=== PATIENT | male | born 1990 | race Caucasian/White ===

== ENCOUNTER 2017-05-26 17:37 | Inpatient (IN) | payer BC ==
[2017-05-26] VITALS: BP 122/76
[~2017-05-26] VITALS: Ht 185.4 cm; Wt 122.1 kg
[2017-05-26] MEDS ORDERED: Sodium Chloride 500ML 500 ML IV ONE (17:57)
[2017-05-26] MEDS ORDERED: Solu-MEDROL 125mg Inj IVP ONE (18:00)
[2017-05-26] MEDS: Albuterol ud Inhalation HHN SCH ×6 (18:40→22:06)
[2017-05-26] MEDS: Ipratropium 0.02% Inh Soln 2.5ml UD HHN SCH ×6 (18:44→22:06)
[2017-05-26 19:23] VITALS: BP 96/66
[2017-05-26 20:02] LABS: HEMATOCRIT 46.2 % (42.0-52.0); HEMOGLOBIN 15.3 G/DL (14.2-18.0); MEAN CORPUSCULAR VOLUME 89 FL (80-99); PLATELET COUNT 320 K/UL (150-450); RED BLOOD COUNT 5.17 M/UL (4.70-6.10); WHITE BLOOD COUNT 12.1 K/UL (4.8-10.8)
[2017-05-26 20:03] LABS: APPEARANCE,URINE CLEAR; BILIRUBIN, URINE NEGATIVE (NEGATIVE); GLUCOSE, URINE (UA) 3+ (NEGATIVE); KETONES,URINE NEGATIVE (NEGATIVE); LEUKOCYTE ESTERASE ,URINE NEGATIVE (NEGATIVE); NITRITE,URINE NEGATIVE (NEGATIVE); PH,URINE 5 (4.5-8.0); PROTEIN,URINE 3+ (NEGATIVE); UROBILINOGEN,URINE NORMAL MG/DL (0.0-1.0)
[2017-05-26 20:05] LABS: COLOR,URINE YELLOW
[2017-05-26 20:09] LABS: ANION GAP 15 mmol/L (5-15); BLOOD UREA NITROGEN 31 mg/dL (7-18); CALCIUM 7.6 MG/DL (8.5-10.1); CARBON DIOXIDE 25 MMOL/L (21-32); CHLORIDE 96 MMOL/L (98-107); CREATININE 2.7 MG/DL (0.55-1.30); POTASSIUM 3.7 MMOL/L (3.5-5.1); SODIUM 135 MMOL/L (136-145)
[2017-05-26] MEDS ORDERED: TOPAMAX25 MG ORAL (20:21)
[2017-05-26] MEDS ORDERED: BUTALBITAL-ACE1 EACH PO (20:21)
[2017-05-26] MEDS ORDERED: DICYCLOMINE HCL20 M1 PO (20:21)
[2017-05-26] MEDS ORDERED: KLONOPIN1 MG ORAL (20:21)
[2017-05-26] MEDS ORDERED: TEMAZEPAM30 MG ORAL (20:21)
[2017-05-26 20:22] LABS: ALANINE AMINOTRANSFERASE 319 U/L (12-78); ALBUMIN 3.7 G/DL (3.4-5.0); ALKALINE PHOSPHATASE 63 U/L (46-116); ASPARTATE AMINO TRANSFERASE 436 U/L (15-37); BILIRUBIN,TOTAL 0.5 MG/DL (0.2-1.0); CKMB 103.6 NG/ML (0.0-3.6); CREATINE KINASE 12066 U/L (26-308)
[2017-05-26] MEDS ORDERED: Piperacillin/Tazobactam 3.375 GM in NS 110 ML IVPB ONE (20:30)
[2017-05-26] MEDS ORDERED: Morphine Sulfate 4mg/ml Inj IVP ONE ×2 (20:30→22:45)
[2017-05-26] MEDS ORDERED: Azithromycin 500 MG in NS 275 ML IV ONE (20:30)
[2017-05-26] MEDS ORDERED: Azithromycin 500mg Inj IV ONE (21:32)
--- NOTE | 2017-05-26 22:42 | Emergency Room Report ---
History of Present Illness General Chief Complaint: Dyspnea/Respdistress Source: Patient Present Illness HPI 27-year-old male presents to ED for evaluation of shortness of breath. Per EMS patient had low O2 sat with wheezing and was started on breathing treatments. Patient states that he had recently been admitted to a hospital in [place] for pneumonia and was recently discharge. States he is here traveling. Denies chest pain. Denies fevers or chills. No other aggravating or relieving factors. Denies any other associated symptom Allergies: Coded Allergies: No Known Allergies (Unverified , 05/26/17) Patient History Past Medical History: HTN Past Surgical History: none Pertinent Family History: none Social History: Denies: smoking, alcohol use, drug use Immunizations: UTD Reviewed Nursing Documentation: PMH: Agreed, PSxH: Agreed Nursing Documentation-PMH Hx Hypertension: Yes Review of Systems All Other Systems: negative except mentioned in HPI Physical Exam Vital Signs Date Time Temp Pulse Resp B/P (MAP) Pulse Ox O2 Delivery O2 Flow Rate FiO2 05/26/17 17:33 98.1 90 22 126/67 97 Room Air 05/26/17 18:35 21 Sp02 EP Interpretation: reviewed, normal General Appearance: alert, GCS 15, non-toxic, mild distress, obese Head: normocephalic Eyes: bilateral eye normal inspection, bilateral eye PERRL ENT: normal ENT inspection Neck: normal inspection Respiratory: accessory muscle use, crackles, wheezing Cardiovascular #1: regular rate, rhythm, no edema Gastrointestinal: normal inspection Rectal: deferred Genitourinary: no CVA tenderness Musculoskeletal: normal inspection Neurologic: alert, oriented x3, responsive, motor strength/tone normal, sensory intact, speech normal Psychiatric: normal inspection Skin: normal inspection Lymphatic: normal inspection Medical Decision Making Diagnostic Impression: Primary Impression: Pneumonia Qualified Codes: J18.1 - Lobar pneumonia, unspecified organism Additional Impressions: Rhabdomyolysis Qualified Codes: M62.82 - Rhabdomyolysis Renal insufficiency Elevated troponin Respiratory distress Sepsis Qualified Codes: A41.9 - Sepsis, unspecified organism ER Course Hospital Course 27-year-old M presenting to ED with respiratory distress, cough and crackles Differential diagnoses include: Pneumonia, CHF exacerbation, pneumothorax, fluid overload Clinical course Patient placed on stretcher. On hospital monitor with hypoxia on room air and tachycardia. After initial history and physical, I ordered nebulizer treatments. I ordered labs, IV fluids, EKG, chest x-ray, blood cultures, UA. Patient placed on nasal cannula with O2 saturation improving Labs -leukocytosis noted, hemoglobin/hematocrit stable, BUN/Cr elevated, CK > 12 ,000, trop elevated, lactate > 6 EKG - sinus tachycardia no acute ischemic changes interpreted by me CXR - L upper lobe infiltrate Patient given 30 mL per KG fluid bolus. Given antibiotics. Case discussed with Dr. Tang and he agreed to the patient to his service for further care and support I feel this is a highly complex case requiring extensive working including EKG/ Rhythm strip, Xray/CT/US, Blood/urine lab work, repeat exams while in ED, and administration of strong opiates/narcotics for pain control, admission to hospital or close patient follow up. Diagnosis - pneumonia, rhabdomyolysis, renal insufficiency, elevated troponin, respiratory distress, sepsis Patient admitted to telemetry in serious condition Labs Test 05/26/17 18:50 05/26/17 19:22 Urine Color Yellow Urine Appearance Clear Urine pH 5 (4.5-8.0) Urine Specific [place] 1.025 (1.005-1.035) Urine Protein 3+ (NEGATIVE) Urine Glucose (UA) 3+ (NEGATIVE) Urine Ketones Negative (NEGATIVE) Urine Occult Blood 5+ (NEGATIVE) Urine Nitrite Negative (NEGATIVE) Urine Bilirubin Negative (NEGATIVE) Urine Urobilinogen Normal MG/DL (0.0-1.0) Urine Leukocyte Esterase Negative (NEGATIVE) Urine RBC 2-4 /HPF (0 - 0) Urine WBC 0-2 /HPF (0 - 0) Urine Squamous Epithelial Cells Occasional /LPF Urine Bacteria Few /HPF (NONE) White Blood Count 12.1 K/UL (4.8-10.8) Red Blood Count 5.17 M/UL (4.70-6.10) Hemoglobin 15.3 G/DL (14.2-18.0) Hematocrit 46.2 % (42.0-52.0) Mean Corpuscular Volume 89 FL (80-99) Mean Corpuscular Hemoglobin 29.6 PG (27.0-31.0) Mean Corpuscular Hemoglobin Concent 33.2 G/DL (32.0-36.0) Red Cell Distribution Width 12.0 % (11.6-14.8) Platelet Count 320 K/UL (150-450) Mean Platelet Volume 7.7 FL (6.5-10.1) Neutrophils (%) (Auto) % (45.0-75.0) Lymphocytes (%) (Auto) % (20.0-45.0) Monocytes (%) (Auto) % (1.0-10.0) Eosinophils (%) (Auto) % (0.0-3.0) Basophils (%) (Auto) % (0.0-2.0) Differential Total Cells Counted 100 Neutrophils % (Manual) 76 % (45-75) Lymphocytes % (Manual) 10 % (20-45) Monocytes % (Manual) 4 % (1-10) Eosinophils % (Manual) 0 % (0-3) Basophils % (Manual) 0 % (0-2) Band Neutrophils 10 % (0-8) Platelet Estimate Adequate Platelet Morphology Normal Red Blood Cell Morphology Normal Sodium Level 135 MMOL/L (136-145) Potassium Level 3.7 MMOL/L (3.5-5.1) Chloride Level 96 MMOL/L (98-107) Carbon Dioxide Level 25 MMOL/L (21-32) Anion Gap 15 mmol/L (5-15) Blood Urea Nitrogen 31 mg/dL (7-18) Creatinine 2.7 MG/DL (0.55-1.30) Estimat Glomerular Filtration Rate 28.1 mL/min (>60) Glucose Level 183 MG/DL (74-106) Lactic Acid Level 6.80 mmol/L (0.66-2.22) Calcium Level 7.6 MG/DL (8.5-10.1) Total Bilirubin 0.5 MG/DL (0.2-1.0) Aspartate Amino Transf (AST/SGOT) 436 U/L (15-37) Alanine Aminotransferase (ALT/SGPT) 319 U/L (12-78) Alkaline Phosphatase 63 U/L (46-116) Total Creatine Kinase 62302 U/L (26-308) Creatine Kinase MB 103.6 NG/ML (0.0-3.6) Creatine Kinase MB Relative Index 0.8 Troponin I 0.326 ng/mL (0.000-0.056) Pro-B-Type Natriuretic Peptide 1980 pg/mL (0-125) Total Protein 7.3 G/DL (6.4-8.2) Albumin 3.7 G/DL (3.4-5.0) Globulin 3.6 g/dL Albumin/Globulin Ratio 1.0 (1.0-2.7) EKG Diagnostic Results Rate: tachycardiac Rhythm: NSR ST Segments: no acute changes ASA given to the pt in ED: Yes Rhythm Strip Diag. Results EP Interpretation: yes Rhythm: NSR, no PVC's, no ectopy Chest X-Ray Diagnostic Results Chest X-Ray Diagnostic Results : Chest X-Ray Ordered: Yes # of Views/Limited/Complete: 1 View Indication: Shortness of Breath EP Interpretation: Yes Interpretation: no pneumothorax, no acute cardiopulmonary disease, other - BRITTA infiltrate Impression: Other - pneumonia Electronically Signed by: Electronically signed by Salvatore Valentine MD Last Vital Signs Date Time Temp Pulse Resp B/P (MAP) Pulse Ox O2 Delivery O2 Flow Rate FiO2 05/26/17 22:26 108 17 95 Room Air 21 05/26/17 21:01 98.0 05/26/17 19:23 96/66 Status: improved Disposition: ADMITTED INPATIENT Condition: Serious Referrals: NOT CHOSEN CLAY/,REFERRING (PCP) SALVATORE VALENTINE M.D. May 26, 2017 22:42
[2017-05-26] MEDS ORDERED: NS 1000ml 3,500 ML IVLG ONE (22:45)
[2017-05-26] MEDS ORDERED: Ketorolac 30mg Inj ONE (22:45)
[2017-05-26] MEDS ORDERED: Ketorolac 30mg Inj IV ONE (22:45)
[2017-05-26 22:53] VITALS: BP 114/61
[2017-05-27 04:44] VITALS: BP 115/65
[2017-05-27 08:00] VITALS: BP 122/68
[2017-05-27] MEDS ORDERED: Zolpidem 5mg tab ORAL PRN (08:15)
--- NOTE | 2017-05-27 08:49 | History & Physical ---
History and Physical History & Physicial 27-year-old male presents with shortness of breath.Patient noted to have a low O2 sat with wheezing and was started on breathing treatments on arrival. Patient with recent admission to a hospital in [place] for pneumonia and was recently discharged. States is traveling and presented to the ER. Denies chest pain. Denies fevers or chills. No other aggravating or relieving factors. Denies any other associated symptom. Patient noted to have acute renal failure and rhabdo. Allergies: No Known Allergies (Unverified , 05/26/17) Past Medical History: HTN, pneumonia Past Surgical History: none Pertinent Family History: none Social History: Denies: smoking, alcohol use, drug use Reviewed of systems: as above Physical exam WDWN NAD coarse breath sounds [id number] without MRG NABS nontender no HSM no CCE nonfocal Labs Test 05/26/17 18:50 05/26/17 19:22 05/26/17 22:42 Urine Color Yellow Urine Appearance Clear Urine pH 5 (4.5-8.0) Urine Specific [place] 1.025 (1.005-1.035) Urine Protein 3+ (NEGATIVE) Urine Glucose (UA) 3+ (NEGATIVE) Urine Ketones Negative (NEGATIVE) Urine Occult Blood 5+ (NEGATIVE) Urine Nitrite Negative (NEGATIVE) Urine Bilirubin Negative (NEGATIVE) Urine Urobilinogen Normal MG/DL (0.0-1.0) Urine Leukocyte Esterase Negative (NEGATIVE) Urine RBC 2-4 /HPF (0 - 0) Urine WBC 0-2 /HPF (0 - 0) Urine Squamous Epithelial Cells Occasional /LPF Urine Bacteria Few /HPF (NONE) White Blood Count 12.1 K/UL (4.8-10.8) Red Blood Count 5.17 M/UL (4.70-6.10) Hemoglobin 15.3 G/DL (14.2-18.0) Hematocrit 46.2 % (42.0-52.0) Mean Corpuscular Volume 89 FL (80-99) Mean Corpuscular Hemoglobin 29.6 PG (27.0-31.0) Mean Corpuscular Hemoglobin Concent 33.2 G/DL (32.0-36.0) Red Cell Distribution Width 12.0 % (11.6-14.8) Platelet Count 320 K/UL (150-450) Mean Platelet Volume 7.7 FL (6.5-10.1) Neutrophils (%) (Auto) % (45.0-75.0) Lymphocytes (%) (Auto) % (20.0-45.0) Monocytes (%) (Auto) % (1.0-10.0) Eosinophils (%) (Auto) % (0.0-3.0) Basophils (%) (Auto) % (0.0-2.0) Differential Total Cells Counted 100 Neutrophils % (Manual) 76 % (45-75) Lymphocytes % (Manual) 10 % (20-45) Monocytes % (Manual) 4 % (1-10) Eosinophils % (Manual) 0 % (0-3) Basophils % (Manual) 0 % (0-2) Band Neutrophils 10 % (0-8) Platelet Estimate Adequate Platelet Morphology Normal Red Blood Cell Morphology Normal Sodium Level 135 MMOL/L (136-145) Potassium Level 3.7 MMOL/L (3.5-5.1) Chloride Level 96 MMOL/L (98-107) Carbon Dioxide Level 25 MMOL/L (21-32) Anion Gap 15 mmol/L (5-15) Blood Urea Nitrogen 31 mg/dL (7-18) Creatinine 2.7 MG/DL (0.55-1.30) Estimat Glomerular Filtration Rate 28.1 mL/min (>60) Glucose Level 183 MG/DL (74-106) Lactic Acid Level 6.80 mmol/L (0.66-2.22) 13.00 mmol/L (0.66-2.22) Calcium Level 7.6 MG/DL (8.5-10.1) Total Bilirubin 0.5 MG/DL (0.2-1.0) Aspartate Amino Transf (AST/SGOT) 436 U/L (15-37) Alanine Aminotransferase (ALT/SGPT) 319 U/L (12-78) Alkaline Phosphatase 63 U/L (46-116) Total Creatine Kinase 16564 U/L (26-308) Creatine Kinase MB 103.6 NG/ML (0.0-3.6) Creatine Kinase MB Relative Index 0.8 Troponin I 0.326 ng/mL (0.000-0.056) Pro-B-Type Natriuretic Peptide 1980 pg/mL (0-125) Total Protein 7.3 G/DL (6.4-8.2) Albumin 3.7 G/DL (3.4-5.0) Globulin 3.6 g/dL Albumin/Globulin Ratio 1.0 (1.0-2.7) IMPRESSION ARF rhabdo elevated Liver enzyme elevated troponin Pneumonia dyspnea elevated CK PLAN Iv hydration follow up labs and liver enzymes renal US GI and renal evaluation IV antibiotics ID evaluation pain management close followup all noted and appreciated MEGAN العلي May 27, 2017 08:49
[2017-05-27] MEDS ORDERED: Aspirin Baby 81mg ORAL SCH (09:00)
--- NOTE | 2017-05-27 09:24 | General Progress Note ---
Assessment/Plan Assessment/Plan Assessment - Rhabdo - Elevated transaminases, likely due to above - Lactic acidosis - Epigastric pain , ? etiology - Reactive airways - recent PNA - hemoptysis Recommendations - IVF - Follow LFT - CT Abd/Plevis with po contrast only - follow lactate and Cr - check hepatitis serologies - clear liquids for now - PPI - Hold ASA, Tylenol, Topamax Thank you Sukumar Mcmillan MD Subjective Allergies: Coded Allergies: No Known Allergies (Unverified , 05/26/17) Objective Last 24 Hour Vital Signs Date Time Temp Pulse Resp B/P (MAP) Pulse Ox O2 Delivery O2 Flow Rate FiO2 05/27/17 04:44 98.4 105 20 115/65 92 05/27/17 04:00 105 05/27/17 00:00 102 05/26/17 23:30 98.0 85 20 114/61 100 Nasal Cannula 3.0 21 05/26/17 23:20 98.0 05/26/17 23:20 98.0 05/26/17 22:53 85 20 114/61 100 Nasal Cannula 3.0 05/26/17 22:26 108 17 95 Room Air 21 05/26/17 22:04 21 05/26/17 22:04 105 24 94 Room Air 21 05/26/17 22:04 105 24 94 Room Air 21 05/26/17 21:38 21 05/26/17 21:38 105 24 94 Room Air 21 05/26/17 21:38 105 24 94 Room Air 21 05/26/17 21:17 21 05/26/17 21:17 105 24 94 Room Air 21 05/26/17 21:15 105 24 Room Air 21 05/26/17 21:01 98.0 05/26/17 20:14 105 24 94 Room Air 21 05/26/17 19:39 21 05/26/17 19:38 105 24 94 Room Air 21 05/26/17 19:37 105 24 96 Simple Mask 05/26/17 19:23 105 24 96/66 96 Simple Mask 05/26/17 19:21 100 22 93 Room Air 21 05/26/17 19:21 21 05/26/17 19:18 100 22 93 Room Air 21 05/26/17 19:00 100 22 Room Air 21 05/26/17 18:47 21 05/26/17 18:39 100 22 93 Room Air 21 05/26/17 18:35 100 22 Room Air 21 05/26/17 17:33 98.1 90 22 126/67 97 Room Air Intake and Output 05/26/17 05/27/17 19:00 07:00 Intake Total 500 ml 1690 ml Output Total 1000 ml Balance 500 ml 690 ml Intake Oral 480 ml IV Total 500 ml 1210 ml Output Urine Total 1000 ml # Voids 1 1 Laboratory Tests 05/26/17 18:50: Urine Color Yellow, Urine Appearance Clear, Urine pH 5, Urine Specific [place] 1.025, Urine Protein 3+H, Urine Glucose (UA) 3+H, Urine Ketones Negative, Urine Occult Blood 5+H, Urine Nitrite Negative, Urine Bilirubin Negative, Urine Urobilinogen Normal, Urine Leukocyte Esterase Negative, Urine RBC 2-4H, Urine WBC 0-2, Urine Squamous Epithelial Cells Occasional, Urine Bacteria Few 05/26/17 19:22: White Blood Count 12.1H, Red Blood Count 5.17, Hemoglobin 15.3, Hematocrit 46.2 , Mean Corpuscular Volume 89, Mean Corpuscular Hemoglobin 29.6, Mean Corpuscular Hemoglobin Concent 33.2, Red Cell Distribution Width 12.0, Platelet Count 320, Mean Platelet Volume 7.7, Neutrophils (%) (Auto) , Lymphocytes (%) ( Auto) , Monocytes (%) (Auto) , Eosinophils (%) (Auto) , Basophils (%) (Auto) , Differential Total Cells Counted 100, Neutrophils % (Manual) 76H, Lymphocytes % (Manual) 10L, Monocytes % (Manual) 4, Eosinophils % (Manual) 0, Basophils % ( Manual) 0, Band Neutrophils 10H, Platelet Estimate Adequate, Platelet Morphology Normal, Red Blood Cell Morphology Normal, Sodium Level 135L, Potassium Level 3.7, Chloride Level 96L, Carbon Dioxide Level 25, Anion Gap 15, Blood Urea Nitrogen 31H, Creatinine 2.7H, Estimat Glomerular Filtration Rate 28.1, Glucose Level 183H, Lactic Acid Level 6.80H, Calcium Level 7.6L, Total Bilirubin 0.5, Aspartate Amino Transf (AST/SGOT) 436H, Alanine Aminotransferase (ALT/SGPT) 319H, Alkaline Phosphatase 63, Total Creatine Kinase 18299X, Creatine Kinase MB 103.6H, Creatine Kinase MB Relative Index 0.8, Troponin I 0.326H, Pro-B-Type Natriuretic Peptide 1980H, Total Protein 7.3, Albumin 3.7, Globulin 3.6, Albumin/Globulin Ratio 1.0 05/26/17 22:42: Lactic Acid Level 13.00H Height (Feet): 6 Height (Inches): 1.00 Weight (Pounds): 260 SUKUMAR MCMILLAN May 27, 2017 09:24
[2017-05-27] MEDS: Albuterol/Ipratropium 3ml neb HHN PRN (09:25)
[2017-05-27] MEDS: Sodium Chloride 500ML 550 ML IV SCH ×5 (09:29→22:55)
[2017-05-27] MEDS: Heparin 5000 units/ml inj SUBQ SCH ×2 (09:37→20:55)
[2017-05-27] MEDS ORDERED: Topiramate 25mg tab ORAL SCH (10:00)
[2017-05-27] MEDS: Norco 5mg/325mg tab ORAL PRN ×2 (10:45→17:05)
[2017-05-27 10:48] LABS: HEMATOCRIT 39.2 % (42.0-52.0); HEMOGLOBIN 13.5 G/DL (14.2-18.0); MEAN CORPUSCULAR VOLUME 86 FL (80-99); PLATELET COUNT 229 K/UL (150-450); RED BLOOD COUNT 4.53 M/UL (4.70-6.10); RED CELL DISTRIBUTION WIDTH 11.5 % (11.6-14.8); WHITE BLOOD COUNT 19.2 K/UL (4.8-10.8)
[2017-05-27] MEDS ORDERED: cefTRIAXone 1 GM in D5W 55 ML IVPB SCH (11:00)
[2017-05-27 11:27] LABS: ANION GAP 11 mmol/L (5-15); BLOOD UREA NITROGEN 31 mg/dL (7-18); CALCIUM 7.5 MG/DL (8.5-10.1); CARBON DIOXIDE 25 MMOL/L (21-32); CHLORIDE 103 MMOL/L (98-107); CHOLESTEROL 117 MG/DL (< 200); CREATINE KINASE 8174 U/L (26-308); CREATININE 2.4 MG/DL (0.55-1.30); HDL CHOLESTEROL 28 MG/DL (40-60); POTASSIUM 3.2 MMOL/L (3.5-5.1); SODIUM 139 MMOL/L (136-145); TRIGLYCERIDES 226 MG/DL (30-150)
[2017-05-27 12:00] VITALS: BP 111/57
--- NOTE | 2017-05-27 12:42 | Diagnostic Imaging Report ---
Indication: Dyspnea Technique: XRAY Chest 1v Comparison: None Findings: Patient is rotated to the right. Heart is enlarged. Mediastinal contours are sharp. There is mild central pulmonary vascular congestion. There is hazy consolidation in the left upper lobe. No pleural effusion. No pneumothorax. No acute osseous abnormality seen. Impression: Hazy left upper lobe opacity most concerning for pneumonia. This corresponds with the pulmonary interpretation of the treating ER physician. Mild cardiomegaly.
[2017-05-27] MEDS ORDERED: Dicyclomine HCl 10mg/5ml oral soln ORAL PRN (13:00)
[2017-05-27] MEDS: Solu-MEDROL 40mg Inj IVP SCH ×2 (14:41→22:27)
[2017-05-27 16:00] VITALS: BP 116/70
--- NOTE | 2017-05-27 18:03 | Cardiology Progress Note ---
Assessment/Plan Assessment/Plan The patient is seen and examined, full consult note is dictated. Objective Last 24 Hour Vital Signs Date Time Temp Pulse Resp B/P (MAP) Pulse Ox O2 Delivery O2 Flow Rate FiO2 05/27/17 09:40 28 05/27/17 09:40 99 22 94 Nasal Cannula 2.0 28 05/27/17 09:30 98 22 90 Nasal Cannula 2.0 28 05/27/17 08:00 98.2 107 18 122/68 94 05/27/17 04:44 98.4 105 20 115/65 92 05/27/17 04:00 105 05/27/17 00:00 102 05/26/17 23:30 98.0 85 20 114/61 100 Nasal Cannula 3.0 21 05/26/17 23:20 98.0 05/26/17 23:20 98.0 05/26/17 22:53 85 20 114/61 100 Nasal Cannula 3.0 05/26/17 22:26 108 17 95 Room Air 21 05/26/17 22:04 21 05/26/17 22:04 105 24 94 Room Air 21 05/26/17 22:04 105 24 94 Room Air 21 05/26/17 21:38 21 05/26/17 21:38 105 24 94 Room Air 21 05/26/17 21:38 105 24 94 Room Air 21 05/26/17 21:17 21 05/26/17 21:17 105 24 94 Room Air 21 05/26/17 21:15 105 24 Room Air 21 05/26/17 21:01 98.0 05/26/17 20:14 105 24 94 Room Air 21 05/26/17 19:39 21 05/26/17 19:38 105 24 94 Room Air 21 05/26/17 19:37 105 24 96 Simple Mask 21 05/26/17 19:23 105 24 96/66 96 Simple Mask 05/26/17 19:21 100 22 93 Room Air 21 05/26/17 19:21 21 05/26/17 19:18 100 22 93 Room Air 21 05/26/17 19:00 100 22 Room Air 21 05/26/17 18:47 21 05/26/17 18:39 100 22 93 Room Air 21 05/26/17 18:35 100 22 Room Air 21 Intake and Output 05/26/17 05/27/17 19:00 07:00 Intake Total 500 ml 1690 ml Output Total 1000 ml Balance 500 ml 690 ml Intake Oral 480 ml IV Total 500 ml 1210 ml Output Urine Total 1000 ml # Voids 1 1 Laboratory Tests Test 05/26/17 18:50 05/26/17 19:22 05/26/17 22:42 05/27/17 10:15 Urine Color Yellow Urine Appearance Clear Urine pH 5 (4.5-8.0) Urine Specific [place] 1.025 (1.005-1.035) Urine Protein 3+ (NEGATIVE) H Urine Glucose (UA) 3+ (NEGATIVE) H Urine Ketones Negative (NEGATIVE) Urine Occult Blood 5+ (NEGATIVE) H Urine Nitrite Negative (NEGATIVE) Urine Bilirubin Negative (NEGATIVE) Urine Urobilinogen Normal MG/DL (0.0-1.0) Urine Leukocyte Esterase Negative (NEGATIVE) Urine RBC 2-4 /HPF (0 - 0) H Urine WBC 0-2 /HPF (0 - 0) Urine Squamous Epithelial Cells Occasional /LPF Urine Bacteria Few /HPF (NONE) White Blood Count 12.1 K/UL (4.8-10.8) H 19.2 K/UL (4.8-10.8) #H Red Blood Count 5.17 M/UL (4.70-6.10) 4.53 M/UL (4.70-6.10) L Hemoglobin 15.3 G/DL (14.2-18.0) 13.5 G/DL (14.2-18.0) L Hematocrit 46.2 % (42.0-52.0) 39.2 % (42.0-52.0) L Mean Corpuscular Volume 89 FL (80-99) 86 FL (80-99) Mean Corpuscular Hemoglobin 29.6 PG (27.0-31.0) 29.9 PG (27.0-31.0) Mean Corpuscular Hemoglobin Concent 33.2 G/DL (32.0-36.0) 34.6 G/DL (32.0-36.0) Red Cell Distribution Width 12.0 % (11.6-14.8) 11.5 % (11.6-14.8) L Platelet Count 320 K/UL (150-450) 229 K/UL (150-450) Mean Platelet Volume 7.7 FL (6.5-10.1) 7.8 FL (6.5-10.1) Neutrophils (%) (Auto) % (45.0-75.0) % (45.0-75.0) Lymphocytes (%) (Auto) % (20.0-45.0) % (20.0-45.0) Monocytes (%) (Auto) % (1.0-10.0) % (1.0-10.0) Eosinophils (%) (Auto) % (0.0-3.0) % (0.0-3.0) Basophils (%) (Auto) % (0.0-2.0) % (0.0-2.0) Differential Total Cells Counted 100 100 Neutrophils % (Manual) 76 % (45-75) H 66 % (45-75) Lymphocytes % (Manual) 10 % (20-45) L 11 % (20-45) L Monocytes % (Manual) 4 % (1-10) 7 % (1-10) Eosinophils % (Manual) 0 % (0-3) 0 % (0-3) Basophils % (Manual) 0 % (0-2) 0 % (0-2) Band Neutrophils 10 % (0-8) H 16 % (0-8) H Platelet Estimate Adequate Adequate Platelet Morphology Normal Normal Red Blood Cell Morphology Normal Normal Sodium Level 135 MMOL/L (136-145) L 139 MMOL/L (136-145) Potassium Level 3.7 MMOL/L (3.5-5.1) 3.2 MMOL/L (3.5-5.1) L Chloride Level 96 MMOL/L (98-107) L 103 MMOL/L (98-107) Carbon Dioxide Level 25 MMOL/L (21-32) 25 MMOL/L (21-32) Anion Gap 15 mmol/L (5-15) 11 mmol/L (5-15) Blood Urea Nitrogen 31 mg/dL (7-18) H 31 mg/dL (7-18) H Creatinine 2.7 MG/DL (0.55-1.30) H 2.4 MG/DL (0.55-1.30) H Estimat Glomerular Filtration Rate 28.1 mL/min (>60) 32.2 mL/min (>60) Glucose Level 183 MG/DL (74-106) H 167 MG/DL (74-106) H Lactic Acid Level 6.80 mmol/L (0.66-2.22) H 13.00 mmol/L (0.66-2.22) H Calcium Level 7.6 MG/DL (8.5-10.1) L 7.5 MG/DL (8.5-10.1) L Total Bilirubin 0.5 MG/DL (0.2-1.0) Aspartate Amino Transf (AST/SGOT) 436 U/L (15-37) H Alanine Aminotransferase (ALT/SGPT) 319 U/L (12-78) H Alkaline Phosphatase 63 U/L (46-116) Total Creatine Kinase 68489 U/L (26-308) H 8174 U/L (26-308) H Creatine Kinase MB 103.6 NG/ML (0.0-3.6) H Creatine Kinase MB Relative Index 0.8 Troponin I 0.326 ng/mL (0.000-0.056) 0.972 ng/mL (0.000-0.056) Pro-B-Type Natriuretic Peptide 1980 pg/mL (0-125) H Total Protein 7.3 G/DL (6.4-8.2) Albumin 3.7 G/DL (3.4-5.0) Globulin 3.6 g/dL Albumin/Globulin Ratio 1.0 (1.0-2.7) Triglycerides Level 226 MG/DL (30-150) H Cholesterol Level 117 MG/DL (< 200) LDL Cholesterol 56 mg/dL (<100) HDL Cholesterol 28 MG/DL (40-60) L Cholesterol/HDL Ratio 4.2 (3.3-4.4) Test 05/27/17 11:20 Urine Eosinophils None seen Urine Random Sodium 15 MEQ/L (20-110) L Urine Creatinine 69.1 MG/DL (30.0-125.0) Microbiology Date/Time Source Procedure Growth Status 05/26/17 19:22 Nasal Nares Influenza Types A,B Antigen (DEANA) - Final Complete CRISTA MURPHY May 27, 2017 18:03
[2017-05-27] MEDS: Morphine Sulfate 4mg/ml Inj IVP PRN ×2 (18:49→22:29)
[2017-05-27] MEDS ORDERED: Morphine Sulfate 2mg/ml Inj IVP PRN (19:00)
[2017-05-27 20:00] VITALS: BP 132/90
[2017-05-28] VITALS: BP 124/80
[2017-05-28] MEDS: Albuterol/Ipratropium 3ml neb HHN PRN ×2 (00:20→21:14)
[2017-05-28] MEDS: Sodium Chloride 500ML 550 ML IV SCH ×6 (01:16→21:41)
[2017-05-28] MEDS: Morphine Sulfate 4mg/ml Inj IVP PRN ×6 (02:53→21:41)
--- NOTE | 2017-05-28 04:15 | Consultation ---
DATE OF CONSULTATION: 05/27/2017 CARDIOLOGY CONSULTATION CONSULTING PHYSICIAN: Miguel Leiva M.D. ATTENDING/REFERRING PHYSICIAN: Stu Tang M.D. REASON FOR CONSULTATION: Management of shortness of breath and elevated troponin level. HISTORY OF PRESENT ILLNESS: The patient is a very unfortunate 27-year-old gentleman, who presents to the emergency department for evaluation of shortness of breath. According to EMS, the patient had low O2 saturation with wheezing and was started on breathing treatment. He was recently admitted to hospital in [place] for pneumonia and was recently discharged. He states that he is visiting [place] on vacation. He denies any chest pain at the time of arrival to the hospital, but had some fever and chills prior to this admission while he was admitted for pneumonia in [place]. He denies any prior history of coronary artery disease or congestive heart failure. He states that he did not have any shortness of breath with his usual activities of daily living. He is seen in cardiology consultation as the troponin I level was elevated. A 12-lead electrocardiogram was assessed and showed no evidence of ST and T-wave abnormalities. This patient is seen in cardiology consultation at the request of Dr. Tang. PAST MEDICAL HISTORY: 1. Hypertension. 2. Obesity. 3. History of recent pneumonia admitted to a hospital in [place]. PAST SURGICAL HISTORY: None. MEDICATIONS: List of medication as an outpatient, he is on butalbital/acetaminophen 50/300 mg one tablet every six hours, Klonopin 1 mg three times a day p.r.n. anxiety, dicyclomine hydrochloride 20 mg p.o. two times a day, temazepam 30 mg p.o. nightly p.r.n. insomnia, and Topamax 25 mg q.12 h. SOCIAL HISTORY: Denies any tobacco, alcohol, or illicit drug use. FAMILY HISTORY: No premature coronary artery disease or arrhythmogenic in first-degree relatives. REVIEW OF SYSTEMS: HEENT: He is complaining of headaches, but no dizziness or blurred vision. CONSTITUTIONAL: He complains of generalized body pain and weakness. He had fever and chills in the recent past, but currently denying it. CARDIOVASCULAR: He had some chest pain and shortness of breath, but no PND, orthopnea, or leg swelling. Denies any syncope. PULMONARY: Denies any cough, although he has wheezing, shortness of breath, and low O2 saturation. GASTROINTESTINAL: Denies any nausea, vomiting, diarrhea, constipation, abdominal pain, or GI bleed. GENITOURINARY: Denies any hematuria, dysuria, or incontinence. NEUROLOGICAL: Denies any motor dysfunction, sensory deficit, or altered speech. PHYSICAL EXAMINATION: VITAL SIGNS: At the time of arrival to the emergency department, blood pressure was 126/67, pulse of 90, respirations 22, temperature 98.1 degrees Fahrenheit, and O2 saturation 97% on room air. GENERAL: The patient is a pleasant 27-year-old gentleman, morbidly obese, in no apparent respiratory distress, complaining of generalized body pain. HEENT: Atraumatic, normocephalic. Anicteric. Pupils are equal, round, and reactive to light and accommodation. Extraocular muscles intact. NECK: JVP less than 5 cmH2O. No carotid bruit. Carotid upstrokes 2+ bilaterally. CARDIOVASCULAR SYSTEM: Normal S1, S2. Regular rate and rhythm. No murmurs, gallops, or rubs. PMI is at fourth intercostal space in the midclavicular line. LUNGS: Clear to auscultation bilaterally. ABDOMEN: Soft, nontender, nondistended. No hepatosplenomegaly. Positive bowel sounds. EXTREMITIES: No evidence of edema, clubbing, or cyanosis. LABORATORY FINDINGS: WBC of 12.1, hemoglobin of 15.3, hematocrit of 46.2, and platelet count 320,000. There was between 10% to 16% bandemia. Chemistry showed sodium 135, potassium 3.7, chloride 96, bicarbonate 25, BUN of 31, creatinine 2.7, glucose is 183, and calcium is 7.3. CK-MB was 103.6. Total CK was 12,066. ProBNP was 1980. Troponin I first was 0.326 and second was 0.972. A 12-lead electrocardiogram showed sinus tachycardia with no ST and T-wave abnormalities. A chest x-ray showed left upper lobe infiltration consistent with pneumonia. ASSESSMENT AND PLAN: The patient is a very unfortunate 27-year-old gentleman seen in cardiology consultation at the request of Dr. Tang. 1. Dyspnea, most likely due to pneumonia as there is presence of leukocytosis and bandemia. I would like to, however, perform 2D echocardiography to assess left ventricular systolic and diastolic function. I will also like to give one empiric dose of Lasix 20 mg IV push x1 dose as the chest x-ray shows some signs of underlying interstitial edema. Beta-natriuretic peptide is also slightly elevated. We will continue with measuring beta-natriuretic peptide in the morning. Further therapeutic and diagnostic decision will be based on the results of echocardiography. 2. History of hypertension, currently blood pressure is well controlled. 3. Sinus tachycardia due to infection/pneumonia. 4. Possible rhabdomyolysis. I will like to obtain urine toxicology screen in this patient. I will like to thank, Dr. Tang, for involving me in the care of this most pleasant patient. Miguel Leiva M.D. DR: Clementina JOB#: [id number] CC:
[2017-05-28 04:58] VITALS: BP 116/65
--- NOTE | 2017-05-28 05:00 | Consultation ---
DATE OF CONSULTATION: 05/27/2017 GASTROENTEROLOGY CONSULTATION REPORT CHIEF COMPLAINT: I was asked to see this patient for evaluation of abnormal liver tests. HISTORY OF PRESENT ILLNESS: The patient is a 27-year-old white man who is admitted with cough, hemoptysis, shortness of breath, and abdominal pain. This patient was apparently admitted to a [facility] about two weeks ago for pneumonia and was treated and discharged. He is now in [place] for business, but has recurrence of his symptoms. He is complaining of one week of some cough with hemoptysis, pain with breathing and with coughing. He also has significant epigastric abdominal pain. He has no spontaneous vomiting, but he was nauseous and he tried to induce emesis with his own finger. He had panendoscopy and colonoscopy few months earlier this year, but for a different type of pain, which was in the left upper quadrant and the results were unrevealing. He has not had any diarrhea, hematochezia, or melena. His emergency room evaluation has shown likely rhabdomyolysis with extremely high CPK levels and with it, his transaminases are high. He has lactic acidosis and mild elevation of CPK-MB. PAST MEDICAL HISTORY: Status post appendectomy, status post cholecystectomy, history of anal fissure surgery x2, and history of migraines. OUTPATIENT MEDICATIONS: Include Klonopin, temazepam, and Topamax. SOCIAL HISTORY: The patient does not smoke at this time, although previously smoked. He does not drink alcohol. He is involved in [employer]. FAMILY HISTORY: Noncontributory. REVIEW OF SYSTEMS: Otherwise negative. PHYSICAL EXAMINATION: GENERAL: Moderately obese white man, seen in his room. HEENT: Normocephalic and atraumatic. Sclerae anicteric. Oropharynx is clear. NECK: Supple. CHEST: Revealed bilateral wheezes and rhonchi. CARDIOVASCULAR: Revealed a regular rhythm. ABDOMEN: Soft and obese, but there was epigastric ventral abdominal tenderness to palpation with mild voluntary guarding, but no masses were appreciated. EXTREMITIES: Revealed no edema. LABORATORY AND DIAGNOSTIC DATA: Chest x-ray was noted. ASSESSMENT: This patient presents with marked elevation in his CPK in a pattern which is consistent with rhabdomyolysis. His transaminase elevation may be due to the same process due to a false positive elevation from cross-reactivity. However, his hepatitis serologies will be checked. In addition, given his significant epigastric abdominal pain, CT scan of the abdomen and pelvis should be done to rule out any other pathology especially in lieu of his lactic acidosis. I will hold few of his medications including aspirin, Tylenol, and tobramycin. Continue his Prilosec. His diet should be downgraded to clear liquids until etiology of his nausea and epigastric abdominal discomfort are identified. IV fluids should be given aggressively and his labs should be followed closely. RECOMMENDATIONS: Per above discussion and per orders written in the chart. Thank you for asking me to participate in the care of this patient. Sukumar Mcmillan M.D. DR: Michael JOB#: [id number] CC:
--- NOTE | 2017-05-28 05:15 | Consultation ---
DATE OF CONSULTATION: RENAL CONSULTATION CONSULTING PHYSICIAN: Dania Troncoso M.D. REFERRING PHYSICIAN: Stu Tang M.D. REASON FOR CONSULTATION: Elevated creatinine. HISTORY OF PRESENT ILLNESS: This is a 27-year-old gentleman with history of hypertension. The patient presented to the ER for shortness of breath with cough with blood for 3 days and renal was consulted for the elevated CPK, rhabdomyolysis, and also elevated creatinine. According to the patient, he was fine few days before and then he has been coughing up with blood for 3 days and was also shortness of breath and he presented to the ER. The patient was found to have elevated CPK and also with elevated creatinine of 2.7. The patient never been told that he has kidney problem. However, the patient confronted he used Motrin on and off for couple of months and then he did not remember when was his last use, and the patient denies any chest pain, nausea, vomiting, abdominal pain, or diarrhea. PAST MEDICAL HISTORY: Hypertension. PAST SURGICAL HISTORY: None. ALLERGIES: No known drug allergies. MEDICATION: Reviewed. SOCIAL HISTORY: Denies smoking, alcohol, and drug use. REVIEW OF SYSTEMS: A 14-point was negative as except in the history of present illness. PHYSICAL EXAMINATION: VITAL SIGNS: Blood pressure 111/57, heart rate 105, respiratory rate 18, temperature is 98.1, and oxygen saturation 95% on room air. The patient's urine output is 1650. GENERAL: On examination, the patient is in no acute distress. Coughing with blood in front of me. Alert, awake and oriented x3. HEENT: Atraumatic and normocephalic. NECK: Supple. Trachea is in the midline. LUNGS: Bilateral crackles present. No rales, no rhonchi. HEART: S1 and S2. Regular rate and rhythm. No murmur. ABDOMEN: Soft and nontender. Bowel sounds present. EXTREMITIES: No edema. LABORATORY DATA: White count 19.2, hemoglobin 13.5, hematocrit 39.2, and platelet count is 229,000. Chemistry - sodium 139, potassium 3.2, chloride 103, bicarbonate 25, BUN 31, creatinine 2.4, and glucose 157. Lactic acid 13. Calcium 7.5. CPK trended down from 12,000 to 8174, and troponin is elevated from 0.226 to 0.972, and triglyceride level is 227, and HDL 28 and LDL is 56. UA shows a specific gravity of 1.025, 3+ protein, 2+ glucose and 5+ occult blood, negative nitrite, negative leukocyte esterase, 2 to 4 RBCs, and 0 to 2 WBCs. Urine protein is negative. The chest x-ray showed that his left upper lobe opacity is most concerning for the pneumonia. ASSESSMENT: 1. Acute kidney injury. We do not have any previous laboratories to compare. According to the patient, he never been told that he has kidney disease. 2. Rhabdomyolysis. 3. Left upper lobe pneumonia. 4. Hypertension. 5. Elevated troponin. PLAN: 1. Continue IV fluids. 2. Replace potassium for hypokalemia. 3. Renal ultrasound. 4. Urine electrolyte. 5. Urine eosinophils. 6. Monitor INR and electrolytes. 7. Avoid nephrotoxic agent. 8. Medication should be in the renal dosage. Thank you for the consultation and we will follow up. Dania Troncoso M.D. DR: YAZ JOB#: [id number] CC: SARAH
[2017-05-28] MEDS: Solu-MEDROL 40mg Inj IVP SCH (06:19)
[2017-05-28 08:00] VITALS: BP 125/90
[2017-05-28 08:22] LABS: BASOPHILS % (AUTO) 0.4 % (0.0-2.0); HEMATOCRIT 39.4 % (42.0-52.0); HEMOGLOBIN 13.4 G/DL (14.2-18.0); LYMPHOCYTES % (AUTO) 8.6 % (20.0-45.0); MEAN CORPUSCULAR VOLUME 88 FL (80-99); MONOCYTES % (AUTO) 6.1 % (1.0-10.0); NEUTROPHILS % (AUTO) 84.8 % (45.0-75.0); PLATELET COUNT 223 K/UL (150-450); RED CELL DISTRIBUTION WIDTH 11.9 % (11.6-14.8); WHITE BLOOD COUNT 15.3 K/UL (4.8-10.8)
[2017-05-28 08:41] LABS: AMMONIA 41 umol/L (11-32)
[2017-05-28 08:42] LABS: INR 1.1 (0.9-1.1)
--- NOTE | 2017-05-28 08:42 | General Progress Note ---
Assessment/Plan Assessment/Plan IMPRESSION ARF rhabdo elevated Liver enzyme elevated troponin Pneumonia dyspnea elevated CK PLAN Iv hydration follow up labs and liver enzymes renal US GI and renal evaluation IV antibiotics ID evaluation hydration as able pain management close followup and monitor of labs follow up troponins- likely due to ARF and demand ischemia all noted and appreciated Subjective Allergies: Coded Allergies: No Known Allergies (Unverified , 05/26/17) Objective Last 24 Hour Vital Signs Date Time Temp Pulse Resp B/P (MAP) Pulse Ox O2 Delivery O2 Flow Rate FiO2 05/28/17 08:25 Nasal Cannula 3.0 32 05/28/17 08:25 96 Nasal Cannula 3.0 32 05/28/17 04:58 97.4 85 18 116/65 96 Room Air 05/28/17 04:00 88 05/28/17 00:27 95 19 96 Nasal Cannula 2.0 28 05/28/17 00:19 28 05/28/17 00:19 95 19 94 Nasal Cannula 2.0 28 05/28/17 00:00 95 05/28/17 00:00 98.4 98 20 124/80 Room Air 05/27/17 20:00 98.1 96 19 132/90 94 Room Air 05/27/17 20:00 98 05/27/17 16:00 98.2 94 20 116/70 95 05/27/17 16:00 99 05/27/17 12:00 98.1 105 18 111/57 95 05/27/17 12:00 101 05/27/17 09:40 28 05/27/17 09:40 99 22 94 Nasal Cannula 2.0 28 05/27/17 09:30 98 22 90 Nasal Cannula 2.0 28 Intake and Output 05/27/17 05/28/17 19:00 07:00 Intake Total 1290 ml 2070 ml Output Total 1650 ml 3020 ml Balance -360 ml -950 ml Intake Oral 240 ml 720 ml IV Total 1050 ml 1350 ml Output Urine Total 1650 ml 3020 ml # Voids 4 Laboratory Tests 05/27/17 10:15: White Blood Count 19.2#H, Red Blood Count 4.53L, Hemoglobin 13.5L, Hematocrit 39.2L, Mean Corpuscular Volume 86, Mean Corpuscular Hemoglobin 29.9, Mean Corpuscular Hemoglobin Concent 34.6, Red Cell Distribution Width 11.5L, Platelet Count 229, Mean Platelet Volume 7.8, Neutrophils (%) (Auto) , Lymphocytes (%) (Auto) , Monocytes (%) (Auto) , Eosinophils (%) (Auto) , Basophils (%) (Auto) , Differential Total Cells Counted 100, Neutrophils % ( Manual) 66, Lymphocytes % (Manual) 11L, Monocytes % (Manual) 7, Eosinophils % ( Manual) 0, Basophils % (Manual) 0, Band Neutrophils 16H, Platelet Estimate Adequate, Platelet Morphology Normal, Red Blood Cell Morphology Normal, Sodium Level 139, Potassium Level 3.2L, Chloride Level 103, Carbon Dioxide Level 25, Anion Gap 11, Blood Urea Nitrogen 31H, Creatinine 2.4H, Estimat Glomerular Filtration Rate 32.2, Glucose Level 167H, Calcium Level 7.5L, Total Creatine Kinase 8174H, Troponin I 0.972H, Triglycerides Level 226H, Cholesterol Level 117 , LDL Cholesterol 56, HDL Cholesterol 28L, Cholesterol/HDL Ratio 4.2 05/27/17 11:20: Urine Eosinophils None seen, Urine Random Sodium 15L, Urine Creatinine 69.1 05/28/17 00:25: Troponin I 0.591H 05/28/17 07:45: White Blood Count 15.3H, Red Blood Count 4.50L, Hemoglobin 13.4L, Hematocrit 39.4L, Mean Corpuscular Volume 88, Mean Corpuscular Hemoglobin 29.9, Mean Corpuscular Hemoglobin Concent 34.1, Red Cell Distribution Width 11.9, Platelet Count 223, Mean Platelet Volume 8.0, Neutrophils (%) (Auto) 84.8H, Lymphocytes ( %) (Auto) 8.6L, Monocytes (%) (Auto) 6.1, Eosinophils (%) (Auto) 0.0, Basophils (%) (Auto) 0.4, Sodium Level [Pending], Potassium Level [Pending], Chloride Level [Pending], Carbon Dioxide Level [Pending], Blood Urea Nitrogen [Pending], Creatinine [Pending], Estimat Glomerular Filtration Rate [Pending], Glucose Level [Pending], Calcium Level [Pending], Total Creatine Kinase [Pending], Troponin I [Pending], Prothrombin Time [Pending], Prothromb Time International Ratio [Pending], Lactic Acid Level [Pending], Total Bilirubin [Pending], Aspartate Amino Transf (AST/SGOT) [Pending], Alanine Aminotransferase (ALT/SGPT ) [Pending], Alkaline Phosphatase [Pending], Ammonia [Pending], Pro-B-Type Natriuretic Peptide [Pending], Total Protein [Pending], Albumin [Pending], Globulin [Pending], Hepatitis A IgM Antibody [Pending], Hepatitis B Surface Antigen [Pending], Hepatitis B Core IgM Antibody [Pending], Hepatitis C Antibody [Pending] Height (Feet): 6 Height (Inches): 1.00 Weight (Pounds): 260 Objective WDWN has pain but less toxic clear breath sounds bilaterally overall with occasional rhonchi [id number] without MRG NABS nontender no HSM no CCE nonfocal MEGAN العلي May 28, 2017 08:42
[2017-05-28 08:53] LABS: ALANINE AMINOTRANSFERASE 219 U/L (12-78); ALBUMIN/GLOBULIN RATIO 0.8 (1.0-2.7); ALKALINE PHOSPHATASE 58 U/L (46-116); ANION GAP 9 mmol/L (5-15); ASPARTATE AMINO TRANSFERASE 165 U/L (15-37); BILIRUBIN,TOTAL 0.5 MG/DL (0.2-1.0); BLOOD UREA NITROGEN 29 mg/dL (7-18); CALCIUM 7.9 MG/DL (8.5-10.1); CARBON DIOXIDE 25 MMOL/L (21-32); CHLORIDE 106 MMOL/L (98-107); CREATININE 1.6 MG/DL (0.55-1.30); POTASSIUM 4.2 MMOL/L (3.5-5.1); SODIUM 140 MMOL/L (136-145)
--- NOTE | 2017-05-28 09:01 | Diagnostic Imaging Report ---
Indication: Abdominal pain, epigastric pain Technique: Spiral acquisitions obtained through the abdomen and pelvis. No oral contrast, per patient request No IV contrast utilized, due to renal insufficiency.. Multiplanar reconstructions were generated. Total dose length product 1097.57 mGycm. CTDIvol(s) 19.75 mGy. Dose reduction achieved using automated exposure control Comparison: None Findings: There are a few colonic diverticula. No evidence of diverticulitis. The appendix is not visualized, but there are no findings to suggest acute appendicitis. No small bowel distention. No free or loculated intraperitoneal air or fluid is evident. The distal esophagus, stomach, duodenum are unremarkable. Lack of IV contrast limits assessment of solid organs. The liver is diffusely hypoattenuating, consistent with fatty change. No focal hepatic abnormality. The gallbladder is surgically absent. There is equivocal trace stranding of the peripancreatic fat. The pancreas is unremarkable. However, there are prominent peripancreatic lymph nodes. These measure up to 3 cm long axis dimension. The adrenals are unremarkable. 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 An accessory lower pole right renal artery actually comes off the proximal left common iliac artery. No renal or ureteral calculi, hydronephrosis, or hydroureter. No retroperitoneal or mesenteric mass there is a small fat-containing right inguinal hernia. The spleen is mildly enlarged, measuring 14.5 cm on axis dimension The lung bases demonstrate nodular and groundglass infiltrates in the lower lobes bilaterally, slightly greater on the right than on the left. There is a small right pleural effusion. The heart is mildly enlarged. The bones are unremarkable Impression: Bilateral pulmonary parenchymal nodular and groundglass infiltrates, may reflect pneumonia or congestive heart failure, among other possibilities Small right pleural effusion Equivocal slight stranding of the peripancreatic fat, if real could indicate early pancreatitis. Correlate with pancreatic enzymes No acute abdominal or pelvic abnormality otherwise Borderline cardiomegaly Fatty liver Mild splenomegaly Borderline peripancreatic lymphadenopathy, significance uncertain Diverticulosis. 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 The CT scanner at [facility] is accredited by the [employer] [place] and the scans are performed using protocols designed to limit radiation exposure to as low as reasonably achievable to attain images of sufficient resolution adequate for diagnostic evaluation.
[2017-05-28 09:14] LABS: CREATINE KINASE 4730 U/L (26-140)
[2017-05-28] MEDS ORDERED: Azithromycin 250mg tab ORAL ONE (10:30)
[2017-05-28] MEDS: cefTRIAXone 1 GM in D5W 55 ML IVPB SCH (11:03)
[2017-05-28] MEDS: Heparin 5000 units/ml inj SUBQ SCH ×2 (11:19→20:46)
[2017-05-28] MEDS: Oseltamivir 75mg cap ORAL SCH (11:20)
[2017-05-28 12:00] VITALS: BP 129/88
[2017-05-28] MEDS ORDERED: NS 500ML ONE (14:48)
--- NOTE | 2017-05-28 15:30 | Consultation ---
DATE OF CONSULTATION: 05/28/2017 INFECTIOUS DISEASES CONSULTATION CONSULTING PHYSICIAN: Ab Young M.D. This consult is for coverage of Dr. Rubi. PRIMARY ATTENDING PHYSICIAN: Stu Tang M.D. REASON FOR CONSULTATION: Pneumonia. HISTORY OF PRESENT ILLNESS: This is a 27-year-old white male admitted on 05/26/2017 because of shortness of breath, decrease in O2 saturation, and wheezing. The patient is originally from [place], had a recent admission in [place] with pneumonia, was recently discharged. He said that he was at better condition, then got suddenly sick in the day before admission. He said that he had some ear ache and pain, has significant muscle pain, renal failure, and rhabdomyolysis. PAST MEDICAL HISTORY: Significant for hypertension, recent pneumonia, history of cholecystectomy, afebrile in the hospital. ALLERGIES: No known drug allergies. MEDICATIONS: Getting methylprednisone, ceftriaxone, morphine, dicyclomine, clonazepam, temazepam, [place], heparin, Protonix, sodium chloride, and Ambien. SOCIAL HISTORY: Lives in [place]. single, smoker 1/4 of a pack of cigarettes and smokes marijuana. REVIEW OF SYSTEMS: He states he has some pain and bleeding from left ear. He has muscle pain, productive cough. No nausea. No vomiting. No dysuria. FAMILY HISTORY: Father of heart attack. Mother has renal cancer. PHYSICAL EXAMINATION: VITAL SIGNS: Temperature 97.4, pulse 85, blood pressure 116/65. GENERAL APPEARANCE: No acute distress, seems overweight, obese. HEAD AND NECK: There is no bleeding from ears and bilateral tympanic membranes are intact. HEART: Regular. LUNGS: Clear. ABDOMEN: Soft. EXTREMITIES: No edema. LABORATORY DATA: Sodium 140, potassium 4.2, chloride 106, bicarb 25, BUN 29, creatinine 1.6, glucose 175. CK level is 4730. AST 165 and ALT 219. Rapid influenza test were negative. Blood culture x2 are negative. The patient had a CT scan of the abdomen and pelvis, bilateral pulmonary parenchymal disease and ground glass infiltrate, may reflect pneumonia or CHF, fatty liver, diverticulosis without diverticulitis, status post cholecystectomy. IMPRESSION: 1. Pneumonia, the patient has rhabdomyolysis. 2. Acute renal failure and may have influenza as well. 3. Lactic acidosis. 4. Fatty liver. RECOMMENDATION: We will continue with ceftriaxone, may benefit from Tamiflu. We will follow up the cultures. At the end of my exam, I thank Dr. Tang, for involving me in the care of this patient. Ab Young M.D. DR: RONALD JOB#: [id number] CC: SARAH
[2017-05-28 16:00] VITALS: BP 129/77
--- NOTE | 2017-05-28 17:22 | General Progress Note ---
Assessment/Plan Assessment/Plan Assessment - Rhabdo - Elevated transaminases, likely due to above - pulmonary infiltrates - s/p yoly - diverticulosis - peripancreatic stranding - Lactic acidosis - resolved - Epigastric/ RUQ pain , ? etiology - Reactive airways - recent PNA - hemoptysis Recommendations - IVF - Follow LFT - check lipase - follow lactate and Cr - check hepatitis serologies - Clear liquid diet for now - PPI - Hold ASA, Tylenol, Topamax Thank you Sukumar Mcmillan MD Subjective Allergies: Coded Allergies: No Known Allergies (Unverified , 05/26/17) Subjective Still coughing still with RUQ pain LFT and CK better Objective Last 24 Hour Vital Signs Date Time Temp Pulse Resp B/P (MAP) Pulse Ox O2 Delivery O2 Flow Rate FiO2 05/28/17 08:25 Nasal Cannula 3.0 32 05/28/17 08:25 96 Nasal Cannula 3.0 32 05/28/17 08:00 97.4 89 20 125/90 92 Room Air 05/28/17 04:58 97.4 85 18 116/65 96 Room Air 05/28/17 04:00 88 05/28/17 00:27 95 19 96 Nasal Cannula 2.0 28 05/28/17 00:19 28 05/28/17 00:19 95 19 94 Nasal Cannula 2.0 28 05/28/17 00:00 95 05/28/17 00:00 98.4 98 20 124/80 Room Air 05/27/17 20:00 98.1 96 19 132/90 94 Room Air 05/27/17 20:00 98 Intake and Output 05/27/17 05/28/17 19:00 07:00 Intake Total 1290 ml 2070 ml Output Total 1650 ml 3020 ml Balance -360 ml -950 ml Intake Oral 240 ml 720 ml IV Total 1050 ml 1350 ml Output Urine Total 1650 ml 3020 ml # Voids 4 Laboratory Tests 05/28/17 00:25: Troponin I 0.591H 05/28/17 07:45: Troponin I 0.424H, White Blood Count 15.3H, Red Blood Count 4.50L, Hemoglobin 13.4L, Hematocrit 39.4L, Mean Corpuscular Volume 88, Mean Corpuscular Hemoglobin 29.9, Mean Corpuscular Hemoglobin Concent 34.1, Red Cell Distribution Width 11.9, Platelet Count 223, Mean Platelet Volume 8.0, Neutrophils (%) (Auto) 84.8H, Lymphocytes (%) (Auto) 8.6L, Monocytes (%) (Auto) 6.1, Eosinophils (%) (Auto) 0.0, Basophils (%) (Auto) 0.4, Prothrombin Time 11.3 , Prothromb Time International Ratio 1.1, Sodium Level 140, Potassium Level 4.2 , Chloride Level 106, Carbon Dioxide Level 25, Anion Gap 9, Blood Urea Nitrogen 29H, Creatinine 1.6H, Estimat Glomerular Filtration Rate 51.4, Glucose Level 175H, Lactic Acid Level 1.10, Calcium Level 7.9L, Total Bilirubin 0.5, Aspartate Amino Transf (AST/SGOT) 165H, Alanine Aminotransferase (ALT/SGPT) 219H , Alkaline Phosphatase 58, Ammonia 41H, Total Creatine Kinase 4730H, Pro-B-Type Natriuretic Peptide 3643H, Total Protein 6.7, Albumin 3.0L, Globulin 3.7, Albumin/Globulin Ratio 0.8L, Hepatitis A IgM Antibody [Pending], Hepatitis B Surface Antigen [Pending], Hepatitis B Core IgM Antibody [Pending], Hepatitis C Antibody [Pending] Height (Feet): 6 Height (Inches): 1.00 Weight (Pounds): 260 Objective Obese WM NCAT supple CTA RRR soft ND mild RUQ TTP no edema SUKUMAR MCMILLAN May 28, 2017 17:22
[2017-05-28 20:00] VITALS: BP 146/104
--- NOTE | 2017-05-28 22:48 | Cardiology Progress Note ---
Assessment/Plan Assessment/Plan 1. Dyspnea, most likely due to pneumonia as there is presence of leukocytosis and bandemia, although there is e/o cardiomyopathy, i.e. anteroseptal wall akinesia and reduced LV systolic function (LVEF ~40%). Continue the current management, there is clinical improvement as well as improvement in the renal function. 2. History of hypertension. Start metoprolol. 3. Sinus tachycardia due to infection/pneumonia on B-blockers. 4. Elevated troponin I level could be due to rhabdomyolysis vs Trop I leak due to HENRY vs demand-ischemia. Subjective Subjective Sinus rhythm at 96. Objective Last 24 Hour Vital Signs Date Time Temp Pulse Resp B/P (MAP) Pulse Ox O2 Delivery O2 Flow Rate FiO2 05/28/17 21:25 28 05/28/17 21:25 96 16 93 Nasal Cannula 3.0 32 05/28/17 21:15 Nasal Cannula 3.0 32 05/28/17 21:15 96 Nasal Cannula 3.0 32 05/28/17 21:15 87 22 96 Nasal Cannula 3.0 32 05/28/17 20:00 97.5 81 20 146/104 98 Nasal Cannula 05/28/17 16:00 97.7 80 18 129/77 95 Room Air 05/28/17 16:00 87 05/28/17 12:00 97.6 92 20 129/88 94 Room Air 05/28/17 12:00 83 05/28/17 08:25 Nasal Cannula 3.0 32 05/28/17 08:25 96 Nasal Cannula 3.0 32 05/28/17 08:00 97.4 89 20 125/90 92 Room Air 05/28/17 08:00 87 05/28/17 04:58 97.4 85 18 116/65 96 Room Air 05/28/17 04:00 88 05/28/17 00:27 95 19 96 Nasal Cannula 2.0 28 05/28/17 00:19 28 05/28/17 00:19 95 19 94 Nasal Cannula 2.0 28 05/28/17 00:00 95 05/28/17 00:00 98.4 98 20 124/80 Room Air Intake and Output 05/27/17 05/28/17 19:00 07:00 Intake Total 1290 ml 2070 ml Output Total 1650 ml 3020 ml Balance -360 ml -950 ml Intake Oral 240 ml 720 ml IV Total 1050 ml 1350 ml Output Urine Total 1650 ml 3020 ml # Voids 4 Laboratory Tests Test 05/28/17 00:25 05/28/17 07:45 05/28/17 16:45 Troponin I 0.591 ng/mL (0.000-0.056) 0.424 ng/mL (0.000-0.056) 0.341 ng/mL (0.000-0.056) White Blood Count 15.3 K/UL (4.8-10.8) H Red Blood Count 4.50 M/UL (4.70-6.10) L Hemoglobin 13.4 G/DL (14.2-18.0) L Hematocrit 39.4 % (42.0-52.0) L Mean Corpuscular Volume 88 FL (80-99) Mean Corpuscular Hemoglobin 29.9 PG (27.0-31.0) Mean Corpuscular Hemoglobin Concent 34.1 G/DL (32.0-36.0) Red Cell Distribution Width 11.9 % (11.6-14.8) Platelet Count 223 K/UL (150-450) Mean Platelet Volume 8.0 FL (6.5-10.1) Neutrophils (%) (Auto) 84.8 % (45.0-75.0) H Lymphocytes (%) (Auto) 8.6 % (20.0-45.0) L Monocytes (%) (Auto) 6.1 % (1.0-10.0) Eosinophils (%) (Auto) 0.0 % (0.0-3.0) Basophils (%) (Auto) 0.4 % (0.0-2.0) Prothrombin Time 11.3 SEC (9.30-11.50) Prothromb Time International Ratio 1.1 (0.9-1.1) Sodium Level 140 MMOL/L (136-145) Potassium Level 4.2 MMOL/L (3.5-5.1) Chloride Level 106 MMOL/L (98-107) Carbon Dioxide Level 25 MMOL/L (21-32) Anion Gap 9 mmol/L (5-15) Blood Urea Nitrogen 29 mg/dL (7-18) H Creatinine 1.6 MG/DL (0.55-1.30) H Estimat Glomerular Filtration Rate 51.4 mL/min (>60) Glucose Level 175 MG/DL (74-106) H Lactic Acid Level 1.10 mmol/L (0.66-2.22) Calcium Level 7.9 MG/DL (8.5-10.1) L Total Bilirubin 0.5 MG/DL (0.2-1.0) Aspartate Amino Transf (AST/SGOT) 165 U/L (15-37) H Alanine Aminotransferase (ALT/SGPT) 219 U/L (12-78) H Alkaline Phosphatase 58 U/L (46-116) Ammonia 41 umol/L (11-32) H Total Creatine Kinase 4730 U/L (26-140) H Pro-B-Type Natriuretic Peptide 3643 pg/mL (0-125) H Total Protein 6.7 G/DL (6.4-8.2) Albumin 3.0 G/DL (3.4-5.0) L Globulin 3.7 g/dL Albumin/Globulin Ratio 0.8 (1.0-2.7) L Hepatitis A IgM Antibody Pending Hepatitis B Surface Antigen Pending Hepatitis B Core IgM Antibody Pending Hepatitis C Antibody Pending Microbiology Date/Time Source Procedure Growth Status 05/26/17 19:22 Blood Blood Culture - Preliminary NO GROWTH AFTER 24 HOURS Resulted 05/26/17 19:12 Blood Blood Culture - Preliminary NO GROWTH AFTER 24 HOURS Resulted 05/26/17 19:22 Nasal Nares Influenza Types A,B Antigen (DEANA) - Final Complete Objective HEENT: Atraumatic, normocephalic. Anicteric. Pupils are equal, round, and reactive to light and accommodation. Extraocular muscles intact. NECK: JVP less than 5 cmH2O. No carotid bruit. Carotid upstrokes 2+ bilaterally. CARDIOVASCULAR SYSTEM: Normal S1, S2. Regular rate and rhythm. No murmurs, gallops, or rubs. PMI is at fourth intercostal space in the midclavicular line. LUNGS: Clear to auscultation bilaterally. ABDOMEN: Soft, nontender, nondistended. No hepatosplenomegaly. Positive bowel sounds. EXTREMITIES: No evidence of edema, clubbing, or cyanosis. CRISTA MURPHY May 28, 2017 22:48
[2017-05-28] MEDS: Metoprolol 25mg tab ORAL SCH (23:20)
[2017-05-29] VITALS: BP 112/68
[2017-05-29] MEDS: Morphine Sulfate 4mg/ml Inj IVP PRN ×7 (01:45→21:48)
[2017-05-29] MEDS: Sodium Chloride 500ML 550 ML IV SCH ×6 (03:45→21:48)
[2017-05-29 04:00] VITALS: BP 115/69
[2017-05-29] MEDS ORDERED: Solu-MEDROL 40mg Inj IVP SCH (06:00)
[2017-05-29 08:00] VITALS: BP 132/78
[2017-05-29] MEDS: Azithromycin 250mg tab ORAL SCH (08:18)
[2017-05-29] MEDS: cefTRIAXone 1 GM in D5W 55 ML IVPB SCH (08:18)
[2017-05-29] MEDS: Oseltamivir 75mg cap ORAL SCH (08:20)
[2017-05-29] MEDS: Metoprolol 25mg tab ORAL SCH ×2 (08:35→21:25)
--- NOTE | 2017-05-29 08:55 | General Progress Note ---
Assessment/Plan Assessment/Plan IMPRESSION ARF- better rhabdo elevated Liver enzyme elevated troponin Pneumonia with abnormal CT dyspnea elevated CK reduced EF PLAN Iv hydration follow up labs and liver enzymes renal US GI and renal evaluation noted IV antibiotics pending cultures ID evaluation noted hydration as able pain management close followup and monitor of labs follow up troponins- likely due to ARF and demand ischemia all noted and appreciated PT evaluation obtain records Subjective Allergies: Coded Allergies: No Known Allergies (Unverified , 05/26/17) Subjective improved need records from outside hospital was told she might need bronchoscopy Objective Last 24 Hour Vital Signs Date Time Temp Pulse Resp B/P (MAP) Pulse Ox O2 Delivery O2 Flow Rate FiO2 05/29/17 08:35 70 132/78 05/29/17 08:00 97.0 70 21 132/78 95 Nasal Cannula 05/29/17 04:00 81 05/29/17 04:00 97.4 75 20 115/69 92 Nasal Cannula 05/29/17 00:00 89 05/29/17 00:00 97.9 75 20 112/68 96 Nasal Cannula 05/28/17 23:20 96 146/104 05/28/17 21:25 28 05/28/17 21:25 96 16 93 Nasal Cannula 3.0 32 05/28/17 21:15 Nasal Cannula 3.0 32 05/28/17 21:15 96 Nasal Cannula 3.0 32 05/28/17 21:15 87 22 96 Nasal Cannula 3.0 32 05/28/17 20:00 92 05/28/17 20:00 97.5 81 20 146/104 98 Nasal Cannula 05/28/17 16:00 97.7 80 18 129/77 95 Room Air 05/28/17 16:00 87 05/28/17 12:00 97.6 92 20 129/88 94 Room Air 05/28/17 12:00 83 Intake and Output 05/28/17 05/29/17 19:00 07:00 Intake Total 1000 ml 990 ml Balance 1000 ml 990 ml Intake Oral 90 ml IV Total 1000 ml 900 ml # Voids 8 Laboratory Tests 05/28/17 16:45: Troponin I 0.341H 05/28/17 23:50: Troponin I 0.366H 05/29/17 07:10: Lipase 186 Height (Feet): 6 Height (Inches): 1.00 Weight (Pounds): 260 Objective WDWN has less pain clear breath sounds bilaterally overall with occasional rhonchi [id number] without MRG NABS nontender no HSM no CCE nonfocal MEGAN العلي May 29, 2017 08:55
[2017-05-29] MEDS: Albuterol/Ipratropium 3ml neb HHN PRN ×4 (09:05→23:03)
[2017-05-29] MEDS: Heparin 5000 units/ml inj SUBQ SCH ×2 (09:13→21:34)
[2017-05-29 09:20] LABS: ALANINE AMINOTRANSFERASE 184 U/L (12-78); ALBUMIN 2.8 G/DL (3.4-5.0); ALBUMIN/GLOBULIN RATIO 0.8 (1.0-2.7); ALKALINE PHOSPHATASE 59 U/L (46-116); ANION GAP 10 mmol/L (5-15); ASPARTATE AMINO TRANSFERASE 90 U/L (15-37); BILIRUBIN,TOTAL 0.4 MG/DL (0.2-1.0); BLOOD UREA NITROGEN 36 mg/dL (7-18); CALCIUM 7.7 MG/DL (8.5-10.1); CARBON DIOXIDE 24 MMOL/L (21-32); CHLORIDE 107 MMOL/L (98-107); CREATININE 1.5 MG/DL (0.55-1.30); SODIUM 141 MMOL/L (136-145)
--- NOTE | 2017-05-29 11:07 | Infectious Diseases Prog Note ---
Assessment/Plan Assessment/Plan antibiotics : ceftriaxone, azithromycin, tamiflu A 1. pneumonia 2. leucocytosis improving 3. renal failure improving 4. rhabdomyolysis P 1. continue ceftriaxone, azithromycin 2. d/c tamiflu 3. will follow up cultures Subjective ROS Limited/Unobtainable: Yes Allergies: Coded Allergies: No Known Allergies (Unverified , 05/26/17) Objective Vital Signs Last 24 Hour Vital Signs Date Time Temp Pulse Resp B/P (MAP) Pulse Ox O2 Delivery O2 Flow Rate FiO2 05/29/17 09:07 72 21 95 Room Air 21 05/29/17 09:04 21 05/29/17 09:03 72 21 95 Room Air 21 05/29/17 09:03 Room Air 21 05/29/17 09:01 95 Room Air 21 05/29/17 08:48 97.4 05/29/17 08:35 70 132/78 05/29/17 08:00 97.0 70 21 132/78 95 Nasal Cannula 05/29/17 04:00 81 05/29/17 04:00 97.4 75 20 115/69 92 Nasal Cannula 05/29/17 00:00 89 05/29/17 00:00 97.9 75 20 112/68 96 Nasal Cannula 05/28/17 23:20 96 146/104 05/28/17 21:25 28 05/28/17 21:25 96 16 93 Nasal Cannula 3.0 32 05/28/17 21:15 Nasal Cannula 3.0 32 05/28/17 21:15 96 Nasal Cannula 3.0 32 05/28/17 21:15 87 22 96 Nasal Cannula 3.0 32 05/28/17 20:00 92 05/28/17 20:00 97.5 81 20 146/104 98 Nasal Cannula 05/28/17 16:00 97.7 80 18 129/77 95 Room Air 05/28/17 16:00 87 05/28/17 12:00 97.6 92 20 129/88 94 Room Air 05/28/17 12:00 83 Height (Feet): 6 Height (Inches): 1.00 Weight (Pounds): 260 Respiratory/Chest: lungs clear Cardiovascular: normal rate, regular rhythm, no gallop/murmur Abdomen: soft, non tender Extremities: no edema Microbiology Date/Time Source Procedure Growth Status 05/26/17 19:22 Blood Blood Culture - Preliminary NO GROWTH AFTER 48 HOURS Resulted 05/26/17 19:12 Blood Blood Culture - Preliminary NO GROWTH AFTER 48 HOURS Resulted 05/26/17 20:18 Nasal Nares MRSA Culture - Final NO METHICILLIN RESISTANT STAPH AUREUS... Complete 05/26/17 19:22 Nasal Nares Influenza Types A,B Antigen (DEANA) - Final Complete 05/26/17 20:18 Rectum VRE Culture - Final NO VANCOMYCIN RESISTANT ENTEROCOCCUS ... Complete Laboratory Tests Test 05/28/17 16:45 05/28/17 23:50 05/29/17 07:10 Troponin I 0.341 ng/mL (0.000-0.056) 0.366 ng/mL (0.000-0.056) Sodium Level 141 MMOL/L (136-145) Potassium Level 4.0 MMOL/L (3.5-5.1) Chloride Level 107 MMOL/L (98-107) Carbon Dioxide Level 24 MMOL/L (21-32) Anion Gap 10 mmol/L (5-15) Blood Urea Nitrogen 36 mg/dL (7-18) H Creatinine 1.5 MG/DL (0.55-1.30) H Estimat Glomerular Filtration Rate 55.3 mL/min (>60) Glucose Level 157 MG/DL (74-106) H Calcium Level 7.7 MG/DL (8.5-10.1) L Total Bilirubin 0.4 MG/DL (0.2-1.0) Aspartate Amino Transf (AST/SGOT) 90 U/L (15-37) H Alanine Aminotransferase (ALT/SGPT) 184 U/L (12-78) H Alkaline Phosphatase 59 U/L (46-116) Total Protein 6.2 G/DL (6.4-8.2) L Albumin 2.8 G/DL (3.4-5.0) L Globulin 3.4 g/dL Albumin/Globulin Ratio 0.8 (1.0-2.7) L Lipase 186 U/L (73-393) CHTE DURAN May 29, 2017 11:07
[2017-05-29 16:00] VITALS: BP 119/73
[2017-05-29 20:00] VITALS: BP 145/94
--- NOTE | 2017-05-29 21:23 | Diagnostic Imaging Report ---
Indication: Dyspnea Technique: Noncontrast CT scan of the chest obtained utilizing automated exposure control. Axial, coronal and sagittal reformats. Comparison: No prior chest CT available for comparison. Correlation made to concurrent chest radiograph Findings: There are small bilateral layering pleural effusions, right greater than left. There is no pneumothorax. There are predominantly groundglass bilateral opacities, most pronounced in the left upper lobe and superior segment of the left lower lobe. Findings are also seen in the right upper lobe to a lesser extent. There may be some associated peribronchial thickening. There is suggestion of some tree-in-bud opacification in the left apex. There are more dense right perihilar and left lower lobe opacities with air bronchograms on the right. Heart size within normal limits. There is no pericardial effusion. Nonspecific prominent mediastinal lymph nodes are noted, possibly reactive in etiology. Imaged thyroid is grossly unremarkable. Thoracic aorta is normal in caliber. The pulmonary artery is normal in size. There is hepatic steatosis. Adrenal glands are unremarkable. No acute osseous abnormality seen. Impression: * Patchy bilateral groundglass opacity with more dense consolidation in the medial right lung and left lower lobe. Findings most likely represent multifocal pneumonia. Given groundglass with suggestion of tree-in-bud opacification and peribronchial thickening, atypical and fungal etiologies can be considered. * Small bilateral pleural effusions. * Abdomen mediastinal lymph nodes Balaji nonspecific and possibly reactive in etiology. * Hepatic steatosis.
--- NOTE | 2017-05-29 22:15 | General Progress Note ---
Assessment/Plan Assessment/Plan Assessment - Rhabdo - Elevated transaminases, likely due to above - pulmonary infiltrates - s/p yoly - diverticulosis - peripancreatic stranding - Lactic acidosis - resolved - Epigastric/ RUQ pain , ? etiology - Reactive airways - recent PNA - hemoptysis Recommendations - IVF - Follow LFT - follow lactate and Cr - check hepatitis serologies - will consider EGD - PPI - Hold ASA, Tylenol, Topamax Subjective Allergies: Coded Allergies: No Known Allergies (Unverified , 05/26/17) Subjective still with epigastric pain cough better Objective Last 24 Hour Vital Signs Date Time Temp Pulse Resp B/P (MAP) Pulse Ox O2 Delivery O2 Flow Rate FiO2 05/29/17 21:25 86 18 97 Nasal Cannula 2.0 28 05/29/17 21:25 85 145/94 05/29/17 21:20 80 20 96 Nasal Cannula 2.0 05/29/17 20:00 98.2 85 18 145/94 96 Room Air 05/29/17 19:06 97.5 05/29/17 19:00 Nasal Cannula 2.0 28 05/29/17 19:00 95 Nasal Cannula 2.0 28 05/29/17 16:00 97.5 87 21 119/73 96 Room Air 05/29/17 16:00 85 05/29/17 14:02 78 20 97 Nasal Cannula 2.0 05/29/17 13:55 75 24 95 Room Air 05/29/17 12:00 81 05/29/17 09:07 72 21 95 Room Air 05/29/17 09:04 05/29/17 09:03 72 21 95 Room Air 05/29/17 09:03 Room Air 05/29/17 09:01 95 Room Air 05/29/17 08:35 70 132/78 05/29/17 08:00 97.0 70 21 132/78 95 Nasal Cannula 05/29/17 04:00 81 05/29/17 04:00 97.4 75 20 115/69 92 Nasal Cannula 05/29/17 00:00 89 05/29/17 00:00 97.9 75 20 112/68 96 Nasal Cannula 05/28/17 23:20 96 146/104 Intake and Output 05/28/17 05/29/17 19:00 07:00 Intake Total 1000 ml 990 ml Balance 1000 ml 990 ml Intake Oral 90 ml IV Total 1000 ml 900 ml # Voids 8 Laboratory Tests 05/28/17 23:50: Troponin I 0.366H 05/29/17 07:10: Sodium Level 141, Potassium Level 4.0, Chloride Level 107, Carbon Dioxide Level 24, Anion Gap 10, Blood Urea Nitrogen 36H, Creatinine 1.5H, Estimat Glomerular Filtration Rate 55.3, Glucose Level 157H, Calcium Level 7.7L, Total Bilirubin 0.4, Aspartate Amino Transf (AST/SGOT) 90H, Alanine Aminotransferase (ALT/SGPT) 184H, Alkaline Phosphatase 59, Total Protein 6.2L, Albumin 2.8L, Globulin 3.4, Albumin/Globulin Ratio 0.8L, Lipase 186 Height (Feet): 6 Height (Inches): 1.00 Weight (Pounds): 260 Objective Obese WM NCAT supple CTA RRR soft ND mild epigastric TTP no edema JAMIN HEARD May 29, 2017 22:15
[2017-05-29] MEDS ORDERED: Tubing IV Secondary IV ONE (22:27)
[2017-05-29] MEDS ORDERED: NS 500ML ONE (22:27)
--- NOTE | 2017-05-29 23:40 | Cardiology Progress Note ---
Assessment/Plan Assessment/Plan 1. Dyspnea, most likely due to pneumonia as there is presence of leukocytosis and bandemia, although there is e/o cardiomyopathy, i.e. anteroseptal wall akinesia and reduced LV systolic function (LVEF ~40%). Continue the current management, there is clinical improvement as well as improvement in the renal function. 2. History of hypertension., continue metoprolol. 3. Sinus tachycardia due to infection/pneumonia, resolved, continue B-blockers. 4. Elevated troponin I level could be due to rhabdomyolysis vs Trop I leak due to HENRY vs demand-ischemia. Subjective Subjective Sinus rhythm at 60. Objective Last 24 Hour Vital Signs Date Time Temp Pulse Resp B/P (MAP) Pulse Ox O2 Delivery O2 Flow Rate FiO2 05/29/17 23:04 69 16 98 Nasal Cannula 2.0 05/29/17 22:58 60 18 95 Nasal Cannula 2.0 05/29/17 21:25 86 18 97 Nasal Cannula 2.0 05/29/17 21:25 85 145/94 05/29/17 21:20 80 20 96 Nasal Cannula 2.0 05/29/17 20:00 98.2 85 18 145/94 96 Room Air 05/29/17 19:06 97.5 05/29/17 19:00 Nasal Cannula 2.0 05/29/17 19:00 95 Nasal Cannula 2.0 05/29/17 16:00 97.5 87 21 119/73 96 Room Air 05/29/17 16:00 85 05/29/17 14:02 78 20 97 Nasal Cannula 2.0 05/29/17 13:55 75 24 95 Room Air 05/29/17 12:00 81 05/29/17 09:07 72 21 95 Room Air 05/29/17 09:04 21 05/29/17 09:03 72 21 95 Room Air 05/29/17 09:03 Room Air 05/29/17 09:01 95 Room Air 05/29/17 08:35 70 132/78 05/29/17 08:00 97.0 70 21 132/78 95 Nasal Cannula 05/29/17 04:00 81 05/29/17 04:00 97.4 75 20 115/69 92 Nasal Cannula 05/29/17 00:00 89 1/2/18 00:00 97.9 75 20 112/68 96 Nasal Cannula Intake and Output 05/28/17 05/29/17 19:00 07:00 Intake Total 1000 ml 990 ml Balance 1000 ml 990 ml Intake Oral 90 ml IV Total 1000 ml 900 ml # Voids 8 2D Echo: EF 45%, Anteroseptal HK, RVSP 33 mmHg Laboratory Tests Test 05/28/17 23:50 05/29/17 07:10 Troponin I 0.366 ng/mL (0.000-0.056) Sodium Level 141 MMOL/L (136-145) Potassium Level 4.0 MMOL/L (3.5-5.1) Chloride Level 107 MMOL/L (98-107) Carbon Dioxide Level 24 MMOL/L (21-32) Anion Gap 10 mmol/L (5-15) Blood Urea Nitrogen 36 mg/dL (7-18) H Creatinine 1.5 MG/DL (0.55-1.30) H Estimat Glomerular Filtration Rate 55.3 mL/min (>60) Glucose Level 157 MG/DL (74-106) H Calcium Level 7.7 MG/DL (8.5-10.1) L Total Bilirubin 0.4 MG/DL (0.2-1.0) Aspartate Amino Transf (AST/SGOT) 90 U/L (15-37) H Alanine Aminotransferase (ALT/SGPT) 184 U/L (12-78) H Alkaline Phosphatase 59 U/L (46-116) Total Protein 6.2 G/DL (6.4-8.2) L Albumin 2.8 G/DL (3.4-5.0) L Globulin 3.4 g/dL Albumin/Globulin Ratio 0.8 (1.0-2.7) L Lipase 186 U/L (73-393) Objective HEENT: Atraumatic, normocephalic. Anicteric. Pupils are equal, round, and reactive to light and accommodation. Extraocular muscles intact. NECK: JVP less than 5 cmH2O. No carotid bruit. Carotid upstrokes 2+ bilaterally. CARDIOVASCULAR SYSTEM: Normal S1, S2. Regular rate and rhythm. No murmurs, gallops, or rubs. PMI is at fourth intercostal space in the midclavicular line. LUNGS: Clear to auscultation bilaterally. ABDOMEN: Soft, nontender, nondistended. No hepatosplenomegaly. Positive bowel sounds. EXTREMITIES: No evidence of edema, clubbing, or cyanosis. CRISTA MURPHY May 29, 2017 23:40
[2017-05-30] VITALS: BP 131/77
[2017-05-30] MEDS: Sodium Chloride 500ML 550 ML IV SCH ×3 (01:29→06:12)
[2017-05-30] MEDS: Albuterol/Ipratropium 3ml neb HHN PRN ×2 (03:02→07:36)
[2017-05-30] MEDS: Morphine Sulfate 4mg/ml Inj IVP PRN ×6 (03:05→20:53)
[2017-05-30 06:34] LABS: ANION GAP 9 mmol/L (5-15); BLOOD UREA NITROGEN 34 mg/dL (7-18); CALCIUM 7.9 MG/DL (8.5-10.1); CARBON DIOXIDE 27 MMOL/L (21-32); CHLORIDE 106 MMOL/L (98-107); CHOLESTEROL 173 MG/DL (< 200); CREATINE KINASE 570 U/L (26-308); CREATININE 1.3 MG/DL (0.55-1.30); HDL CHOLESTEROL 24 MG/DL (40-60); POTASSIUM 3.6 MMOL/L (3.5-5.1); SODIUM 142 MMOL/L (136-145); TRIGLYCERIDES 356 MG/DL (30-150)
--- NOTE | 2017-05-30 07:28 | General Progress Note ---
Assessment/Plan Assessment/Plan IMPRESSION ARF- improved rhabdo- resolved CK elevated Liver enzyme elevated troponin Pneumonia with abnormal CT dyspnea elevated CK reduced EF PLAN Iv hydration follow up labs and liver enzymes for further improvement GI and renal evaluation noted IV antibiotics pending cultures ID evaluation noted hydration as able pain management close followup and monitor of labs follow up troponins and cards recommendations all noted and appreciated PT evaluation obtain records CT chest- discuss; if not improved, would pursue bronchoscopy Subjective Allergies: Coded Allergies: No Known Allergies (Unverified , 05/26/17) Subjective improved need records from outside hospital breathing easier tox screen discussed Objective Last 24 Hour Vital Signs Date Time Temp Pulse Resp B/P (MAP) Pulse Ox O2 Delivery O2 Flow Rate FiO2 05/30/17 04:00 72 05/30/17 03:03 61 18 98 Nasal Cannula 2.0 28 05/30/17 02:57 55 18 97 Nasal Cannula 2.0 28 05/30/17 00:00 Nasal Cannula 2.0 05/30/17 00:00 73 05/30/17 00:00 97.9 80 22 131/77 93 Nasal Cannula 05/29/17 23:04 69 16 98 Nasal Cannula 2.0 28 05/29/17 22:58 60 18 95 Nasal Cannula 2.0 28 05/29/17 21:25 86 18 97 Nasal Cannula 2.0 28 05/29/17 21:25 85 145/94 05/29/17 21:20 80 20 96 Nasal Cannula 2.0 28 05/29/17 20:00 98.2 85 18 145/94 96 Room Air 05/29/17 20:00 88 05/29/17 20:00 Room Air 05/29/17 19:06 97.5 05/29/17 19:00 Nasal Cannula 2.0 28 05/29/17 19:00 95 Nasal Cannula 2.0 28 05/29/17 16:00 97.5 87 21 119/73 96 Room Air 05/29/17 16:00 85 05/29/17 14:02 78 20 97 Nasal Cannula 2.0 28 05/29/17 13:55 75 24 95 Room Air 05/29/17 12:00 81 05/29/17 09:07 72 21 95 Room Air 05/29/17 09:04 21 05/29/17 09:03 72 21 95 Room Air 05/29/17 09:03 Room Air 21 05/29/17 09:01 95 Room Air 21 05/29/17 08:35 70 132/78 05/29/17 08:00 97.0 70 21 132/78 95 Nasal Cannula Intake and Output 05/29/17 05/30/17 19:00 07:00 Intake Total 900 ml 2108 ml Output Total 2500 ml 4180 ml Balance -1600 ml -2072 ml Intake Oral 750 ml 800 ml IV Total 150 ml 1308 ml Output Urine Total 2500 ml 4180 ml # Bowel Movements 1 Laboratory Tests 05/30/17 05:05: Sodium Level 142, Potassium Level 3.6, Chloride Level 106, Carbon Dioxide Level 27, Anion Gap 9, Blood Urea Nitrogen 34H, Creatinine 1.3, Estimat Glomerular Filtration Rate > 60, Glucose Level 123H, Calcium Level 7.9L, Total Creatine Kinase 570H, Creatine Kinase MB [Pending], Troponin I [Pending], Triglycerides Level 356H, Cholesterol Level 173, LDL Cholesterol 103H, HDL Cholesterol 24L, Cholesterol/HDL Ratio 7.2H 05/30/17 06:09: Urine Opiates Screen PositiveH, Urine Barbiturates Screen PositiveH, Phencyclidine (PCP) Screen Negative, Urine Amphetamines Screen Negative, Urine Benzodiazepines Screen Negative, Urine Cocaine Screen Negative, Urine Marijuana (THC) Screen PositiveH Height (Feet): 6 Height (Inches): 1.00 Weight (Pounds): 260 Objective WDWN has less pain clear breath sounds bilaterally overall with minimal rhonchi [id number] without MRG NABS nontender no HSM no CCE nonfocal MEGAN العلي May 30, 2017 07:28
[2017-05-30 08:00] VITALS: BP 154/84
[2017-05-30] MEDS: Azithromycin 250mg tab ORAL SCH (08:07)
[2017-05-30] MEDS: Aspirin EC 81mg tab ORAL SCH (08:07)
[2017-05-30] MEDS: Metoprolol 25mg tab ORAL SCH ×2 (08:07→20:51)
[2017-05-30] MEDS: cefTRIAXone 1 GM in D5W 55 ML IVPB SCH (08:08)
[2017-05-30] MEDS: Heparin 5000 units/ml inj SUBQ SCH ×2 (08:22→20:54)
--- NOTE | 2017-05-30 08:46 | Diagnostic Imaging Report ---
Indication: Acute renal failure Technique: Grayscale and duplex images of the kidneys, retroperitoneum, and bladder were obtained. 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 Left kidney measures 12.6 cm in length. Both kidneys demonstrate normal echogenicity. No hydronephrosis. Echogenic foci in the lower pole are probably artifactual, as no comparable finding is seen on the recent CT scan. Normal inferior vena cava. Bladder is normal. Impression: Nonvisualized right kidney, presumably due to ectopic location demonstrated on recent CT scan. Note that that study demonstrates the right kidney is not hydronephrotic. Negative for left hydronephrosis.
[2017-05-30] MEDS: Albuterol/Ipratropium 3ml neb HHN SCH ×4 (11:02→23:33)
--- NOTE | 2017-05-30 11:27 | Infectious Diseases Prog Note ---
Assessment/Plan Assessment/Plan antibiotics : ceftriaxone, azithromycin A 1. pneumonia 2. leucocytosis improving 3. renal failure improving 4. rhabdomyolysis 5. leucocytosis improving P 1. continue ceftriaxone, azithromycin 2. will follow up cultures Subjective Constitutional: Denies: fever, chills Respiratory: Reports: shortness of breath, productive cough Musculoskeletal: Reports: pain Allergies: Coded Allergies: No Known Allergies (Unverified , 05/26/17) Objective Vital Signs Last 24 Hour Vital Signs Date Time Temp Pulse Resp B/P (MAP) Pulse Ox O2 Delivery O2 Flow Rate FiO2 05/30/17 11:06 80 16 98 Nasal Cannula 2.0 28 05/30/17 11:02 80 20 96 Nasal Cannula 2.0 28 05/30/17 08:36 98.1 05/30/17 08:07 75 154/84 05/30/17 08:00 98.1 75 20 154/84 95 Room Air 05/30/17 08:00 62 05/30/17 07:44 82 18 98 Nasal Cannula 2.0 28 05/30/17 07:36 96 Nasal Cannula 2.0 28 05/30/17 07:36 Nasal Cannula 2.0 28 05/30/17 07:36 85 20 96 Nasal Cannula 2.0 28 05/30/17 04:00 72 05/30/17 03:03 61 18 98 Nasal Cannula 2.0 28 05/30/17 02:57 55 18 97 Nasal Cannula 2.0 28 05/30/17 00:00 Nasal Cannula 2.0 05/30/17 00:00 73 05/30/17 00:00 97.9 80 22 131/77 93 Nasal Cannula 05/29/17 23:04 69 16 98 Nasal Cannula 2.0 28 05/29/17 22:58 60 18 95 Nasal Cannula 2.0 28 05/29/17 21:25 86 18 97 Nasal Cannula 2.0 28 05/29/17 21:25 85 145/94 05/29/17 21:20 80 20 96 Nasal Cannula 2.0 28 05/29/17 20:00 98.2 85 18 145/94 96 Room Air 05/29/17 20:00 88 05/29/17 20:00 Room Air 05/29/17 19:00 Nasal Cannula 2.0 28 05/29/17 19:00 95 Nasal Cannula 2.0 28 05/29/17 16:00 97.5 87 21 119/73 96 Room Air 05/29/17 16:00 85 05/29/17 14:02 78 20 97 Nasal Cannula 2.0 28 05/29/17 13:55 75 24 95 Room Air 21 05/29/17 12:00 81 Height (Feet): 6 Height (Inches): 1.00 Weight (Pounds): 260 Respiratory/Chest: lungs clear Cardiovascular: normal rate, regular rhythm, no gallop/murmur Abdomen: soft, non tender Extremities: no edema Laboratory Tests Test 05/30/17 05:05 05/30/17 06:09 Sodium Level 142 MMOL/L (136-145) Potassium Level 3.6 MMOL/L (3.5-5.1) Chloride Level 106 MMOL/L (98-107) Carbon Dioxide Level 27 MMOL/L (21-32) Anion Gap 9 mmol/L (5-15) Blood Urea Nitrogen 34 mg/dL (7-18) H Creatinine 1.3 MG/DL (0.55-1.30) Estimat Glomerular Filtration Rate > 60 mL/min (>60) Glucose Level 123 MG/DL (74-106) H Calcium Level 7.9 MG/DL (8.5-10.1) L Total Creatine Kinase 570 U/L (26-308) H Creatine Kinase MB 1.0 NG/ML (0.0-3.6) Troponin I 0.238 ng/mL (0.000-0.056) Triglycerides Level 356 MG/DL (30-150) H Cholesterol Level 173 MG/DL (< 200) LDL Cholesterol 103 mg/dL (<100) H HDL Cholesterol 24 MG/DL (40-60) L Cholesterol/HDL Ratio 7.2 (3.3-4.4) H Urine Opiates Screen Positive (NEGATIVE) H Urine Barbiturates Screen Positive (NEGATIVE) H Phencyclidine (PCP) Screen Negative (NEGATIVE) Urine Amphetamines Screen Negative (NEGATIVE) Urine Benzodiazepines Screen Negative (NEGATIVE) Urine Cocaine Screen Negative (NEGATIVE) Urine Marijuana (THC) Screen Positive (NEGATIVE) H CHET DURAN May 30, 2017 11:27
[2017-05-30 12:00] VITALS: BP 132/89
[2017-05-30 16:00] VITALS: BP 139/87
--- NOTE | 2017-05-30 18:56 | Cardiology Report ---
APPROVED REPORT EXAM: Two-dimensional and M-mode echocardiogram with Doppler and color Doppler. INDICATION SOB M-Mode DIMENSIONS IVSd0.7 (0.7-1.1cm)Left Atrium (MM)3.7 (1.6-4.0cm) LVDd4.9 (3.5-5.6cm)Aortic Root3.0 (2.0-3.7cm) PWd1.0 (0.7-1.1cm)Aortic Cusp Exc.2.0 (1.5-2.0cm) LVDs3.9 (2.5-4.0cm) PWs1.0 cm Technically difficult study due to poor acoustical windows. Normal left ventricular chamber size. Global left ventricular hypokinesis. Mid anterior septal akinesis. Left ventricular ejection fraction estimated to be 40-45%. No evidence of left ventricular hypertrophy. No evidence of pericardial or pleural effusion. Right cardiac chamber sizes are within normal limits. Mild left atrial enlargement by 2D. Focal aortic valve sclerosis with adequate cusp excursion. Thickened mitral valve leaflets with normal excursion. Mild mitral annulus and aortic root calcification. Pulmonic valve not well visualized. Normal tricuspid valve structure. IVC is not obtainable. A color flow and spectral Doppler study was performed and revealed: No aortic regurgitation. Trace mitral regurgitation (2 jets). Normal mitral diastolic function. Mild tricuspid regurgitation (2 jets). Tricuspid systolic velocities suggests peak right ventricular systolic pressure of 33mmHg
--- NOTE | 2017-05-30 19:24 | Cardiology Report ---
APPROVED REPORT EKG Measurement Heart [id number] Poor data quality, interpretation may be adversely affected Normal sinus rhythm Normal ECG
--- NOTE | 2017-05-30 19:27 | Cardiology Report ---
APPROVED REPORT EKG Measurement Heart [id number] Sinus tachycardia Otherwise normal ECG
--- NOTE | 2017-05-30 19:36 | Cardiology Report ---
APPROVED REPORT EKG Measurement Heart [id number] [id number] Normal sinus rhythm Normal ECG
[2017-05-30 20:36] VITALS: BP 132/83
--- NOTE | 2017-05-30 22:34 | General Progress Note ---
Assessment/Plan Assessment/Plan Assessment - Rhabdo - Elevated transaminases, likely due to above - pulmonary infiltrates - s/p yoly - diverticulosis - peripancreatic stranding - Lactic acidosis - resolved - Epigastric/ RUQ pain , ? etiology - Reactive airways - recent PNA - hemoptysis Recommendations - IVF - Follow LFT - follow lactate and Cr - check hepatitis serologies - Outpatient EGD after cardiac clearance - PPI - Hold ASA, Tylenol, Topamax Subjective Allergies: Coded Allergies: No Known Allergies (Unverified , 05/26/17) Subjective still with epigastric pain cough better tolerating PO d/w cardiology - will hold off on EGD until cardiac w/u complete Objective Last 24 Hour Vital Signs Date Time Temp Pulse Resp B/P (MAP) Pulse Ox O2 Delivery O2 Flow Rate FiO2 05/30/17 20:51 76 132/83 05/30/17 20:36 98.0 76 20 132/83 94 05/30/17 20:00 84 05/30/17 19:19 98 18 97 Nasal Cannula 2.0 28 05/30/17 19:18 95 Nasal Cannula 2.0 28 05/30/17 19:18 Nasal Cannula 2.0 28 05/30/17 19:10 101 20 95 Nasal Cannula 2.0 28 05/30/17 18:19 97.9 05/30/17 16:00 70 05/30/17 16:00 98.0 85 20 139/87 96 Room Air 05/30/17 15:20 Nasal Cannula 05/30/17 15:20 Nasal Cannula 05/30/17 12:00 76 05/30/17 12:00 97.9 73 18 132/89 98 Room Air 05/30/17 11:06 80 16 98 Nasal Cannula 2.0 28 05/30/17 11:02 80 20 96 Nasal Cannula 2.0 28 05/30/17 08:07 75 154/84 05/30/17 08:00 98.1 75 20 154/84 95 Room Air 05/30/17 08:00 62 05/30/17 07:44 82 18 98 Nasal Cannula 2.0 28 05/30/17 07:36 96 Nasal Cannula 2.0 28 05/30/17 07:36 Nasal Cannula 2.0 28 05/30/17 07:36 85 20 96 Nasal Cannula 2.0 28 05/30/17 04:00 72 05/30/17 03:03 61 18 98 Nasal Cannula 2.0 28 05/30/17 02:57 55 18 97 Nasal Cannula 2.0 28 05/30/17 00:00 Nasal Cannula 2.0 05/30/17 00:00 73 05/30/17 00:00 97.9 80 22 131/77 93 Nasal Cannula 05/29/17 23:04 69 16 98 Nasal Cannula 2.0 28 05/29/17 22:58 60 18 95 Nasal Cannula 2.0 28 Intake and Output 05/29/17 05/30/17 19:00 07:00 Intake Total 955 ml 2228 ml Output Total 2500 ml 4180 ml Balance -1545 ml -1952 ml Intake Oral 750 ml 800 ml IV Total 205 ml 1428 ml Output Urine Total 2500 ml 4180 ml # Bowel Movements 1 Laboratory Tests 05/30/17 05:05: Sodium Level 142, Potassium Level 3.6, Chloride Level 106, Carbon Dioxide Level 27, Anion Gap 9, Blood Urea Nitrogen 34H, Creatinine 1.3, Estimat Glomerular Filtration Rate > 60, Glucose Level 123H, Calcium Level 7.9L, Total Creatine Kinase 570H, Creatine Kinase MB 1.0, Troponin I 0.238H, Triglycerides Level 356H , Cholesterol Level 173, LDL Cholesterol 103H, HDL Cholesterol 24L, Cholesterol/ HDL Ratio 7.2H 05/30/17 06:09: Urine Opiates Screen PositiveH, Urine Barbiturates Screen PositiveH, Phencyclidine (PCP) Screen Negative, Urine Amphetamines Screen Negative, Urine Benzodiazepines Screen Negative, Urine Cocaine Screen Negative, Urine Marijuana (THC) Screen PositiveH Height (Feet): 6 Height (Inches): 1.00 Weight (Pounds): 260 Objective Obese WM NCAT supple CTA RRR soft ND mild epigastric TTP no edema JAMIN HEARD May 30, 2017 22:34
[2017-05-31 00:15] VITALS: BP 132/68
[2017-05-31] MEDS: Morphine Sulfate 4mg/ml Inj IVP PRN ×7 (00:36→22:43)
[2017-05-31] MEDS: Albuterol/Ipratropium 3ml neb HHN SCH ×6 (03:00→23:39)
[2017-05-31 04:00] VITALS: BP 141/88
[2017-05-31 08:00] VITALS: BP 138/81
[2017-05-31] MEDS: Aspirin EC 81mg tab ORAL SCH (08:41)
[2017-05-31] MEDS: Metoprolol 25mg tab ORAL SCH ×2 (08:41→20:54)
[2017-05-31] MEDS: Azithromycin 250mg tab ORAL SCH (08:41)
[2017-05-31] MEDS: cefTRIAXone 1 GM in D5W 55 ML IVPB SCH (08:41)
[2017-05-31] MEDS: Heparin 5000 units/ml inj SUBQ SCH ×2 (08:42→20:56)
--- NOTE | 2017-05-31 10:48 | General Progress Note ---
Assessment/Plan Assessment/Plan IMPRESSION ARF- improved rhabdo- resolved CK elevated Liver enzyme elevated troponin Pneumonia with abnormal CT dyspnea elevated CK reduced EF migraines PLAN fiorecet and topamax added Iv hydration follow up labs and liver enzymes for further improvement GI and renal evaluation noted IV antibiotics pending cultures ID evaluation noted hydration as able pain management close followup and monitor of labs follow up troponins and cards recommendations all noted and appreciated PT evaluation obtain records and follow up labs CT chest- discuss; if not improved, would pursue bronchoscopy Subjective Allergies: Coded Allergies: No Known Allergies (Unverified , 05/26/17) Subjective slow improvement need records from outside hospital breathing easier and more controlled tox screen discussed Objective Last 24 Hour Vital Signs Date Time Temp Pulse Resp B/P (MAP) Pulse Ox O2 Delivery O2 Flow Rate FiO2 05/31/17 10:38 72 21 92 Nasal Cannula 2.0 28 05/31/17 08:41 94 138/81 05/31/17 08:00 97.7 94 18 138/81 94 05/31/17 07:03 72 18 94 Nasal Cannula 2.0 28 05/31/17 06:53 67 16 94 Nasal Cannula 2.0 28 05/31/17 06:50 Nasal Cannula 2.0 28 05/31/17 06:50 94 Nasal Cannula 2.0 28 05/31/17 04:00 68 05/31/17 04:00 97.9 66 20 141/88 98 05/31/17 03:27 Nasal Cannula 2.0 28 05/31/17 03:27 Nasal Cannula 2.0 28 05/31/17 00:15 97.3 65 20 132/68 94 05/31/17 00:00 65 05/30/17 23:27 94 18 94 Nasal Cannula 2.0 28 05/30/17 23:08 88 16 91 Nasal Cannula 2.0 28 05/30/17 20:51 76 132/83 05/30/17 20:36 98.0 76 20 132/83 94 05/30/17 20:00 84 05/30/17 19:19 98 18 97 Nasal Cannula 2.0 28 05/30/17 19:18 95 Nasal Cannula 2.0 28 05/30/17 19:18 Nasal Cannula 2.0 28 05/30/17 19:10 101 20 95 Nasal Cannula 2.0 28 05/30/17 18:19 97.9 05/30/17 16:00 70 05/30/17 16:00 98.0 85 20 139/87 96 Room Air 05/30/17 15:20 Nasal Cannula 05/30/17 15:20 Nasal Cannula 05/30/17 12:00 76 05/30/17 12:00 97.9 73 18 132/89 98 Room Air 05/30/17 11:06 80 16 98 Nasal Cannula 2.0 28 05/30/17 11:02 80 20 96 Nasal Cannula 2.0 28 Intake and Output 05/30/17 05/31/17 19:00 07:00 Intake Total 295 ml 1390 ml Output Total 1350 ml 1500 ml Balance -1055 ml -110 ml Intake Oral 240 ml 240 ml IV Total 55 ml 1150 ml Output Urine Total 1350 ml 1500 ml # Voids 4 Height (Feet): 6 Height (Inches): 1.00 Weight (Pounds): 260 Objective WDWN has less pain clear breath sounds bilaterally overall with minimal rhonchi [id number] without MRG NABS nontender no HSM no CCE nonfocal MEGAN العلي May 31, 2017 10:48
--- NOTE | 2017-05-31 11:23 | Infectious Diseases Prog Note ---
Assessment/Plan Assessment/Plan antibiotics : ceftriaxone, azithromycin A 1. pneumonia 2. leucocytosis improving 3. renal failure improving 4. rhabdomyolysis P 1. continue ceftriaxone, azithromycin 2. will follow up cultures Subjective Constitutional: Denies: fever, chills Respiratory: Reports: shortness of breath, productive cough - decreased Gastrointestinal/Abdominal: Denies: nausea, vomiting, diarrhea Musculoskeletal: Reports: pain Allergies: Coded Allergies: No Known Allergies (Unverified , 05/26/17) Objective Vital Signs Last 24 Hour Vital Signs Date Time Temp Pulse Resp B/P (MAP) Pulse Ox O2 Delivery O2 Flow Rate FiO2 05/31/17 10:48 82 22 95 Nasal Cannula 2.0 28 05/31/17 10:38 72 21 92 Nasal Cannula 2.0 28 05/31/17 08:41 94 138/81 05/31/17 08:00 97.7 94 18 138/81 94 05/31/17 07:03 72 18 94 Nasal Cannula 2.0 28 05/31/17 06:53 67 16 94 Nasal Cannula 2.0 28 05/31/17 06:50 Nasal Cannula 2.0 28 05/31/17 06:50 94 Nasal Cannula 2.0 28 05/31/17 04:00 68 05/31/17 04:00 97.9 66 20 141/88 98 05/31/17 03:27 Nasal Cannula 2.0 28 05/31/17 03:27 Nasal Cannula 2.0 28 05/31/17 00:15 97.3 65 20 132/68 94 05/31/17 00:00 65 05/30/17 23:27 94 18 94 Nasal Cannula 2.0 28 05/30/17 23:08 88 16 91 Nasal Cannula 2.0 28 05/30/17 20:51 76 132/83 05/30/17 20:36 98.0 76 20 132/83 94 05/30/17 20:00 84 05/30/17 19:19 98 18 97 Nasal Cannula 2.0 28 05/30/17 19:18 95 Nasal Cannula 2.0 28 05/30/17 19:18 Nasal Cannula 2.0 28 05/30/17 19:10 101 20 95 Nasal Cannula 2.0 28 05/30/17 18:19 97.9 05/30/17 16:00 70 05/30/17 16:00 98.0 85 20 139/87 96 Room Air 05/30/17 15:20 Nasal Cannula 05/30/17 15:20 Nasal Cannula 05/30/17 12:00 76 05/30/17 12:00 97.9 73 18 132/89 98 Room Air Height (Feet): 6 Height (Inches): 1.00 Weight (Pounds): 260 Respiratory/Chest: lungs clear Cardiovascular: normal rate, regular rhythm, no gallop/murmur Abdomen: soft, non tender Extremities: no edema CHET DURAN May 31, 2017 11:23
[2017-05-31 12:00] VITALS: BP 122/89
[2017-05-31 12:36] LABS: BASOPHILS % (AUTO) 0.5 % (0.0-2.0); EOSINOPHILS % (AUTO) 1.8 % (0.0-3.0); HEMATOCRIT 49.4 % (42.0-52.0); HEMOGLOBIN 16.9 G/DL (14.2-18.0); LYMPHOCYTES % (AUTO) 22.7 % (20.0-45.0); MEAN CORPUSCULAR VOLUME 87 FL (80-99); MONOCYTES % (AUTO) 5.5 % (1.0-10.0); NEUTROPHILS % (AUTO) 69.6 % (45.0-75.0); PLATELET COUNT 310 K/UL (150-450); RED BLOOD COUNT 5.68 M/UL (4.70-6.10); RED CELL DISTRIBUTION WIDTH 11.4 % (11.6-14.8); WHITE BLOOD COUNT 10.9 K/UL (4.8-10.8)
[2017-05-31 12:44] LABS: ANION GAP 12 mmol/L (5-15); BLOOD UREA NITROGEN 21 mg/dL (7-18); CALCIUM 8.3 MG/DL (8.5-10.1); CARBON DIOXIDE 28 MMOL/L (21-32); CHLORIDE 101 MMOL/L (98-107); CREATININE 1.3 MG/DL (0.55-1.30); POTASSIUM 3.3 MMOL/L (3.5-5.1); SODIUM 141 MMOL/L (136-145)
[2017-05-31 16:00] VITALS: BP 121/73
[2017-05-31 20:00] VITALS: BP 124/80
[2017-05-31] MEDS ORDERED: Topiramate 25mg tab ORAL SCH (21:00)
--- NOTE | 2017-05-31 23:25 | General Progress Note ---
Assessment/Plan Assessment/Plan Assessment - Rhabdo - Elevated transaminases, likely due to above - pulmonary infiltrates - s/p yoly - diverticulosis - peripancreatic stranding - Lactic acidosis - resolved - Epigastric/ RUQ pain , ? etiology - Reactive airways - recent PNA - hemoptysis Recommendations - IVF - Follow LFT - follow lactate and Cr - check hepatitis serologies - Outpatient EGD after cardiac clearance - PPI - Hold ASA, Tylenol, Topamax Subjective Allergies: Coded Allergies: No Known Allergies (Unverified , 05/26/17) Subjective still with epigastric pain, but better cough better tolerating PO Objective Last 24 Hour Vital Signs Date Time Temp Pulse Resp B/P (MAP) Pulse Ox O2 Delivery O2 Flow Rate FiO2 05/31/17 20:54 82 126/72 05/31/17 20:13 Nasal Cannula 2.0 28 05/31/17 20:12 92 Nasal Cannula 3.0 32 05/31/17 20:00 98.1 94 18 124/80 97 05/31/17 20:00 87 05/31/17 19:59 86 18 95 Nasal Cannula 3.0 32 05/31/17 19:50 84 20 92 Nasal Cannula 3.0 32 05/31/17 16:00 97.7 84 20 121/73 95 05/31/17 16:00 89 05/31/17 14:59 95 22 98 Nasal Cannula 2.0 28 05/31/17 14:49 93 21 97 Nasal Cannula 2.0 28 05/31/17 12:00 99 05/31/17 12:00 97.7 98 20 122/89 95 05/31/17 10:48 82 22 95 Nasal Cannula 2.0 28 05/31/17 10:38 72 21 92 Nasal Cannula 2.0 28 05/31/17 08:41 94 138/81 05/31/17 08:00 97.7 94 18 138/81 94 05/31/17 08:00 72 05/31/17 07:03 72 18 94 Nasal Cannula 2.0 28 05/31/17 06:53 67 16 94 Nasal Cannula 2.0 28 05/31/17 06:50 Nasal Cannula 2.0 28 05/31/17 06:50 94 Nasal Cannula 2.0 28 05/31/17 04:00 68 05/31/17 04:00 97.9 66 20 141/88 98 05/31/17 03:27 Nasal Cannula 2.0 28 05/31/17 03:27 Nasal Cannula 2.0 28 05/31/17 00:15 97.3 65 20 132/68 94 05/31/17 00:00 65 05/30/17 23:27 94 18 94 Nasal Cannula 2.0 28 Intake and Output 05/30/17 05/31/17 19:00 07:00 Intake Total 295 ml 1390 ml Output Total 1350 ml 1500 ml Balance -1055 ml -110 ml Intake Oral 240 ml 240 ml IV Total 55 ml 1150 ml Output Urine Total 1350 ml 1500 ml # Voids 4 Laboratory Tests 05/31/17 10:46: Sodium Level 141, Potassium Level 3.3L, Chloride Level 101, Carbon Dioxide Level 28, Anion Gap 12, Blood Urea Nitrogen 21H, Creatinine 1.3, Estimat Glomerular Filtration Rate > 60, Glucose Level 124H, Calcium Level 8.3L 05/31/17 12:25: White Blood Count 10.9H, Red Blood Count 5.68, Hemoglobin 16.9, Hematocrit 49.4 , Mean Corpuscular Volume 87, Mean Corpuscular Hemoglobin 29.7, Mean Corpuscular Hemoglobin Concent 34.1, Red Cell Distribution Width 11.4L, Platelet Count 310, Mean Platelet Volume 6.8, Neutrophils (%) (Auto) 69.6, Lymphocytes (%) (Auto) 22.7, Monocytes (%) (Auto) 5.5, Eosinophils (%) (Auto) 1.8, Basophils (%) (Auto) 0.5 Height (Feet): 6 Height (Inches): 1.00 Weight (Pounds): 260 Objective Obese WM NCAT supple CTA RRR soft ND mild epigastric TTP no edema JAMIN HEARD May 31, 2017 23:25
--- NOTE | 2017-05-31 23:36 | Cardiology Progress Note ---
Assessment/Plan Assessment/Plan 1. Dyspnea, most likely due to pneumonia as there is presence of leukocytosis and bandemia, 2. Chronic systoliv CHF, cardiomyopathy with anteroseptal wall akinesia, LVEF ~ 40%, continue the current management, there is clinical improvement as well as improvement in the renal function. 3. History of hypertension., continue metoprolol. 4. Sinus tachycardia due to infection/pneumonia, resolved, continue B-blockers. 5. Elevated troponin I level could be due to rhabdomyolysis vs Trop I leak due to HENRY vs demand-ischemia. 6. HENRY, resolved. Subjective Subjective Sinus rhythm at 82. Objective Last 24 Hour Vital Signs Date Time Temp Pulse Resp B/P (MAP) Pulse Ox O2 Delivery O2 Flow Rate FiO2 05/31/17 20:54 82 126/72 05/31/17 20:13 Nasal Cannula 2.0 28 05/31/17 20:12 92 Nasal Cannula 3.0 32 05/31/17 20:00 98.1 94 18 124/80 97 05/31/17 20:00 87 05/31/17 19:59 86 18 95 Nasal Cannula 3.0 32 05/31/17 19:50 84 20 92 Nasal Cannula 3.0 32 05/31/17 16:00 97.7 84 20 121/73 95 05/31/17 16:00 89 05/31/17 14:59 95 22 98 Nasal Cannula 2.0 28 05/31/17 14:49 93 21 97 Nasal Cannula 2.0 28 05/31/17 12:00 99 05/31/17 12:00 97.7 98 20 122/89 95 05/31/17 10:48 82 22 95 Nasal Cannula 2.0 28 05/31/17 10:38 72 21 92 Nasal Cannula 2.0 28 05/31/17 08:41 94 138/81 05/31/17 08:00 97.7 94 18 138/81 94 05/31/17 08:00 72 05/31/17 07:03 72 18 94 Nasal Cannula 2.0 28 05/31/17 06:53 67 16 94 Nasal Cannula 2.0 28 05/31/17 06:50 Nasal Cannula 2.0 28 05/31/17 06:50 94 Nasal Cannula 2.0 28 05/31/17 04:00 68 05/31/17 04:00 97.9 66 20 141/88 98 05/31/17 03:27 Nasal Cannula 2.0 28 05/31/17 03:27 Nasal Cannula 2.0 28 05/31/17 00:15 97.3 65 20 132/68 94 05/31/17 00:00 65 Intake and Output 05/30/17 05/31/17 19:00 07:00 Intake Total 295 ml 1390 ml Output Total 1350 ml 1500 ml Balance -1055 ml -110 ml Intake Oral 240 ml 240 ml IV Total 55 ml 1150 ml Output Urine Total 1350 ml 1500 ml # Voids 4 2D Echo: EF 45%, Anteroseptal HK, RVSP 33 mmHg Laboratory Tests Test 05/31/17 10:46 05/31/17 12:25 Sodium Level 141 MMOL/L (136-145) Potassium Level 3.3 MMOL/L (3.5-5.1) L Chloride Level 101 MMOL/L (98-107) Carbon Dioxide Level 28 MMOL/L (21-32) Anion Gap 12 mmol/L (5-15) Blood Urea Nitrogen 21 mg/dL (7-18) H Creatinine 1.3 MG/DL (0.55-1.30) Estimat Glomerular Filtration Rate > 60 mL/min (>60) Glucose Level 124 MG/DL (74-106) H Calcium Level 8.3 MG/DL (8.5-10.1) L White Blood Count 10.9 K/UL (4.8-10.8) H Red Blood Count 5.68 M/UL (4.70-6.10) Hemoglobin 16.9 G/DL (14.2-18.0) Hematocrit 49.4 % (42.0-52.0) Mean Corpuscular Volume 87 FL (80-99) Mean Corpuscular Hemoglobin 29.7 PG (27.0-31.0) Mean Corpuscular Hemoglobin Concent 34.1 G/DL (32.0-36.0) Red Cell Distribution Width 11.4 % (11.6-14.8) L Platelet Count 310 K/UL (150-450) Mean Platelet Volume 6.8 FL (6.5-10.1) Neutrophils (%) (Auto) 69.6 % (45.0-75.0) Lymphocytes (%) (Auto) 22.7 % (20.0-45.0) Monocytes (%) (Auto) 5.5 % (1.0-10.0) Eosinophils (%) (Auto) 1.8 % (0.0-3.0) Basophils (%) (Auto) 0.5 % (0.0-2.0) Objective HEENT: Atraumatic, normocephalic. Anicteric. Pupils are equal, round, and reactive to light and accommodation. Extraocular muscles intact. NECK: JVP less than 5 cmH2O. No carotid bruit. Carotid upstrokes 2+ bilaterally. CARDIOVASCULAR SYSTEM: Normal S1, S2. Regular rate and rhythm. No murmurs, gallops, or rubs. PMI is at fourth intercostal space in the midclavicular line. LUNGS: Clear to auscultation bilaterally. ABDOMEN: Soft, nontender, nondistended. No hepatosplenomegaly. Positive bowel sounds. EXTREMITIES: No evidence of edema, clubbing, or cyanosis. CRISTA MURPHY May 31, 2017 23:36
[2017-06-01] VITALS (21 sets, daily range): BP systolic 112–161; BP diastolic 62–102
[2017-06-01] MEDS: Morphine Sulfate 4mg/ml Inj IVP PRN ×2 (01:42→01:46)
[2017-06-01] MEDS: Albuterol/Ipratropium 3ml neb HHN SCH ×6 (03:00→23:26)
--- NOTE | 2017-06-01 04:56 | Emergency Room Report ---
History of Present Illness General Chief Complaint: Dyspnea/Respdistress Source: Patient Present Illness Allergies: Coded Allergies: No Known Allergies (Unverified , 05/26/17) Nursing Documentation-[facility] Past Medical History: No History, Except For Hx Cardiac Problems: Yes Hx Hypertension: Yes Hx Cancer: No Hx Gastrointestinal Problems: No Hx Neurological Problems: No Physical Exam Vital Signs Date Time Temp Pulse Resp B/P (MAP) Pulse Ox O2 Delivery O2 Flow Rate FiO2 05/26/17 00:00 98.0 101 19 122/76 93 Nasal Cannula 3.0 05/26/17 18:35 21 Procedures Central Line Central Line : Consent: Emergent Central Line Lumen: triple Maximal Sterile Barrier Tech: yes cap, yes mask, yes sterile gown, yes sterile gloves, yes large sterile sheet, yes hand hygiene, yes chlorhexidine prep No Max Barrier Tech Because: emergency insertion Central Line Postion: subclavian (R) Complications: none Central Line Post Position: sutured, good blood return, position confirmed w / CXR Attempts: One Patient Tolerated: Well Complications: None CPR/Code Blue CPR/Code Blue Narrative The patient was noted to have cardiac arrest. Patient was noted to have agonal breathing prior to my arrival. CPR was ongoing was noted to have oxygenation via [id number]. Patient given epi x2 . The patient was intubated. The patient return spontaneous circulation. The patient subsequently improvement in his blood pressure and color. Dr. Tang was notified of patients condition. Intubation Intubation : Consent: Emergent Time of Intubation: 04:20 Intubation Method: orotracheal Tube Size (cm): 7.5 Medications: Other - none Breath Sounds after Intubation: equal Post Intubation Xray: Yes Attempts: One Patient Tolerated: Well Complications: None Medical Decision Making Diagnostic Impression: Primary Impression: Pneumonia Qualified Codes: J18.1 - Lobar pneumonia, unspecified organism Additional Impressions: Respiratory distress Renal insufficiency Rhabdomyolysis Qualified Codes: M62.82 - Rhabdomyolysis Elevated troponin Sepsis Qualified Codes: A41.9 - Sepsis, unspecified organism Last Vital Signs Date Time Temp Pulse Resp B/P (MAP) Pulse Ox O2 Delivery O2 Flow Rate FiO2 06/01/17 04:31 107 24 100 06/01/17 03:50 Nasal Cannula 06/01/17 00:49 97.7 129/84 95 06/01/17 00:00 4.0 Disposition: ADMITTED INPATIENT Condition: Serious Referrals: NOT CHOSEN IPA/,REFERRING (PCP) Jose Burton Jun 01, 2017 04:56
[2017-06-01] MEDS ORDERED: Dicyclomine HCl 10mg/5ml oral soln ORAL PRN (04:59)
[2017-06-01] MEDS ORDERED: Morphine Sulfate 4mg/ml Inj IVP PRN (04:59)
[2017-06-01] MEDS ORDERED: Norco 5mg/325mg tab ORAL PRN (04:59)
[2017-06-01] MEDS ORDERED: Morphine Sulfate 2mg/ml Inj IVP PRN (04:59)
[2017-06-01] MEDS ORDERED: Sodium Bicarbonate 50ml Carp IV ONE (06:00)
[2017-06-01 06:29] LABS: HEMATOCRIT 49.5 % (42.0-52.0); HEMOGLOBIN 16.2 G/DL (14.2-18.0); MEAN CORPUSCULAR VOLUME 91 FL (80-99); PLATELET COUNT 409 K/UL (150-450); RED BLOOD COUNT 5.45 M/UL (4.70-6.10); RED CELL DISTRIBUTION WIDTH 12.4 % (11.6-14.8)
[2017-06-01 06:30] LABS: WHITE BLOOD COUNT 24.3 K/UL (4.8-10.8)
[2017-06-01 06:53] LABS: ALANINE AMINOTRANSFERASE 1163 U/L (12-78); ALBUMIN 3.2 G/DL (3.4-5.0); ALBUMIN/GLOBULIN RATIO 0.8 (1.0-2.7); ALKALINE PHOSPHATASE 104 U/L (46-116); ANION GAP 11 mmol/L (5-15); ASPARTATE AMINO TRANSFERASE 837 U/L (15-37); BILIRUBIN,TOTAL 0.3 MG/DL (0.2-1.0); BLOOD UREA NITROGEN 25 mg/dL (7-18); CALCIUM 7.6 MG/DL (8.5-10.1); CARBON DIOXIDE 28 MMOL/L (21-32); CHLORIDE 101 MMOL/L (98-107); CREATININE 2.1 MG/DL (0.55-1.30); POTASSIUM 5.1 MMOL/L (3.5-5.1); SODIUM 140 MMOL/L (136-145)
[2017-06-01] MEDS ORDERED: Zolpidem 5mg tab ORAL PRN (08:15)
[2017-06-01] MEDS: cefTRIAXone 1 GM in D5W 55 ML IVPB SCH (08:22)
[2017-06-01] MEDS: Aspirin EC 81mg tab ORAL SCH (08:23)
[2017-06-01] MEDS: Azithromycin 250mg tab ORAL SCH (08:23)
[2017-06-01] MEDS: Metoprolol 25mg tab ORAL SCH ×2 (08:24→21:02)
[2017-06-01] MEDS: Heparin 5000 units/ml inj SUBQ SCH ×2 (08:25→21:01)
--- NOTE | 2017-06-01 08:40 | General Progress Note ---
Assessment/Plan Assessment/Plan IMPRESSION ARF rhabdo- resolved CK elevated Liver enzyme elevated troponin Pneumonia with abnormal CT reduced EF migraines s/p CPA acute encephalopathy PLAN Iv hydration follow up labs and liver enzymes for further improvement GI and renal evaluation noted IV antibiotics pending cultures ID evaluation noted hydration as able head CT all noted and appreciated monitor LOC obtain records and follow up labs attempt to update mother- message left medications/laboratory data/nursing notes/ICU care reviewed in detail note reviewed and edited care discussed with RN and RT ICU time spent 38 minutes Subjective ROS Limited/Unobtainable: Yes Allergies: Coded Allergies: No Known Allergies (Unverified , 05/26/17) Subjective underwent code blue now on the ventilator Objective Last 24 Hour Vital Signs Date Time Temp Pulse Resp B/P (MAP) Pulse Ox O2 Delivery O2 Flow Rate FiO2 06/01/17 08:24 95 131/74 06/01/17 08:00 99.1 94 24 131/74 98 Mechanical Ventilator 50 06/01/17 08:00 50 06/01/17 07:19 95 24 99 Mechanical Ventilator 90 06/01/17 07:04 96 25 100 Mechanical Ventilator 90 06/01/17 07:00 95 24 112/68 100 Mechanical Ventilator 50 06/01/17 06:38 99 25 90 06/01/17 06:00 99.1 108 15 115/62 97 90 06/01/17 05:38 90 06/01/17 05:00 117 24 115/62 97 100 06/01/17 04:31 107 24 100 06/01/17 04:30 97.6 114 18 160/85 99 100 06/01/17 03:50 Nasal Cannula 06/01/17 03:50 Nasal Cannula 06/01/17 03:45 106 06/01/17 00:49 97.7 99 20 129/84 95 06/01/17 00:00 84 06/01/17 00:00 78 20 95 Nasal Cannula 4.0 36 05/31/17 23:41 78 20 94 Nasal Cannula 4.0 36 05/31/17 20:54 82 126/72 05/31/17 20:13 Nasal Cannula 2.0 28 05/31/17 20:12 92 Nasal Cannula 3.0 32 05/31/17 20:00 98.1 94 18 124/80 97 05/31/17 20:00 87 05/31/17 19:59 86 18 95 Nasal Cannula 3.0 32 05/31/17 19:50 84 20 92 Nasal Cannula 3.0 32 05/31/17 16:00 97.7 84 20 121/73 95 05/31/17 16:00 89 05/31/17 14:59 95 22 98 Nasal Cannula 2.0 28 05/31/17 14:49 93 21 97 Nasal Cannula 2.0 28 05/31/17 12:00 99 05/31/17 12:00 97.7 98 20 122/89 95 05/31/17 10:48 82 22 95 Nasal Cannula 2.0 28 05/31/17 10:38 72 21 92 Nasal Cannula 2.0 28 05/31/17 08:41 94 138/81 Intake and Output 05/31/17 06/01/17 19:00 07:00 Intake Total 995 ml 783 ml Output Total 1600 ml 2000 ml Balance -605 ml -1217 ml Intake Oral 240 ml IV Total 755 ml 783 ml Output Urine Total 1600 ml 2000 ml Laboratory Tests 05/31/17 10:46: Sodium Level 141, Potassium Level 3.3L, Chloride Level 101, Carbon Dioxide Level 28, Anion Gap 12, Blood Urea Nitrogen 21H, Creatinine 1.3, Estimat Glomerular Filtration Rate > 60, Glucose Level 124H, Calcium Level 8.3L 05/31/17 12:25: White Blood Count 10.9H, Red Blood Count 5.68, Hemoglobin 16.9, Hematocrit 49.4 , Mean Corpuscular Volume 87, Mean Corpuscular Hemoglobin 29.7, Mean Corpuscular Hemoglobin Concent 34.1, Red Cell Distribution Width 11.4L, Platelet Count 310, Mean Platelet Volume 6.8, Neutrophils (%) (Auto) 69.6, Lymphocytes (%) (Auto) 22.7, Monocytes (%) (Auto) 5.5, Eosinophils (%) (Auto) 1.8, Basophils (%) (Auto) 0.5 06/01/17 04:00: Sodium Level 140, Potassium Level 5.1#, Chloride Level 101, Carbon Dioxide Level 28, Anion Gap 11, Blood Urea Nitrogen 25H, Creatinine 2.1#H, Estimat Glomerular Filtration Rate 37.5, Glucose Level 267#H, Calcium Level 7.6L, White Blood Count 24.3#*H, Red Blood Count 5.45, Hemoglobin 16.2, Hematocrit 49.5, Mean Corpuscular Volume 91, Mean Corpuscular Hemoglobin 29.7, Mean Corpuscular Hemoglobin Concent 32.7, Red Cell Distribution Width 12.4, Platelet Count 409, Mean Platelet Volume 6.3L, Neutrophils (%) (Auto) , Lymphocytes (%) (Auto) , Monocytes (%) (Auto) , Eosinophils (%) (Auto) , Basophils (%) (Auto) , Neutrophils % (Manual) [Pending], Lymphocytes % (Manual) [Pending], Platelet Estimate [Pending], Platelet Morphology [Pending], Magnesium Level 2.3, Total Bilirubin 0.3, Aspartate Amino Transf (AST/SGOT) 837H, Alanine Aminotransferase (ALT/SGPT) 1163H, Alkaline Phosphatase 104, Pro-B-Type Natriuretic Peptide 1011H , Total Protein 7.2, Albumin 3.2L, Globulin 4.0, Albumin/Globulin Ratio 0.8L, Opiates Screen [Pending], Urine Opiates Screen PositiveH, Oxycodone Level [ Pending], Blood Methadone Screen [Pending], Blood Propoxyphene Screen [Pending] , Blood Barbiturates Screen [Pending], Urine Barbiturates Screen PositiveH, Phencyclidine (PCP) Screen Negative, Amphetamines Screen [Pending], Urine Amphetamines Screen Negative, Benzodiazepines Screen [Pending], Urine Benzodiazepines Screen Negative, Blood Cocaine/Metabolite Screen [Pending], Urine Cocaine Screen Negative, Marijuana (THC) Screen [Pending], Urine Marijuana (THC) Screen PositiveH, Blood Drug Screen Comment [Pending] 06/01/17 05:20: Arterial Blood pH 7.191*L, Arterial Blood Partial Pressure CO2 65.2*H, Arterial Blood Partial Pressure O2 111.1H, Arterial Blood HCO3 24.4, Arterial Blood Oxygen Saturation 96.9, Arterial Blood Base Excess -5.3, Ablaji Test Positive 06/01/17 06:48: Arterial Blood pH 7.408, Arterial Blood Partial Pressure CO2 45.4H, Arterial Blood Partial Pressure O2 139.7H, Arterial Blood HCO3 28.0H, Arterial Blood Oxygen Saturation 98.4H, Arterial Blood Base Excess -2.7, Balaji Test Positive Height (Feet): 6 Height (Inches): 1.00 Weight (Pounds): 260 Objective WDWN ETT in place clear breath sounds bilaterally overall with minimal rhonchi [id number] without MRG NABS nontender no HSM no CCE nonfoca poorly responsivel MEGAN العلي Jun 01, 2017 08:40
--- NOTE | 2017-06-01 10:50 | Diagnostic Imaging Report ---
Indication: Status post nasogastric tube placement Technique: Supine view of the abdomen Comparison: none Findings: There is a nasogastric tube in place, tip projected at the level of the gastric body. Bowel gas pattern is unremarkable. There are cholecystectomy clips. Impression: Satisfactory nasogastric intubation This agrees with the preliminary interpretation provided overnight by [facility].
--- NOTE | 2017-06-01 10:53 | Diagnostic Imaging Report ---
Indication: Reason For Exam: LINE Technique: One view of the chest Comparison: 05/26/2017 Findings: Interim endotracheal intubation, endotracheal tube tip projecting approximately 4 cm above the chase. Interim placement of a right subclavian central venous catheter, tip projecting at the level of the cavoatrial junction. No gross pneumothorax. Interim nasogastric intubation, tip projecting beyond the edge of the exam. There is suggestion of interim improvement of previously demonstrated left upper lobe infiltrate, although disease persists. Retrocardiac parenchymal disease persists. The heart remains enlarged Impression: Satisfactory endotracheal intubation and nasogastric intubation Dissected position of right subclavian central venous catheter. No radiographically evident complication Left upper lobe consolidation appears slightly improved over 5 days. Retrocardiac consolidation is stable This agrees with the preliminary interpretation provided overnight by [facility].
--- NOTE | 2017-06-01 13:26 | Infectious Diseases Prog Note ---
Assessment/Plan Assessment/Plan antibiotics : ceftriaxone, azithromycin A 1. pneumonia 2. leucocytosis improving 3. renal failure 4. rhabdomyolysis 5. respiratory failure P 1. continue ceftriaxone, azithromycin 2. will follow up cultures Subjective ROS Limited/Unobtainable: Yes Allergies: Coded Allergies: No Known Allergies (Unverified , 05/26/17) Objective Vital Signs Last 24 Hour Vital Signs Date Time Temp Pulse Resp B/P (MAP) Pulse Ox O2 Delivery O2 Flow Rate FiO2 06/01/17 12:48 88 24 80 06/01/17 12:00 99.2 89 24 148/80 97 Mechanical Ventilator 45 06/01/17 12:00 88 06/01/17 12:00 80 06/01/17 11:17 88 24 80 06/01/17 11:16 89 24 97 Mechanical Ventilator 60 06/01/17 11:00 91 24 118/68 96 Mechanical Ventilator 45 06/01/17 10:53 97 24 97 Mechanical Ventilator 45 06/01/17 10:00 91 24 132/77 97 Mechanical Ventilator 45 06/01/17 09:12 94 24 45 06/01/17 09:00 94 24 122/68 97 Mechanical Ventilator 45 06/01/17 08:24 95 131/74 06/01/17 08:00 99.1 94 24 131/74 98 Mechanical Ventilator 50 06/01/17 08:00 100 06/01/17 08:00 50 06/01/17 07:19 95 24 99 Mechanical Ventilator 90 06/01/17 07:04 96 25 100 Mechanical Ventilator 90 06/01/17 07:00 95 24 112/68 100 Mechanical Ventilator 50 06/01/17 06:38 99 25 90 06/01/17 06:00 99.1 108 15 115/62 97 90 06/01/17 05:38 90 06/01/17 05:00 117 24 115/62 97 100 06/01/17 04:31 107 24 100 06/01/17 04:30 97.6 114 18 160/85 99 100 06/01/17 03:50 Nasal Cannula 06/01/17 03:50 Nasal Cannula 06/01/17 03:45 106 06/01/17 00:49 97.7 99 20 129/84 95 06/01/17 00:00 84 06/01/17 00:00 78 20 95 Nasal Cannula 4.0 36 05/31/17 23:41 78 20 94 Nasal Cannula 4.0 36 05/31/17 20:54 82 126/72 05/31/17 20:13 Nasal Cannula 2.0 28 05/31/17 20:12 92 Nasal Cannula 3.0 32 05/31/17 20:00 98.1 94 18 124/80 97 05/31/17 20:00 87 05/31/17 19:59 86 18 95 Nasal Cannula 3.0 32 05/31/17 19:50 84 20 92 Nasal Cannula 3.0 32 05/31/17 16:00 97.7 84 20 121/73 95 05/31/17 16:00 89 05/31/17 14:59 95 22 98 Nasal Cannula 2.0 28 05/31/17 14:49 93 21 97 Nasal Cannula 2.0 28 Height (Feet): 6 Height (Inches): 1.00 Weight (Pounds): 260 HEENT: other - intubated Respiratory/Chest: lungs clear Cardiovascular: normal rate, regular rhythm, no gallop/murmur Abdomen: soft, non tender Extremities: no edema Laboratory Tests Test 06/01/17 04:00 06/01/17 05:20 06/01/17 06:48 White Blood Count 24.3 K/UL (4.8-10.8) #*H Red Blood Count 5.45 M/UL (4.70-6.10) Hemoglobin 16.2 G/DL (14.2-18.0) Hematocrit 49.5 % (42.0-52.0) Mean Corpuscular Volume 91 FL (80-99) Mean Corpuscular Hemoglobin 29.7 PG (27.0-31.0) Mean Corpuscular Hemoglobin Concent 32.7 G/DL (32.0-36.0) Red Cell Distribution Width 12.4 % (11.6-14.8) Platelet Count 409 K/UL (150-450) Mean Platelet Volume 6.3 FL (6.5-10.1) L Neutrophils (%) (Auto) % (45.0-75.0) Lymphocytes (%) (Auto) % (20.0-45.0) Monocytes (%) (Auto) % (1.0-10.0) Eosinophils (%) (Auto) % (0.0-3.0) Basophils (%) (Auto) % (0.0-2.0) Differential Total Cells Counted 100 Neutrophils % (Manual) 73 % (45-75) Lymphocytes % (Manual) 13 % (20-45) L Monocytes % (Manual) 7 % (1-10) Eosinophils % (Manual) 1 % (0-3) Basophils % (Manual) 0 % (0-2) Band Neutrophils 6 % (0-8) Platelet Estimate Adequate Platelet Morphology Normal Red Blood Cell Morphology Normal Sodium Level 140 MMOL/L (136-145) Potassium Level 5.1 MMOL/L (3.5-5.1) # Chloride Level 101 MMOL/L (98-107) Carbon Dioxide Level 28 MMOL/L (21-32) Anion Gap 11 mmol/L (5-15) Blood Urea Nitrogen 25 mg/dL (7-18) H Creatinine 2.1 MG/DL (0.55-1.30) #H Estimat Glomerular Filtration Rate 37.5 mL/min (>60) Glucose Level 267 MG/DL (74-106) #H Calcium Level 7.6 MG/DL (8.5-10.1) L Magnesium Level 2.3 MG/DL (1.8-2.4) Total Bilirubin 0.3 MG/DL (0.2-1.0) Aspartate Amino Transf (AST/SGOT) 837 U/L (15-37) H Alanine Aminotransferase (ALT/SGPT) 1163 U/L (12-78) H Alkaline Phosphatase 104 U/L (46-116) Pro-B-Type Natriuretic Peptide 1011 pg/mL (0-125) H Total Protein 7.2 G/DL (6.4-8.2) Albumin 3.2 G/DL (3.4-5.0) L Globulin 4.0 g/dL Albumin/Globulin Ratio 0.8 (1.0-2.7) L Opiates Screen Pending Urine Opiates Screen Positive (NEGATIVE) H Oxycodone Level Pending Blood Methadone Screen Pending Blood Propoxyphene Screen Pending Blood Barbiturates Screen Pending Urine Barbiturates Screen Positive (NEGATIVE) H Phencyclidine (PCP) Screen Negative (NEGATIVE) Amphetamines Screen Pending Urine Amphetamines Screen Negative (NEGATIVE) Benzodiazepines Screen Pending Urine Benzodiazepines Screen Negative (NEGATIVE) Blood Cocaine/Metabolite Screen Pending Urine Cocaine Screen Negative (NEGATIVE) Marijuana (THC) Screen Pending Urine Marijuana (THC) Screen Positive (NEGATIVE) H Blood Drug Screen Comment Pending Arterial Blood pH 7.191 (7.350-7.450) 7.408 (7.350-7.450) Arterial Blood Partial Pressure CO2 65.2 mmHg (35.0-45.0) *H 45.4 mmHg (35.0-45.0) H Arterial Blood Partial Pressure O2 111.1 mmHg (75.0-100.0) H 139.7 mmHg (75.0-100.0) H Arterial Blood HCO3 24.4 mmol/L (22.0-26.0) 28.0 mmol/L (22.0-26.0) H Arterial Blood Oxygen Saturation 96.9 % (92.0-98.0) 98.4 % (92.0-98.0) H Arterial Blood Base Excess -5.3 -2.7 Balaji Test Positive Positive CHTE DURAN Jun 01, 2017 13:26
--- NOTE | 2017-06-01 18:57 | Cardiology Progress Note ---
Assessment/Plan Assessment/Plan 1. Asystole cardiac arrest due to respiratory failure, regained pulse after 8 minutes. Repeat 2D echo. 2. Multifocal pneumonia on CT scan of chest. 3. Mild cardiomyopathy with LVEF at 45%, + anteroseptal wall hypokinesia. 4. Elevated troponin level likely due to sepsis/tachycardia/pneumonia, not a pattern for ACS, CP free 5. Shock liver following cardiac arrest 4. ATN following cardiac arrest. 5. Acute respiratory failure. 6. Substance abuse 7. Obesity Subjective Subjective He coded while in [facility], initially was noted to be unresponsive with O2 sat of 40% , then he went to asystole for 8 minutes. 2 Minutes after receiving Narcan he regained his pulse. 4 epi ampules were used. He got intubated and was transferred to ICU. Currently unresponsive. ST at 100. Objective Last 24 Hour Vital Signs Date Time Temp Pulse Resp B/P (MAP) Pulse Ox O2 Delivery O2 Flow Rate FiO2 06/01/17 18:00 102 24 155/93 99 Mechanical Ventilator 100 06/01/17 17:00 99 24 136/68 98 Mechanical Ventilator 100 06/01/17 16:54 109 24 100 06/01/17 16:00 100 06/01/17 16:00 95 06/01/17 16:00 99.7 84 24 136/68 96 06/01/17 16:00 99.7 107 24 146/80 97 Mechanical Ventilator 100 06/01/17 15:41 101 24 98 Mechanical Ventilator 70 06/01/17 15:41 99 24 70 06/01/17 15:30 99 24 98 Mechanical Ventilator 70 06/01/17 15:00 92 24 146/80 98 Mechanical Ventilator 80 06/01/17 14:00 90 24 143/84 97 Mechanical Ventilator 80 06/01/17 13:00 88 24 134/67 97 Mechanical Ventilator 80 06/01/17 12:48 88 24 75 06/01/17 12:00 99.2 89 24 148/80 97 Mechanical Ventilator 80 06/01/17 12:00 88 06/01/17 12:00 80 06/01/17 11:17 88 24 80 06/01/17 11:16 89 24 97 Mechanical Ventilator 60 06/01/17 11:00 91 24 118/68 96 Mechanical Ventilator 45 06/01/17 10:53 97 24 97 Mechanical Ventilator 45 06/01/17 10:00 91 24 132/77 97 Mechanical Ventilator 45 06/01/17 09:12 94 24 45 06/01/17 09:00 94 24 122/68 97 Mechanical Ventilator 45 06/01/17 08:24 95 131/74 06/01/17 08:00 99.1 94 24 131/74 98 Mechanical Ventilator 50 06/01/17 08:00 100 06/01/17 08:00 50 06/01/17 07:19 95 24 99 Mechanical Ventilator 90 06/01/17 07:04 96 25 100 Mechanical Ventilator 90 06/01/17 07:00 95 24 112/68 100 Mechanical Ventilator 50 06/01/17 06:38 99 25 90 06/01/17 06:00 99.1 108 15 115/62 97 90 06/01/17 05:38 90 06/01/17 05:00 117 24 115/62 97 100 06/01/17 04:31 107 24 100 06/01/17 04:30 97.6 114 18 160/85 99 100 06/01/17 03:50 Nasal Cannula 06/01/17 03:50 Nasal Cannula 06/01/17 03:45 106 06/01/17 00:49 97.7 99 20 129/84 95 06/01/17 00:00 84 06/01/17 00:00 78 20 95 Nasal Cannula 4.0 36 05/31/17 23:41 78 20 94 Nasal Cannula 4.0 36 05/31/17 20:54 82 126/72 05/31/17 20:13 Nasal Cannula 2.0 28 05/31/17 20:12 92 Nasal Cannula 3.0 32 05/31/17 20:00 98.1 94 18 124/80 97 05/31/17 20:00 87 05/31/17 19:59 86 18 95 Nasal Cannula 3.0 32 05/31/17 19:50 84 20 92 Nasal Cannula 3.0 32 Intake and Output 05/31/17 06/01/17 19:00 07:00 Intake Total 995 ml 823 ml Output Total 1600 ml 2150 ml Balance -605 ml -1327 ml Intake Oral 240 ml IV Total 755 ml 783 ml Other 40 ml Output Urine Total 1600 ml 2150 ml 2D Echo: EF 45%, Anteroseptal HK, RVSP 33 mmHg Laboratory Tests Test 06/01/17 04:00 06/01/17 05:20 06/01/17 06:48 White Blood Count 24.3 K/UL (4.8-10.8) #*H Red Blood Count 5.45 M/UL (4.70-6.10) Hemoglobin 16.2 G/DL (14.2-18.0) Hematocrit 49.5 % (42.0-52.0) Mean Corpuscular Volume 91 FL (80-99) Mean Corpuscular Hemoglobin 29.7 PG (27.0-31.0) Mean Corpuscular Hemoglobin Concent 32.7 G/DL (32.0-36.0) Red Cell Distribution Width 12.4 % (11.6-14.8) Platelet Count 409 K/UL (150-450) Mean Platelet Volume 6.3 FL (6.5-10.1) L Neutrophils (%) (Auto) % (45.0-75.0) Lymphocytes (%) (Auto) % (20.0-45.0) Monocytes (%) (Auto) % (1.0-10.0) Eosinophils (%) (Auto) % (0.0-3.0) Basophils (%) (Auto) % (0.0-2.0) Differential Total Cells Counted 100 Neutrophils % (Manual) 73 % (45-75) Lymphocytes % (Manual) 13 % (20-45) L Monocytes % (Manual) 7 % (1-10) Eosinophils % (Manual) 1 % (0-3) Basophils % (Manual) 0 % (0-2) Band Neutrophils 6 % (0-8) Platelet Estimate Adequate Platelet Morphology Normal Red Blood Cell Morphology Normal Sodium Level 140 MMOL/L (136-145) Potassium Level 5.1 MMOL/L (3.5-5.1) # Chloride Level 101 MMOL/L (98-107) Carbon Dioxide Level 28 MMOL/L (21-32) Anion Gap 11 mmol/L (5-15) Blood Urea Nitrogen 25 mg/dL (7-18) H Creatinine 2.1 MG/DL (0.55-1.30) #H Estimat Glomerular Filtration Rate 37.5 mL/min (>60) Glucose Level 267 MG/DL (74-106) #H Calcium Level 7.6 MG/DL (8.5-10.1) L Magnesium Level 2.3 MG/DL (1.8-2.4) Total Bilirubin 0.3 MG/DL (0.2-1.0) Aspartate Amino Transf (AST/SGOT) 837 U/L (15-37) H Alanine Aminotransferase (ALT/SGPT) 1163 U/L (12-78) H Alkaline Phosphatase 104 U/L (46-116) Pro-B-Type Natriuretic Peptide 1011 pg/mL (0-125) H Total Protein 7.2 G/DL (6.4-8.2) Albumin 3.2 G/DL (3.4-5.0) L Globulin 4.0 g/dL Albumin/Globulin Ratio 0.8 (1.0-2.7) L Opiates Screen Pending Urine Opiates Screen Positive (NEGATIVE) H Oxycodone Level Pending Blood Methadone Screen Pending Blood Propoxyphene Screen Pending Blood Barbiturates Screen Pending Urine Barbiturates Screen Positive (NEGATIVE) H Phencyclidine (PCP) Screen Negative (NEGATIVE) Amphetamines Screen Pending Urine Amphetamines Screen Negative (NEGATIVE) Benzodiazepines Screen Pending Urine Benzodiazepines Screen Negative (NEGATIVE) Blood Cocaine/Metabolite Screen Pending Urine Cocaine Screen Negative (NEGATIVE) Marijuana (THC) Screen Pending Urine Marijuana (THC) Screen Positive (NEGATIVE) H Blood Drug Screen Comment Pending Arterial Blood pH 7.191 (7.350-7.450) 7.408 (7.350-7.450) Arterial Blood Partial Pressure CO2 65.2 mmHg (35.0-45.0) *H 45.4 mmHg (35.0-45.0) H Arterial Blood Partial Pressure O2 111.1 mmHg (75.0-100.0) H 139.7 mmHg (75.0-100.0) H Arterial Blood HCO3 24.4 mmol/L (22.0-26.0) 28.0 mmol/L (22.0-26.0) H Arterial Blood Oxygen Saturation 96.9 % (92.0-98.0) 98.4 % (92.0-98.0) H Arterial Blood Base Excess -5.3 -2.7 Balaji Test Positive Positive Objective HEENT: Intubated, unresponsive NECK: JVP cannot be assessed, No carotid bruit. Carotid upstrokes 2+ bilaterally. CARDIOVASCULAR SYSTEM: Normal S1, S2. Regular rate and rhythm. Tachycardic, No murmurs, gallops, or rubs. PMI is at fourth intercostal space in the midclavicular line. LUNGS: Clear to auscultation bilaterally. ABDOMEN: Soft, nontender, nondistended. No hepatosplenomegaly. Positive bowel sounds. EXTREMITIES: No evidence of edema, clubbing, or cyanosis. CRISTA MURPHY Jun 01, 2017 18:57
[2017-06-01] MEDS: Topiramate 25mg tab ORAL SCH (21:02)
--- NOTE | 2017-06-01 22:19 | General Progress Note ---
Assessment/Plan Assessment/Plan Assessment - s/p arrest - Rhabdo - was resolving prior to arrest - Elevated transaminases - initially due to Rhabdo, now due to post arrest shock liver/injury - s/p yoly - diverticulosis - peripancreatic stranding - Epigastric/ RUQ pain , ? etiology - was improving - Reactive airways - recent PNA - hemoptysis Recommendations - supportive ICU care - Begin TF in am if stable - IVF - Follow LFT - follow lactate and Cr - PPI Subjective Allergies: Coded Allergies: No Known Allergies (Unverified , 05/26/17) Subjective above noted now in ICU s/p full arrest intubated, (+) OGT Objective Last 24 Hour Vital Signs Date Time Temp Pulse Resp B/P (MAP) Pulse Ox O2 Delivery O2 Flow Rate FiO2 06/01/17 21:02 101 157/95 06/01/17 21:00 105 24 149/85 96 Mechanical Ventilator 100 06/01/17 20:00 101 06/01/17 20:00 99.5 101 24 157/95 99 Mechanical Ventilator 100 06/01/17 20:00 100 06/01/17 19:29 105 27 99 Mechanical Ventilator 70 06/01/17 19:20 109 24 99 Mechanical Ventilator 100 06/01/17 19:00 99 24 154/92 98 Mechanical Ventilator 100 06/01/17 19:00 100 24 100 06/01/17 18:00 102 24 155/93 99 Mechanical Ventilator 100 06/01/17 17:00 99 24 136/68 98 Mechanical Ventilator 100 06/01/17 16:54 109 24 100 06/01/17 16:00 100 06/01/17 16:00 95 06/01/17 16:00 99.7 84 24 136/68 96 06/01/17 16:00 99.7 107 24 146/80 97 Mechanical Ventilator 100 06/01/17 15:41 101 24 98 Mechanical Ventilator 70 06/01/17 15:41 99 24 70 06/01/17 15:30 99 24 98 Mechanical Ventilator 70 06/01/17 15:00 92 24 146/80 98 Mechanical Ventilator 80 06/01/17 14:00 90 24 143/84 97 Mechanical Ventilator 80 06/01/17 13:00 88 24 134/67 97 Mechanical Ventilator 80 06/01/17 12:48 88 24 75 06/01/17 12:00 99.2 89 24 148/80 97 Mechanical Ventilator 80 06/01/17 12:00 88 06/01/17 12:00 80 06/01/17 11:17 88 24 80 06/01/17 11:16 89 24 97 Mechanical Ventilator 60 06/01/17 11:00 91 24 118/68 96 Mechanical Ventilator 45 06/01/17 10:53 97 24 97 Mechanical Ventilator 45 06/01/17 10:00 91 24 132/77 97 Mechanical Ventilator 45 06/01/17 09:12 94 24 45 06/01/17 09:00 94 24 122/68 97 Mechanical Ventilator 45 06/01/17 08:24 95 131/74 06/01/17 08:00 99.1 94 24 131/74 98 Mechanical Ventilator 50 06/01/17 08:00 100 06/01/17 08:00 50 06/01/17 07:19 95 24 99 Mechanical Ventilator 90 06/01/17 07:04 96 25 100 Mechanical Ventilator 90 06/01/17 07:00 95 24 112/68 100 Mechanical Ventilator 50 06/01/17 06:38 99 25 90 06/01/17 06:00 99.1 108 15 115/62 97 90 06/01/17 05:38 90 06/01/17 05:00 117 24 115/62 97 100 06/01/17 04:31 107 24 100 06/01/17 04:30 97.6 114 18 160/85 99 100 06/01/17 03:50 Nasal Cannula 06/01/17 03:50 Nasal Cannula 06/01/17 03:45 106 06/01/17 00:49 97.7 99 20 129/84 95 06/01/17 00:00 84 06/01/17 00:00 78 20 95 Nasal Cannula 4.0 36 05/31/17 23:41 78 20 94 Nasal Cannula 4.0 36 Intake and Output 05/31/17 06/01/17 19:00 07:00 Intake Total 995 ml 823 ml Output Total 1600 ml 2150 ml Balance -605 ml -1327 ml Intake Oral 240 ml IV Total 755 ml 783 ml Other 40 ml Output Urine Total 1600 ml 2150 ml Laboratory Tests 06/01/17 04:00: White Blood Count 24.3#*H, Red Blood Count 5.45, Hemoglobin 16.2, Hematocrit 49.5, Mean Corpuscular Volume 91, Mean Corpuscular Hemoglobin 29.7, Mean Corpuscular Hemoglobin Concent 32.7, Red Cell Distribution Width 12.4, Platelet Count 409, Mean Platelet Volume 6.3L, Neutrophils (%) (Auto) , Lymphocytes (%) ( Auto) , Monocytes (%) (Auto) , Eosinophils (%) (Auto) , Basophils (%) (Auto) , Differential Total Cells Counted 100, Neutrophils % (Manual) 73, Lymphocytes % ( Manual) 13L, Monocytes % (Manual) 7, Eosinophils % (Manual) 1, Basophils % ( Manual) 0, Band Neutrophils 6, Platelet Estimate Adequate, Platelet Morphology Normal, Red Blood Cell Morphology Normal, Sodium Level 140, Potassium Level 5.1# , Chloride Level 101, Carbon Dioxide Level 28, Anion Gap 11, Blood Urea Nitrogen 25H, Creatinine 2.1#H, Estimat Glomerular Filtration Rate 37.5, Glucose Level 267#H, Calcium Level 7.6L, Magnesium Level 2.3, Total Bilirubin 0.3, Aspartate Amino Transf (AST/SGOT) 837H, Alanine Aminotransferase (ALT/SGPT ) 1163H, Alkaline Phosphatase 104, Pro-B-Type Natriuretic Peptide 1011H, Total Protein 7.2, Albumin 3.2L, Globulin 4.0, Albumin/Globulin Ratio 0.8L, Opiates Screen [Pending], Urine Opiates Screen PositiveH, Oxycodone Level [Pending], Blood Methadone Screen [Pending], Blood Propoxyphene Screen [Pending], Blood Barbiturates Screen [Pending], Urine Barbiturates Screen PositiveH, Phencyclidine (PCP) Screen Negative, Amphetamines Screen [Pending], Urine Amphetamines Screen Negative, Benzodiazepines Screen [Pending], Urine Benzodiazepines Screen Negative, Blood Cocaine/Metabolite Screen [Pending], Urine Cocaine Screen Negative, Marijuana (THC) Screen [Pending], Urine Marijuana (THC) Screen PositiveH, Blood Drug Screen Comment [Pending] 06/01/17 05:20: Arterial Blood pH 7.191*L, Arterial Blood Partial Pressure CO2 65.2*H, Arterial Blood Partial Pressure O2 111.1H, Arterial Blood HCO3 24.4, Arterial Blood Oxygen Saturation 96.9, Arterial Blood Base Excess -5.3, Balaji Test Positive 06/01/17 06:48: Arterial Blood pH 7.408, Arterial Blood Partial Pressure CO2 45.4H, Arterial Blood Partial Pressure O2 139.7H, Arterial Blood HCO3 28.0H, Arterial Blood Oxygen Saturation 98.4H, Arterial Blood Base Excess -2.7, Balaji Test Positive Height (Feet): 6 Height (Inches): 1.00 Weight (Pounds): 258 Objective Obese WM Intubated supple Coarse BS RRR soft ND no edema non communicative JAMIN HEARD Jun 01, 2017 22:19
[2017-06-02] VITALS (24 sets, daily range): BP systolic 127–189; BP diastolic 61–118
[2017-06-02] MEDS: Albuterol/Ipratropium 3ml neb HHN SCH ×6 (03:00→22:52)
[2017-06-02 06:13] LABS: BASOPHILS % (AUTO) 0.5 % (0.0-2.0); EOSINOPHILS % (AUTO) 0.2 % (0.0-3.0); HEMATOCRIT 47.7 % (42.0-52.0); HEMOGLOBIN 15.7 G/DL (14.2-18.0); LYMPHOCYTES % (AUTO) 13.8 % (20.0-45.0); MEAN CORPUSCULAR VOLUME 89 FL (80-99); MONOCYTES % (AUTO) 8.7 % (1.0-10.0); NEUTROPHILS % (AUTO) 76.8 % (45.0-75.0); PLATELET COUNT 328 K/UL (150-450); RED BLOOD COUNT 5.39 M/UL (4.70-6.10); RED CELL DISTRIBUTION WIDTH 11.9 % (11.6-14.8); WHITE BLOOD COUNT 17.9 K/UL (4.8-10.8)
[2017-06-02 06:32] LABS: ANION GAP 8 mmol/L (5-15); BLOOD UREA NITROGEN 21 mg/dL (7-18); CALCIUM 8.4 MG/DL (8.5-10.1); CARBON DIOXIDE 27 MMOL/L (21-32); CHLORIDE 104 MMOL/L (98-107); CREATININE 1.4 MG/DL (0.55-1.30); POTASSIUM 4.3 MMOL/L (3.5-5.1); SODIUM 139 MMOL/L (136-145)
[2017-06-02] MEDS: cefTRIAXone 1 GM in D5W 55 ML IVPB SCH (08:00)
[2017-06-02] MEDS: LORazepam Inj 2mg/ml 1ml IV PRN ×3 (08:33→19:06)
[2017-06-02] MEDS: Aspirin EC 81mg tab ORAL SCH (08:58)
[2017-06-02] MEDS: Metoprolol 25mg tab ORAL SCH ×2 (08:59→21:27)
[2017-06-02] MEDS: Azithromycin 250mg tab ORAL SCH (08:59)
[2017-06-02] MEDS: Heparin 5000 units/ml inj SUBQ SCH ×2 (09:01→21:00)
--- NOTE | 2017-06-02 10:02 | General Progress Note ---
Assessment/Plan Assessment/Plan IMPRESSION ARF rhabdo- resolved CK elevated Liver enzyme elevated troponin Pneumonia with abnormal CT reduced EF migraines s/p CPA acute encephalopathy tachycardia leukocytosis abnormal urine tox screen PLAN Iv hydration follow up labs and liver enzymes for further improvement GI and renal evaluation noted IV antibiotics pending cultures ID evaluation noted hydration as able head CT pending all noted and appreciated monitor LOC ativan prn need to manage ventilator and sedate if needed repeat tox screen obtain records and follow up labs mother updated feeds per GI medications/laboratory data/nursing notes/ICU care reviewed in detail note reviewed and edited care discussed with RN and RT ICU time spent 38 minutes Subjective Allergies: Coded Allergies: No Known Allergies (Unverified , 05/26/17) Subjective underwent code blue on the ventilator agitated tachycardic Objective Last 24 Hour Vital Signs Date Time Temp Pulse Resp B/P (MAP) Pulse Ox O2 Delivery O2 Flow Rate FiO2 06/02/17 09:28 144 41 100 06/02/17 09:00 146 43 189/118 93 Mechanical Ventilator 100 06/02/17 08:59 143 189/116 06/02/17 08:00 143 06/02/17 08:00 99.1 143 42 189/116 91 Mechanical Ventilator 100 06/02/17 08:00 100 06/02/17 07:07 118 25 99 Mechanical Ventilator 100 06/02/17 07:00 120 24 151/94 98 Mechanical Ventilator 100 06/02/17 06:47 115 27 100 06/02/17 06:45 111 24 99 Mechanical Ventilator 100 06/02/17 06:00 111 28 158/94 99 Mechanical Ventilator 100 06/02/17 05:25 119 39 100 06/02/17 05:00 126 27 127/61 98 Mechanical Ventilator 100 06/02/17 04:00 122 06/02/17 04:00 99.1 122 38 160/89 98 Mechanical Ventilator 100 06/02/17 03:21 123 42 100 06/02/17 03:00 Mechanical Ventilator 100 06/02/17 03:00 Mechanical Ventilator 100 06/02/17 03:00 107 24 161/87 98 Mechanical Ventilator 100 06/02/17 02:00 100 24 162/87 98 Mechanical Ventilator 100 06/02/17 01:02 110 26 100 06/02/17 01:00 99 24 168/92 98 Mechanical Ventilator 100 06/02/17 00:00 98.9 102 24 167/105 98 Mechanical Ventilator 100 06/02/17 00:00 102 06/01/17 23:14 92 24 100 06/01/17 23:09 111 26 98 Mechanical Ventilator 70 06/01/17 23:01 110 24 98 Mechanical Ventilator 100 06/01/17 23:00 100 24 161/102 98 Mechanical Ventilator 100 06/01/17 22:00 102 24 159/96 97 Mechanical Ventilator 100 06/01/17 21:15 103 24 100 06/01/17 21:02 101 157/95 06/01/17 21:00 105 24 149/85 96 Mechanical Ventilator 100 06/01/17 20:00 101 06/01/17 20:00 99.5 101 24 157/95 99 Mechanical Ventilator 100 06/01/17 20:00 100 06/01/17 19:29 105 27 99 Mechanical Ventilator 70 06/01/17 19:20 109 24 99 Mechanical Ventilator 100 06/01/17 19:00 99 24 154/92 98 Mechanical Ventilator 100 06/01/17 19:00 100 24 100 06/01/17 18:00 102 24 155/93 99 Mechanical Ventilator 100 06/01/17 17:00 99 24 136/68 98 Mechanical Ventilator 100 06/01/17 16:54 109 24 100 06/01/17 16:00 100 06/01/17 16:00 95 06/01/17 16:00 99.7 84 24 136/68 96 06/01/17 16:00 99.7 107 24 146/80 97 Mechanical Ventilator 100 06/01/17 15:41 101 24 98 Mechanical Ventilator 70 06/01/17 15:41 99 24 70 06/01/17 15:30 99 24 98 Mechanical Ventilator 70 06/01/17 15:00 92 24 146/80 98 Mechanical Ventilator 80 06/01/17 14:00 90 24 143/84 97 Mechanical Ventilator 80 06/01/17 13:00 88 24 134/67 97 Mechanical Ventilator 80 06/01/17 12:48 88 24 75 06/01/17 12:00 99.2 89 24 148/80 97 Mechanical Ventilator 80 06/01/17 12:00 88 06/01/17 12:00 80 06/01/17 11:17 88 24 80 06/01/17 11:16 89 24 97 Mechanical Ventilator 60 06/01/17 11:00 91 24 118/68 96 Mechanical Ventilator 45 06/01/17 10:53 97 24 97 Mechanical Ventilator 45 Intake and Output 06/01/17 06/02/17 19:00 07:00 Intake Total 1315 ml 1150 ml Output Total 1550 ml 2020 ml Balance -235 ml -870 ml Free Water 50 ml IV Total 1255 ml 1100 ml Other 60 ml Output Urine Total 1450 ml 1390 ml Gastric Drainage Total 30 ml Other 100 ml 600 ml Laboratory Tests 06/02/17 04:00: White Blood Count 17.9H, Red Blood Count 5.39, Hemoglobin 15.7, Hematocrit 47.7 , Mean Corpuscular Volume 89, Mean Corpuscular Hemoglobin 29.1, Mean Corpuscular Hemoglobin Concent 32.8, Red Cell Distribution Width 11.9, Platelet Count 328, Mean Platelet Volume 6.4L, Neutrophils (%) (Auto) 76.8H, Lymphocytes (%) (Auto) 13.8L, Monocytes (%) (Auto) 8.7, Eosinophils (%) (Auto) 0.2, Basophils (%) (Auto) 0.5, Sodium Level 139, Potassium Level 4.3, Chloride Level 104, Carbon Dioxide Level 27, Anion Gap 8, Blood Urea Nitrogen 21H, Creatinine 1.4H, Estimat Glomerular Filtration Rate 59.9, Glucose Level 135#H, Calcium Level 8.4L 06/02/17 08:54: Arterial Blood pH 7.337L, Arterial Blood Partial Pressure CO2 46.0H, Arterial Blood Partial Pressure O2 63.3L, Arterial Blood HCO3 24.1, Arterial Blood Oxygen Saturation 90.5L, Arterial Blood Base Excess -2.1, Balaji Test Positive Height (Feet): 6 Height (Inches): 1.00 Weight (Pounds): 269 Objective WDWN ETT in place clear breath sounds bilaterally overall with minimal rhonchi [id number] tachy without MRG NABS nontender no HSM no CCE nonfocal but agitated reduced LOC MEGAN العلي Jun 02, 2017 10:02
--- NOTE | 2017-06-02 11:42 | General Progress Note ---
Assessment/Plan Assessment/Plan Assessment - s/p arrest - Rhabdo - was resolving prior to arrest - Elevated transaminases - initially due to Rhabdo, now due to post arrest shock liver/injury - s/p yoly - diverticulosis - peripancreatic stranding - Epigastric/ RUQ pain , ? etiology - was improving - Reactive airways - recent PNA - hemoptysis Recommendations - supportive ICU care - Begin TF - IVF - Follow LFT - follow lactate and Cr - PPI Subjective ROS Limited/Unobtainable: No Allergies: Coded Allergies: No Known Allergies (Unverified , 05/26/17) Objective Last 24 Hour Vital Signs Date Time Temp Pulse Resp B/P (MAP) Pulse Ox O2 Delivery O2 Flow Rate FiO2 06/02/17 11:34 Mechanical Ventilator 100 06/02/17 11:33 Mechanical Ventilator 100 06/02/17 11:00 112 28 156/95 96 Mechanical Ventilator 100 06/02/17 10:52 110 28 100 06/02/17 10:00 114 28 151/80 97 Mechanical Ventilator 100 06/02/17 09:28 144 41 100 06/02/17 09:00 146 43 189/118 93 Mechanical Ventilator 100 06/02/17 08:59 143 189/116 06/02/17 08:00 143 06/02/17 08:00 99.1 143 42 189/116 91 Mechanical Ventilator 100 06/02/17 08:00 100 06/02/17 07:07 118 25 99 Mechanical Ventilator 100 06/02/17 07:00 120 24 151/94 98 Mechanical Ventilator 100 06/02/17 06:47 115 27 100 06/02/17 06:45 111 24 99 Mechanical Ventilator 100 06/02/17 06:00 111 28 158/94 99 Mechanical Ventilator 100 06/02/17 05:25 119 39 100 06/02/17 05:00 126 27 127/61 98 Mechanical Ventilator 100 06/02/17 04:00 122 06/02/17 04:00 99.1 122 38 160/89 98 Mechanical Ventilator 100 06/02/17 03:21 123 42 100 06/02/17 03:00 Mechanical Ventilator 100 06/02/17 03:00 Mechanical Ventilator 100 06/02/17 03:00 107 24 161/87 98 Mechanical Ventilator 100 06/02/17 02:00 100 24 162/87 98 Mechanical Ventilator 100 06/02/17 01:02 110 26 100 06/02/17 01:00 99 24 168/92 98 Mechanical Ventilator 100 06/02/17 00:00 98.9 102 24 167/105 98 Mechanical Ventilator 100 06/02/17 00:00 102 06/01/17 23:14 92 24 100 06/01/17 23:09 111 26 98 Mechanical Ventilator 70 06/01/17 23:01 110 24 98 Mechanical Ventilator 100 06/01/17 23:00 100 24 161/102 98 Mechanical Ventilator 100 06/01/17 22:00 102 24 159/96 97 Mechanical Ventilator 100 06/01/17 21:15 103 24 100 06/01/17 21:02 101 157/95 06/01/17 21:00 105 24 149/85 96 Mechanical Ventilator 100 06/01/17 20:00 101 06/01/17 20:00 99.5 101 24 157/95 99 Mechanical Ventilator 100 06/01/17 20:00 100 06/01/17 19:29 105 27 99 Mechanical Ventilator 70 06/01/17 19:20 109 24 99 Mechanical Ventilator 100 06/01/17 19:00 99 24 154/92 98 Mechanical Ventilator 100 06/01/17 19:00 100 24 100 06/01/17 18:00 102 24 155/93 99 Mechanical Ventilator 100 06/01/17 17:00 99 24 136/68 98 Mechanical Ventilator 100 06/01/17 16:54 109 24 100 06/01/17 16:00 100 06/01/17 16:00 95 06/01/17 16:00 99.7 84 24 136/68 96 06/01/17 16:00 99.7 107 24 146/80 97 Mechanical Ventilator 100 06/01/17 15:41 101 24 98 Mechanical Ventilator 70 06/01/17 15:41 99 24 70 06/01/17 15:30 99 24 98 Mechanical Ventilator 70 06/01/17 15:00 92 24 146/80 98 Mechanical Ventilator 80 06/01/17 14:00 90 24 143/84 97 Mechanical Ventilator 80 06/01/17 13:00 88 24 134/67 97 Mechanical Ventilator 80 06/01/17 12:48 88 24 75 06/01/17 12:00 99.2 89 24 148/80 97 Mechanical Ventilator 80 06/01/17 12:00 88 06/01/17 12:00 80 Intake and Output 06/01/17 06/02/17 19:00 07:00 Intake Total 1315 ml 1150 ml Output Total 1550 ml 2020 ml Balance -235 ml -870 ml Free Water 50 ml IV Total 1255 ml 1100 ml Other 60 ml Output Urine Total 1450 ml 1390 ml Gastric Drainage Total 30 ml Other 100 ml 600 ml Laboratory Tests 06/02/17 04:00: White Blood Count 17.9H, Red Blood Count 5.39, Hemoglobin 15.7, Hematocrit 47.7 , Mean Corpuscular Volume 89, Mean Corpuscular Hemoglobin 29.1, Mean Corpuscular Hemoglobin Concent 32.8, Red Cell Distribution Width 11.9, Platelet Count 328, Mean Platelet Volume 6.4L, Neutrophils (%) (Auto) 76.8H, Lymphocytes (%) (Auto) 13.8L, Monocytes (%) (Auto) 8.7, Eosinophils (%) (Auto) 0.2, Basophils (%) (Auto) 0.5, Sodium Level 139, Potassium Level 4.3, Chloride Level 104, Carbon Dioxide Level 27, Anion Gap 8, Blood Urea Nitrogen 21H, Creatinine 1.4H, Estimat Glomerular Filtration Rate 59.9, Glucose Level 135#H, Calcium Level 8.4L 06/02/17 06:40: Opiates Screen [Pending], Oxycodone Level [Pending], Blood Methadone Screen [ Pending], Blood Propoxyphene Screen [Pending], Blood Barbiturates Screen [ Pending], Phencyclidine (PCP) Screen [Pending], Amphetamines Screen [Pending], Benzodiazepines Screen [Pending], Blood Cocaine/Metabolite Screen [Pending], Marijuana (THC) Screen [Pending], Blood Drug Screen Comment [Pending] 06/02/17 08:54: Arterial Blood pH 7.337L, Arterial Blood Partial Pressure CO2 46.0H, Arterial Blood Partial Pressure O2 63.3L, Arterial Blood HCO3 24.1, Arterial Blood Oxygen Saturation 90.5L, Arterial Blood Base Excess -2.1, Balaji Test Positive Height (Feet): 6 Height (Inches): 1.00 Weight (Pounds): 269 General Appearance: lethargic EENT: normal ENT inspection Neck: supple Cardiovascular: normal rate Respiratory/Chest: decreased breath sounds Abdomen: normal bowel sounds, non tender, soft Extremities: non-tender MAURO GRAMAJO Jun 02, 2017 11:42
[2017-06-02] MEDS: Morphine Sulfate 4mg/ml Inj IVP PRN (20:14)
[2017-06-02] MEDS: Topiramate 25mg tab ORAL SCH (21:27)
[2017-06-02] MEDS ORDERED: Piperacillin/Tazobactam 4.5 GM in NS 110 ML IVPB SCH (22:00)
[2017-06-02] MEDS ORDERED: Dyna-Hex 2% Top Sol 2oz TOPIC ONE (22:15)
[2017-06-02] MEDS: Vancomycin 1500mg IVPB SCH (22:20)
[2017-06-02] MEDS ORDERED: Tubing IV Secondary IV ONE (22:39)
[2017-06-02] MEDS ORDERED: NS 500ML ONE (22:39)
--- NOTE | 2017-06-02 23:43 | Cardiology Progress Note ---
Assessment/Plan Assessment/Plan 1. Asystole cardiac arrest due to respiratory failure, regained pulse after 8 minutes. 2. Multifocal pneumonia on CT scan of chest. 3. Mild cardiomyopathy with LVEF at 45%, + anteroseptal wall hypokinesia. 4. Elevated troponin level likely due to sepsis/tachycardia/pneumonia, not a pattern for ACS, CP free 5. Shock liver following cardiac arrest 4. ATN following cardiac arrest. 5. Acute respiratory failure. 6. Substance abuse 7. Obesity Subjective Subjective Sinus tachycardia at 110. Intubated. Objective Last 24 Hour Vital Signs Date Time Temp Pulse Resp B/P (MAP) Pulse Ox O2 Delivery O2 Flow Rate FiO2 06/02/17 22:53 108 31 100 06/02/17 22:52 105 25 99 Mechanical Ventilator 100 06/02/17 22:45 108 31 99 Mechanical Ventilator 100 06/02/17 21:27 121 155/61 06/02/17 20:59 126 29 100 06/02/17 18:58 126 34 149/78 95 Mechanical Ventilator 100 06/02/17 18:32 122 40 100 06/02/17 18:32 122 40 98 Mechanical Ventilator 100 06/02/17 18:20 120 41 98 Mechanical Ventilator 100 06/02/17 18:00 126 27 154/74 95 Mechanical Ventilator 100 06/02/17 17:28 124 26 100 06/02/17 17:00 102.7 125 27 148/82 98 Mechanical Ventilator 100 06/02/17 16:00 98.7 125 27 146/81 98 Mechanical Ventilator 100 06/02/17 16:00 130 06/02/17 15:57 98.9 06/02/17 15:43 Mechanical Ventilator 100 06/02/17 15:43 Mechanical Ventilator 100 06/02/17 15:43 130 40 100 06/02/17 15:00 111 27 168/98 97 Mechanical Ventilator 100 06/02/17 14:00 119 27 159/107 96 Mechanical Ventilator 100 06/02/17 13:21 111 25 100 06/02/17 13:00 110 27 168/98 96 Mechanical Ventilator 100 06/02/17 12:00 98.9 110 28 155/86 97 Mechanical Ventilator 100 06/02/17 12:00 109 06/02/17 11:34 Mechanical Ventilator 100 06/02/17 11:33 Mechanical Ventilator 100 06/02/17 11:00 112 28 156/95 96 Mechanical Ventilator 100 06/02/17 10:52 110 28 100 06/02/17 10:00 114 28 151/80 97 Mechanical Ventilator 100 06/02/17 09:28 144 41 100 06/02/17 09:00 146 43 189/118 93 Mechanical Ventilator 100 06/02/17 08:59 143 189/116 06/02/17 08:00 143 06/02/17 08:00 99.1 143 42 189/116 91 Mechanical Ventilator 100 06/02/17 08:00 100 06/02/17 07:07 118 25 99 Mechanical Ventilator 100 06/02/17 07:00 120 24 151/94 98 Mechanical Ventilator 100 06/02/17 06:47 115 27 100 06/02/17 06:45 111 24 99 Mechanical Ventilator 100 06/02/17 06:00 111 28 158/94 99 Mechanical Ventilator 100 06/02/17 05:25 119 39 100 06/02/17 05:00 126 27 127/61 98 Mechanical Ventilator 100 06/02/17 04:00 122 06/02/17 04:00 99.1 122 38 160/89 98 Mechanical Ventilator 100 06/02/17 03:21 123 42 100 06/02/17 03:00 Mechanical Ventilator 100 06/02/17 03:00 Mechanical Ventilator 100 06/02/17 03:00 107 24 161/87 98 Mechanical Ventilator 100 06/02/17 02:00 100 24 162/87 98 Mechanical Ventilator 100 06/02/17 01:02 110 26 100 06/02/17 01:00 99 24 168/92 98 Mechanical Ventilator 100 06/02/17 00:00 98.9 102 24 167/105 98 Mechanical Ventilator 100 06/02/17 00:00 102 Intake and Output 06/01/17 06/02/17 19:00 07:00 Intake Total 1315 ml 1150 ml Output Total 1550 ml 2020 ml Balance -235 ml -870 ml Free Water 50 ml IV Total 1255 ml 1100 ml Other 60 ml Output Urine Total 1450 ml 1390 ml Gastric Drainage Total 30 ml Other 100 ml 600 ml 2D Echo: EF 45%, Anteroseptal HK, RVSP 33 mmHg Laboratory Tests Test 06/02/17 04:00 06/02/17 06:40 06/02/17 08:54 06/02/17 15:30 White Blood Count 17.9 K/UL (4.8-10.8) H Red Blood Count 5.39 M/UL (4.70-6.10) Hemoglobin 15.7 G/DL (14.2-18.0) Hematocrit 47.7 % (42.0-52.0) Mean Corpuscular Volume 89 FL (80-99) Mean Corpuscular Hemoglobin 29.1 PG (27.0-31.0) Mean Corpuscular Hemoglobin Concent 32.8 G/DL (32.0-36.0) Red Cell Distribution Width 11.9 % (11.6-14.8) Platelet Count 328 K/UL (150-450) Mean Platelet Volume 6.4 FL (6.5-10.1) L Neutrophils (%) (Auto) 76.8 % (45.0-75.0) H Lymphocytes (%) (Auto) 13.8 % (20.0-45.0) L Monocytes (%) (Auto) 8.7 % (1.0-10.0) Eosinophils (%) (Auto) 0.2 % (0.0-3.0) Basophils (%) (Auto) 0.5 % (0.0-2.0) Sodium Level 139 MMOL/L (136-145) Potassium Level 4.3 MMOL/L (3.5-5.1) Chloride Level 104 MMOL/L (98-107) Carbon Dioxide Level 27 MMOL/L (21-32) Anion Gap 8 mmol/L (5-15) Blood Urea Nitrogen 21 mg/dL (7-18) H Creatinine 1.4 MG/DL (0.55-1.30) H Estimat Glomerular Filtration Rate 59.9 mL/min (>60) Glucose Level 135 MG/DL (74-106) #H Calcium Level 8.4 MG/DL (8.5-10.1) L Opiates Screen Pending Oxycodone Level Pending Blood Methadone Screen Pending Blood Propoxyphene Screen Pending Blood Barbiturates Screen Pending Phencyclidine (PCP) Screen Pending Negative (NEGATIVE) Amphetamines Screen Pending Benzodiazepines Screen Pending Blood Cocaine/Metabolite Screen Pending Marijuana (THC) Screen Pending Blood Drug Screen Comment Pending Arterial Blood pH 7.337 (7.350-7.450) Arterial Blood Partial Pressure CO2 46.0 mmHg (35.0-45.0) H Arterial Blood Partial Pressure O2 63.3 mmHg (75.0-100.0) L Arterial Blood HCO3 24.1 mmol/L (22.0-26.0) Arterial Blood Oxygen Saturation 90.5 % (92.0-98.0) L Arterial Blood Base Excess -2.1 Balaji Test Positive Urine Opiates Screen Negative (NEGATIVE) Urine Barbiturates Screen Positive (NEGATIVE) H Urine Amphetamines Screen Negative (NEGATIVE) Urine Benzodiazepines Screen Negative (NEGATIVE) Urine Cocaine Screen Negative (NEGATIVE) Urine Marijuana (THC) Screen Positive (NEGATIVE) H Objective HEENT: Intubated, unresponsive NECK: JVP cannot be assessed, No carotid bruit. Carotid upstrokes 2+ bilaterally. CARDIOVASCULAR SYSTEM: Normal S1, S2. Regular rate and rhythm. Tachycardic, No murmurs, gallops, or rubs. PMI is at fourth intercostal space in the midclavicular line. LUNGS: Clear to auscultation bilaterally. ABDOMEN: Soft, nontender, nondistended. No hepatosplenomegaly. Positive bowel sounds. EXTREMITIES: No evidence of edema, clubbing, or cyanosis. CRISTA MURPHY Jun 02, 2017 23:42
[2017-06-03] VITALS (33 sets, daily range): BP systolic 91–184; BP diastolic 28–107
[2017-06-03] MEDS ORDERED: Piperacillin/Tazobactam 4.5 GM in NS 110 ML IVPB SCH ×2
[2017-06-03] MEDS: LORazepam Inj 2mg/ml 1ml IV PRN ×4 (02:37→22:39)
[2017-06-03] MEDS: Albuterol/Ipratropium 3ml neb HHN SCH ×6 (02:48→23:48)
[2017-06-03] MEDS: Morphine Sulfate 4mg/ml Inj IVP PRN (04:21)
[2017-06-03 04:56] LABS: BASOPHILS % (AUTO) 0.6 % (0.0-2.0); HEMATOCRIT 43.7 % (42.0-52.0); LYMPHOCYTES % (AUTO) 13.9 % (20.0-45.0); MEAN CORPUSCULAR VOLUME 88 FL (80-99); MONOCYTES % (AUTO) 10.7 % (1.0-10.0); NEUTROPHILS % (AUTO) 74.8 % (45.0-75.0); PLATELET COUNT 255 K/UL (150-450); RED BLOOD COUNT 4.94 M/UL (4.70-6.10); RED CELL DISTRIBUTION WIDTH 12.2 % (11.6-14.8); WHITE BLOOD COUNT 16.1 K/UL (4.8-10.8)
[2017-06-03 05:04] LABS: INR 1.1 (0.9-1.1)
[2017-06-03 05:29] LABS: ALANINE AMINOTRANSFERASE 308 U/L (12-78); ALBUMIN 3.2 G/DL (3.4-5.0); ALBUMIN/GLOBULIN RATIO 0.8 (1.0-2.7); ALKALINE PHOSPHATASE 72 U/L (46-116); ANION GAP 11 mmol/L (5-15); ASPARTATE AMINO TRANSFERASE 56 U/L (15-37); BILIRUBIN,TOTAL 1.2 MG/DL (0.2-1.0); BLOOD UREA NITROGEN 21 mg/dL (7-18); CALCIUM 8.2 MG/DL (8.5-10.1); CARBON DIOXIDE 26 MMOL/L (21-32); CHLORIDE 101 MMOL/L (98-107); CREATININE 1.4 MG/DL (0.55-1.30); POTASSIUM 3.1 MMOL/L (3.5-5.1); SODIUM 138 MMOL/L (136-145)
[2017-06-03 05:30] LABS: BILIRUBIN,DIRECT 0.2 MG/DL (0.0-0.3)
[2017-06-03 08:03] LABS: CREATINE KINASE 161 U/L (26-308)
[2017-06-03 08:28] LABS: APPEARANCE,URINE SLIGHTLY CLOUDY; BILIRUBIN, URINE NEGATIVE (NEGATIVE); COLOR,URINE PALE YELLOW; GLUCOSE, URINE (UA) 1+ (NEGATIVE); KETONES,URINE 3+ (NEGATIVE); LEUKOCYTE ESTERASE ,URINE 1+ (NEGATIVE); NITRITE,URINE NEGATIVE (NEGATIVE); PH,URINE 6.5 (4.5-8.0); PROTEIN,URINE 3+ (NEGATIVE); UROBILINOGEN,URINE NORMAL MG/DL (0.0-1.0)
--- NOTE | 2017-06-03 08:41 | General Progress Note ---
Assessment/Plan Problem List: (1) Anoxia ICD Codes: R09.02 - Hypoxemia SNOMED: 38561866 (2) Encephalopathy acute ICD Codes: G93.40 - Encephalopathy, unspecified SNOMED: 4488101 (3) Respiratory distress ICD Codes: R06.03 - Acute respiratory distress SNOMED: 009825831 (4) Renal insufficiency ICD Codes: N28.9 - Disorder of kidney and ureter, unspecified SNOMED: 134587518, 294270293 (5) Rhabdomyolysis ICD Codes: M62.82 - Rhabdomyolysis SNOMED: 931087971, 675777383 Qualifiers: Qualified Codes: M62.82 - Rhabdomyolysis (6) Sepsis ICD Codes: A41.9 - Sepsis, unspecified organism SNOMED: 23142693, 521223946 Qualifiers: Qualified Codes: A41.9 - Sepsis, unspecified organism (7) Pneumonia ICD Codes: J18.9 - Pneumonia, unspecified organism SNOMED: 505003033, 833192198 Qualifiers: Qualified Codes: J18.1 - Lobar pneumonia, unspecified organism (8) Elevated troponin ICD Codes: R74.8 - Abnormal levels of other serum enzymes SNOMED: 640894335, 887540876 Status: stable, not improved Assessment/Plan neuro eval iv abx anxiolytics/sedation consider eeg/LP vent resp care feeds dvt/stress ulcer porphylaxis critical and guarded Subjective ROS Limited/Unobtainable: Yes Constitutional: Reports: fever, malaise, weakness HEENT: Reports: no symptoms Cardiovascular: Reports: no symptoms Respiratory: Reports: shortness of breath Gastrointestinal/Abdominal: Reports: difficulty swallowing Genitourinary: Reports: no symptoms Neurologic/Psychiatric: Reports: pre-existing deficit Endocrine: Reports: no symptoms Hematologic/Lymphatic: Reports: anemia Allergies: Coded Allergies: No Known Allergies (Unverified , 05/26/17) All Systems: reviewed and negative except above Subjective chart reviewed. events noted. admitted with pna/asthma. Had code blue on 06/01 after found unresponsive by RT. agitated/ fighting the vent Objective Last 24 Hour Vital Signs Date Time Temp Pulse Resp B/P (MAP) Pulse Ox O2 Delivery O2 Flow Rate FiO2 06/03/17 08:00 100.1 87 24 164/85 99 Mechanical Ventilator 70 06/03/17 07:36 99 24 100 06/03/17 07:00 99 29 129/28 98 Mechanical Ventilator 100 06/03/17 06:00 102.7 104 29 136/67 98 Mechanical Ventilator 100 06/03/17 05:24 103.6 06/03/17 05:24 103.6 06/03/17 05:00 107 29 179/93 98 Mechanical Ventilator 100 06/03/17 04:30 114 28 100 06/03/17 04:00 103 06/03/17 04:00 100 06/03/17 04:00 104.4 103 30 152/92 98 Mechanical Ventilator 100 06/03/17 03:00 107 29 179/93 98 Mechanical Ventilator 100 06/03/17 02:40 115 35 99 Mechanical Ventilator 100 06/03/17 02:40 115 28 100 06/03/17 02:30 112 36 96 Mechanical Ventilator 100 06/03/17 02:00 109 29 141/107 98 Mechanical Ventilator 100 06/03/17 01:00 105 29 167/83 98 Mechanical Ventilator 100 06/03/17 00:32 115 44 100 06/03/17 00:00 100 06/03/17 00:00 108 06/03/17 00:00 103.0 103 28 152/92 97 Mechanical Ventilator 100 06/02/17 23:00 108 26 153/88 98 Mechanical Ventilator 100 06/02/17 22:53 108 31 100 06/02/17 22:52 105 25 99 Mechanical Ventilator 100 06/02/17 22:45 108 31 99 Mechanical Ventilator 100 06/02/17 22:00 108 27 157/85 98 Mechanical Ventilator 100 06/02/17 21:27 121 155/61 06/02/17 21:00 122 26 155/61 98 Mechanical Ventilator 100 06/02/17 20:59 126 29 100 06/02/17 20:00 102.8 128 25 179/98 97 Mechanical Ventilator 100 06/02/17 20:00 100 06/02/17 20:00 128 06/02/17 18:58 126 34 149/78 95 Mechanical Ventilator 100 06/02/17 18:32 122 40 100 06/02/17 18:32 122 40 98 Mechanical Ventilator 100 06/02/17 18:20 120 41 98 Mechanical Ventilator 100 06/02/17 18:00 126 27 154/74 95 Mechanical Ventilator 100 06/02/17 17:28 124 26 100 06/02/17 17:00 102.7 125 27 148/82 98 Mechanical Ventilator 100 06/02/17 16:00 98.7 125 27 146/81 98 Mechanical Ventilator 100 06/02/17 16:00 130 06/02/17 15:57 98.9 06/02/17 15:43 Mechanical Ventilator 100 06/02/17 15:43 Mechanical Ventilator 100 06/02/17 15:43 130 40 100 06/02/17 15:00 111 27 168/98 97 Mechanical Ventilator 100 06/02/17 14:00 119 27 159/107 96 Mechanical Ventilator 100 06/02/17 13:21 111 25 100 06/02/17 13:00 110 27 168/98 96 Mechanical Ventilator 100 06/02/17 12:00 98.9 110 28 155/86 97 Mechanical Ventilator 100 06/02/17 12:00 109 06/02/17 11:34 Mechanical Ventilator 100 06/02/17 11:33 Mechanical Ventilator 100 06/02/17 11:00 112 28 156/95 96 Mechanical Ventilator 100 06/02/17 10:52 110 28 100 06/02/17 10:00 114 28 151/80 97 Mechanical Ventilator 100 06/02/17 09:28 144 41 100 06/02/17 09:00 146 43 189/118 93 Mechanical Ventilator 100 06/02/17 08:59 143 189/116 Intake and Output 06/02/17 06/03/17 19:00 07:00 Intake Total 1605 ml 1670 ml Output Total 1455 ml 740 ml Balance 150 ml 930 ml Free Water 50 ml 50 ml IV Total 1555 ml 1125 ml Tube Feeding 435 ml Other 60 ml Output Urine Total 1255 ml 740 ml Other 200 ml # Bowel Movements 2 Laboratory Tests 06/02/17 08:54: Arterial Blood pH 7.337L, Arterial Blood Partial Pressure CO2 46.0H, Arterial Blood Partial Pressure O2 63.3L, Arterial Blood HCO3 24.1, Arterial Blood Oxygen Saturation 90.5L, Arterial Blood Base Excess -2.1, Balaji Test Positive 06/02/17 15:30: Urine Opiates Screen Negative, Urine Barbiturates Screen PositiveH, Phencyclidine (PCP) Screen Negative, Urine Amphetamines Screen Negative, Urine Benzodiazepines Screen Negative, Urine Cocaine Screen Negative, Urine Marijuana (THC) Screen PositiveH 06/03/17 03:50: White Blood Count 16.1H, Red Blood Count 4.94, Hemoglobin 15.0, Hematocrit 43.7 , Mean Corpuscular Volume 88, Mean Corpuscular Hemoglobin 30.3, Mean Corpuscular Hemoglobin Concent 34.3, Red Cell Distribution Width 12.2, Platelet Count 255, Mean Platelet Volume 7.3, Neutrophils (%) (Auto) 74.8, Lymphocytes (% ) (Auto) 13.9L, Monocytes (%) (Auto) 10.7H, Eosinophils (%) (Auto) 0.0, Basophils (%) (Auto) 0.6, Prothrombin Time 11.4, Prothromb Time International Ratio 1.1, Activated Partial Thromboplast Time 34H, Sodium Level 138, Potassium Level 3.1L, Chloride Level 101, Carbon Dioxide Level 26, Anion Gap 11, Blood Urea Nitrogen 21H, Creatinine 1.4H, Estimat Glomerular Filtration Rate 59.9, Glucose Level 146H, Calcium Level 8.2L, Total Bilirubin 1.2H, Direct Bilirubin 0.2, Aspartate Amino Transf (AST/SGOT) 56H, Alanine Aminotransferase (ALT/SGPT) 308H, Alkaline Phosphatase 72, Total Protein 7.3, Albumin 3.2L, Globulin 4.1, Albumin/Globulin Ratio 0.8L 06/03/17 05:00: Urine Color Pale yellow, Urine Appearance Slightly cloudy, Urine pH 6.5, Urine Specific [place] 1.010, Urine Protein 3+H, Urine Glucose (UA) 1+H, Urine Ketones 3+H, Urine Occult Blood 5+H, Urine Nitrite Negative, Urine Bilirubin Negative, Urine Urobilinogen Normal, Urine Leukocyte Esterase 1+H, Urine RBC [ Pending], Urine WBC [Pending], Urine Squamous Epithelial Cells [Pending], Urine Bacteria [Pending], Total Creatine Kinase 161 06/03/17 07:48: Arterial Blood pH 7.470H, Arterial Blood Partial Pressure CO2 33.9L, Arterial Blood Partial Pressure O2 143.3H, Arterial Blood HCO3 24.6, Arterial Blood Oxygen Saturation 98.8H, Arterial Blood Base Excess 1.7, Balaji Test Positive Height (Feet): 6 Height (Inches): 1.00 Weight (Pounds): 251 General Appearance: WD/WN, confused Neck: supple Cardiovascular: tachycardia Respiratory/Chest: rhonchi - bilaterally Abdomen: normal bowel sounds, non tender, soft, no organomegaly Edema: no edema noted Arm (L), no edema noted Arm (R), no edema noted Leg (L), no edema noted Leg (R), no edema noted Pedal (L), no edema noted Pedal (R), no edema noted Generalized Neurologic: unresponsive JIMBO GLEASON Jun 03, 2017 08:41
[2017-06-03] MEDS: Piperacillin/Tazobactam 3.375 GM in D5W 110 ML IVPB SCH ×3 (08:43→23:51)
[2017-06-03] MEDS: Aspirin EC 81mg tab ORAL SCH (08:53)
[2017-06-03] MEDS: Metoprolol 25mg tab ORAL SCH ×2 (08:54→20:43)
--- NOTE | 2017-06-03 09:33 | Neurology Progress Note ---
Interim History Interim History ROS Limited/Unobtainable: Yes Objective Physical Exam Last Vital Signs Date Time Temp Pulse Resp B/P (MAP) Pulse Ox O2 Delivery O2 Flow Rate FiO2 06/03/17 09:06 35 06/03/17 08:54 102 164/85 06/03/17 08:00 100.1 99 Mechanical Ventilator 70 06/01/17 00:00 4.0 Laboratory Tests Test 06/02/17 15:30 06/03/17 03:50 06/03/17 05:00 06/03/17 07:48 Urine Opiates Screen Negative (NEGATIVE) Urine Barbiturates Screen Positive (NEGATIVE) H Phencyclidine (PCP) Screen Negative (NEGATIVE) Urine Amphetamines Screen Negative (NEGATIVE) Urine Benzodiazepines Screen Negative (NEGATIVE) Urine Cocaine Screen Negative (NEGATIVE) Urine Marijuana (THC) Screen Positive (NEGATIVE) H White Blood Count 16.1 K/UL (4.8-10.8) H Red Blood Count 4.94 M/UL (4.70-6.10) Hemoglobin 15.0 G/DL (14.2-18.0) Hematocrit 43.7 % (42.0-52.0) Mean Corpuscular Volume 88 FL (80-99) Mean Corpuscular Hemoglobin 30.3 PG (27.0-31.0) Mean Corpuscular Hemoglobin Concent 34.3 G/DL (32.0-36.0) Red Cell Distribution Width 12.2 % (11.6-14.8) Platelet Count 255 K/UL (150-450) Mean Platelet Volume 7.3 FL (6.5-10.1) Neutrophils (%) (Auto) 74.8 % (45.0-75.0) Lymphocytes (%) (Auto) 13.9 % (20.0-45.0) L Monocytes (%) (Auto) 10.7 % (1.0-10.0) H Eosinophils (%) (Auto) 0.0 % (0.0-3.0) Basophils (%) (Auto) 0.6 % (0.0-2.0) Prothrombin Time 11.4 SEC (9.30-11.50) Prothromb Time International Ratio 1.1 (0.9-1.1) Activated Partial Thromboplast Time 34 SEC (23-33) H Sodium Level 138 MMOL/L (136-145) Potassium Level 3.1 MMOL/L (3.5-5.1) L Chloride Level 101 MMOL/L (98-107) Carbon Dioxide Level 26 MMOL/L (21-32) Anion Gap 11 mmol/L (5-15) Blood Urea Nitrogen 21 mg/dL (7-18) H Creatinine 1.4 MG/DL (0.55-1.30) H Estimat Glomerular Filtration Rate 59.9 mL/min (>60) Glucose Level 146 MG/DL (74-106) H Calcium Level 8.2 MG/DL (8.5-10.1) L Total Bilirubin 1.2 MG/DL (0.2-1.0) H Direct Bilirubin 0.2 MG/DL (0.0-0.3) Aspartate Amino Transf (AST/SGOT) 56 U/L (15-37) H Alanine Aminotransferase (ALT/SGPT) 308 U/L (12-78) H Alkaline Phosphatase 72 U/L (46-116) Total Protein 7.3 G/DL (6.4-8.2) Albumin 3.2 G/DL (3.4-5.0) L Globulin 4.1 g/dL Albumin/Globulin Ratio 0.8 (1.0-2.7) L Urine Color Pale yellow Urine Appearance Slightly cloudy Urine pH 6.5 (4.5-8.0) Urine Specific [place] 1.010 (1.005-1.035) Urine Protein 3+ (NEGATIVE) H Urine Glucose (UA) 1+ (NEGATIVE) H Urine Ketones 3+ (NEGATIVE) H Urine Occult Blood 5+ (NEGATIVE) H Urine Nitrite Negative (NEGATIVE) Urine Bilirubin Negative (NEGATIVE) Urine Urobilinogen Normal MG/DL (0.0-1.0) Urine Leukocyte Esterase 1+ (NEGATIVE) H Urine RBC 60-80 /HPF (0 - 0) H Urine WBC 2-4 /HPF (0 - 0) Urine Squamous Epithelial Cells Occasional /LPF Urine Bacteria Few /HPF (NONE) Total Creatine Kinase 161 U/L (26-308) Arterial Blood pH 7.470 (7.350-7.450) Arterial Blood Partial Pressure CO2 33.9 mmHg (35.0-45.0) L Arterial Blood Partial Pressure O2 143.3 mmHg (75.0-100.0) H Arterial Blood HCO3 24.6 mmol/L (22.0-26.0) Arterial Blood Oxygen Saturation 98.8 % (92.0-98.0) H Arterial Blood Base Excess 1.7 Balaji Test Positive Impression/Recommendations Problems: (1) s/p full arrest (2) Anoxic encephalopathy syndrome (3) Renal insufficiency (4) Sepsis (5) Pneumonia Status: stable, not improved, deteriorating Recommendations # [id number] EEG LP [facility] [place] Jun 03, 2017 09:33
--- NOTE | 2017-06-03 09:43 | Infectious Diseases Prog Note ---
Assessment/Plan Assessment/Plan A 1. pneumonia 2. leucocytosis 3. renal failure 4. rhabdomyolysis 5. respiratory failure 6. s/p cardiac arrest P 1. continue Vancomycin & Zosyn 2. will follow up sputum culture 3. HIV test Subjective ROS Limited/Unobtainable: Yes Constitutional: Reports: fever, other - Jooi=[id number] Allergies: Coded Allergies: No Known Allergies (Unverified , 05/26/17) Objective Vital Signs Last 24 Hour Vital Signs Date Time Temp Pulse Resp B/P (MAP) Pulse Ox O2 Delivery O2 Flow Rate FiO2 06/03/17 09:06 35 06/03/17 09:00 99.5 99 24 143/44 97 Mechanical Ventilator 100 06/03/17 08:54 102 164/85 06/03/17 08:00 100.1 87 24 164/85 99 Mechanical Ventilator 70 06/03/17 08:00 70 06/03/17 07:36 99 24 100 06/03/17 07:00 99 29 129/28 98 Mechanical Ventilator 100 06/03/17 06:00 102.7 104 29 136/67 98 Mechanical Ventilator 100 06/03/17 05:24 103.6 06/03/17 05:24 103.6 06/03/17 05:00 107 29 179/93 98 Mechanical Ventilator 100 06/03/17 04:30 114 28 100 06/03/17 04:00 103 06/03/17 04:00 100 06/03/17 04:00 104.4 103 30 152/92 98 Mechanical Ventilator 100 06/03/17 03:00 107 29 179/93 98 Mechanical Ventilator 100 06/03/17 02:40 115 35 99 Mechanical Ventilator 100 06/03/17 02:40 115 28 100 06/03/17 02:30 112 36 96 Mechanical Ventilator 100 06/03/17 02:00 109 29 141/107 98 Mechanical Ventilator 100 06/03/17 01:00 105 29 167/83 98 Mechanical Ventilator 100 06/03/17 00:32 115 44 100 06/03/17 00:00 100 06/03/17 00:00 108 06/03/17 00:00 103.0 103 28 152/92 97 Mechanical Ventilator 100 06/02/17 23:00 108 26 153/88 98 Mechanical Ventilator 100 06/02/17 22:53 108 31 100 06/02/17 22:52 105 25 99 Mechanical Ventilator 100 06/02/17 22:45 108 31 99 Mechanical Ventilator 100 06/02/17 22:00 108 27 157/85 98 Mechanical Ventilator 100 06/02/17 21:27 121 155/61 06/02/17 21:00 122 26 155/61 98 Mechanical Ventilator 100 06/02/17 20:59 126 29 100 06/02/17 20:00 102.8 128 25 179/98 97 Mechanical Ventilator 100 06/02/17 20:00 100 06/02/17 20:00 128 06/02/17 18:58 126 34 149/78 95 Mechanical Ventilator 100 06/02/17 18:32 122 40 100 06/02/17 18:32 122 40 98 Mechanical Ventilator 100 06/02/17 18:20 120 41 98 Mechanical Ventilator 100 06/02/17 18:00 126 27 154/74 95 Mechanical Ventilator 100 06/02/17 17:28 124 26 100 06/02/17 17:00 102.7 125 27 148/82 98 Mechanical Ventilator 100 06/02/17 16:00 98.7 125 27 146/81 98 Mechanical Ventilator 100 06/02/17 16:00 130 06/02/17 15:57 98.9 06/02/17 15:43 Mechanical Ventilator 100 06/02/17 15:43 Mechanical Ventilator 100 06/02/17 15:43 130 40 100 06/02/17 15:00 111 27 168/98 97 Mechanical Ventilator 100 06/02/17 14:00 119 27 159/107 96 Mechanical Ventilator 100 06/02/17 13:21 111 25 100 06/02/17 13:00 110 27 168/98 96 Mechanical Ventilator 100 06/02/17 12:00 98.9 110 28 155/86 97 Mechanical Ventilator 100 06/02/17 12:00 109 06/02/17 11:34 Mechanical Ventilator 100 06/02/17 11:33 Mechanical Ventilator 100 06/02/17 11:00 112 28 156/95 96 Mechanical Ventilator 100 06/02/17 10:52 110 28 100 06/02/17 10:00 114 28 151/80 97 Mechanical Ventilator 100 Height (Feet): 6 Height (Inches): 1.00 Weight (Pounds): 251 HEENT: other - orally intubated Respiratory/Chest: lungs clear, other - on ventilator Cardiovascular: tachycardia Abdomen: soft, non tender Extremities: no edema Neurologic/Psychiatric: other - sedated Laboratory Tests Test 06/02/17 15:30 06/03/17 03:50 06/03/17 05:00 06/03/17 07:48 Urine Opiates Screen Negative (NEGATIVE) Urine Barbiturates Screen Positive (NEGATIVE) H Phencyclidine (PCP) Screen Negative (NEGATIVE) Urine Amphetamines Screen Negative (NEGATIVE) Urine Benzodiazepines Screen Negative (NEGATIVE) Urine Cocaine Screen Negative (NEGATIVE) Urine Marijuana (THC) Screen Positive (NEGATIVE) H White Blood Count 16.1 K/UL (4.8-10.8) H Red Blood Count 4.94 M/UL (4.70-6.10) Hemoglobin 15.0 G/DL (14.2-18.0) Hematocrit 43.7 % (42.0-52.0) Mean Corpuscular Volume 88 FL (80-99) Mean Corpuscular Hemoglobin 30.3 PG (27.0-31.0) Mean Corpuscular Hemoglobin Concent 34.3 G/DL (32.0-36.0) Red Cell Distribution Width 12.2 % (11.6-14.8) Platelet Count 255 K/UL (150-450) Mean Platelet Volume 7.3 FL (6.5-10.1) Neutrophils (%) (Auto) 74.8 % (45.0-75.0) Lymphocytes (%) (Auto) 13.9 % (20.0-45.0) L Monocytes (%) (Auto) 10.7 % (1.0-10.0) H Eosinophils (%) (Auto) 0.0 % (0.0-3.0) Basophils (%) (Auto) 0.6 % (0.0-2.0) Prothrombin Time 11.4 SEC (9.30-11.50) Prothromb Time International Ratio 1.1 (0.9-1.1) Activated Partial Thromboplast Time 34 SEC (23-33) H Sodium Level 138 MMOL/L (136-145) Potassium Level 3.1 MMOL/L (3.5-5.1) L Chloride Level 101 MMOL/L (98-107) Carbon Dioxide Level 26 MMOL/L (21-32) Anion Gap 11 mmol/L (5-15) Blood Urea Nitrogen 21 mg/dL (7-18) H Creatinine 1.4 MG/DL (0.55-1.30) H Estimat Glomerular Filtration Rate 59.9 mL/min (>60) Glucose Level 146 MG/DL (74-106) H Calcium Level 8.2 MG/DL (8.5-10.1) L Total Bilirubin 1.2 MG/DL (0.2-1.0) H Direct Bilirubin 0.2 MG/DL (0.0-0.3) Aspartate Amino Transf (AST/SGOT) 56 U/L (15-37) H Alanine Aminotransferase (ALT/SGPT) 308 U/L (12-78) H Alkaline Phosphatase 72 U/L (46-116) Total Protein 7.3 G/DL (6.4-8.2) Albumin 3.2 G/DL (3.4-5.0) L Globulin 4.1 g/dL Albumin/Globulin Ratio 0.8 (1.0-2.7) L Urine Color Pale yellow Urine Appearance Slightly cloudy Urine pH 6.5 (4.5-8.0) Urine Specific [place] 1.010 (1.005-1.035) Urine Protein 3+ (NEGATIVE) H Urine Glucose (UA) 1+ (NEGATIVE) H Urine Ketones 3+ (NEGATIVE) H Urine Occult Blood 5+ (NEGATIVE) H Urine Nitrite Negative (NEGATIVE) Urine Bilirubin Negative (NEGATIVE) Urine Urobilinogen Normal MG/DL (0.0-1.0) Urine Leukocyte Esterase 1+ (NEGATIVE) H Urine RBC 60-80 /HPF (0 - 0) H Urine WBC 2-4 /HPF (0 - 0) Urine Squamous Epithelial Cells Occasional /LPF Urine Bacteria Few /HPF (NONE) Total Creatine Kinase 161 U/L (26-308) Arterial Blood pH 7.470 (7.350-7.450) Arterial Blood Partial Pressure CO2 33.9 mmHg (35.0-45.0) L Arterial Blood Partial Pressure O2 143.3 mmHg (75.0-100.0) H Arterial Blood HCO3 24.6 mmol/L (22.0-26.0) Arterial Blood Oxygen Saturation 98.8 % (92.0-98.0) H Arterial Blood Base Excess 1.7 Balaji Test Positive Current Medications Medications (Trade) Dose Ordered Sig/Brittny Route PRN Reason Start Time Stop Time Status Last Admin Dose Admin Acetaminophen (Tylenol) 650 mg Q4H PRN ORAL Mild Pain/Temp > 100.5 06/02/17 20:45 07/02/17 20:44 06/03/17 04:25 Acetaminophen/ Butalbital/ Caffeine (Fioricet) 1 tab Q6H PRN ORAL For Pain 06/01/17 04:58 06/30/17 04:57 Albuterol/ Ipratropium (Albuterol/ Ipratropium) 3 ml Q4HRT HHN 06/01/17 07:00 06/04/17 10:59 06/03/17 07:42 Aspirin (Ecotrin) 81 mg DAILY ORAL 06/01/17 09:00 06/29/17 08:59 06/03/17 08:53 Dicyclomine HCl (Bentyl) 20 mg TIDPRN PRN ORAL Abdominal cramps 06/01/17 04:59 06/26/17 04:58 Fentanyl Citrate 1000 mcg/Sodium Chloride 100 ml @ 0 mls/hr Q24H IV 06/03/17 04:45 06/10/17 04:44 06/03/17 09:06 Ibuprofen (Motrin) 600 mg Q4H PRN ORAL For Pain 06/03/17 04:45 07/03/17 04:44 06/03/17 05:56 Levetiracetam 100 ml @ 400 mls/hr Q12HR IVPB 06/03/17 09:30 07/03/17 09:29 UNV Lorazepam (Ativan 2mg/ml 1ml) 1 mg Q3HR PRN IV For Anxiety 06/02/17 08:30 06/09/17 08:29 06/03/17 08:06 Metoprolol Tartrate (Lopressor) 25 mg Q12HR ORAL 06/01/17 09:00 06/27/17 22:59 06/03/17 08:54 Pantoprazole (Protonix) 40 mg DAILY ORAL 06/01/17 09:00 06/26/17 08:59 06/03/17 08:53 Piperacillin Sod/ Tazobactam Sod 3.375 gm/Dextrose 110 ml @ 27.5 mls/hr Q8H IVPB 06/03/17 08:00 06/10/17 07:59 06/03/17 08:43 Sodium Chloride 1,000 ml @ 100 mls/hr Q10H IV 06/01/17 05:00 06/29/17 08:14 06/03/17 06:37 Temazepam (Restoril) 30 mg HSPRN PRN ORAL Insomnia 06/01/17 12:45 06/03/17 12:44 Thiamine HCl 100 mg/Dextrose 56 ml @ 112 mls/hr Q24H IVPB 06/03/17 09:30 07/03/17 09:29 UNV Topiramate (Topamax) 25 mg QHS ORAL 06/01/17 21:00 06/30/17 20:59 06/02/17 21:27 Vancomycin HCl (Vanco rx to dose) 1 ea DAILY PRN MISC Per rx protocol 06/02/17 20:45 07/02/17 20:44 Vancomycin HCl/ Dextrose 250 ml @ 125 mls/hr Q12H IVPB 06/02/17 22:00 06/07/17 21:59 06/02/17 22:20 CHRISS LEI Jun 03, 2017 09:43
[2017-06-03] MEDS: Vancomycin 1500mg IVPB SCH ×2 (10:08→21:53)
--- NOTE | 2017-06-03 10:30 | Critical Care Progress Note ---
Assessment/Plan Assessment/Plan IMPRESSION ARF - improved rhabdo- resolved CK elevated Liver enzyme- improving elevated troponin Pneumonia with abnormal CT reduced EF migraines s/p CPA acute encephalopathy with possible encephalitis tachycardia leukocytosis abnormal urine tox screen fevers PLAN Iv hydration follow up labs and liver enzymes for further improvement GI and renal evaluation noted IV antibiotics pending cultures ID evaluation noted hydration as able head CT noted neuro appreciated all noted and appreciated monitor LOC ativan prn need to manage ventilator repeat tox screen without change obtain records and follow up labs mother updated feeds per GI fentanyl drip acyclovir empiric HIV will need to analyze substance found in room-mother aware mother updated in detail- d/w her in detail; plans to come in to [place] tomorrow medications/laboratory data/nursing notes/ICU care reviewed in detail note reviewed and edited care discussed with RN and RT ICU time spent 75 minutes Critical Care - Subjective Interval Events: eventful night persistent fever doing poorly mentally d/w neuro d/w ID d/w mother x 30 minutes ROS Limited/Unobtainable: Yes Condition: critical EKG Rhythm: Sinus Tachycardia I&O: Intake and Output 06/02/17 06/03/17 19:00 07:00 Intake Total 1605 ml 1670 ml Output Total 1455 ml 740 ml Balance 150 ml 930 ml Free Water 50 ml 50 ml IV Total 1555 ml 1125 ml Tube Feeding 435 ml Other 60 ml Output Urine Total 1255 ml 740 ml Other 200 ml # Bowel Movements 2 Critical Care - Objective ET-Tube: 7.5 ET Position: 27 Last 24 Hour Vital Signs Date Time Temp Pulse Resp B/P (MAP) Pulse Ox O2 Delivery O2 Flow Rate FiO2 06/03/17 10:09 98 06/03/17 10:00 88 24 124/54 98 Mechanical Ventilator 100 06/03/17 10:00 24 06/03/17 09:20 105 38 100 06/03/17 09:06 35 06/03/17 09:00 99.5 99 24 143/44 97 Mechanical Ventilator 100 06/03/17 08:54 102 164/85 06/03/17 08:00 100.1 87 24 164/85 99 Mechanical Ventilator 70 06/03/17 08:00 70 06/03/17 07:59 70 06/03/17 07:52 96 36 100 Mechanical Ventilator 100 06/03/17 07:42 90 32 99 Mechanical Ventilator 100 06/03/17 07:36 99 24 100 06/03/17 07:00 99 29 129/28 98 Mechanical Ventilator 100 06/03/17 06:00 102.7 104 29 136/67 98 Mechanical Ventilator 100 06/03/17 05:24 103.6 06/03/17 05:24 103.6 06/03/17 05:00 107 29 179/93 98 Mechanical Ventilator 100 06/03/17 04:30 114 28 100 06/03/17 04:00 103 06/03/17 04:00 100 06/03/17 04:00 104.4 103 30 152/92 98 Mechanical Ventilator 100 06/03/17 03:00 107 29 179/93 98 Mechanical Ventilator 100 06/03/17 02:40 115 35 99 Mechanical Ventilator 100 06/03/17 02:40 115 28 100 06/03/17 02:30 112 36 96 Mechanical Ventilator 100 06/03/17 02:00 109 29 141/107 98 Mechanical Ventilator 100 06/03/17 01:00 105 29 167/83 98 Mechanical Ventilator 100 06/03/17 00:32 115 44 100 06/03/17 00:00 100 06/03/17 00:00 108 06/03/17 00:00 103.0 103 28 152/92 97 Mechanical Ventilator 100 06/02/17 23:00 108 26 153/88 98 Mechanical Ventilator 100 06/02/17 22:53 108 31 100 06/02/17 22:52 105 25 99 Mechanical Ventilator 100 06/02/17 22:45 108 31 99 Mechanical Ventilator 100 06/02/17 22:00 108 27 157/85 98 Mechanical Ventilator 100 06/02/17 21:27 121 155/61 06/02/17 21:00 122 26 155/61 98 Mechanical Ventilator 100 06/02/17 20:59 126 29 100 06/02/17 20:00 102.8 128 25 179/98 97 Mechanical Ventilator 100 06/02/17 20:00 100 06/02/17 20:00 128 06/02/17 18:58 126 34 149/78 95 Mechanical Ventilator 100 06/02/17 18:32 122 40 100 06/02/17 18:32 122 40 98 Mechanical Ventilator 100 06/02/17 18:20 120 41 98 Mechanical Ventilator 100 06/02/17 18:00 126 27 154/74 95 Mechanical Ventilator 100 06/02/17 17:28 124 26 100 06/02/17 17:00 102.7 125 27 148/82 98 Mechanical Ventilator 100 06/02/17 16:00 98.7 125 27 146/81 98 Mechanical Ventilator 100 06/02/17 16:00 130 06/02/17 15:57 98.9 06/02/17 15:43 Mechanical Ventilator 100 06/02/17 15:43 Mechanical Ventilator 100 06/02/17 15:43 130 40 100 06/02/17 15:00 111 27 168/98 97 Mechanical Ventilator 100 06/02/17 14:00 119 27 159/107 96 Mechanical Ventilator 100 06/02/17 13:21 111 25 100 06/02/17 13:00 110 27 168/98 96 Mechanical Ventilator 100 06/02/17 12:00 98.9 110 28 155/86 97 Mechanical Ventilator 100 06/02/17 12:00 109 06/02/17 11:34 Mechanical Ventilator 100 06/02/17 11:33 Mechanical Ventilator 100 06/02/17 11:00 112 28 156/95 96 Mechanical Ventilator 100 06/02/17 10:52 110 28 100 Labs: Labs Test 05/31/17 10:46 05/31/17 12:25 06/01/17 04:00 06/01/17 05:20 Sodium Level 141 MMOL/L (136-145) 140 MMOL/L (136-145) Potassium Level 3.3 MMOL/L (3.5-5.1) 5.1 MMOL/L (3.5-5.1) Chloride Level 101 MMOL/L (98-107) 101 MMOL/L (98-107) Carbon Dioxide Level 28 MMOL/L (21-32) 28 MMOL/L (21-32) Anion Gap 12 mmol/L (5-15) 11 mmol/L (5-15) Blood Urea Nitrogen 21 mg/dL (7-18) 25 mg/dL (7-18) Creatinine 1.3 MG/DL (0.55-1.30) 2.1 MG/DL (0.55-1.30) Estimat Glomerular Filtration Rate > 60 mL/min (>60) 37.5 mL/min (>60) Glucose Level 124 MG/DL (74-106) 267 MG/DL (74-106) Calcium Level 8.3 MG/DL (8.5-10.1) 7.6 MG/DL (8.5-10.1) White Blood Count 10.9 K/UL (4.8-10.8) 24.3 K/UL (4.8-10.8) Red Blood Count 5.68 M/UL (4.70-6.10) 5.45 M/UL (4.70-6.10) Hemoglobin 16.9 G/DL (14.2-18.0) 16.2 G/DL (14.2-18.0) Hematocrit 49.4 % (42.0-52.0) 49.5 % (42.0-52.0) Mean Corpuscular Volume 87 FL (80-99) 91 FL (80-99) Mean Corpuscular Hemoglobin 29.7 PG (27.0-31.0) 29.7 PG (27.0-31.0) Mean Corpuscular Hemoglobin Concent 34.1 G/DL (32.0-36.0) 32.7 G/DL (32.0-36.0) Red Cell Distribution Width 11.4 % (11.6-14.8) 12.4 % (11.6-14.8) Platelet Count 310 K/UL (150-450) 409 K/UL (150-450) Mean Platelet Volume 6.8 FL (6.5-10.1) 6.3 FL (6.5-10.1) Neutrophils (%) (Auto) 69.6 % (45.0-75.0) % (45.0-75.0) Lymphocytes (%) (Auto) 22.7 % (20.0-45.0) % (20.0-45.0) Monocytes (%) (Auto) 5.5 % (1.0-10.0) % (1.0-10.0) Eosinophils (%) (Auto) 1.8 % (0.0-3.0) % (0.0-3.0) Basophils (%) (Auto) 0.5 % (0.0-2.0) % (0.0-2.0) Differential Total Cells Counted 100 Neutrophils % (Manual) 73 % (45-75) Lymphocytes % (Manual) 13 % (20-45) Monocytes % (Manual) 7 % (1-10) Eosinophils % (Manual) 1 % (0-3) Basophils % (Manual) 0 % (0-2) Band Neutrophils 6 % (0-8) Platelet Estimate Adequate Platelet Morphology Normal Red Blood Cell Morphology Normal Magnesium Level 2.3 MG/DL (1.8-2.4) Total Bilirubin 0.3 MG/DL (0.2-1.0) Aspartate Amino Transf (AST/SGOT) 837 U/L (15-37) Alanine Aminotransferase (ALT/SGPT) 1163 U/L (12-78) Alkaline Phosphatase 104 U/L (46-116) Pro-B-Type Natriuretic Peptide 1011 pg/mL (0-125) Total Protein 7.2 G/DL (6.4-8.2) Albumin 3.2 G/DL (3.4-5.0) Globulin 4.0 g/dL Albumin/Globulin Ratio 0.8 (1.0-2.7) Urine Opiates Screen Positive (NEGATIVE) Urine Barbiturates Screen Positive (NEGATIVE) Phencyclidine (PCP) Screen Negative (NEGATIVE) Urine Amphetamines Screen Negative (NEGATIVE) Urine Benzodiazepines Screen Negative (NEGATIVE) Urine Cocaine Screen Negative (NEGATIVE) Urine Marijuana (THC) Screen Positive (NEGATIVE) Arterial Blood pH 7.191 (7.350-7.450) Arterial Blood Partial Pressure CO2 65.2 mmHg (35.0-45.0) Arterial Blood Partial Pressure O2 111.1 mmHg (75.0-100.0) Arterial Blood HCO3 24.4 mmol/L (22.0-26.0) Arterial Blood Oxygen Saturation 96.9 % (92.0-98.0) Arterial Blood Base Excess -5.3 Balaji Test Positive Test 06/01/17 06:48 06/02/17 04:00 06/02/17 06:40 06/02/17 08:54 Arterial Blood pH 7.408 (7.350-7.450) 7.337 (7.350-7.450) Arterial Blood Partial Pressure CO2 45.4 mmHg (35.0-45.0) 46.0 mmHg (35.0-45.0) Arterial Blood Partial Pressure O2 139.7 mmHg (75.0-100.0) 63.3 mmHg (75.0-100.0) Arterial Blood HCO3 28.0 mmol/L (22.0-26.0) 24.1 mmol/L (22.0-26.0) Arterial Blood Oxygen Saturation 98.4 % (92.0-98.0) 90.5 % (92.0-98.0) Arterial Blood Base Excess -2.7 -2.1 Balaji Test Positive Positive White Blood Count 17.9 K/UL (4.8-10.8) Red Blood Count 5.39 M/UL (4.70-6.10) Hemoglobin 15.7 G/DL (14.2-18.0) Hematocrit 47.7 % (42.0-52.0) Mean Corpuscular Volume 89 FL (80-99) Mean Corpuscular Hemoglobin 29.1 PG (27.0-31.0) Mean Corpuscular Hemoglobin Concent 32.8 G/DL (32.0-36.0) Red Cell Distribution Width 11.9 % (11.6-14.8) Platelet Count 328 K/UL (150-450) Mean Platelet Volume 6.4 FL (6.5-10.1) Neutrophils (%) (Auto) 76.8 % (45.0-75.0) Lymphocytes (%) (Auto) 13.8 % (20.0-45.0) Monocytes (%) (Auto) 8.7 % (1.0-10.0) Eosinophils (%) (Auto) 0.2 % (0.0-3.0) Basophils (%) (Auto) 0.5 % (0.0-2.0) Sodium Level 139 MMOL/L (136-145) Potassium Level 4.3 MMOL/L (3.5-5.1) Chloride Level 104 MMOL/L (98-107) Carbon Dioxide Level 27 MMOL/L (21-32) Anion Gap 8 mmol/L (5-15) Blood Urea Nitrogen 21 mg/dL (7-18) Creatinine 1.4 MG/DL (0.55-1.30) Estimat Glomerular Filtration Rate 59.9 mL/min (>60) Glucose Level 135 MG/DL (74-106) Calcium Level 8.4 MG/DL (8.5-10.1) Test 06/02/17 15:30 06/03/17 03:50 06/03/17 05:00 06/03/17 07:48 Urine Opiates Screen Negative (NEGATIVE) Urine Barbiturates Screen Positive (NEGATIVE) Phencyclidine (PCP) Screen Negative (NEGATIVE) Urine Amphetamines Screen Negative (NEGATIVE) Urine Benzodiazepines Screen Negative (NEGATIVE) Urine Cocaine Screen Negative (NEGATIVE) Urine Marijuana (THC) Screen Positive (NEGATIVE) White Blood Count 16.1 K/UL (4.8-10.8) Red Blood Count 4.94 M/UL (4.70-6.10) Hemoglobin 15.0 G/DL (14.2-18.0) Hematocrit 43.7 % (42.0-52.0) Mean Corpuscular Volume 88 FL (80-99) Mean Corpuscular Hemoglobin 30.3 PG (27.0-31.0) Mean Corpuscular Hemoglobin Concent 34.3 G/DL (32.0-36.0) Red Cell Distribution Width 12.2 % (11.6-14.8) Platelet Count 255 K/UL (150-450) Mean Platelet Volume 7.3 FL (6.5-10.1) Neutrophils (%) (Auto) 74.8 % (45.0-75.0) Lymphocytes (%) (Auto) 13.9 % (20.0-45.0) Monocytes (%) (Auto) 10.7 % (1.0-10.0) Eosinophils (%) (Auto) 0.0 % (0.0-3.0) Basophils (%) (Auto) 0.6 % (0.0-2.0) Prothrombin Time 11.4 SEC (9.30-11.50) Prothromb Time International Ratio 1.1 (0.9-1.1) Activated Partial Thromboplast Time 34 SEC (23-33) Sodium Level 138 MMOL/L (136-145) Potassium Level 3.1 MMOL/L (3.5-5.1) Chloride Level 101 MMOL/L (98-107) Carbon Dioxide Level 26 MMOL/L (21-32) Anion Gap 11 mmol/L (5-15) Blood Urea Nitrogen 21 mg/dL (7-18) Creatinine 1.4 MG/DL (0.55-1.30) Estimat Glomerular Filtration Rate 59.9 mL/min (>60) Glucose Level 146 MG/DL (74-106) Calcium Level 8.2 MG/DL (8.5-10.1) Total Bilirubin 1.2 MG/DL (0.2-1.0) Direct Bilirubin 0.2 MG/DL (0.0-0.3) Aspartate Amino Transf (AST/SGOT) 56 U/L (15-37) Alanine Aminotransferase (ALT/SGPT) 308 U/L (12-78) Alkaline Phosphatase 72 U/L (46-116) Total Protein 7.3 G/DL (6.4-8.2) Albumin 3.2 G/DL (3.4-5.0) Globulin 4.1 g/dL Albumin/Globulin Ratio 0.8 (1.0-2.7) Urine Color Pale yellow Urine Appearance Slightly cloudy Urine pH 6.5 (4.5-8.0) Urine Specific [place] 1.010 (1.005-1.035) Urine Protein 3+ (NEGATIVE) Urine Glucose (UA) 1+ (NEGATIVE) Urine Ketones 3+ (NEGATIVE) Urine Occult Blood 5+ (NEGATIVE) Urine Nitrite Negative (NEGATIVE) Urine Bilirubin Negative (NEGATIVE) Urine Urobilinogen Normal MG/DL (0.0-1.0) Urine Leukocyte Esterase 1+ (NEGATIVE) Urine RBC 60-80 /HPF (0 - 0) Urine WBC 2-4 /HPF (0 - 0) Urine Squamous Epithelial Cells Occasional /LPF Urine Bacteria Few /HPF (NONE) Total Creatine Kinase 161 U/L (26-308) Arterial Blood pH 7.470 (7.350-7.450) Arterial Blood Partial Pressure CO2 33.9 mmHg (35.0-45.0) Arterial Blood Partial Pressure O2 143.3 mmHg (75.0-100.0) Arterial Blood HCO3 24.6 mmol/L (22.0-26.0) Arterial Blood Oxygen Saturation 98.8 % (92.0-98.0) Arterial Blood Base Excess 1.7 Balaji Test Positive Objective: WDWN NAD coarse breath sounds bilaterally without rhonchi or wheeze [id number] tachy without MRG NABS nontender no HSM no CCE nonfocal posturing with stimuli ETT in place MEGAN [place] Jun 03, 2017 10:30
--- NOTE | 2017-06-03 11:55 | General Progress Note ---
Assessment/Plan Assessment/Plan Assessment - s/p arrest - Rhabdo - was resolving prior to arrest - Elevated transaminases - initially due to Rhabdo, now due to post arrest shock liver/injury - s/p yoly - diverticulosis - peripancreatic stranding - Epigastric/ RUQ pain , ? etiology - was improving - Reactive airways - recent PNA - hemoptysis Recommendations - supportive ICU care - TF - Follow LFT - follow lactate and Cr - PPI Subjective ROS Limited/Unobtainable: No Allergies: Coded Allergies: No Known Allergies (Unverified , 05/26/17) Objective Last 24 Hour Vital Signs Date Time Temp Pulse Resp B/P (MAP) Pulse Ox O2 Delivery O2 Flow Rate FiO2 06/03/17 11:30 90 24 123/65 97 Mechanical Ventilator 70 06/03/17 11:24 91 24 100 Mechanical Ventilator 70 06/03/17 11:14 91 24 99 Mechanical Ventilator 70 06/03/17 11:12 91 24 70 06/03/17 11:00 91 24 151/76 98 Mechanical Ventilator 70 06/03/17 11:00 24 06/03/17 10:09 98 06/03/17 10:00 88 24 124/54 98 Mechanical Ventilator 100 06/03/17 10:00 24 06/03/17 09:20 105 38 100 06/03/17 09:06 35 06/03/17 09:00 99.5 99 24 143/44 97 Mechanical Ventilator 100 06/03/17 08:54 102 164/85 06/03/17 08:00 100.1 87 24 164/85 99 Mechanical Ventilator 70 06/03/17 08:00 70 06/03/17 07:59 70 06/03/17 07:52 96 36 100 Mechanical Ventilator 100 06/03/17 07:42 90 32 99 Mechanical Ventilator 100 06/03/17 07:36 99 24 100 06/03/17 07:00 99 29 129/28 98 Mechanical Ventilator 100 06/03/17 06:00 102.7 104 29 136/67 98 Mechanical Ventilator 100 06/03/17 05:24 103.6 06/03/17 05:24 103.6 06/03/17 05:00 107 29 179/93 98 Mechanical Ventilator 100 06/03/17 04:30 114 28 100 06/03/17 04:00 103 06/03/17 04:00 100 06/03/17 04:00 104.4 103 30 152/92 98 Mechanical Ventilator 100 06/03/17 03:00 107 29 179/93 98 Mechanical Ventilator 100 06/03/17 02:40 115 35 99 Mechanical Ventilator 100 06/03/17 02:40 115 28 100 06/03/17 02:30 112 36 96 Mechanical Ventilator 100 06/03/17 02:00 109 29 141/107 98 Mechanical Ventilator 100 06/03/17 01:00 105 29 167/83 98 Mechanical Ventilator 100 06/03/17 00:32 115 44 100 06/03/17 00:00 100 06/03/17 00:00 108 06/03/17 00:00 103.0 103 28 152/92 97 Mechanical Ventilator 100 06/02/17 23:00 108 26 153/88 98 Mechanical Ventilator 100 06/02/17 22:53 108 31 100 06/02/17 22:52 105 25 99 Mechanical Ventilator 100 06/02/17 22:45 108 31 99 Mechanical Ventilator 100 06/02/17 22:00 108 27 157/85 98 Mechanical Ventilator 100 06/02/17 21:27 121 155/61 06/02/17 21:00 122 26 155/61 98 Mechanical Ventilator 100 06/02/17 20:59 126 29 100 06/02/17 20:00 102.8 128 25 179/98 97 Mechanical Ventilator 100 06/02/17 20:00 100 06/02/17 20:00 128 06/02/17 18:58 126 34 149/78 95 Mechanical Ventilator 100 06/02/17 18:32 122 40 100 06/02/17 18:32 122 40 98 Mechanical Ventilator 100 06/02/17 18:20 120 41 98 Mechanical Ventilator 100 06/02/17 18:00 126 27 154/74 95 Mechanical Ventilator 100 06/02/17 17:28 124 26 100 06/02/17 17:00 102.7 125 27 148/82 98 Mechanical Ventilator 100 06/02/17 16:00 98.7 125 27 146/81 98 Mechanical Ventilator 100 06/02/17 16:00 130 06/02/17 15:57 98.9 06/02/17 15:43 Mechanical Ventilator 100 06/02/17 15:43 Mechanical Ventilator 100 06/02/17 15:43 130 40 100 06/02/17 15:00 111 27 168/98 97 Mechanical Ventilator 100 06/02/17 14:00 119 27 159/107 96 Mechanical Ventilator 100 06/02/17 13:21 111 25 100 06/02/17 13:00 110 27 168/98 96 Mechanical Ventilator 100 06/02/17 12:00 98.9 110 28 155/86 97 Mechanical Ventilator 100 06/02/17 12:00 109 Intake and Output 06/02/17 06/03/17 19:00 07:00 Intake Total 1605 ml 1670 ml Output Total 1455 ml 740 ml Balance 150 ml 930 ml Free Water 50 ml 50 ml IV Total 1555 ml 1125 ml Tube Feeding 435 ml Other 60 ml Output Urine Total 1255 ml 740 ml Other 200 ml # Bowel Movements 2 Laboratory Tests 06/02/17 15:30: Urine Opiates Screen Negative, Urine Barbiturates Screen PositiveH, Phencyclidine (PCP) Screen Negative, Urine Amphetamines Screen Negative, Urine Benzodiazepines Screen Negative, Urine Cocaine Screen Negative, Urine Marijuana (THC) Screen PositiveH 06/03/17 03:50: White Blood Count 16.1H, Red Blood Count 4.94, Hemoglobin 15.0, Hematocrit 43.7 , Mean Corpuscular Volume 88, Mean Corpuscular Hemoglobin 30.3, Mean Corpuscular Hemoglobin Concent 34.3, Red Cell Distribution Width 12.2, Platelet Count 255, Mean Platelet Volume 7.3, Neutrophils (%) (Auto) 74.8, Lymphocytes (% ) (Auto) 13.9L, Monocytes (%) (Auto) 10.7H, Eosinophils (%) (Auto) 0.0, Basophils (%) (Auto) 0.6, Prothrombin Time 11.4, Prothromb Time International Ratio 1.1, Activated Partial Thromboplast Time 34H, Sodium Level 138, Potassium Level 3.1L, Chloride Level 101, Carbon Dioxide Level 26, Anion Gap 11, Blood Urea Nitrogen 21H, Creatinine 1.4H, Estimat Glomerular Filtration Rate 59.9, Glucose Level 146H, Calcium Level 8.2L, Total Bilirubin 1.2H, Direct Bilirubin 0.2, Aspartate Amino Transf (AST/SGOT) 56H, Alanine Aminotransferase (ALT/SGPT) 308H, Alkaline Phosphatase 72, Total Protein 7.3, Albumin 3.2L, Globulin 4.1, Albumin/Globulin Ratio 0.8L 06/03/17 05:00: Urine Color Pale yellow, Urine Appearance Slightly cloudy, Urine pH 6.5, Urine Specific [place] 1.010, Urine Protein 3+H, Urine Glucose (UA) 1+H, Urine Ketones 3+H, Urine Occult Blood 5+H, Urine Nitrite Negative, Urine Bilirubin Negative, Urine Urobilinogen Normal, Urine Leukocyte Esterase 1+H, Urine RBC 60- 80H, Urine WBC 2-4, Urine Squamous Epithelial Cells Occasional, Urine Bacteria Few, Total Creatine Kinase 161 06/03/17 07:48: Arterial Blood pH 7.470H, Arterial Blood Partial Pressure CO2 33.9L, Arterial Blood Partial Pressure O2 143.3H, Arterial Blood HCO3 24.6, Arterial Blood Oxygen Saturation 98.8H, Arterial Blood Base Excess 1.7, Balaji Test Positive Height (Feet): 6 Height (Inches): 1.00 Weight (Pounds): 251 General Appearance: lethargic EENT: normal ENT inspection Neck: supple Cardiovascular: normal rate Respiratory/Chest: decreased breath sounds Abdomen: normal bowel sounds, non tender, soft Extremities: non-tender MAURO GRAMAJO Jun 03, 2017 11:55
[2017-06-03] MEDS: levETIRAcetam 1,000mg/NS100ml 100 ML IVPB SCH ×2 (12:02→20:32)
[2017-06-03] MEDS: Thiamine HCl 100 MG in D5W 55 ML IVPB SCH (12:20)
[2017-06-03] MEDS: Acyclovir 500 MG in D5W 110 ML IV SCH ×2 (14:20→21:53)
[2017-06-03] MEDS: Topiramate 25mg tab ORAL SCH (20:32)
[2017-06-04] VITALS (31 sets, daily range): BP systolic 91–178; BP diastolic 44–108
--- NOTE | 2017-06-04 02:45 | Consultation ---
DATE OF CONSULTATION: 06/03/2017 NOTE: POOR AUDIO NEUROLOGICAL CONSULTATION CONSULTING PHYSICIAN: Sohail Wilson M.D. REQUESTING PHYSICIAN: Stu Tang M.D. HISTORY OF PRESENT ILLNESS: This is a 27-year-old male seen in urgent neurological consultation to evaluate presence of severe anoxic encephalopathy with involuntary movements and high fevers. According to medical records, known that the patient is visiting from [place]. He called paramedics on 2017 who described they found him ambulating, oriented x3, complaining of shortness of breath and cough for the last few hours. He reported that he just got out from the hospital for pneumonia for the past 10 days and has been feeling off since then. He states that he has severe pain in his chest with cough or deep breath. There was no evidence of trauma. No nausea. No diarrhea. No loss of consciousness. No further complaints. With this, he was taken to emergency room. He was afebrile at 98.1 degrees and blood pressure 126/67. He was alert with [place] Coma Scale of 15, described as mild distress, dyspnea. There was normal neurological examination. He was in respiratory distress, had cough and crackles. He was placed on stretcher. He has evidence of hypoxia on room air, tachycardia. With this, he was started on nebulizer treatment. EKG, sinus tachycardia. No evidence of acute ischemic changes. Chest x-ray reveals evidence of left upper lobe infiltrates. The patient was given potassium supplements, started on antibiotics, and IV fluids. Initial laboratory studies revealed renal insufficiency with BUN of 31, creatinine 2.7, chloride of 96, and sodium 135. Blood sugar elevation of 123. Lactic acid 6.80, elevated AST 436 and ALT 219. CPK 12,066 and CK-MB 103.6. Elevated troponin 0.326 and BNP of 1980. His further labs . Lactic acid went up to 13.0. Toxicology panel positive for opiates. Serology panel negative for hepatitis. Urinalysis, 3+ protein. Coagulation panel was normal. Imaging studies, chest x-ray, hazy left upper lobe opacity concerning for pneumonia and evidence of mild cardiomegaly. Abdomen and pelvis CT scan revealed bilateral pulmonary parenchymal nodular and ground-glass infiltrate, may reflect pneumonia or CHF. No right pleural effusion. No acute abdominal or pelvic abnormalities otherwise. There is borderline cardiomegaly, fatty liver, and mild splenomegaly. Echocardiogram revealed thrombi. CT scan of the chest revealed multifocal pneumonia, giving ground-glass suggestion of opacification etiology should be considered. Small bilateral pleural effusion, abdomen and mediastinal lymph nodes nonspecific and possibly reactive in etiology. While receiving treatment, there is mild clinical improvement including reduction in leukocytosis and renal failure. Continue with rhabdomyolysis, maintained on ceftriaxone and azithromycin. On 06/01/2017, he developed acute cardiac arrest. He was noted to have agonal breathing prior to arrival to ER doctor. CPR was ongoing with oxygenation through bag valve mask. He was given epinephrine. He was intubated with subsequent improvement in blood gases and color. According to Cardiology, the patient sustained asystole, cardiac arrest due to respiratory failure, regaining pulse after 8 minutes with evidence of ATN following cardiac arrest. Blood test for toxicology screen was positive for opiates, barbiturates, and marijuana. According to nursing staff, several visitors were at bedside in the previous days and on the day of cardiac arrest, they detected some kind of white powder on his bed. This was collected and saved. The patient remained intubated with respiratory failure, unresponsive. He developed fever of 104.4 degrees, heart rate of 113. he developed generalized tremors, which on my observation appears . He was found with pupils being fixed and dilated. With this, stat Neurology consult was requested. PAST MEDICAL HISTORY: Following admission, the patient reported to have , recent pneumonia, he is status post cholecystectomy. He is a smoker, one quarter pack per day, smoking marijuana. He was complaining of pain , generalized muscle pain, productive cough. MEDICATIONS: Treatment prior to admission included acetaminophen, clonazepam 1 mg t.i.d., dicyclomine 20 mg t.i.d., temazepam 30 mg at bedtime, and Topamax 25 mg b.i.d. presumably for preexisting migraine. ALLERGIES: None reported. SOCIAL HISTORY: He is single, visiting from [place]. FAMILY HISTORY: Remarkable for his father from heart attack and his mother has renal cancer. REVIEW OF SYMPTOMS: Unable to obtain due to the patient's status. PHYSICAL EXAMINATION: GENERAL: This is a well-developed, moderately obese man, in moderate distress. He is intubated. He is profoundly sweating in his upper part of the body with redness of the face and neck. VITAL SIGNS: His heart rate of 107, respiratory rate of 29, and blood pressure 179/93. HEENT: Head with no evidence of trauma. NECK: Supple. SKIN: Unremarkable except flushing of skin in upper torso and face with profuse sweating. The cooling blanket is in place. PERIPHERAL PULSES: A 1+ symmetric both upper and lower extremities. MENTAL STATUS: He is unresponsive to voice or sternal rub. CRANIAL NERVE II: Pupils 5 mm, very sluggishly responding to light. Extraocular movement none on doll maneuver. There is a slight down gaze preference. CRANIAL NERVE V: Normal corneal responses. CRANIAL NERVE VII: No facial asymmetry. CRANIAL NERVE VIII: Not tested. CRANIAL NERVE IX THROUGH XII: Reduced gag response. Tongue is in midline. MOTOR EXAMINATION: Flaccid both upper extremities with intermittent movement. Severe rigidity in both lower extremities, symmetric. No spontaneous movement noted. Deep tendon reflexes depressed in both upper and lower extremities. Plantar response is mute. LABORATORY AND DIAGNOSTIC DATA: Repeat laboratory work detected normal CPK of 161. IMPRESSION: 1. Status post full arrest resulted in severe anoxic encephalopathy. 2. Intermittent , doubt seizure activities. 3. Rule out a viral syndrome/meningitis/encephalitis. 4. Pneumonia. 5. Rhabdomyolysis, now resolved. 6. Abnormal liver enzymes, probably shock liver. 7. History of hypertension. 8. History of migraine. 9. Abnormal toxicology screen, rule out drug toxicity. RECOMMENDATION: The patient had a stat CT of the brain, which was normal study. Collected white powder on his bed, will be sent to specialty laboratory. We will check electroencephalogram. Spinal tap will be attempted by Radiology under . Prophylactically, we will start on anticonvulsants. Use of acyclovir for prophylaxis deferred to Infectious Diseases. The patient continued with respiratory support and symptomatic treatment. Laboratory work will include TOREY, sedimentation rate, CRP, and blood for toxicology screen. Check heavy metal screen, supplement of thiamine 100 mg daily. We will follow with you. I discussed the patient's status with attending and medical staff. Thank you for allowing me to see this interesting patient in neurological consultation. Sohail Maisha Wilson DR: Ada JOB#: [id number] CC:
[2017-06-04] MEDS: LORazepam Inj 2mg/ml 1ml IV PRN ×4 (03:11→17:53)
[2017-06-04] MEDS: Albuterol/Ipratropium 3ml neb HHN SCH ×2 (03:21→07:54)
[2017-06-04] MEDS ORDERED: Dyna-Hex 2% Top Sol 2oz TOPIC ONE (04:07)
[2017-06-04] MEDS: Acyclovir 500 MG in D5W 110 ML IV SCH ×3 (05:29→21:30)
[2017-06-04 06:42] LABS: HEMATOCRIT 43.5 % (42.0-52.0); HEMOGLOBIN 14.6 G/DL (14.2-18.0); MEAN CORPUSCULAR VOLUME 90 FL (80-99); PLATELET COUNT 232 K/UL (150-450); RED BLOOD COUNT 4.86 M/UL (4.70-6.10); RED CELL DISTRIBUTION WIDTH 12.4 % (11.6-14.8); WHITE BLOOD COUNT 21.8 K/UL (4.8-10.8)
[2017-06-04 06:53] LABS: ALANINE AMINOTRANSFERASE 174 U/L (12-78); ALBUMIN 2.8 G/DL (3.4-5.0); ALBUMIN/GLOBULIN RATIO 0.7 (1.0-2.7); ALKALINE PHOSPHATASE 60 U/L (46-116); ANION GAP 11 mmol/L (5-15); ASPARTATE AMINO TRANSFERASE 44 U/L (15-37); BILIRUBIN,TOTAL 0.6 MG/DL (0.2-1.0); BLOOD UREA NITROGEN 19 mg/dL (7-18); CARBON DIOXIDE 27 MMOL/L (21-32); CHLORIDE 102 MMOL/L (98-107); POTASSIUM 3.3 MMOL/L (3.5-5.1); SODIUM 139 MMOL/L (136-145)
[2017-06-04 07:11] LABS: CREATINE KINASE 143 U/L (26-308)
[2017-06-04] MEDS: Piperacillin/Tazobactam 3.375 GM in D5W 110 ML IVPB SCH ×3 (07:33→23:49)
--- NOTE | 2017-06-04 07:48 | General Progress Note ---
Assessment/Plan Problem List: (1) Anoxia ICD Codes: R09.02 - Hypoxemia SNOMED: 23174516 (2) Encephalopathy acute ICD Codes: G93.40 - Encephalopathy, unspecified SNOMED: 6224162 (3) Respiratory distress ICD Codes: R06.03 - Acute respiratory distress SNOMED: 180752794 (4) Renal insufficiency ICD Codes: N28.9 - Disorder of kidney and ureter, unspecified SNOMED: 555461390, 907729838 (5) Rhabdomyolysis ICD Codes: M62.82 - Rhabdomyolysis SNOMED: 535536553, 328914243 Qualifiers: Qualified Codes: M62.82 - Rhabdomyolysis (6) Sepsis ICD Codes: A41.9 - Sepsis, unspecified organism SNOMED: 65783656, 537455575 Qualifiers: Qualified Codes: A41.9 - Sepsis, unspecified organism (7) Pneumonia ICD Codes: J18.9 - Pneumonia, unspecified organism SNOMED: 282336519, 509264539 Qualifiers: Qualified Codes: J18.1 - Lobar pneumonia, unspecified organism (8) Elevated troponin ICD Codes: R74.8 - Abnormal levels of other serum enzymes SNOMED: 767429185, 745249693 Status: stable, not improved Assessment/Plan iv abx follow up cultures vent support resp care ngt feeds LP replace lytes Subjective ROS Limited/Unobtainable: Yes Constitutional: Reports: fever, malaise, weakness HEENT: Reports: no symptoms Cardiovascular: Reports: no symptoms Respiratory: Reports: shortness of breath Gastrointestinal/Abdominal: Reports: no symptoms Genitourinary: Reports: no symptoms Neurologic/Psychiatric: Reports: pre-existing deficit Endocrine: Reports: no symptoms Hematologic/Lymphatic: Reports: no symptoms Allergies: Coded Allergies: No Known Allergies (Unverified , 05/26/17) All Systems: reviewed and negative except above Subjective sedated on fentanyl. + fevers. on feeds, low k noted. poorly responsive Objective Last 24 Hour Vital Signs Date Time Temp Pulse Resp B/P (MAP) Pulse Ox O2 Delivery O2 Flow Rate FiO2 06/04/17 07:00 119 26 99/45 97 Mechanical Ventilator 100 06/04/17 07:00 30 06/04/17 06:49 100.1 06/04/17 06:00 116 26 169/86 97 Mechanical Ventilator 100 06/04/17 06:00 45 1/8/18 05:16 98 32 100 06/04/17 05:16 100 06/04/17 05:00 100.0 102 33 176/93 98 Mechanical Ventilator 100 06/04/17 05:00 29 06/04/17 04:00 97 26 175/92 97 Mechanical Ventilator 100 06/04/17 04:00 29 06/04/17 04:00 70 06/04/17 04:00 115 06/04/17 03:30 47 06/04/17 03:26 101 26 100 Mechanical Ventilator 70 06/04/17 03:15 85 25 100 Mechanical Ventilator 60 06/04/17 03:15 85 29 70 06/04/17 03:00 101 26 155/75 97 Mechanical Ventilator 100 06/04/17 03:00 26 06/04/17 02:00 28 06/04/17 02:00 83 28 176/108 93 Mechanical Ventilator 60 06/04/17 01:45 80 30 70 06/04/17 01:00 70 06/04/17 01:00 27 06/04/17 01:00 88 21 178/81 100 Mechanical Ventilator 60 06/04/17 00:00 98.6 95 21 95/85 100 Mechanical Ventilator 60 06/04/17 00:00 93 06/04/17 00:00 21 06/03/17 23:58 107 24 100 Mechanical Ventilator 70 06/03/17 23:49 91 24 60 06/03/17 23:48 91 40 100 Mechanical Ventilator 60 06/03/17 23:00 96 23 112/58 100 Mechanical Ventilator 60 06/03/17 23:00 23 06/03/17 22:00 20 06/03/17 22:00 92 20 115/64 98 Mechanical Ventilator 60 06/03/17 21:00 89 30 60 06/03/17 21:00 90 22 115/64 100 Mechanical Ventilator 60 06/03/17 21:00 22 06/03/17 20:43 78 100/62 06/03/17 20:39 100 24 100 Mechanical Ventilator 70 06/03/17 20:12 60 06/03/17 20:11 103 39 90 06/03/17 20:10 102 40 100 Mechanical Ventilator 90 06/03/17 20:00 60 06/03/17 20:00 93 06/03/17 20:00 30 06/03/17 20:00 93 24 116/64 100 Mechanical Ventilator 60 06/03/17 19:00 24 06/03/17 19:00 100.1 75 24 124/62 100 Mechanical Ventilator 70 06/03/17 18:00 90 24 122/66 100 Mechanical Ventilator 70 06/03/17 18:00 24 06/03/17 17:30 96 24 126/62 100 Mechanical Ventilator 70 06/03/17 17:23 24 06/03/17 17:06 101 24 90 06/03/17 17:00 99.9 107 24 112/68 100 Mechanical Ventilator 70 06/03/17 17:00 24 06/03/17 16:30 101 24 105/60 100 Mechanical Ventilator 70 06/03/17 16:00 116 06/03/17 16:00 100.3 99 24 91/37 100 Mechanical Ventilator 70 06/03/17 16:00 24 06/03/17 16:00 70 06/03/17 15:49 100.3 06/03/17 15:43 105 24 100 Mechanical Ventilator 70 06/03/17 15:33 115 24 100 Mechanical Ventilator 90 06/03/17 15:30 115 23 95/44 99 Mechanical Ventilator 70 06/03/17 15:25 110 24 90 06/03/17 15:00 115 24 92/36 98 Mechanical Ventilator 70 06/03/17 15:00 24 06/03/17 14:30 112 24 115/52 98 Mechanical Ventilator 90 06/03/17 14:00 94 31 184/88 90 Mechanical Ventilator 70 06/03/17 14:00 32 06/03/17 13:30 83 30 145/98 90 Mechanical Ventilator 70 06/03/17 13:19 82 24 70 06/03/17 13:00 83 24 148/106 97 Mechanical Ventilator 70 06/03/17 13:00 24 06/03/17 12:30 83 24 123/64 96 Mechanical Ventilator 70 06/03/17 12:02 24 06/03/17 12:00 99.1 84 24 117/62 95 Mechanical Ventilator 70 06/03/17 12:00 70 06/03/17 12:00 90 06/03/17 11:30 90 24 123/65 97 Mechanical Ventilator 70 06/03/17 11:24 91 24 100 Mechanical Ventilator 70 06/03/17 11:14 91 24 99 Mechanical Ventilator 70 06/03/17 11:12 91 24 70 06/03/17 11:00 91 24 151/76 98 Mechanical Ventilator 70 06/03/17 11:00 24 06/03/17 10:30 88 24 124/54 98 Mechanical Ventilator 100 06/03/17 10:09 98 06/03/17 10:00 88 24 124/54 98 Mechanical Ventilator 100 06/03/17 10:00 24 06/03/17 09:30 91 24 124/54 97 Mechanical Ventilator 100 06/03/17 09:20 105 38 100 06/03/17 09:06 35 06/03/17 09:00 99.5 99 24 143/44 97 Mechanical Ventilator 100 06/03/17 08:54 102 164/85 06/03/17 08:00 100.1 87 24 164/85 99 Mechanical Ventilator 70 06/03/17 08:00 70 06/03/17 07:59 70 06/03/17 07:52 96 36 100 Mechanical Ventilator 100 Intake and Output 06/03/17 06/04/17 19:00 07:00 Intake Total 2130.0 ml 2345.5 ml Output Total 1095 ml 865 ml Balance 1035.0 ml 1480.5 ml Free Water 80 ml 50 ml IV Total 1280.0 ml 1575.5 ml Tube Feeding 660 ml 660 ml Other 110 ml 60 ml Output Urine Total 1095 ml 865 ml Laboratory Tests 06/03/17 07:48: Arterial Blood pH 7.470H, Arterial Blood Partial Pressure CO2 33.9L, Arterial Blood Partial Pressure O2 143.3H, Arterial Blood HCO3 24.6, Arterial Blood Oxygen Saturation 98.8H, Arterial Blood Base Excess 1.7, Balaji Test Positive 06/03/17 12:00: Erythrocyte Sedimentation Rate 20H, Ammonia 20, C-Reactive Protein, Quantitative 20.6H, Anti-Nuclear Antibody Screen [Pending], HIV (1&2) Antibody Rapid Negative 06/04/17 04:30: White Blood Count 21.8H, Red Blood Count 4.86, Hemoglobin 14.6, Hematocrit 43.5 , Mean Corpuscular Volume 90, Mean Corpuscular Hemoglobin 30.1, Mean Corpuscular Hemoglobin Concent 33.6, Red Cell Distribution Width 12.4, Platelet Count 232, Mean Platelet Volume 8.1, Neutrophils (%) (Auto) , Lymphocytes (%) ( Auto) , Monocytes (%) (Auto) , Eosinophils (%) (Auto) , Basophils (%) (Auto) , Neutrophils % (Manual) [Pending], Lymphocytes % (Manual) [Pending], Platelet Estimate [Pending], Platelet Morphology [Pending], Sodium Level 139, Potassium Level 3.3L, Chloride Level 102, Carbon Dioxide Level 27, Anion Gap 11, Blood Urea Nitrogen 19H, Creatinine 1.0, Estimat Glomerular Filtration Rate > 60, Glucose Level 158H, Calcium Level 8.0L, Total Bilirubin 0.6, Aspartate Amino Transf (AST/SGOT) 44H, Alanine Aminotransferase (ALT/SGPT) 174H, Alkaline Phosphatase 60, Total Creatine Kinase 143, Total Protein 7.0, Albumin 2.8L, Globulin 4.2, Albumin/Globulin Ratio 0.7L Height (Feet): 6 Height (Inches): 1.00 Weight (Pounds): 253 General Appearance: WD/WN, lethargic Neck: supple Cardiovascular: regular rhythm Respiratory/Chest: chest wall non-tender, lungs clear, normal breath sounds Abdomen: normal bowel sounds, non tender, soft, no organomegaly Neurologic: unresponsive Skin: normal pigmentation JIMBO GLEASON Jun 04, 2017 07:48
[2017-06-04] MEDS: levETIRAcetam 1,000mg/NS100ml 100 ML IVPB SCH ×2 (08:38→20:34)
[2017-06-04] MEDS: Aspirin EC 81mg tab ORAL SCH (08:39)
[2017-06-04] MEDS: Metoprolol 25mg tab ORAL SCH ×2 (08:39→20:35)
[2017-06-04] MEDS: Heparin 5000 units/ml inj SUBQ SCH ×2 (09:08→20:37)
--- NOTE | 2017-06-04 09:20 | Critical Care Progress Note ---
Assessment/Plan Assessment/Plan IMPRESSION ARF - improved rhabdo- resolved CK elevated Liver enzyme- improving elevated troponin Pneumonia with abnormal CT reduced EF migraines s/p CPA acute encephalopathy with possible encephalitis tachycardia leukocytosis abnormal urine tox screen fevers PLAN Iv hydration follow up labs and liver enzymes for further improvement GI and renal evaluation noted IV antibiotics pending cultures ID evaluation noted hydration as able head CT noted neuro appreciated all noted and appreciated monitor LOC ativan prn attempt to analyze substance found at bedside obtain records and follow up labs mother updated feeds per GI fentanyl drip acyclovir empiric HIV negative mother updated in detail- d/w her in detail; plans to come in to [place] tomorrow medications/laboratory data/nursing notes/ICU care reviewed in detail note reviewed and edited care discussed with RN and RT ICU time spent 75 minutes Critical Care - Subjective Interval Events: sedated on the ventilator on fentanyl will decerebrate when sedation is off no acute events last night ROS Limited/Unobtainable: Yes Condition: critical EKG Rhythm: Sinus Tachycardia Residuals: minimal Tube Feeding Tolerated: yes I&O: Intake and Output 06/03/17 06/04/17 19:00 07:00 Intake Total 2130.0 ml 2345.5 ml Output Total 1095 ml 865 ml Balance 1035.0 ml 1480.5 ml Free Water 80 ml 50 ml IV Total 1280.0 ml 1575.5 ml Tube Feeding 660 ml 660 ml Other 110 ml 60 ml Output Urine Total 1095 ml 865 ml Critical Care - Objective ET-Tube: 7.5 ET Position: 27 Last 24 Hour Vital Signs Date Time Temp Pulse Resp B/P (MAP) Pulse Ox O2 Delivery O2 Flow Rate FiO2 06/04/17 09:00 103 24 109/58 100 Mechanical Ventilator 80 06/04/17 09:00 24 06/04/17 08:57 115 28 80 06/04/17 08:39 120 104/54 06/04/17 08:30 118 24 104/54 100 Mechanical Ventilator 90 06/04/17 08:00 90 06/04/17 08:00 99.7 117 24 161/88 100 Mechanical Ventilator 90 06/04/17 08:00 24 06/04/17 07:58 90 06/04/17 07:40 110 26 100 Mechanical Ventilator 90 06/04/17 07:30 106 24 100 Mechanical Ventilator 100 06/04/17 07:25 117 24 100 06/04/17 07:00 119 26 99/45 97 Mechanical Ventilator 100 06/04/17 07:00 30 06/04/17 06:49 100.1 06/04/17 06:00 116 26 169/86 97 Mechanical Ventilator 100 06/04/17 06:00 45 06/04/17 05:16 98 32 100 06/04/17 05:16 100 06/04/17 05:00 100.0 102 33 176/93 98 Mechanical Ventilator 100 06/04/17 05:00 29 06/04/17 04:00 97 26 175/92 97 Mechanical Ventilator 100 06/04/17 04:00 29 06/04/17 04:00 70 06/04/17 04:00 115 06/04/17 03:30 47 06/04/17 03:26 101 26 100 Mechanical Ventilator 70 06/04/17 03:15 85 25 100 Mechanical Ventilator 60 06/04/17 03:15 85 29 70 06/04/17 03:00 101 26 155/75 97 Mechanical Ventilator 100 06/04/17 03:00 26 06/04/17 02:00 28 06/04/17 02:00 83 28 176/108 93 Mechanical Ventilator 60 06/04/17 01:45 80 30 70 06/04/17 01:00 70 06/04/17 01:00 27 06/04/17 01:00 88 21 178/81 100 Mechanical Ventilator 60 06/04/17 00:00 98.6 95 21 95/85 100 Mechanical Ventilator 60 06/04/17 00:00 93 06/04/17 00:00 21 06/03/17 23:58 107 24 100 Mechanical Ventilator 70 06/03/17 23:49 91 24 60 06/03/17 23:48 91 40 100 Mechanical Ventilator 60 06/03/17 23:00 96 23 112/58 100 Mechanical Ventilator 60 06/03/17 23:00 23 06/03/17 22:00 20 06/03/17 22:00 92 20 115/64 98 Mechanical Ventilator 60 06/03/17 21:00 89 30 60 06/03/17 21:00 90 22 115/64 100 Mechanical Ventilator 60 06/03/17 21:00 22 06/03/17 20:43 78 100/62 06/03/17 20:39 100 24 100 Mechanical Ventilator 70 06/03/17 20:12 60 1/7/18 20:11 103 39 90 06/03/17 20:10 102 40 100 Mechanical Ventilator 90 06/03/17 20:00 60 06/03/17 20:00 93 06/03/17 20:00 30 06/03/17 20:00 93 24 116/64 100 Mechanical Ventilator 60 06/03/17 19:00 24 06/03/17 19:00 100.1 75 24 124/62 100 Mechanical Ventilator 70 06/03/17 18:00 90 24 122/66 100 Mechanical Ventilator 70 06/03/17 18:00 24 06/03/17 17:30 96 24 126/62 100 Mechanical Ventilator 70 06/03/17 17:23 24 06/03/17 17:06 101 24 90 06/03/17 17:00 99.9 107 24 112/68 100 Mechanical Ventilator 70 06/03/17 17:00 24 06/03/17 16:30 101 24 105/60 100 Mechanical Ventilator 70 06/03/17 16:00 116 06/03/17 16:00 100.3 99 24 91/37 100 Mechanical Ventilator 70 06/03/17 16:00 24 06/03/17 16:00 70 06/03/17 15:49 100.3 06/03/17 15:43 105 24 100 Mechanical Ventilator 70 06/03/17 15:33 115 24 100 Mechanical Ventilator 90 06/03/17 15:30 115 23 95/44 99 Mechanical Ventilator 70 06/03/17 15:25 110 24 90 06/03/17 15:00 115 24 92/36 98 Mechanical Ventilator 70 06/03/17 15:00 24 06/03/17 14:30 112 24 115/52 98 Mechanical Ventilator 90 06/03/17 14:00 94 31 184/88 90 Mechanical Ventilator 70 06/03/17 14:00 32 06/03/17 13:30 83 30 145/98 90 Mechanical Ventilator 70 06/03/17 13:19 82 24 70 06/03/17 13:00 83 24 148/106 97 Mechanical Ventilator 70 06/03/17 13:00 24 06/03/17 12:30 83 24 123/64 96 Mechanical Ventilator 70 06/03/17 12:02 24 06/03/17 12:00 99.1 84 24 117/62 95 Mechanical Ventilator 70 06/03/17 12:00 70 06/03/17 12:00 90 06/03/17 11:30 90 24 123/65 97 Mechanical Ventilator 70 06/03/17 11:24 91 24 100 Mechanical Ventilator 70 06/03/17 11:14 91 24 99 Mechanical Ventilator 70 06/03/17 11:12 91 24 70 06/03/17 11:00 91 24 151/76 98 Mechanical Ventilator 70 06/03/17 11:00 24 06/03/17 10:30 88 24 124/54 98 Mechanical Ventilator 100 06/03/17 10:09 98 06/03/17 10:00 88 24 124/54 98 Mechanical Ventilator 100 06/03/17 10:00 24 06/03/17 09:30 91 24 124/54 97 Mechanical Ventilator 100 06/03/17 09:20 105 38 100 Labs: Labs Test 06/02/17 04:00 06/02/17 06:40 06/02/17 08:54 06/02/17 15:30 White Blood Count 17.9 K/UL (4.8-10.8) Red Blood Count 5.39 M/UL (4.70-6.10) Hemoglobin 15.7 G/DL (14.2-18.0) Hematocrit 47.7 % (42.0-52.0) Mean Corpuscular Volume 89 FL (80-99) Mean Corpuscular Hemoglobin 29.1 PG (27.0-31.0) Mean Corpuscular Hemoglobin Concent 32.8 G/DL (32.0-36.0) Red Cell Distribution Width 11.9 % (11.6-14.8) Platelet Count 328 K/UL (150-450) Mean Platelet Volume 6.4 FL (6.5-10.1) Neutrophils (%) (Auto) 76.8 % (45.0-75.0) Lymphocytes (%) (Auto) 13.8 % (20.0-45.0) Monocytes (%) (Auto) 8.7 % (1.0-10.0) Eosinophils (%) (Auto) 0.2 % (0.0-3.0) Basophils (%) (Auto) 0.5 % (0.0-2.0) Sodium Level 139 MMOL/L (136-145) Potassium Level 4.3 MMOL/L (3.5-5.1) Chloride Level 104 MMOL/L (98-107) Carbon Dioxide Level 27 MMOL/L (21-32) Anion Gap 8 mmol/L (5-15) Blood Urea Nitrogen 21 mg/dL (7-18) Creatinine 1.4 MG/DL (0.55-1.30) Estimat Glomerular Filtration Rate 59.9 mL/min (>60) Glucose Level 135 MG/DL (74-106) Calcium Level 8.4 MG/DL (8.5-10.1) Arterial Blood pH 7.337 (7.350-7.450) Arterial Blood Partial Pressure CO2 46.0 mmHg (35.0-45.0) Arterial Blood Partial Pressure O2 63.3 mmHg (75.0-100.0) Arterial Blood HCO3 24.1 mmol/L (22.0-26.0) Arterial Blood Oxygen Saturation 90.5 % (92.0-98.0) Arterial Blood Base Excess -2.1 Balaji Test Positive Urine Opiates Screen Negative (NEGATIVE) Urine Barbiturates Screen Positive (NEGATIVE) Phencyclidine (PCP) Screen Negative (NEGATIVE) Urine Amphetamines Screen Negative (NEGATIVE) Urine Benzodiazepines Screen Negative (NEGATIVE) Urine Cocaine Screen Negative (NEGATIVE) Urine Marijuana (THC) Screen Positive (NEGATIVE) Test 06/03/17 03:50 06/03/17 05:00 06/03/17 07:48 06/03/17 12:00 White Blood Count 16.1 K/UL (4.8-10.8) Red Blood Count 4.94 M/UL (4.70-6.10) Hemoglobin 15.0 G/DL (14.2-18.0) Hematocrit 43.7 % (42.0-52.0) Mean Corpuscular Volume 88 FL (80-99) Mean Corpuscular Hemoglobin 30.3 PG (27.0-31.0) Mean Corpuscular Hemoglobin Concent 34.3 G/DL (32.0-36.0) Red Cell Distribution Width 12.2 % (11.6-14.8) Platelet Count 255 K/UL (150-450) Mean Platelet Volume 7.3 FL (6.5-10.1) Neutrophils (%) (Auto) 74.8 % (45.0-75.0) Lymphocytes (%) (Auto) 13.9 % (20.0-45.0) Monocytes (%) (Auto) 10.7 % (1.0-10.0) Eosinophils (%) (Auto) 0.0 % (0.0-3.0) Basophils (%) (Auto) 0.6 % (0.0-2.0) Prothrombin Time 11.4 SEC (9.30-11.50) Prothromb Time International Ratio 1.1 (0.9-1.1) Activated Partial Thromboplast Time 34 SEC (23-33) Sodium Level 138 MMOL/L (136-145) Potassium Level 3.1 MMOL/L (3.5-5.1) Chloride Level 101 MMOL/L (98-107) Carbon Dioxide Level 26 MMOL/L (21-32) Anion Gap 11 mmol/L (5-15) Blood Urea Nitrogen 21 mg/dL (7-18) Creatinine 1.4 MG/DL (0.55-1.30) Estimat Glomerular Filtration Rate 59.9 mL/min (>60) Glucose Level 146 MG/DL (74-106) Calcium Level 8.2 MG/DL (8.5-10.1) Total Bilirubin 1.2 MG/DL (0.2-1.0) Direct Bilirubin 0.2 MG/DL (0.0-0.3) Aspartate Amino Transf (AST/SGOT) 56 U/L (15-37) Alanine Aminotransferase (ALT/SGPT) 308 U/L (12-78) Alkaline Phosphatase 72 U/L (46-116) Total Protein 7.3 G/DL (6.4-8.2) Albumin 3.2 G/DL (3.4-5.0) Globulin 4.1 g/dL Albumin/Globulin Ratio 0.8 (1.0-2.7) Urine Color Pale yellow Urine Appearance Slightly cloudy Urine pH 6.5 (4.5-8.0) Urine Specific [place] 1.010 (1.005-1.035) Urine Protein 3+ (NEGATIVE) Urine Glucose (UA) 1+ (NEGATIVE) Urine Ketones 3+ (NEGATIVE) Urine Occult Blood 5+ (NEGATIVE) Urine Nitrite Negative (NEGATIVE) Urine Bilirubin Negative (NEGATIVE) Urine Urobilinogen Normal MG/DL (0.0-1.0) Urine Leukocyte Esterase 1+ (NEGATIVE) Urine RBC 60-80 /HPF (0 - 0) Urine WBC 2-4 /HPF (0 - 0) Urine Squamous Epithelial Cells Occasional /LPF Urine Bacteria Few /HPF (NONE) Total Creatine Kinase 161 U/L (26-308) Arterial Blood pH 7.470 (7.350-7.450) Arterial Blood Partial Pressure CO2 33.9 mmHg (35.0-45.0) Arterial Blood Partial Pressure O2 143.3 mmHg (75.0-100.0) Arterial Blood HCO3 24.6 mmol/L (22.0-26.0) Arterial Blood Oxygen Saturation 98.8 % (92.0-98.0) Arterial Blood Base Excess 1.7 Balaji Test Positive Erythrocyte Sedimentation Rate 20 MM/HR (0-15) Ammonia 20 umol/L (11-32) C-Reactive Protein, Quantitative 20.6 mg/dL (0.00-0.90) HIV (1&2) Antibody Rapid Negative (NEGATIVE) Test 06/04/17 04:30 White Blood Count 21.8 K/UL (4.8-10.8) Red Blood Count 4.86 M/UL (4.70-6.10) Hemoglobin 14.6 G/DL (14.2-18.0) Hematocrit 43.5 % (42.0-52.0) Mean Corpuscular Volume 90 FL (80-99) Mean Corpuscular Hemoglobin 30.1 PG (27.0-31.0) Mean Corpuscular Hemoglobin Concent 33.6 G/DL (32.0-36.0) Red Cell Distribution Width 12.4 % (11.6-14.8) Platelet Count 232 K/UL (150-450) Mean Platelet Volume 8.1 FL (6.5-10.1) Neutrophils (%) (Auto) % (45.0-75.0) Lymphocytes (%) (Auto) % (20.0-45.0) Monocytes (%) (Auto) % (1.0-10.0) Eosinophils (%) (Auto) % (0.0-3.0) Basophils (%) (Auto) % (0.0-2.0) Sodium Level 139 MMOL/L (136-145) Potassium Level 3.3 MMOL/L (3.5-5.1) Chloride Level 102 MMOL/L (98-107) Carbon Dioxide Level 27 MMOL/L (21-32) Anion Gap 11 mmol/L (5-15) Blood Urea Nitrogen 19 mg/dL (7-18) Creatinine 1.0 MG/DL (0.55-1.30) Estimat Glomerular Filtration Rate > 60 mL/min (>60) Glucose Level 158 MG/DL (74-106) Calcium Level 8.0 MG/DL (8.5-10.1) Total Bilirubin 0.6 MG/DL (0.2-1.0) Aspartate Amino Transf (AST/SGOT) 44 U/L (15-37) Alanine Aminotransferase (ALT/SGPT) 174 U/L (12-78) Alkaline Phosphatase 60 U/L (46-116) Total Creatine Kinase 143 U/L (26-308) Total Protein 7.0 G/DL (6.4-8.2) Albumin 2.8 G/DL (3.4-5.0) Globulin 4.2 g/dL Albumin/Globulin Ratio 0.7 (1.0-2.7) Objective: WDWN NAD improved breath sounds bilaterally without rhonchi or wheeze [id number] tachy without MRG NABS nontender no HSM no CCE nonfocal sedated ETT in place no rash Micro: Microbiology Date/Time Source Procedure Growth Status 06/02/17 21:35 Blood Blood Culture - Preliminary NO GROWTH AFTER 24 HOURS Resulted 06/02/17 21:35 Blood Blood Culture - Preliminary NO GROWTH AFTER 24 HOURS Resulted 06/02/17 00:00 Sputum Induced Gram Stain Pending Resulted 06/02/17 00:00 Sputum Induced Sputum Culture - Preliminary NO GROWTH AFTER 24 HOURS Resulted 06/02/17 20:20 Indwelling Cath Urine Culture - Preliminary NO GROWTH Resulted MEGAN العلي Jun 04, 2017 09:20
[2017-06-04] MEDS: Vancomycin 1500mg IVPB SCH (11:19)
[2017-06-04] MEDS: Thiamine HCl 100 MG in D5W 55 ML IVPB SCH (11:20)
--- NOTE | 2017-06-04 15:00 | Infectious Diseases Prog Note ---
Assessment/Plan Assessment/Plan A 1. pneumonia 2. Bacteremia 3. renal failure 4. rhabdomyolysis 5. respiratory failure 6. s/p cardiac arrest P 1. continue Vancomycin & Zosyn 2. will follow up sputum culture, & blood cultures 3. HIV test was negative Subjective ROS Limited/Unobtainable: Yes Constitutional: Reports: fever, other - Dglb=358.3 Allergies: Coded Allergies: No Known Allergies (Unverified , 05/26/17) Objective Vital Signs Last 24 Hour Vital Signs Date Time Temp Pulse Resp B/P (MAP) Pulse Ox O2 Delivery O2 Flow Rate FiO2 06/04/17 14:02 99.3 06/04/17 14:00 88 30 176/95 94 Mechanical Ventilator 90 06/04/17 14:00 29 06/04/17 13:16 87 31 60 06/04/17 13:00 24 06/04/17 13:00 89 32 140/93 92 Mechanical Ventilator 60 06/04/17 12:30 81 22 112/46 100 Mechanical Ventilator 60 06/04/17 12:00 99.9 82 24 116/51 100 Mechanical Ventilator 60 06/04/17 12:00 80 06/04/17 12:00 21 06/04/17 12:00 60 06/04/17 11:30 82 22 127/56 100 Mechanical Ventilator 60 06/04/17 11:15 83 26 60 06/04/17 11:00 86 23 108/56 100 Mechanical Ventilator 80 06/04/17 10:30 89 23 104/56 100 Mechanical Ventilator 80 06/04/17 10:28 24 06/04/17 10:00 96 24 118/58 100 Mechanical Ventilator 80 06/04/17 10:00 24 06/04/17 09:30 95 23 104/55 100 Mechanical Ventilator 80 06/04/17 09:00 103 24 109/58 100 Mechanical Ventilator 80 06/04/17 09:00 24 06/04/17 08:57 115 28 80 06/04/17 08:39 120 104/54 06/04/17 08:30 118 24 104/54 100 Mechanical Ventilator 90 06/04/17 08:00 114 06/04/17 08:00 90 06/04/17 08:00 99.7 117 24 161/88 100 Mechanical Ventilator 90 06/04/17 08:00 24 06/04/17 07:58 90 06/04/17 07:40 110 26 100 Mechanical Ventilator 90 06/04/17 07:30 106 24 100 Mechanical Ventilator 100 06/04/17 07:25 117 24 100 06/04/17 07:00 119 26 99/45 97 Mechanical Ventilator 100 06/04/17 07:00 30 06/04/17 06:00 116 26 169/86 97 Mechanical Ventilator 100 06/04/17 06:00 45 06/04/17 05:16 98 32 100 06/04/17 05:16 100 06/04/17 05:00 100.0 102 33 176/93 98 Mechanical Ventilator 100 06/04/17 05:00 29 06/04/17 04:00 97 26 175/92 97 Mechanical Ventilator 100 06/04/17 04:00 29 06/04/17 04:00 70 06/04/17 04:00 115 06/04/17 03:30 47 06/04/17 03:26 101 26 100 Mechanical Ventilator 70 06/04/17 03:15 85 25 100 Mechanical Ventilator 60 06/04/17 03:15 85 29 70 06/04/17 03:00 101 26 155/75 97 Mechanical Ventilator 100 06/04/17 03:00 26 06/04/17 02:00 28 06/04/17 02:00 83 28 176/108 93 Mechanical Ventilator 60 06/04/17 01:45 80 30 70 06/04/17 01:00 70 06/04/17 01:00 27 06/04/17 01:00 88 21 178/81 100 Mechanical Ventilator 60 06/04/17 00:00 98.6 95 21 95/85 100 Mechanical Ventilator 60 06/04/17 00:00 93 06/04/17 00:00 21 06/03/17 23:58 107 24 100 Mechanical Ventilator 70 06/03/17 23:49 91 24 60 06/03/17 23:48 91 40 100 Mechanical Ventilator 60 06/03/17 23:00 96 23 112/58 100 Mechanical Ventilator 60 06/03/17 23:00 23 06/03/17 22:00 20 06/03/17 22:00 92 20 115/64 98 Mechanical Ventilator 60 06/03/17 21:00 89 30 60 06/03/17 21:00 90 22 115/64 100 Mechanical Ventilator 60 06/03/17 21:00 22 06/03/17 20:43 78 100/62 06/03/17 20:39 100 24 100 Mechanical Ventilator 70 06/03/17 20:12 60 06/03/17 20:11 103 39 90 06/03/17 20:10 102 40 100 Mechanical Ventilator 90 06/03/17 20:00 60 06/03/17 20:00 93 06/03/17 20:00 30 06/03/17 20:00 93 24 116/64 100 Mechanical Ventilator 60 06/03/17 19:00 24 06/03/17 19:00 100.1 75 24 124/62 100 Mechanical Ventilator 70 06/03/17 18:00 90 24 122/66 100 Mechanical Ventilator 70 06/03/17 18:00 24 06/03/17 17:30 96 24 126/62 100 Mechanical Ventilator 70 06/03/17 17:23 24 06/03/17 17:06 101 24 90 06/03/17 17:00 99.9 107 24 112/68 100 Mechanical Ventilator 70 06/03/17 17:00 24 06/03/17 16:30 101 24 105/60 100 Mechanical Ventilator 70 06/03/17 16:00 116 06/03/17 16:00 100.3 99 24 91/37 100 Mechanical Ventilator 70 06/03/17 16:00 24 06/03/17 16:00 70 06/03/17 15:49 100.3 06/03/17 15:43 105 24 100 Mechanical Ventilator 70 06/03/17 15:33 115 24 100 Mechanical Ventilator 90 06/03/17 15:30 115 23 95/44 99 Mechanical Ventilator 70 06/03/17 15:25 110 24 90 06/03/17 15:00 115 24 92/36 98 Mechanical Ventilator 70 06/03/17 15:00 24 Height (Feet): 6 Height (Inches): 1.00 Weight (Pounds): 253 HEENT: other - orally intubated Respiratory/Chest: respiratory distress, decreased breath sounds Cardiovascular: tachycardia, other - R subclavian central line Abdomen: soft, non tender Extremities: no edema Neurologic/Psychiatric: unresponsiveness Microbiology Date/Time Source Procedure Growth Status 06/02/17 21:35 Blood Blood Culture - Preliminary Resulted 06/02/17 21:35 Blood Blood Culture - Preliminary Resulted 06/02/17 00:00 Sputum Induced Gram Stain - Final Resulted 06/02/17 00:00 Sputum Induced Sputum Culture - Preliminary NO GROWTH AFTER 24 HOURS Resulted 06/02/17 20:20 Indwelling Cath Urine Culture - Preliminary NO GROWTH Resulted Laboratory Tests Test 06/04/17 04:30 06/04/17 09:15 White Blood Count 21.8 K/UL (4.8-10.8) H Red Blood Count 4.86 M/UL (4.70-6.10) Hemoglobin 14.6 G/DL (14.2-18.0) Hematocrit 43.5 % (42.0-52.0) Mean Corpuscular Volume 90 FL (80-99) Mean Corpuscular Hemoglobin 30.1 PG (27.0-31.0) Mean Corpuscular Hemoglobin Concent 33.6 G/DL (32.0-36.0) Red Cell Distribution Width 12.4 % (11.6-14.8) Platelet Count 232 K/UL (150-450) Mean Platelet Volume 8.1 FL (6.5-10.1) Neutrophils (%) (Auto) % (45.0-75.0) Lymphocytes (%) (Auto) % (20.0-45.0) Monocytes (%) (Auto) % (1.0-10.0) Eosinophils (%) (Auto) % (0.0-3.0) Basophils (%) (Auto) % (0.0-2.0) Differential Total Cells Counted 100 Neutrophils % (Manual) 88 % (45-75) H Lymphocytes % (Manual) 6 % (20-45) L Monocytes % (Manual) 6 % (1-10) Eosinophils % (Manual) 0 % (0-3) Basophils % (Manual) 0 % (0-2) Band Neutrophils 0 % (0-8) Platelet Estimate Adequate Platelet Morphology Normal Red Blood Cell Morphology Normal Sodium Level 139 MMOL/L (136-145) Potassium Level 3.3 MMOL/L (3.5-5.1) L Chloride Level 102 MMOL/L (98-107) Carbon Dioxide Level 27 MMOL/L (21-32) Anion Gap 11 mmol/L (5-15) Blood Urea Nitrogen 19 mg/dL (7-18) H Creatinine 1.0 MG/DL (0.55-1.30) Estimat Glomerular Filtration Rate > 60 mL/min (>60) Glucose Level 158 MG/DL (74-106) H Calcium Level 8.0 MG/DL (8.5-10.1) L Total Bilirubin 0.6 MG/DL (0.2-1.0) Aspartate Amino Transf (AST/SGOT) 44 U/L (15-37) H Alanine Aminotransferase (ALT/SGPT) 174 U/L (12-78) H Alkaline Phosphatase 60 U/L (46-116) Total Creatine Kinase 143 U/L (26-308) Total Protein 7.0 G/DL (6.4-8.2) Albumin 2.8 G/DL (3.4-5.0) L Globulin 4.2 g/dL Albumin/Globulin Ratio 0.7 (1.0-2.7) L Vancomycin Level Trough 7.9 ug/mL (5.0-12.0) Current Medications Medications (Trade) Dose Ordered Sig/Brittny Route PRN Reason Start Time Stop Time Status Last Admin Dose Admin Acetaminophen (Tylenol) 650 mg Q4H PRN ORAL Mild Pain/Temp > 100.5 06/02/17 20:45 07/02/17 20:44 06/03/17 14:50 Acetaminophen/ Butalbital/ Caffeine (Fioricet) 1 tab Q6H PRN ORAL For Pain 06/01/17 04:58 06/30/17 04:57 Acyclovir 500 mg/ Dextrose 110 ml @ 110 mls/hr Q8HR IV 06/03/17 14:00 07/03/17 13:59 06/04/17 14:24 Aspirin (Ecotrin) 81 mg DAILY ORAL 06/01/17 09:00 06/29/17 08:59 06/04/17 08:39 Chlorhexidine Gluconate (Linda-Hex 2%) 1 applic Q24H TOPIC 06/04/17 20:00 07/04/17 19:59 06/04/17 04:09 Dicyclomine HCl (Bentyl) 20 mg TIDPRN PRN ORAL Abdominal cramps 06/01/17 04:59 06/26/17 04:58 Fentanyl Citrate 1000 mcg/Sodium Chloride 100 ml @ 0 mls/hr Q24H IV 06/03/17 04:45 06/10/17 04:44 06/04/17 10:28 Heparin Sodium (Porcine) (Heparin 5000 units/ml) 5,000 units EVERY 12 HOURS SUBQ 06/04/17 09:00 07/04/17 08:59 06/04/17 09:08 Ibuprofen (Motrin) 600 mg Q4H PRN ORAL For Pain 06/03/17 04:45 07/03/17 04:44 06/04/17 13:03 Levetiracetam 100 ml @ 400 mls/hr Q12HR IVPB 06/03/17 11:00 07/03/17 10:59 06/04/17 08:38 Lorazepam (Ativan 2mg/ml 1ml) 1 mg Q3HR PRN IV For Anxiety 06/02/17 08:30 06/09/17 08:29 06/04/17 13:02 Metoprolol Tartrate (Lopressor) 25 mg Q12HR ORAL 06/01/17 09:00 06/27/17 22:59 06/04/17 08:39 Pantoprazole (Protonix) 40 mg DAILY ORAL 06/01/17 09:00 06/26/17 08:59 06/04/17 08:38 Piperacillin Sod/ Tazobactam Sod 3.375 gm/Dextrose 110 ml @ 27.5 mls/hr Q8H IVPB 06/03/17 08:00 06/10/17 07:59 06/04/17 07:33 Sodium Chloride 1,000 ml @ 100 mls/hr Q10H IV 06/01/17 05:00 06/29/17 08:14 06/04/17 13:02 Thiamine HCl 100 mg/Dextrose 56 ml @ 112 mls/hr Q24H IVPB 06/03/17 11:00 07/03/17 10:59 06/04/17 11:20 Topiramate (Topamax) 25 mg QHS ORAL 06/01/17 21:00 06/30/17 20:59 06/03/17 20:32 Vancomycin HCl (Vanco rx to dose) 1 ea DAILY PRN MISC Per rx protocol 06/02/17 20:45 07/02/17 20:44 Vancomycin HCl/ Dextrose 250 ml @ 166.667 mls/hr Q6H IVPB 06/04/17 16:00 06/09/17 15:59 CHRISS LEI Jun 04, 2017 15:00
[2017-06-04] MEDS: Vancomycin 1250mg/D5W 250ml IVPB SCH ×2 (16:29→21:36)
--- NOTE | 2017-06-04 16:30 | Electroencephalogram ---
DATE OF PROCEDURE: 06/03/2017 PROCEDURE PERFORMED: Electroencephalography report READING PHYSICIAN: Sohail Wilson M.D. REQUESTING PHYSICIAN: Stu Tang M.D. HISTORY: This is a 27-year-old man who sustained a full arrest, remaining now in coma. Presence of ongoing nonconvulsive seizure activities was suspected and EEG was requested. Current treatment includes antibiotics, but also Topamax, Klonopin, and Ativan. EEG was done using 18 electrodes placed [id number], [id number] montages according to 10/20 [employer] System. Throughout the recording, background activity consisted of a very low voltage 3-10 millivolts quite highly disorganized activity in the theta range, 3 to 5 cycles per second bilaterally with continuous runs of bifrontal and central 1 to 2 per second delta activities. Suctioning movement created significant amount of EMG artifact. There was no asymmetry from side to side, and there were no paroxysmal spike and wave activities. IMPRESSION: Low voltage, poorly reactive background activity has a poor prognostic value. This indicates severe global cerebral dysfunction. Absence of paroxysmal event does not rule out seizure disorder. Sohail Wilson M.D. DR: KRISTY JOB#: [id number] CC:
--- NOTE | 2017-06-04 18:20 | Neurology Progress Note ---
Interim History Interim History ROS Limited/Unobtainable: Yes Complaints: comatose Events: on pain --decerebrate Objective Physical Exam Last Vital Signs Date Time Temp Pulse Resp B/P (MAP) Pulse Ox O2 Delivery O2 Flow Rate FiO2 06/04/17 17:02 106 24 80 06/04/17 17:00 91/59 100 Mechanical Ventilator 06/04/17 16:00 99.2 06/01/17 00:00 4.0 Laboratory Tests Test 06/04/17 04:30 06/04/17 09:15 White Blood Count 21.8 K/UL (4.8-10.8) H Red Blood Count 4.86 M/UL (4.70-6.10) Hemoglobin 14.6 G/DL (14.2-18.0) Hematocrit 43.5 % (42.0-52.0) Mean Corpuscular Volume 90 FL (80-99) Mean Corpuscular Hemoglobin 30.1 PG (27.0-31.0) Mean Corpuscular Hemoglobin Concent 33.6 G/DL (32.0-36.0) Red Cell Distribution Width 12.4 % (11.6-14.8) Platelet Count 232 K/UL (150-450) Mean Platelet Volume 8.1 FL (6.5-10.1) Neutrophils (%) (Auto) % (45.0-75.0) Lymphocytes (%) (Auto) % (20.0-45.0) Monocytes (%) (Auto) % (1.0-10.0) Eosinophils (%) (Auto) % (0.0-3.0) Basophils (%) (Auto) % (0.0-2.0) Differential Total Cells Counted 100 Neutrophils % (Manual) 88 % (45-75) H Lymphocytes % (Manual) 6 % (20-45) L Monocytes % (Manual) 6 % (1-10) Eosinophils % (Manual) 0 % (0-3) Basophils % (Manual) 0 % (0-2) Band Neutrophils 0 % (0-8) Platelet Estimate Adequate Platelet Morphology Normal Red Blood Cell Morphology Normal Sodium Level 139 MMOL/L (136-145) Potassium Level 3.3 MMOL/L (3.5-5.1) L Chloride Level 102 MMOL/L (98-107) Carbon Dioxide Level 27 MMOL/L (21-32) Anion Gap 11 mmol/L (5-15) Blood Urea Nitrogen 19 mg/dL (7-18) H Creatinine 1.0 MG/DL (0.55-1.30) Estimat Glomerular Filtration Rate > 60 mL/min (>60) Glucose Level 158 MG/DL (74-106) H Calcium Level 8.0 MG/DL (8.5-10.1) L Total Bilirubin 0.6 MG/DL (0.2-1.0) Aspartate Amino Transf (AST/SGOT) 44 U/L (15-37) H Alanine Aminotransferase (ALT/SGPT) 174 U/L (12-78) H Alkaline Phosphatase 60 U/L (46-116) Total Creatine Kinase 143 U/L (26-308) Total Protein 7.0 G/DL (6.4-8.2) Albumin 2.8 G/DL (3.4-5.0) L Globulin 4.2 g/dL Albumin/Globulin Ratio 0.7 (1.0-2.7) L Vancomycin Level Trough 7.9 ug/mL (5.0-12.0) Head: normocophalic, atraumatic, other - flushed face/upper torso Neck: no rigidity Neurologic Exam Mental Status: other - no responces Speech: other Language: other Cranial Nerve II: fundus normal Cranial Nerves III, IV, : other - p5mm sluggish/ EOM none on Dolls Cranial Nerve V: other Cranial Nerve VII: no facial asymmetry Cranial Nerve VIII: no nystagmus Cranial Nerve IX: other - no gag Cranial Nerve X: other Cranial Nerve XI: other Cranial Nerve XII: no tongue atrophy/fasciculations Motor System: other - diffuse rigidity no spont movement Sensory: other Coordination: other Deep Tendon Reflexes: 0 bicep (L), 0 bicep (R), 0 tricep (L), 0 tricep (R), 0 brachioradialis (L), 0 brachioradialis (R), 0 knee (L), 0 knee (R), 0 ankle (L) , 0 ankle (R) Reflexes: mute plantar (L), mute plantar (R) Stance: other Gait: other Impression/Recommendations Problems: (1) s/p full arrest (2) Anoxic encephalopathy syndrome (3) Sepsis (4) Pneumonia Status: stable, not improved, unchanged Recommendations # [id number] EEG c/w severe encephalopathy cont supportive care MITCH PUTNAM Jun 04, 2017 18:20
[2017-06-04] MEDS ORDERED: Dyna-Hex 2% Top Sol 2oz TOPIC SCH (20:00)
[2017-06-04] MEDS: Dyna-Hex 2% Top Sol 2oz TOPIC SCH (20:34)
[2017-06-04] MEDS: Topiramate 25mg tab ORAL SCH (20:35)
--- NOTE | 2017-06-04 21:48 | Diagnostic Imaging Report ---
Indication: Dyspnea Comparison: 06/03/2017 A single view chest radiograph was obtained. Findings: Tubes and lines are stable. There is a right upper lobe infiltrate suspected. IMPRESSION: No mash filter cloth changer the last day.
--- NOTE | 2017-06-04 22:21 | General Progress Note ---
Assessment/Plan Assessment/Plan Assessment - s/p arrest - Rhabdo - was resolving prior to arrest - Elevated transaminases - initially due to Rhabdo, now due to post arrest shock liver/injury - s/p yoly - diverticulosis - peripancreatic stranding - Epigastric/ RUQ pain , ? etiology - was improving - Reactive airways - recent PNA - hemoptysis Recommendations - supportive ICU care - Continue TF - IVF - Follow LFT - PPI Subjective Allergies: Coded Allergies: No Known Allergies (Unverified , 05/26/17) Subjective above noted seen in ICU non communicative intubated, (+) OGT Objective Last 24 Hour Vital Signs Date Time Temp Pulse Resp B/P (MAP) Pulse Ox O2 Delivery O2 Flow Rate FiO2 06/04/17 22:02 81 24 110/55 100 Mechanical Ventilator 80 06/04/17 22:00 24 06/04/17 21:00 77 24 115/53 100 Mechanical Ventilator 80 06/04/17 21:00 24 06/04/17 20:59 81 24 80 06/04/17 20:35 90 112/57 06/04/17 20:00 99.9 98 24 112/57 100 Mechanical Ventilator 80 06/04/17 20:00 80 06/04/17 20:00 24 06/04/17 20:00 98 06/04/17 19:31 24 06/04/17 19:30 80 24 80 06/04/17 19:00 101 23 114/44 100 Mechanical Ventilator 80 06/04/17 18:00 109 20 99/53 100 Mechanical Ventilator 80 06/04/17 17:02 106 24 80 06/04/17 17:00 106 24 91/59 100 Mechanical Ventilator 80 06/04/17 17:00 25 06/04/17 16:30 108 24 121/63 100 Mechanical Ventilator 80 06/04/17 16:00 98 06/04/17 16:00 90 06/04/17 16:00 99.2 113 26 168/96 100 Mechanical Ventilator 80 06/04/17 16:00 24 06/04/17 15:13 105 29 60 06/04/17 15:00 102 30 176/88 94 Mechanical Ventilator 90 06/04/17 15:00 30 06/04/17 14:30 97 29 142/55 95 Mechanical Ventilator 90 06/04/17 14:02 99.3 06/04/17 14:00 88 30 176/95 94 Mechanical Ventilator 90 06/04/17 14:00 29 06/04/17 13:16 87 31 60 06/04/17 13:00 24 06/04/17 13:00 89 32 140/93 92 Mechanical Ventilator 60 06/04/17 12:30 81 22 112/46 100 Mechanical Ventilator 60 06/04/17 12:00 99.9 82 24 116/51 100 Mechanical Ventilator 60 06/04/17 12:00 80 06/04/17 12:00 21 06/04/17 12:00 60 06/04/17 11:30 82 22 127/56 100 Mechanical Ventilator 60 06/04/17 11:15 83 26 60 06/04/17 11:00 86 23 108/56 100 Mechanical Ventilator 80 06/04/17 10:30 89 23 104/56 100 Mechanical Ventilator 80 06/04/17 10:28 24 06/04/17 10:00 96 24 118/58 100 Mechanical Ventilator 80 06/04/17 10:00 24 06/04/17 09:30 95 23 104/55 100 Mechanical Ventilator 80 06/04/17 09:00 103 24 109/58 100 Mechanical Ventilator 80 06/04/17 09:00 24 06/04/17 08:57 115 28 80 06/04/17 08:39 120 104/54 06/04/17 08:30 118 24 104/54 100 Mechanical Ventilator 90 06/04/17 08:00 114 06/04/17 08:00 90 06/04/17 08:00 99.7 117 24 161/88 100 Mechanical Ventilator 90 06/04/17 08:00 24 06/04/17 07:58 90 06/04/17 07:40 110 26 100 Mechanical Ventilator 90 06/04/17 07:30 106 24 100 Mechanical Ventilator 100 06/04/17 07:25 117 24 100 06/04/17 07:00 119 26 99/45 97 Mechanical Ventilator 100 06/04/17 07:00 30 06/04/17 06:00 116 26 169/86 97 Mechanical Ventilator 100 06/04/17 06:00 45 06/04/17 05:16 98 32 100 06/04/17 05:16 100 06/04/17 05:00 100.0 102 33 176/93 98 Mechanical Ventilator 100 06/04/17 05:00 29 06/04/17 04:00 97 26 175/92 97 Mechanical Ventilator 100 06/04/17 04:00 29 06/04/17 04:00 70 06/04/17 04:00 115 06/04/17 03:30 47 06/04/17 03:26 101 26 100 Mechanical Ventilator 70 06/04/17 03:15 85 25 100 Mechanical Ventilator 60 06/04/17 03:15 85 29 70 06/04/17 03:00 101 26 155/75 97 Mechanical Ventilator 100 06/04/17 03:00 26 06/04/17 02:00 28 06/04/17 02:00 83 28 176/108 93 Mechanical Ventilator 60 06/04/17 01:45 80 30 70 06/04/17 01:00 70 06/04/17 01:00 27 06/04/17 01:00 88 21 178/81 100 Mechanical Ventilator 60 06/04/17 00:00 98.6 95 21 95/85 100 Mechanical Ventilator 60 06/04/17 00:00 93 06/04/17 00:00 21 06/03/17 23:58 107 24 100 Mechanical Ventilator 70 06/03/17 23:49 91 24 60 06/03/17 23:48 91 40 100 Mechanical Ventilator 60 06/03/17 23:00 96 23 112/58 100 Mechanical Ventilator 60 06/03/17 23:00 23 Intake and Output 06/03/17 06/04/17 19:00 07:00 Intake Total 2130.0 ml 2345.5 ml Output Total 1095 ml 865 ml Balance 1035.0 ml 1480.5 ml Free Water 80 ml 50 ml IV Total 1280.0 ml 1575.5 ml Tube Feeding 660 ml 660 ml Other 110 ml 60 ml Output Urine Total 1095 ml 865 ml Laboratory Tests 06/04/17 04:30: White Blood Count 21.8H, Red Blood Count 4.86, Hemoglobin 14.6, Hematocrit 43.5 , Mean Corpuscular Volume 90, Mean Corpuscular Hemoglobin 30.1, Mean Corpuscular Hemoglobin Concent 33.6, Red Cell Distribution Width 12.4, Platelet Count 232, Mean Platelet Volume 8.1, Neutrophils (%) (Auto) , Lymphocytes (%) ( Auto) , Monocytes (%) (Auto) , Eosinophils (%) (Auto) , Basophils (%) (Auto) , Differential Total Cells Counted 100, Neutrophils % (Manual) 88H, Lymphocytes % (Manual) 6L, Monocytes % (Manual) 6, Eosinophils % (Manual) 0, Basophils % ( Manual) 0, Band Neutrophils 0, Platelet Estimate Adequate, Platelet Morphology Normal, Red Blood Cell Morphology Normal, Sodium Level 139, Potassium Level 3.3L , Chloride Level 102, Carbon Dioxide Level 27, Anion Gap 11, Blood Urea Nitrogen 19H, Creatinine 1.0, Estimat Glomerular Filtration Rate > 60, Glucose Level 158H, Calcium Level 8.0L, Total Bilirubin 0.6, Aspartate Amino Transf (AST /SGOT) 44H, Alanine Aminotransferase (ALT/SGPT) 174H, Alkaline Phosphatase 60, Total Creatine Kinase 143, Total Protein 7.0, Albumin 2.8L, Globulin 4.2, Albumin/Globulin Ratio 0.7L 06/04/17 09:15: Vancomycin Level Trough 7.9 Height (Feet): 6 Height (Inches): 1.00 Weight (Pounds): 253 Objective Obese WM Intubated supple Coarse BS RRR soft ND no edema non communicative JAMIN HEARD Jun 04, 2017 22:20
--- NOTE | 2017-06-04 23:58 | Cardiology Progress Note ---
Assessment/Plan Assessment/Plan 1. Asystole cardiac arrest due to respiratory failure, regained pulse after 8 minutes. 2. Multifocal pneumonia on CT scan of chest. 3. Mild cardiomyopathy with LVEF at 45%, + anteroseptal wall hypokinesia. 4. Elevated troponin level likely due to sepsis/tachycardia/pneumonia, not a pattern for ACS, CP free on admission to ED. 5. Shock liver following cardiac arrest 4. ATN following cardiac arrest. 5. Acute respiratory failure, intubated. 6. Acute encephalopathy. 7. Substance abuse 8. Obesity6 Subjective Subjective Sinus rhythm at 86. Intubated, unresponsive. Objective Last 24 Hour Vital Signs Date Time Temp Pulse Resp B/P (MAP) Pulse Ox O2 Delivery O2 Flow Rate FiO2 06/04/17 23:30 80 24 80 06/04/17 23:00 75 24 107/51 100 Mechanical Ventilator 80 06/04/17 22:02 81 24 110/55 100 Mechanical Ventilator 80 06/04/17 22:00 24 06/04/17 21:00 77 24 115/53 100 Mechanical Ventilator 80 06/04/17 21:00 24 06/04/17 20:59 81 24 80 06/04/17 20:35 90 112/57 06/04/17 20:00 99.9 98 24 112/57 100 Mechanical Ventilator 80 06/04/17 20:00 80 06/04/17 20:00 24 06/04/17 20:00 98 06/04/17 19:31 24 06/04/17 19:30 80 24 80 06/04/17 19:00 101 23 114/44 100 Mechanical Ventilator 80 06/04/17 18:00 109 20 99/53 100 Mechanical Ventilator 80 06/04/17 17:02 106 24 80 06/04/17 17:00 106 24 91/59 100 Mechanical Ventilator 80 06/04/17 17:00 25 06/04/17 16:30 108 24 121/63 100 Mechanical Ventilator 80 06/04/17 16:00 98 06/04/17 16:00 90 06/04/17 16:00 99.2 113 26 168/96 100 Mechanical Ventilator 80 06/04/17 16:00 24 06/04/17 15:13 105 29 60 06/04/17 15:00 102 30 176/88 94 Mechanical Ventilator 90 06/04/17 15:00 30 06/04/17 14:30 97 29 142/55 95 Mechanical Ventilator 90 06/04/17 14:02 99.3 06/04/17 14:00 88 30 176/95 94 Mechanical Ventilator 90 06/04/17 14:00 29 06/04/17 13:16 87 31 60 06/04/17 13:00 24 06/04/17 13:00 89 32 140/93 92 Mechanical Ventilator 60 06/04/17 12:30 81 22 112/46 100 Mechanical Ventilator 60 06/04/17 12:00 99.9 82 24 116/51 100 Mechanical Ventilator 60 06/04/17 12:00 80 06/04/17 12:00 21 06/04/17 12:00 60 06/04/17 11:30 82 22 127/56 100 Mechanical Ventilator 60 06/04/17 11:15 83 26 60 06/04/17 11:00 86 23 108/56 100 Mechanical Ventilator 80 06/04/17 10:30 89 23 104/56 100 Mechanical Ventilator 80 06/04/17 10:28 24 06/04/17 10:00 96 24 118/58 100 Mechanical Ventilator 80 06/04/17 10:00 24 06/04/17 09:30 95 23 104/55 100 Mechanical Ventilator 80 06/04/17 09:00 103 24 109/58 100 Mechanical Ventilator 80 06/04/17 09:00 24 06/04/17 08:57 115 28 80 06/04/17 08:39 120 104/54 06/04/17 08:30 118 24 104/54 100 Mechanical Ventilator 90 06/04/17 08:00 114 06/04/17 08:00 90 06/04/17 08:00 99.7 117 24 161/88 100 Mechanical Ventilator 90 06/04/17 08:00 24 06/04/17 07:58 90 06/04/17 07:40 110 26 100 Mechanical Ventilator 90 06/04/17 07:30 106 24 100 Mechanical Ventilator 100 06/04/17 07:25 117 24 100 06/04/17 07:00 119 26 99/45 97 Mechanical Ventilator 100 06/04/17 07:00 30 06/04/17 06:00 116 26 169/86 97 Mechanical Ventilator 100 06/04/17 06:00 45 06/04/17 05:16 98 32 100 06/04/17 05:16 100 06/04/17 05:00 100.0 102 33 176/93 98 Mechanical Ventilator 100 06/04/17 05:00 29 06/04/17 04:00 97 26 175/92 97 Mechanical Ventilator 100 06/04/17 04:00 29 06/04/17 04:00 70 06/04/17 04:00 115 06/04/17 03:30 47 06/04/17 03:26 101 26 100 Mechanical Ventilator 70 06/04/17 03:15 85 25 100 Mechanical Ventilator 60 06/04/17 03:15 85 29 70 06/04/17 03:00 101 26 155/75 97 Mechanical Ventilator 100 06/04/17 03:00 26 06/04/17 02:00 28 06/04/17 02:00 83 28 176/108 93 Mechanical Ventilator 60 06/04/17 01:45 80 30 70 06/04/17 01:00 70 06/04/17 01:00 27 06/04/17 01:00 88 21 178/81 100 Mechanical Ventilator 60 06/04/17 00:00 98.6 95 21 95/85 100 Mechanical Ventilator 60 06/04/17 00:00 93 06/04/17 00:00 21 06/03/17 23:58 107 24 100 Mechanical Ventilator 70 Intake and Output 06/03/17 06/04/17 19:00 07:00 Intake Total 2130.0 ml 2345.5 ml Output Total 1095 ml 865 ml Balance 1035.0 ml 1480.5 ml Free Water 80 ml 50 ml IV Total 1280.0 ml 1575.5 ml Tube Feeding 660 ml 660 ml Other 110 ml 60 ml Output Urine Total 1095 ml 865 ml 2D Echo: EF 45%, Anteroseptal HK, RVSP 33 mmHg Laboratory Tests Test 06/04/17 04:30 06/04/17 09:15 White Blood Count 21.8 K/UL (4.8-10.8) H Red Blood Count 4.86 M/UL (4.70-6.10) Hemoglobin 14.6 G/DL (14.2-18.0) Hematocrit 43.5 % (42.0-52.0) Mean Corpuscular Volume 90 FL (80-99) Mean Corpuscular Hemoglobin 30.1 PG (27.0-31.0) Mean Corpuscular Hemoglobin Concent 33.6 G/DL (32.0-36.0) Red Cell Distribution Width 12.4 % (11.6-14.8) Platelet Count 232 K/UL (150-450) Mean Platelet Volume 8.1 FL (6.5-10.1) Neutrophils (%) (Auto) % (45.0-75.0) Lymphocytes (%) (Auto) % (20.0-45.0) Monocytes (%) (Auto) % (1.0-10.0) Eosinophils (%) (Auto) % (0.0-3.0) Basophils (%) (Auto) % (0.0-2.0) Differential Total Cells Counted 100 Neutrophils % (Manual) 88 % (45-75) H Lymphocytes % (Manual) 6 % (20-45) L Monocytes % (Manual) 6 % (1-10) Eosinophils % (Manual) 0 % (0-3) Basophils % (Manual) 0 % (0-2) Band Neutrophils 0 % (0-8) Platelet Estimate Adequate Platelet Morphology Normal Red Blood Cell Morphology Normal Sodium Level 139 MMOL/L (136-145) Potassium Level 3.3 MMOL/L (3.5-5.1) L Chloride Level 102 MMOL/L (98-107) Carbon Dioxide Level 27 MMOL/L (21-32) Anion Gap 11 mmol/L (5-15) Blood Urea Nitrogen 19 mg/dL (7-18) H Creatinine 1.0 MG/DL (0.55-1.30) Estimat Glomerular Filtration Rate > 60 mL/min (>60) Glucose Level 158 MG/DL (74-106) H Calcium Level 8.0 MG/DL (8.5-10.1) L Total Bilirubin 0.6 MG/DL (0.2-1.0) Aspartate Amino Transf (AST/SGOT) 44 U/L (15-37) H Alanine Aminotransferase (ALT/SGPT) 174 U/L (12-78) H Alkaline Phosphatase 60 U/L (46-116) Total Creatine Kinase 143 U/L (26-308) Total Protein 7.0 G/DL (6.4-8.2) Albumin 2.8 G/DL (3.4-5.0) L Globulin 4.2 g/dL Albumin/Globulin Ratio 0.7 (1.0-2.7) L Vancomycin Level Trough 7.9 ug/mL (5.0-12.0) Microbiology Date/Time Source Procedure Growth Status 06/02/17 21:35 Blood Blood Culture - Preliminary Resulted 06/02/17 21:35 Blood Blood Culture - Preliminary Resulted 06/02/17 00:00 Sputum Induced Gram Stain - Final Resulted 06/02/17 00:00 Sputum Induced Sputum Culture - Preliminary NO GROWTH AFTER 24 HOURS Resulted 06/02/17 20:20 Indwelling Cath Urine Culture - Preliminary NO GROWTH Resulted Objective HEENT: Intubated, unresponsive NECK: JVP cannot be assessed, No carotid bruit. Carotid upstrokes 2+ bilaterally. CARDIOVASCULAR SYSTEM: Normal S1, S2. Regular rate and rhythm. Tachycardic, No murmurs, gallops, or rubs. PMI is at fourth intercostal space in the midclavicular line. LUNGS: Clear to auscultation bilaterally. ABDOMEN: Soft, nontender, nondistended. No hepatosplenomegaly. Positive bowel sounds. EXTREMITIES: No evidence of edema, clubbing, or cyanosis. CRISTA MURPHY Jun 04, 2017 23:58
[2017-06-05] VITALS (28 sets, daily range): BP systolic 100–211; BP diastolic 45–96
[2017-06-05] MEDS: Vancomycin 1250mg/D5W 250ml IVPB SCH ×2 (04:07→09:41)
[2017-06-05] MEDS: LORazepam Inj 2mg/ml 1ml IV PRN ×3 (05:20→19:41)
[2017-06-05] MEDS: Acyclovir 500 MG in D5W 110 ML IV SCH ×3 (05:51→21:30)
[2017-06-05 06:52] LABS: BASOPHILS % (AUTO) 0.4 % (0.0-2.0); EOSINOPHILS % (AUTO) 1.1 % (0.0-3.0); HEMATOCRIT 40.5 % (42.0-52.0); HEMOGLOBIN 13.4 G/DL (14.2-18.0); MEAN CORPUSCULAR VOLUME 89 FL (80-99); MONOCYTES % (AUTO) 7.4 % (1.0-10.0); NEUTROPHILS % (AUTO) 77.1 % (45.0-75.0); PLATELET COUNT 263 K/UL (150-450); RED BLOOD COUNT 4.54 M/UL (4.70-6.10); RED CELL DISTRIBUTION WIDTH 11.9 % (11.6-14.8); WHITE BLOOD COUNT 16.5 K/UL (4.8-10.8)
[2017-06-05 07:09] LABS: ALANINE AMINOTRANSFERASE 107 U/L (12-78); ALBUMIN 2.4 G/DL (3.4-5.0); ALBUMIN/GLOBULIN RATIO 0.5 (1.0-2.7); ALKALINE PHOSPHATASE 59 U/L (46-116); ANION GAP 8 mmol/L (5-15); ASPARTATE AMINO TRANSFERASE 39 U/L (15-37); BILIRUBIN,TOTAL 0.5 MG/DL (0.2-1.0); BLOOD UREA NITROGEN 13 mg/dL (7-18); CALCIUM 7.8 MG/DL (8.5-10.1); CARBON DIOXIDE 28 MMOL/L (21-32); CHLORIDE 102 MMOL/L (98-107); POTASSIUM 3.5 MMOL/L (3.5-5.1); SODIUM 138 MMOL/L (136-145)
[2017-06-05] MEDS: Piperacillin/Tazobactam 3.375 GM in D5W 110 ML IVPB SCH (08:34)
[2017-06-05] MEDS: levETIRAcetam 1,000mg/NS100ml 100 ML IVPB SCH ×2 (08:39→20:33)
--- NOTE | 2017-06-05 08:42 | Critical Care Progress Note ---
Assessment/Plan Assessment/Plan IMPRESSION ARF - improved rhabdo- resolved CK elevated Liver enzyme- improving elevated troponin Pneumonia with abnormal CT reduced EF migraines s/p CPA acute encephalopathy with possible encephalitis tachycardia leukocytosis abnormal urine tox screen fevers PLAN labs improving IV antibiotics pending cultures ID evaluation noted hydration as able head CT and EEG ntoed neuro appreciated all noted and appreciated monitor LOC ativan prn attempt to analyze substance found at bedside obtain records and follow up labs mother updated and plans to fly in today feeds per GI fentanyl drip for now acyclovir empiric HIV negative and hepatitis screen negative mother updated in detail- d/w her in detail; plans to come in to [place] today medications/laboratory data/nursing notes/ICU care reviewed in detail note reviewed and edited care discussed with RN and RT ICU time spent 45 minutes Critical Care - Subjective Interval Events: on sedation decererbrates when off EEG diffuse slowing d/w nursing- to analyze substance found by bedside if possible ROS Limited/Unobtainable: Yes Condition: critical EKG Rhythm: Sinus Rhythm Residuals: minimal Tube Feeding Tolerated: yes I&O: Intake and Output 06/04/17 06/05/17 19:00 07:00 Intake Total 2810.500 ml 2366.00 ml Output Total 905 ml 1150 ml Balance 1905.500 ml 1216.00 ml Free Water 30 ml IV Total 1990.500 ml 1926.00 ml Tube Feeding 660 ml 440 ml Other 130 ml Output Urine Total 905 ml 1150 ml Critical Care - Objective ET-Tube: 7.5 ET Position: 24 Last 24 Hour Vital Signs Date Time Temp Pulse Resp B/P (MAP) Pulse Ox O2 Delivery O2 Flow Rate FiO2 06/05/17 08:00 80 06/05/17 08:00 99.1 97 24 100/62 100 Mechanical Ventilator 80 06/05/17 07:25 99 24 80 06/05/17 07:00 98 23 110/45 96 Mechanical Ventilator 80 06/05/17 06:00 23 06/05/17 06:00 89 23 134/56 96 Mechanical Ventilator 80 06/05/17 05:29 82 32 80 06/05/17 05:00 79 26 169/76 100 Mechanical Ventilator 80 06/05/17 05:00 26 06/05/17 04:00 99.5 74 24 116/55 100 Mechanical Ventilator 80 06/05/17 04:00 24 06/05/17 04:00 80 06/05/17 04:00 74 06/05/17 03:30 85 25 80 06/05/17 03:00 71 24 122/48 100 Mechanical Ventilator 80 06/05/17 03:00 24 06/05/17 02:00 76 24 122/53 100 Mechanical Ventilator 80 06/05/17 02:00 24 06/05/17 01:30 71 24 80 06/05/17 01:21 24 06/05/17 01:00 83 24 118/55 100 Mechanical Ventilator 80 06/05/17 01:00 24 06/05/17 00:00 99.7 67 21 155/62 100 Mechanical Ventilator 80 06/05/17 00:00 67 06/05/17 00:00 24 06/04/17 23:30 80 24 80 06/04/17 23:00 75 24 107/51 100 Mechanical Ventilator 80 06/04/17 23:00 24 06/04/17 22:02 81 24 110/55 100 Mechanical Ventilator 80 06/04/17 22:00 24 06/04/17 21:00 77 24 115/53 100 Mechanical Ventilator 80 06/04/17 21:00 24 06/04/17 20:59 81 24 80 06/04/17 20:35 90 112/57 06/04/17 20:00 99.9 98 24 112/57 100 Mechanical Ventilator 80 06/04/17 20:00 80 06/04/17 20:00 24 06/04/17 20:00 98 06/04/17 19:31 24 06/04/17 19:30 80 24 80 06/04/17 19:00 101 23 114/44 100 Mechanical Ventilator 80 06/04/17 18:00 109 20 99/53 100 Mechanical Ventilator 80 06/04/17 17:02 106 24 80 06/04/17 17:00 106 24 91/59 100 Mechanical Ventilator 80 06/04/17 17:00 25 06/04/17 16:30 108 24 121/63 100 Mechanical Ventilator 80 06/04/17 16:00 98 06/04/17 16:00 90 06/04/17 16:00 99.2 113 26 168/96 100 Mechanical Ventilator 80 06/04/17 16:00 24 06/04/17 15:13 105 29 60 06/04/17 15:00 102 30 176/88 94 Mechanical Ventilator 90 06/04/17 15:00 30 06/04/17 14:30 97 29 142/55 95 Mechanical Ventilator 90 06/04/17 14:02 99.3 06/04/17 14:00 88 30 176/95 94 Mechanical Ventilator 90 06/04/17 14:00 29 06/04/17 13:16 87 31 60 06/04/17 13:00 24 06/04/17 13:00 89 32 140/93 92 Mechanical Ventilator 60 06/04/17 12:30 81 22 112/46 100 Mechanical Ventilator 60 06/04/17 12:00 99.9 82 24 116/51 100 Mechanical Ventilator 60 06/04/17 12:00 80 06/04/17 12:00 21 06/04/17 12:00 60 06/04/17 11:30 82 22 127/56 100 Mechanical Ventilator 60 06/04/17 11:15 83 26 60 06/04/17 11:00 86 23 108/56 100 Mechanical Ventilator 80 06/04/17 10:30 89 23 104/56 100 Mechanical Ventilator 80 06/04/17 10:28 24 06/04/17 10:00 96 24 118/58 100 Mechanical Ventilator 80 06/04/17 10:00 24 06/04/17 09:30 95 23 104/55 100 Mechanical Ventilator 80 06/04/17 09:00 103 24 109/58 100 Mechanical Ventilator 80 06/04/17 09:00 24 06/04/17 08:57 115 28 80 Labs: Laboratory Tests Test 06/04/17 09:15 06/05/17 06:00 Vancomycin Level Trough 7.9 ug/mL (5.0-12.0) White Blood Count 16.5 K/UL (4.8-10.8) H Red Blood Count 4.54 M/UL (4.70-6.10) L Hemoglobin 13.4 G/DL (14.2-18.0) L Hematocrit 40.5 % (42.0-52.0) L Mean Corpuscular Volume 89 FL (80-99) Mean Corpuscular Hemoglobin 29.6 PG (27.0-31.0) Mean Corpuscular Hemoglobin Concent 33.2 G/DL (32.0-36.0) Red Cell Distribution Width 11.9 % (11.6-14.8) Platelet Count 263 K/UL (150-450) Mean Platelet Volume 7.4 FL (6.5-10.1) Neutrophils (%) (Auto) 77.1 % (45.0-75.0) H Lymphocytes (%) (Auto) 14.0 % (20.0-45.0) L Monocytes (%) (Auto) 7.4 % (1.0-10.0) Eosinophils (%) (Auto) 1.1 % (0.0-3.0) Basophils (%) (Auto) 0.4 % (0.0-2.0) Sodium Level 138 MMOL/L (136-145) Potassium Level 3.5 MMOL/L (3.5-5.1) Chloride Level 102 MMOL/L (98-107) Carbon Dioxide Level 28 MMOL/L (21-32) Anion Gap 8 mmol/L (5-15) Blood Urea Nitrogen 13 mg/dL (7-18) Creatinine 1.0 MG/DL (0.55-1.30) Estimat Glomerular Filtration Rate > 60 mL/min (>60) Glucose Level 149 MG/DL (74-106) H Calcium Level 7.8 MG/DL (8.5-10.1) L Magnesium Level 1.9 MG/DL (1.8-2.4) Total Bilirubin 0.5 MG/DL (0.2-1.0) Aspartate Amino Transf (AST/SGOT) 39 U/L (15-37) H Alanine Aminotransferase (ALT/SGPT) 107 U/L (12-78) H Alkaline Phosphatase 59 U/L (46-116) Total Protein 6.9 G/DL (6.4-8.2) Albumin 2.4 G/DL (3.4-5.0) L Globulin 4.5 g/dL Albumin/Globulin Ratio 0.5 (1.0-2.7) L Objective: WDWN NAD improved breath sounds bilaterally without rhonchi or wheeze [id number] tachy without MRG NABS nontender no HSM no CCE nonfocal sedated ETT in place no rash Micro: Microbiology Date/Time Source Procedure Growth Status 06/02/17 21:35 Blood Blood Culture - Preliminary Gram Positive Cocci Resulted 06/02/17 21:35 Blood Blood Culture - Preliminary Gram Positive Cocci Resulted 06/02/17 20:20 Indwelling Cath Urine Culture - Preliminary NO GROWTH AFTER 24 HOURS Resulted MEGAN العلي Jun 05, 2017 08:42
--- NOTE | 2017-06-05 08:47 | General Progress Note ---
Assessment/Plan Problem List: (1) Anoxia ICD Codes: R09.02 - Hypoxemia SNOMED: 23633843 (2) Encephalopathy acute ICD Codes: G93.40 - Encephalopathy, unspecified SNOMED: 0733779 (3) Respiratory distress ICD Codes: R06.03 - Acute respiratory distress SNOMED: 665579318 (4) Renal insufficiency ICD Codes: N28.9 - Disorder of kidney and ureter, unspecified SNOMED: 841810513, 411701792 (5) Rhabdomyolysis ICD Codes: M62.82 - Rhabdomyolysis SNOMED: 288329206, 291925096 Qualifiers: Qualified Codes: M62.82 - Rhabdomyolysis (6) Sepsis ICD Codes: A41.9 - Sepsis, unspecified organism SNOMED: 02249303, 764311792 Qualifiers: Qualified Codes: A41.9 - Sepsis, unspecified organism (7) Pneumonia ICD Codes: J18.9 - Pneumonia, unspecified organism SNOMED: 898712851, 209267772 Qualifiers: Qualified Codes: J18.1 - Lobar pneumonia, unspecified organism (8) Elevated troponin ICD Codes: R74.8 - Abnormal levels of other serum enzymes SNOMED: 768852076, 349679917 Status: stable, not improved Assessment/Plan iv abx wean sedation as able follow up cultures vent support resp care ngt feeds LP replace lytes critical and guarded Subjective ROS Limited/Unobtainable: Yes Constitutional: Reports: weakness HEENT: Reports: no symptoms Cardiovascular: Reports: no symptoms Respiratory: Reports: shortness of breath Gastrointestinal/Abdominal: Reports: difficulty swallowing Genitourinary: Reports: no symptoms Neurologic/Psychiatric: Reports: pre-existing deficit Endocrine: Reports: no symptoms Hematologic/Lymphatic: Reports: no symptoms Allergies: Coded Allergies: No Known Allergies (Unverified , 05/26/17) All Systems: reviewed and negative except above Subjective no events. eeg negative for szs. + slowing. remains unresponsive. on fentanyl drip. on ngt feeds. Objective Last 24 Hour Vital Signs Date Time Temp Pulse Resp B/P (MAP) Pulse Ox O2 Delivery O2 Flow Rate FiO2 06/05/17 08:00 80 06/05/17 08:00 99.1 97 24 100/62 100 Mechanical Ventilator 80 06/05/17 07:25 99 24 80 06/05/17 07:00 98 23 110/45 96 Mechanical Ventilator 80 06/05/17 06:00 23 06/05/17 06:00 89 23 134/56 96 Mechanical Ventilator 80 06/05/17 05:29 82 32 80 06/05/17 05:00 79 26 169/76 100 Mechanical Ventilator 80 06/05/17 05:00 26 06/05/17 04:00 99.5 74 24 116/55 100 Mechanical Ventilator 80 06/05/17 04:00 24 06/05/17 04:00 80 06/05/17 04:00 74 06/05/17 03:30 85 25 80 06/05/17 03:00 71 24 122/48 100 Mechanical Ventilator 80 06/05/17 03:00 24 06/05/17 02:00 76 24 122/53 100 Mechanical Ventilator 80 06/05/17 02:00 24 06/05/17 01:30 71 24 80 06/05/17 01:21 24 06/05/17 01:00 83 24 118/55 100 Mechanical Ventilator 80 06/05/17 01:00 24 06/05/17 00:00 99.7 67 21 155/62 100 Mechanical Ventilator 80 06/05/17 00:00 67 06/05/17 00:00 24 06/04/17 23:30 80 24 80 06/04/17 23:00 75 24 107/51 100 Mechanical Ventilator 80 06/04/17 23:00 24 06/04/17 22:02 81 24 110/55 100 Mechanical Ventilator 80 06/04/17 22:00 24 06/04/17 21:00 77 24 115/53 100 Mechanical Ventilator 80 06/04/17 21:00 24 06/04/17 20:59 81 24 80 06/04/17 20:35 90 112/57 06/04/17 20:00 99.9 98 24 112/57 100 Mechanical Ventilator 80 06/04/17 20:00 80 06/04/17 20:00 24 06/04/17 20:00 98 06/04/17 19:31 24 06/04/17 19:30 80 24 80 06/04/17 19:00 101 23 114/44 100 Mechanical Ventilator 80 06/04/17 18:00 109 20 99/53 100 Mechanical Ventilator 80 06/04/17 17:02 106 24 80 06/04/17 17:00 106 24 91/59 100 Mechanical Ventilator 80 06/04/17 17:00 25 06/04/17 16:30 108 24 121/63 100 Mechanical Ventilator 80 06/04/17 16:00 98 06/04/17 16:00 90 06/04/17 16:00 99.2 113 26 168/96 100 Mechanical Ventilator 80 06/04/17 16:00 24 06/04/17 15:13 105 29 60 06/04/17 15:00 102 30 176/88 94 Mechanical Ventilator 90 06/04/17 15:00 30 06/04/17 14:30 97 29 142/55 95 Mechanical Ventilator 90 06/04/17 14:02 99.3 06/04/17 14:00 88 30 176/95 94 Mechanical Ventilator 90 06/04/17 14:00 29 06/04/17 13:16 87 31 60 06/04/17 13:00 24 06/04/17 13:00 89 32 140/93 92 Mechanical Ventilator 60 06/04/17 12:30 81 22 112/46 100 Mechanical Ventilator 60 06/04/17 12:00 99.9 82 24 116/51 100 Mechanical Ventilator 60 06/04/17 12:00 80 06/04/17 12:00 21 06/04/17 12:00 60 06/04/17 11:30 82 22 127/56 100 Mechanical Ventilator 60 06/04/17 11:15 83 26 60 06/04/17 11:00 86 23 108/56 100 Mechanical Ventilator 80 06/04/17 10:30 89 23 104/56 100 Mechanical Ventilator 80 06/04/17 10:28 24 06/04/17 10:00 96 24 118/58 100 Mechanical Ventilator 80 06/04/17 10:00 24 06/04/17 09:30 95 23 104/55 100 Mechanical Ventilator 80 06/04/17 09:00 103 24 109/58 100 Mechanical Ventilator 80 06/04/17 09:00 24 06/04/17 08:57 115 28 80 06/04/17 08:39 120 104/54 Intake and Output 06/04/17 06/05/17 19:00 07:00 Intake Total 2810.500 ml 2366.00 ml Output Total 905 ml 1150 ml Balance 1905.500 ml 1216.00 ml Free Water 30 ml IV Total 1990.500 ml 1926.00 ml Tube Feeding 660 ml 440 ml Other 130 ml Output Urine Total 905 ml 1150 ml Laboratory Tests 06/04/17 09:15: Vancomycin Level Trough 7.9 06/05/17 06:00: White Blood Count 16.5H, Red Blood Count 4.54L, Hemoglobin 13.4L, Hematocrit 40.5L, Mean Corpuscular Volume 89, Mean Corpuscular Hemoglobin 29.6, Mean Corpuscular Hemoglobin Concent 33.2, Red Cell Distribution Width 11.9, Platelet Count 263, Mean Platelet Volume 7.4, Neutrophils (%) (Auto) 77.1H, Lymphocytes ( %) (Auto) 14.0L, Monocytes (%) (Auto) 7.4, Eosinophils (%) (Auto) 1.1, Basophils (%) (Auto) 0.4, Sodium Level 138, Potassium Level 3.5, Chloride Level 102, Carbon Dioxide Level 28, Anion Gap 8, Blood Urea Nitrogen 13, Creatinine 1.0, Estimat Glomerular Filtration Rate > 60, Glucose Level 149H, Calcium Level 7.8L, Magnesium Level 1.9, Total Bilirubin 0.5, Aspartate Amino Transf (AST/SGOT ) 39H, Alanine Aminotransferase (ALT/SGPT) 107H, Alkaline Phosphatase 59, Total Protein 6.9, Albumin 2.4L, Globulin 4.5, Albumin/Globulin Ratio 0.5L Height (Feet): 6 Height (Inches): 1.00 Weight (Pounds): 268 Objective General Appearance: WD/WN, lethargic. ngt Neck: supple Cardiovascular: regular rhythm Respiratory/Chest: chest wall non-tender, lungs clear, normal breath sounds Abdomen: normal bowel sounds, non tender, soft, no organomegaly Neurologic: unresponsive Skin: normal pigmentation. no rash JIMBO GLEASON Jun 05, 2017 08:47
[2017-06-05] MEDS: Metoprolol 25mg tab ORAL SCH ×2 (08:49→11:14)
[2017-06-05] MEDS: Aspirin EC 81mg tab ORAL SCH (08:50)
[2017-06-05] MEDS: Heparin 5000 units/ml inj SUBQ SCH ×2 (08:52→20:33)
[2017-06-05] MEDS: Thiamine HCl 100 MG in D5W 55 ML IVPB SCH (12:25)
--- NOTE | 2017-06-05 12:27 | Infectious Diseases Prog Note ---
Assessment/Plan Assessment/Plan antibiotics : vancomycin iv, zosyn, acyclovir A 1. pneumonia 2. leucocytosis improving 3. renal failure improved 4. rhabdomyolysis 5. respiratory failure 6. gram positive sepsis P 1. continue vancomycin iv, acyclovir 2. d/c zosyn 3. start cefepime 4. will follow up cultures 5. LP planned Subjective ROS Limited/Unobtainable: Yes Allergies: Coded Allergies: No Known Allergies (Unverified , 05/26/17) Objective Vital Signs Last 24 Hour Vital Signs Date Time Temp Pulse Resp B/P (MAP) Pulse Ox O2 Delivery O2 Flow Rate FiO2 06/05/17 12:00 99.0 86 22 164/77 90 Mechanical Ventilator 50 06/05/17 11:14 96 199/83 06/05/17 11:00 85 29 186/94 85 Mechanical Ventilator 50 06/05/17 11:00 29 06/05/17 11:00 83 24 50 06/05/17 10:00 29 06/05/17 10:00 95 30 136/62 85 Mechanical Ventilator 50 06/05/17 09:53 29 06/05/17 09:29 81 18 50 06/05/17 09:00 92 24 112/54 100 Mechanical Ventilator 80 06/05/17 09:00 50 06/05/17 08:49 92 100/62 06/05/17 08:00 80 06/05/17 08:00 99.1 97 24 100/62 100 Mechanical Ventilator 80 06/05/17 08:00 26 06/05/17 08:00 99 06/05/17 07:25 99 24 80 06/05/17 07:00 98 23 110/45 96 Mechanical Ventilator 80 06/05/17 07:00 25 06/05/17 06:00 23 06/05/17 06:00 89 23 134/56 96 Mechanical Ventilator 80 06/05/17 05:29 82 32 80 06/05/17 05:00 79 26 169/76 100 Mechanical Ventilator 80 06/05/17 05:00 26 06/05/17 04:00 99.5 74 24 116/55 100 Mechanical Ventilator 80 06/05/17 04:00 24 06/05/17 04:00 80 06/05/17 04:00 74 06/05/17 03:30 85 25 80 06/05/17 03:00 71 24 122/48 100 Mechanical Ventilator 80 06/05/17 03:00 24 06/05/17 02:00 76 24 122/53 100 Mechanical Ventilator 80 06/05/17 02:00 24 06/05/17 01:30 71 24 80 06/05/17 01:21 24 06/05/17 01:00 83 24 118/55 100 Mechanical Ventilator 80 06/05/17 01:00 24 06/05/17 00:00 99.7 67 21 155/62 100 Mechanical Ventilator 80 06/05/17 00:00 67 06/05/17 00:00 24 06/04/17 23:30 80 24 80 06/04/17 23:00 75 24 107/51 100 Mechanical Ventilator 80 06/04/17 23:00 24 06/04/17 22:02 81 24 110/55 100 Mechanical Ventilator 80 06/04/17 22:00 24 06/04/17 21:00 77 24 115/53 100 Mechanical Ventilator 80 06/04/17 21:00 24 06/04/17 20:59 81 24 80 06/04/17 20:35 90 112/57 06/04/17 20:00 99.9 98 24 112/57 100 Mechanical Ventilator 80 06/04/17 20:00 80 06/04/17 20:00 24 06/04/17 20:00 98 06/04/17 19:31 24 06/04/17 19:30 80 24 80 06/04/17 19:00 101 23 114/44 100 Mechanical Ventilator 80 06/04/17 18:00 109 20 99/53 100 Mechanical Ventilator 80 06/04/17 17:02 106 24 80 06/04/17 17:00 106 24 91/59 100 Mechanical Ventilator 80 06/04/17 17:00 25 06/04/17 16:30 108 24 121/63 100 Mechanical Ventilator 80 06/04/17 16:00 98 06/04/17 16:00 90 06/04/17 16:00 99.2 113 26 168/96 100 Mechanical Ventilator 80 06/04/17 16:00 24 06/04/17 15:13 105 29 60 06/04/17 15:00 102 30 176/88 94 Mechanical Ventilator 90 06/04/17 15:00 30 06/04/17 14:30 97 29 142/55 95 Mechanical Ventilator 90 06/04/17 14:02 99.3 1/8/18 14:00 88 30 176/95 94 Mechanical Ventilator 90 06/04/17 14:00 29 06/04/17 13:16 87 31 60 06/04/17 13:00 24 06/04/17 13:00 89 32 140/93 92 Mechanical Ventilator 60 06/04/17 12:30 81 22 112/46 100 Mechanical Ventilator 60 Height (Feet): 6 Height (Inches): 1.00 Weight (Pounds): 268 HEENT: other - intubated Respiratory/Chest: lungs clear Cardiovascular: normal rate, regular rhythm, no gallop/murmur Abdomen: soft, non tender Extremities: no edema Microbiology Date/Time Source Procedure Growth Status 06/02/17 21:35 Blood Blood Culture - Preliminary Gram Positive Cocci Resulted 06/02/17 21:35 Blood Blood Culture - Preliminary Gram Positive Cocci Resulted 06/02/17 20:20 Indwelling Cath Urine Culture - Preliminary NO GROWTH AFTER 24 HOURS Resulted Laboratory Tests Test 06/05/17 06:00 White Blood Count 16.5 K/UL (4.8-10.8) H Red Blood Count 4.54 M/UL (4.70-6.10) L Hemoglobin 13.4 G/DL (14.2-18.0) L Hematocrit 40.5 % (42.0-52.0) L Mean Corpuscular Volume 89 FL (80-99) Mean Corpuscular Hemoglobin 29.6 PG (27.0-31.0) Mean Corpuscular Hemoglobin Concent 33.2 G/DL (32.0-36.0) Red Cell Distribution Width 11.9 % (11.6-14.8) Platelet Count 263 K/UL (150-450) Mean Platelet Volume 7.4 FL (6.5-10.1) Neutrophils (%) (Auto) 77.1 % (45.0-75.0) H Lymphocytes (%) (Auto) 14.0 % (20.0-45.0) L Monocytes (%) (Auto) 7.4 % (1.0-10.0) Eosinophils (%) (Auto) 1.1 % (0.0-3.0) Basophils (%) (Auto) 0.4 % (0.0-2.0) Sodium Level 138 MMOL/L (136-145) Potassium Level 3.5 MMOL/L (3.5-5.1) Chloride Level 102 MMOL/L (98-107) Carbon Dioxide Level 28 MMOL/L (21-32) Anion Gap 8 mmol/L (5-15) Blood Urea Nitrogen 13 mg/dL (7-18) Creatinine 1.0 MG/DL (0.55-1.30) Estimat Glomerular Filtration Rate > 60 mL/min (>60) Glucose Level 149 MG/DL (74-106) H Calcium Level 7.8 MG/DL (8.5-10.1) L Magnesium Level 1.9 MG/DL (1.8-2.4) Total Bilirubin 0.5 MG/DL (0.2-1.0) Aspartate Amino Transf (AST/SGOT) 39 U/L (15-37) H Alanine Aminotransferase (ALT/SGPT) 107 U/L (12-78) H Alkaline Phosphatase 59 U/L (46-116) Total Protein 6.9 G/DL (6.4-8.2) Albumin 2.4 G/DL (3.4-5.0) L Globulin 4.5 g/dL Albumin/Globulin Ratio 0.5 (1.0-2.7) L CHET DURAN Jun 05, 2017 12:27
[2017-06-05] MEDS: Cefepime HCl 2 GM in D5W 55 ML IVPB SCH ×2 (13:55→21:42)
--- NOTE | 2017-06-05 14:17 | Diagnostic Imaging Report ---
Indication: Nasogastric tube placement Technique: XRAY Abdomen 1v Comparison: None Findings: Bowel gas pattern is nonspecific with mild gaseous distention of small bowel. Gas is also noted in the colon. Nasogastric tube definitively seen. Impression: Nasogastric tube not well seen. Nonspecific bowel gas pattern with mild gaseous distention of small bowel. Gas and stool in the colon. Clinical correlation/follow-up recommended.
--- NOTE | 2017-06-05 14:17 | Diagnostic Imaging Report ---
Indication: Altered mental status Technique: Continuous helical CT scanning of the head was performed utilizing automated exposure control without intravenous contrast material. Axial and coronal reconstructions were obtained. Comparison: None CT dose: Total DLP 1481 mGycm; CTDI vol 70.4 mGy Findings: There is no acute intracranial hemorrhage, mass effect or cortical edema. The ventricles, cisterns and sulci are within normal limits. The posterior fossa and fourth ventricle are unremarkable. Sellar and suprasellar regions are grossly unremarkable. There is a retention cyst or polyp in the left maxillary sinus. No focal lesions of the bony calvarium or soft tissues of the scalp are seen. Impression: No evidence of acute intracranial hemorrhage, mass effect or cortical edema. MRI may be obtained for more sensitive evaluation as clinically indicated. Retention cyst or polyp in the left maxillary sinus. The CT scanner at [facility] [place] is accredited by the [employer] and the scans are performed using protocols designed to limit radiation exposure to as low as reasonably achievable to attain images of sufficient resolution adequate for diagnostic evaluation.
--- NOTE | 2017-06-05 14:17 | Diagnostic Imaging Report ---
Indication: Dyspnea Technique: XRAY Chest 1v Comparison: 06/01/2017 Findings: Endotracheal tube is at the thoracic inlet and should be advanced 3 cm. Nasogastric tube and right-sided clavian central line are again noted. The heart and lungs are stable. Impression: Endotracheal tube tip at the thoracic inlet and should be advanced 3 cm. Findings discussed with the patient's ICU nurse Maty.
--- NOTE | 2017-06-05 14:17 | Diagnostic Imaging Report ---
Indication: Shortness of breath Technique: XRAY Chest 1v Comparison: 06/02/2017 Findings: Nasogastric tube is within the stomach. Right subclavian central line and endotracheal tube are present. The cardiomediastinal silhouette is stable. Pulmonary congestion and perihilar edema or infiltrates are seen. Osseous structures are stable. Impression: No significant change from 06/02/2017.
--- NOTE | 2017-06-05 14:17 | Diagnostic Imaging Report ---
Indication: Nasogastric tube placement Technique: XRAY Chest 1v Comparison: Examination from earlier the same day at 0813 hours Findings: Nasogastric tube is within the stomach. Endotracheal tube and right subclavian central line are unchanged. The heart and lungs are stable with pulmonary vascular congestion and mild interstitial pulmonary edema. There is lung base atelectasis. Impression: Satisfactory nasogastric tube placement within the stomach.
[2017-06-05] MEDS ORDERED: NS 500ML ONE (17:14)
--- NOTE | 2017-06-05 17:42 | General Progress Note ---
Assessment/Plan Assessment/Plan Assessment - s/p arrest - s/p Rhabdo - resolving - Coma - s/p yoly - diverticulosis - recent PNA and hemoptysis Recommendations - supportive ICU care - Continue TF - IVF - Follow LFT - PPI - may need PEG Subjective Allergies: Coded Allergies: No Known Allergies (Unverified , 05/26/17) Subjective above noted seen in ICU non communicative intubated tolerating TF Objective Last 24 Hour Vital Signs Date Time Temp Pulse Resp B/P (MAP) Pulse Ox O2 Delivery O2 Flow Rate FiO2 06/05/17 17:00 100 26 168/92 97 Mechanical Ventilator 75 06/05/17 16:49 108 32 75 06/05/17 16:02 100.0 93 29 164/77 92 Mechanical Ventilator 50 06/05/17 16:00 50 06/05/17 16:00 92 06/05/17 15:24 87 31 50 06/05/17 15:00 89 22 185/83 93 Mechanical Ventilator 50 06/05/17 14:00 82 23 158/85 92 Mechanical Ventilator 50 06/05/17 14:00 27 06/05/17 13:02 81 21 50 06/05/17 13:00 23 06/05/17 13:00 93 23 162/77 93 Mechanical Ventilator 50 06/05/17 12:00 88 06/05/17 12:00 99.0 86 22 164/77 90 Mechanical Ventilator 50 06/05/17 12:00 22 06/05/17 11:14 96 199/83 06/05/17 11:00 85 29 186/94 85 Mechanical Ventilator 50 06/05/17 11:00 29 06/05/17 11:00 83 24 50 06/05/17 10:00 29 06/05/17 10:00 95 30 136/62 85 Mechanical Ventilator 50 06/05/17 09:53 29 06/05/17 09:29 81 18 50 06/05/17 09:00 92 24 112/54 100 Mechanical Ventilator 80 06/05/17 09:00 50 06/05/17 08:49 92 100/62 06/05/17 08:00 80 06/05/17 08:00 99.1 97 24 100/62 100 Mechanical Ventilator 80 06/05/17 08:00 26 06/05/17 08:00 99 06/05/17 07:25 99 24 80 06/05/17 07:00 98 23 110/45 96 Mechanical Ventilator 80 06/05/17 07:00 25 06/05/17 06:00 23 06/05/17 06:00 89 23 134/56 96 Mechanical Ventilator 80 06/05/17 05:29 82 32 80 06/05/17 05:00 79 26 169/76 100 Mechanical Ventilator 80 06/05/17 05:00 26 06/05/17 04:00 99.5 74 24 116/55 100 Mechanical Ventilator 80 06/05/17 04:00 24 06/05/17 04:00 80 06/05/17 04:00 74 06/05/17 03:30 85 25 80 06/05/17 03:00 71 24 122/48 100 Mechanical Ventilator 80 06/05/17 03:00 24 06/05/17 02:00 76 24 122/53 100 Mechanical Ventilator 80 06/05/17 02:00 24 06/05/17 01:30 71 24 80 06/05/17 01:21 24 06/05/17 01:00 83 24 118/55 100 Mechanical Ventilator 80 06/05/17 01:00 24 06/05/17 00:00 99.7 67 21 155/62 100 Mechanical Ventilator 80 06/05/17 00:00 67 06/05/17 00:00 24 06/04/17 23:30 80 24 80 06/04/17 23:00 75 24 107/51 100 Mechanical Ventilator 80 06/04/17 23:00 24 06/04/17 22:02 81 24 110/55 100 Mechanical Ventilator 80 06/04/17 22:00 24 06/04/17 21:00 77 24 115/53 100 Mechanical Ventilator 80 06/04/17 21:00 24 06/04/17 20:59 81 24 80 06/04/17 20:35 90 112/57 06/04/17 20:00 99.9 98 24 112/57 100 Mechanical Ventilator 80 06/04/17 20:00 80 06/04/17 20:00 24 06/04/17 20:00 98 06/04/17 19:31 24 06/04/17 19:30 80 24 80 06/04/17 19:00 101 23 114/44 100 Mechanical Ventilator 80 06/04/17 18:00 109 20 99/53 100 Mechanical Ventilator 80 Intake and Output 06/04/17 06/05/17 19:00 07:00 Intake Total 2810.500 ml 2486.00 ml Output Total 905 ml 1150 ml Balance 1905.500 ml 1336.00 ml Free Water 30 ml IV Total 1990.500 ml 2046.00 ml Tube Feeding 660 ml 440 ml Other 130 ml Output Urine Total 905 ml 1150 ml Laboratory Tests 06/05/17 06:00: White Blood Count 16.5H, Red Blood Count 4.54L, Hemoglobin 13.4L, Hematocrit 40.5L, Mean Corpuscular Volume 89, Mean Corpuscular Hemoglobin 29.6, Mean Corpuscular Hemoglobin Concent 33.2, Red Cell Distribution Width 11.9, Platelet Count 263, Mean Platelet Volume 7.4, Neutrophils (%) (Auto) 77.1H, Lymphocytes ( %) (Auto) 14.0L, Monocytes (%) (Auto) 7.4, Eosinophils (%) (Auto) 1.1, Basophils (%) (Auto) 0.4, Sodium Level 138, Potassium Level 3.5, Chloride Level 102, Carbon Dioxide Level 28, Anion Gap 8, Blood Urea Nitrogen 13, Creatinine 1.0, Estimat Glomerular Filtration Rate > 60, Glucose Level 149H, Calcium Level 7.8L, Magnesium Level 1.9, Total Bilirubin 0.5, Aspartate Amino Transf (AST/SGOT ) 39H, Alanine Aminotransferase (ALT/SGPT) 107H, Alkaline Phosphatase 59, Total Protein 6.9, Albumin 2.4L, Globulin 4.5, Albumin/Globulin Ratio 0.5L 06/05/17 15:00: Vancomycin Level Trough 20.0H Height (Feet): 6 Height (Inches): 1.00 Weight (Pounds): 268 Objective Obese WM Intubated supple Coarse BS RRR soft ND no edema non communicative JAMIN HEARD Jun 05, 2017 17:42
[2017-06-05] MEDS: Vancomycin 1gm/D5W 275ml IVPB SCH ×4 (18:17→23:50)
--- NOTE | 2017-06-05 18:48 | Cardiology Progress Note ---
Assessment/Plan Assessment/Plan 1. Asystole cardiac arrest due to respiratory failure, regained pulse after 8 minutes. 2. Mild cardiomyopathy with LVEF at 45%, + anteroseptal wall hypokinesia, ? ischemic cardiomyopathy. 3. Elevated troponin level likely due to sepsis/tachycardia/pneumonia, not a pattern for ACS, CP free on admission to ED. 4. Accelerated HTN, start metoprolol 5mg IVPB q4 hrs. 5. Acute respiratory failure, intubated. 6. Acute encephalopathy. 7. Substance abuse 8. Obesity Subjective Subjective Sinus rhythm at 94. Intubated. Agitated. His family came from [place] to visit him. Objective Last 24 Hour Vital Signs Date Time Temp Pulse Resp B/P (MAP) Pulse Ox O2 Delivery O2 Flow Rate FiO2 06/05/17 18:00 89 29 168/67 97 Mechanical Ventilator 75 06/05/17 17:39 100.0 06/05/17 17:00 100 26 168/92 97 Mechanical Ventilator 75 06/05/17 16:49 108 32 75 06/05/17 16:02 100.0 93 29 164/77 92 Mechanical Ventilator 50 06/05/17 16:00 50 06/05/17 16:00 92 06/05/17 15:24 87 31 50 06/05/17 15:00 89 22 185/83 93 Mechanical Ventilator 50 06/05/17 14:00 82 23 158/85 92 Mechanical Ventilator 50 06/05/17 14:00 27 06/05/17 13:02 81 21 50 06/05/17 13:00 23 06/05/17 13:00 93 23 162/77 93 Mechanical Ventilator 50 06/05/17 12:00 88 06/05/17 12:00 99.0 86 22 164/77 90 Mechanical Ventilator 50 06/05/17 12:00 22 06/05/17 11:14 96 199/83 06/05/17 11:00 85 29 186/94 85 Mechanical Ventilator 50 06/05/17 11:00 29 06/05/17 11:00 83 24 50 06/05/17 10:00 29 06/05/17 10:00 95 30 136/62 85 Mechanical Ventilator 50 06/05/17 09:53 29 06/05/17 09:29 81 18 50 06/05/17 09:00 92 24 112/54 100 Mechanical Ventilator 80 06/05/17 09:00 50 06/05/17 08:49 92 100/62 06/05/17 08:00 80 06/05/17 08:00 99.1 97 24 100/62 100 Mechanical Ventilator 80 06/05/17 08:00 26 06/05/17 08:00 99 06/05/17 07:25 99 24 80 06/05/17 07:00 98 23 110/45 96 Mechanical Ventilator 80 06/05/17 07:00 25 06/05/17 06:00 23 06/05/17 06:00 89 23 134/56 96 Mechanical Ventilator 80 06/05/17 05:29 82 32 80 06/05/17 05:00 79 26 169/76 100 Mechanical Ventilator 80 06/05/17 05:00 26 06/05/17 04:00 99.5 74 24 116/55 100 Mechanical Ventilator 80 06/05/17 04:00 24 06/05/17 04:00 80 06/05/17 04:00 74 06/05/17 03:30 85 25 80 06/05/17 03:00 71 24 122/48 100 Mechanical Ventilator 80 06/05/17 03:00 24 06/05/17 02:00 76 24 122/53 100 Mechanical Ventilator 80 06/05/17 02:00 24 06/05/17 01:30 71 24 80 06/05/17 01:21 24 06/05/17 01:00 83 24 118/55 100 Mechanical Ventilator 80 06/05/17 01:00 24 06/05/17 00:00 99.7 67 21 155/62 100 Mechanical Ventilator 80 06/05/17 00:00 67 06/05/17 00:00 24 06/04/17 23:30 80 24 80 06/04/17 23:00 75 24 107/51 100 Mechanical Ventilator 80 06/04/17 23:00 24 06/04/17 22:02 81 24 110/55 100 Mechanical Ventilator 80 06/04/17 22:00 24 06/04/17 21:00 77 24 115/53 100 Mechanical Ventilator 80 06/04/17 21:00 24 06/04/17 20:59 81 24 80 06/04/17 20:35 90 112/57 06/04/17 20:00 99.9 98 24 112/57 100 Mechanical Ventilator 80 06/04/17 20:00 80 06/04/17 20:00 24 06/04/17 20:00 98 06/04/17 19:31 24 06/04/17 19:30 80 24 80 06/04/17 19:00 101 23 114/44 100 Mechanical Ventilator 80 Intake and Output 06/04/17 06/05/17 19:00 07:00 Intake Total 2810.500 ml 2486.00 ml Output Total 905 ml 1150 ml Balance 1905.500 ml 1336.00 ml Free Water 30 ml IV Total 1990.500 ml 2046.00 ml Tube Feeding 660 ml 440 ml Other 130 ml Output Urine Total 905 ml 1150 ml 2D Echo: EF 45%, Anteroseptal HK, RVSP 33 mmHg Laboratory Tests Test 06/05/17 06:00 06/05/17 15:00 White Blood Count 16.5 K/UL (4.8-10.8) H Red Blood Count 4.54 M/UL (4.70-6.10) L Hemoglobin 13.4 G/DL (14.2-18.0) L Hematocrit 40.5 % (42.0-52.0) L Mean Corpuscular Volume 89 FL (80-99) Mean Corpuscular Hemoglobin 29.6 PG (27.0-31.0) Mean Corpuscular Hemoglobin Concent 33.2 G/DL (32.0-36.0) Red Cell Distribution Width 11.9 % (11.6-14.8) Platelet Count 263 K/UL (150-450) Mean Platelet Volume 7.4 FL (6.5-10.1) Neutrophils (%) (Auto) 77.1 % (45.0-75.0) H Lymphocytes (%) (Auto) 14.0 % (20.0-45.0) L Monocytes (%) (Auto) 7.4 % (1.0-10.0) Eosinophils (%) (Auto) 1.1 % (0.0-3.0) Basophils (%) (Auto) 0.4 % (0.0-2.0) Sodium Level 138 MMOL/L (136-145) Potassium Level 3.5 MMOL/L (3.5-5.1) Chloride Level 102 MMOL/L (98-107) Carbon Dioxide Level 28 MMOL/L (21-32) Anion Gap 8 mmol/L (5-15) Blood Urea Nitrogen 13 mg/dL (7-18) Creatinine 1.0 MG/DL (0.55-1.30) Estimat Glomerular Filtration Rate > 60 mL/min (>60) Glucose Level 149 MG/DL (74-106) H Calcium Level 7.8 MG/DL (8.5-10.1) L Magnesium Level 1.9 MG/DL (1.8-2.4) Total Bilirubin 0.5 MG/DL (0.2-1.0) Aspartate Amino Transf (AST/SGOT) 39 U/L (15-37) H Alanine Aminotransferase (ALT/SGPT) 107 U/L (12-78) H Alkaline Phosphatase 59 U/L (46-116) Total Protein 6.9 G/DL (6.4-8.2) Albumin 2.4 G/DL (3.4-5.0) L Globulin 4.5 g/dL Albumin/Globulin Ratio 0.5 (1.0-2.7) L Vancomycin Level Trough 20.0 ug/mL (5.0-12.0) H Microbiology Date/Time Source Procedure Growth Status 06/02/17 21:35 Blood Blood Culture - Preliminary Gram Positive Cocci Resulted 06/02/17 21:35 Blood Blood Culture - Preliminary Gram Positive Cocci Resulted 06/02/17 20:20 Indwelling Cath Urine Culture - Preliminary NO GROWTH AFTER 24 HOURS Resulted Objective HEENT: Intubated, agitated, moving around. NECK: JVP cannot be assessed, No carotid bruit. Carotid upstrokes 2+ bilaterally. CARDIOVASCULAR SYSTEM: Normal S1, S2. Regular rate and rhythm. Tachycardic, No murmurs, gallops, or rubs. PMI is at fourth intercostal space in the midclavicular line. LUNGS: Clear to auscultation bilaterally. ABDOMEN: Soft, nontender, nondistended. No hepatosplenomegaly. Positive bowel sounds. EXTREMITIES: No evidence of edema, clubbing, or cyanosis. CRITSA MURPHY Jun 05, 2017 18:48
[2017-06-05] MEDS: Dyna-Hex 2% Top Sol 2oz TOPIC SCH (19:52)
[2017-06-05] MEDS: NS IVPB SCH (20:02)
[2017-06-05] MEDS: METOPROLOL TARTRATE IVPB SCH (20:02)
[2017-06-05] MEDS: Topiramate 25mg tab ORAL SCH (20:33)
[2017-06-05] MEDS ORDERED: Metoprolol 5mg/5ml Inj IVPB SCH (21:00)
[2017-06-06] VITALS (45 sets, daily range): BP systolic 104–196; BP diastolic 53–100
[2017-06-06] MEDS: NS IVPB SCH ×6 (00:57→20:40)
[2017-06-06] MEDS: METOPROLOL TARTRATE IVPB SCH ×6 (00:57→20:40)
[2017-06-06] MEDS: Acyclovir 500 MG in D5W 110 ML IV SCH (05:38)
[2017-06-06] MEDS: Vancomycin 1gm/D5W 275ml IVPB SCH ×8 (05:39→23:36)
[2017-06-06 06:58] LABS: ALANINE AMINOTRANSFERASE 92 U/L (12-78); ALBUMIN 2.3 G/DL (3.4-5.0); ALBUMIN/GLOBULIN RATIO 0.5 (1.0-2.7); ALKALINE PHOSPHATASE 62 U/L (46-116); ANION GAP 10 mmol/L (5-15); ASPARTATE AMINO TRANSFERASE 42 U/L (15-37); BILIRUBIN,TOTAL 0.5 MG/DL (0.2-1.0); CALCIUM 9.2 MG/DL (8.5-10.1); CARBON DIOXIDE 29 MMOL/L (21-32); CHLORIDE 102 MMOL/L (98-107); CREATININE 0.9 MG/DL (0.55-1.30); POTASSIUM 3.3 MMOL/L (3.5-5.1); SODIUM 141 MMOL/L (136-145)
[2017-06-06 07:30] LABS: BLOOD UREA NITROGEN 12 mg/dL (7-18)
[2017-06-06] MEDS: Aspirin EC 81mg tab ORAL SCH (08:22)
[2017-06-06] MEDS: Cefepime HCl 2 GM in D5W 55 ML IVPB SCH ×2 (08:22→20:31)
[2017-06-06] MEDS: levETIRAcetam 1,000mg/NS100ml 100 ML IVPB SCH ×2 (08:23→20:31)
[2017-06-06] MEDS: Metoprolol 25mg tab ORAL SCH ×2 (08:42→20:31)
[2017-06-06] MEDS: Heparin 5000 units/ml inj SUBQ SCH ×2 (08:42→20:36)
--- NOTE | 2017-06-06 09:27 | Critical Care Progress Note ---
Assessment/Plan Assessment/Plan IMPRESSION ARF - improved rhabdo- resolved CK elevated Liver enzyme- improving elevated troponin Pneumonia with abnormal CT reduced EF migraines s/p CPA acute encephalopathy with possible encephalitis tachycardia leukocytosis abnormal urine tox screen fevers PLAN labs noted IV antibiotics noted ID evaluation noted head CT and EEG discussed neuro appreciated- await further recommendations all noted and appreciated monitor LOC ativan prn attempt to analyze substance found at bedside feeds per GI fentanyl drip for now acyclovir empiric HIV negative and hepatitis screen negative mother updated in detail- d/w her in detail; discussed at bedside with mother x 30 minutes concerns discussed and fdc care medications/laboratory data/nursing notes/ICU care reviewed in detail note reviewed and edited care discussed with RN and RT ICU time spent 75 minutes Critical Care - Subjective Interval Events: long d/w mother care noted and reviewed awaiting analysis of powder noted in the room trial off fentanyl as able and assess Condition: critical EKG Rhythm: Sinus Rhythm Residuals: minimal Tube Feeding Tolerated: yes I&O: Intake and Output 06/05/17 06/06/17 19:00 07:00 Intake Total 2939.562 ml 3199.708 ml Output Total 2425 ml 2475 ml Balance 514.562 ml 724.708 ml Free Water 50 ml IV Total 2279.562 ml 2429.708 ml Tube Feeding 660 ml 660 ml Other 60 ml Output Urine Total 2425 ml 2475 ml Critical Care - Objective ET-Tube: 7.5 ET Position: 24 Last 24 Hour Vital Signs Date Time Temp Pulse Resp B/P (MAP) Pulse Ox O2 Delivery O2 Flow Rate FiO2 06/06/17 08:30 79 21 157/82 99 Mechanical Ventilator 50 06/06/17 08:22 84 167/77 06/06/17 08:08 50 06/06/17 08:00 21 06/06/17 08:00 50 06/06/17 08:00 99.6 100 24 167/77 100 Mechanical Ventilator 50 06/06/17 07:30 83 17 165/79 100 Mechanical Ventilator 75 06/06/17 07:25 98 32 60 06/06/17 07:00 92 17 173/95 100 Mechanical Ventilator 75 06/06/17 07:00 19 06/06/17 06:30 84 21 165/82 100 Mechanical Ventilator 75 06/06/17 06:00 21 06/06/17 06:00 78 21 146/73 100 Mechanical Ventilator 75 06/06/17 05:30 99 21 148/65 100 Mechanical Ventilator 75 06/06/17 05:02 110 162/74 06/06/17 05:00 21 06/06/17 05:00 86 21 149/65 100 Mechanical Ventilator 75 06/06/17 04:56 110 32 80 06/06/17 04:30 88 21 147/87 100 Mechanical Ventilator 75 06/06/17 04:00 75 06/06/17 04:00 100.1 79 24 162/74 100 Mechanical Ventilator 75 06/06/17 04:00 87 06/06/17 04:00 24 06/06/17 03:30 87 34 171/81 100 Mechanical Ventilator 75 06/06/17 03:00 27 06/06/17 03:00 97 28 104/99 100 Mechanical Ventilator 75 06/06/17 02:47 89 29 80 06/06/17 02:00 30 06/06/17 02:00 100 28 188/79 100 Mechanical Ventilator 75 06/06/17 01:30 81 28 80 06/06/17 01:00 99.9 85 26 157/87 100 Mechanical Ventilator 75 06/06/17 01:00 26 06/06/17 00:57 106 171/81 06/06/17 00:30 113 21 171/81 100 Mechanical Ventilator 75 06/06/17 00:00 86 06/06/17 00:00 100.2 106 28 140/88 98 Mechanical Ventilator 75 06/06/17 00:00 75 06/06/17 00:00 28 06/05/17 23:30 86 21 138/63 100 Mechanical Ventilator 75 06/05/17 23:16 88 25 80 06/05/17 23:00 30 06/05/17 23:00 96 30 199/96 99 Mechanical Ventilator 75 06/05/17 22:31 100.7 06/05/17 22:30 99 30 170/83 99 Mechanical Ventilator 75 06/05/17 22:01 35 06/05/17 22:00 101 34 211/83 99 Mechanical Ventilator 75 06/05/17 21:30 92 33 157/73 98 Mechanical Ventilator 75 06/05/17 21:03 93 31 80 06/05/17 21:00 101 33 190/59 100 Mechanical Ventilator 75 06/05/17 20:30 99 33 201/86 98 Mechanical Ventilator 75 06/05/17 20:02 108 231/90 06/05/17 20:00 100.7 101 33 190/59 98 Mechanical Ventilator 75 06/05/17 20:00 75 06/05/17 20:00 92 06/05/17 19:30 100 33 80 06/05/17 19:00 94 25 174/89 99 Mechanical Ventilator 75 06/05/17 18:00 89 29 168/67 97 Mechanical Ventilator 75 06/05/17 17:39 100.0 06/05/17 17:00 100 26 168/92 97 Mechanical Ventilator 75 06/05/17 16:49 108 32 75 06/05/17 16:02 100.0 93 29 164/77 92 Mechanical Ventilator 50 06/05/17 16:00 50 06/05/17 16:00 92 06/05/17 15:24 87 31 50 06/05/17 15:00 89 22 185/83 93 Mechanical Ventilator 50 06/05/17 14:00 82 23 158/85 92 Mechanical Ventilator 50 06/05/17 14:00 27 06/05/17 13:02 81 21 50 06/05/17 13:00 23 06/05/17 13:00 93 23 162/77 93 Mechanical Ventilator 50 06/05/17 12:00 88 06/05/17 12:00 99.0 86 22 164/77 90 Mechanical Ventilator 50 06/05/17 12:00 22 06/05/17 11:14 96 199/83 06/05/17 11:00 85 29 186/94 85 Mechanical Ventilator 50 06/05/17 11:00 29 06/05/17 11:00 83 24 50 06/05/17 10:00 29 06/05/17 10:00 95 30 136/62 85 Mechanical Ventilator 50 06/05/17 09:53 29 06/05/17 09:29 81 18 50 Objective: WDWN NAD improved breath sounds bilaterally without rhonchi or wheeze [id number] tachy without MRG NABS nontender no HSM no CCE nonfocal sedated ETT in place no rash MEGAN العلي Jun 06, 2017 09:26
[2017-06-06 10:21] LABS: CHOLESTEROL 157 MG/DL (< 200); HDL CHOLESTEROL 21 MG/DL (40-60); TRIGLYCERIDES 158 MG/DL (30-150)
--- NOTE | 2017-06-06 10:55 | Diagnostic Imaging Report ---
Indication: Altered mental status Technique: Continuous helical CT scanning of the head was performed utilizing automated exposure control without intravenous contrast material. Axial and coronal reconstructions were obtained. Comparison: 06/01/2017 CT dose: Total DLP 1467.58 mGycm; CTDI vol 70.38 mGy Findings: Since the prior exam on 06/01/2017, there is interval development of extensive cerebral edema with diffuse sulcal effacement, loss of lr-white differentiation and complete effacement of the suprasellar cistern. There is effacement of the interpeduncular cistern and ambient cistern, which are not completely effaced at this time. There is apparent hyperdensity in the subarachnoid space which is likely related to decreased parenchymal attenuation from cerebral edema (pseudosubarachnoid hemorrhage) however a degree of subarachnoid blood is not entirely excluded. The visualized mastoid air cells and paranasal sinuses are clear. Imaged portions of the orbits are grossly unremarkable. Impression: Interval development of extensive cerebral edema with diffuse sulcal effacement, loss of lr-white differentiation and cisternal effacement as detailed above. These findings may suggest abnormal hypoxic-ischemic injury/anoxic brain injury. Likely pseudosubarachnoid hemorrhage as described above. Clinical correlation recommended. Findings discussed via telephone conversation with Dr. Tang and Dr. Cruz approximately 10:20 and 10:40 AM respectively on 06/06/[address] scanner at [facility] is accredited by the [employer] and the scans are performed using protocols designed to limit radiation exposure to as low as reasonably achievable to attain images of sufficient resolution adequate for diagnostic evaluation.
--- NOTE | 2017-06-06 11:37 | Neurology Progress Note ---
Interim History Interim History ROS Limited/Unobtainable: Yes Complaints: comatose Events: --decerebrate symmetric, Objective Physical Exam Last Vital Signs Date Time Temp Pulse Resp B/P (MAP) Pulse Ox O2 Delivery O2 Flow Rate FiO2 06/06/17 11:04 74 21 50 06/06/17 11:00 159/73 100 Mechanical Ventilator 06/06/17 08:00 99.6 06/01/17 00:00 4.0 Laboratory Tests Test 06/05/17 15:00 06/06/17 04:25 Vancomycin Level Trough 20.0 ug/mL (5.0-12.0) H Sodium Level 141 MMOL/L (136-145) Potassium Level 3.3 MMOL/L (3.5-5.1) L Chloride Level 102 MMOL/L (98-107) Carbon Dioxide Level 29 MMOL/L (21-32) Anion Gap 10 mmol/L (5-15) Blood Urea Nitrogen 12 mg/dL (7-18) Creatinine 0.9 MG/DL (0.55-1.30) Estimat Glomerular Filtration Rate > 60 mL/min (>60) Glucose Level 145 MG/DL (74-106) H Calcium Level 9.2 MG/DL (8.5-10.1) Total Bilirubin 0.5 MG/DL (0.2-1.0) Aspartate Amino Transf (AST/SGOT) 42 U/L (15-37) H Alanine Aminotransferase (ALT/SGPT) 92 U/L (12-78) H Alkaline Phosphatase 62 U/L (46-116) Total Protein 6.9 G/DL (6.4-8.2) Albumin 2.3 G/DL (3.4-5.0) L Globulin 4.6 g/dL Albumin/Globulin Ratio 0.5 (1.0-2.7) L Triglycerides Level 158 MG/DL (30-150) H Cholesterol Level 157 MG/DL (< 200) LDL Cholesterol 118 mg/dL (<100) H HDL Cholesterol 21 MG/DL (40-60) L Cholesterol/HDL Ratio 7.5 (3.3-4.4) H General: other - intubated obese sweating Head: normocophalic, atraumatic, other - flushed face/upper torso Neck: no rigidity Neurologic Exam Mental Status: other - no responces ex decerebrate on stimuly Speech: other Language: other Cranial Nerve II: fundus normal Cranial Nerves III, IV, : other - p5mm sluggish/ EOM none on Dolls Cranial Nerve V: other Cranial Nerve VII: no facial asymmetry Cranial Nerve VIII: no nystagmus Cranial Nerve IX: other - no gag Cranial Nerve X: other Cranial Nerve XI: other Cranial Nerve XII: no tongue atrophy/fasciculations Motor System: other - diffuse rigidity no spont movement Sensory: other Coordination: other Deep Tendon Reflexes: 0 bicep (L), 0 bicep (R), 0 tricep (L), 0 tricep (R), 0 brachioradialis (L), 0 brachioradialis (R), 0 knee (L), 0 knee (R), 0 ankle (L) , 0 ankle (R) Reflexes: mute plantar (L), mute plantar (R) Stance: other Gait: other Impression/Recommendations Problems: (1) s/p full arrest (2) Anoxic encephalopathy syndrome (3) Sepsis (4) Pneumonia Status: stable, not improved, deteriorating Recommendations # [id number] EEG c/w severe encephalopathy cont supportive care CT brain ----diffuse edema will hyperventilate d/w family x 15min d/w attend/staff prognosis guarded ok SBP >150 < 200 MITCH PUTNAM Jun 06, 2017 11:37
--- NOTE | 2017-06-06 12:27 | Infectious Diseases Prog Note ---
Assessment/Plan Assessment/Plan antibiotics : vancomycin iv, cefepime, acyclovir A 1. pneumonia 2. leucocytosis improving 3. renal failure improved 4. rhabdomyolysis 5. respiratory failure 6. coag neg staph sepsis 7. encephalopathy P 1. continue vancomycin iv, cefepime 2. d/c acyclovir 3. will follow up cultures Subjective ROS Limited/Unobtainable: Yes Allergies: Coded Allergies: No Known Allergies (Unverified , 05/26/17) Objective Vital Signs Last 24 Hour Vital Signs Date Time Temp Pulse Resp B/P (MAP) Pulse Ox O2 Delivery O2 Flow Rate FiO2 06/06/17 12:00 109 06/06/17 12:00 99.9 96 26 168/74 98 Mechanical Ventilator 50 06/06/17 12:00 50 06/06/17 11:30 77 25 157/71 100 Mechanical Ventilator 50 06/06/17 11:04 74 21 50 06/06/17 11:00 83 21 159/73 100 Mechanical Ventilator 50 06/06/17 11:00 21 06/06/17 10:30 75 30 158/76 100 Mechanical Ventilator 50 06/06/17 10:00 22 06/06/17 10:00 85 26 157/82 99 Mechanical Ventilator 50 06/06/17 09:36 80 27 50 06/06/17 09:30 77 24 189/87 98 Mechanical Ventilator 50 06/06/17 09:00 82 27 151/74 98 Mechanical Ventilator 50 06/06/17 09:00 74 24 150/79 98 Mechanical Ventilator 50 06/06/17 09:00 24 06/06/17 08:30 79 21 157/82 99 Mechanical Ventilator 50 06/06/17 08:22 84 167/77 06/06/17 08:08 50 06/06/17 08:00 82 06/06/17 08:00 21 06/06/17 08:00 50 06/06/17 08:00 99.6 100 24 167/77 100 Mechanical Ventilator 50 06/06/17 07:30 83 17 165/79 100 Mechanical Ventilator 75 06/06/17 07:25 98 32 60 06/06/17 07:00 92 17 173/95 100 Mechanical Ventilator 75 06/06/17 07:00 19 06/06/17 06:30 84 21 165/82 100 Mechanical Ventilator 75 06/06/17 06:00 21 06/06/17 06:00 78 21 146/73 100 Mechanical Ventilator 75 06/06/17 05:30 99 21 148/65 100 Mechanical Ventilator 75 06/06/17 05:02 110 162/74 06/06/17 05:00 21 06/06/17 05:00 86 21 149/65 100 Mechanical Ventilator 75 06/06/17 04:56 110 32 80 06/06/17 04:30 88 21 147/87 100 Mechanical Ventilator 75 06/06/17 04:00 75 06/06/17 04:00 100.1 79 24 162/74 100 Mechanical Ventilator 75 06/06/17 04:00 87 06/06/17 04:00 24 06/06/17 03:30 87 34 171/81 100 Mechanical Ventilator 75 06/06/17 03:00 27 06/06/17 03:00 97 28 104/99 100 Mechanical Ventilator 75 06/06/17 02:47 89 29 80 06/06/17 02:00 30 06/06/17 02:00 100 28 188/79 100 Mechanical Ventilator 75 06/06/17 01:30 81 28 80 06/06/17 01:00 99.9 85 26 157/87 100 Mechanical Ventilator 75 06/06/17 01:00 26 06/06/17 00:57 106 171/81 06/06/17 00:30 113 21 171/81 100 Mechanical Ventilator 75 06/06/17 00:00 86 06/06/17 00:00 100.2 106 28 140/88 98 Mechanical Ventilator 75 06/06/17 00:00 75 06/06/17 00:00 28 06/05/17 23:30 86 21 138/63 100 Mechanical Ventilator 75 06/05/17 23:16 88 25 80 06/05/17 23:00 30 06/05/17 23:00 96 30 199/96 99 Mechanical Ventilator 75 06/05/17 22:31 100.7 06/05/17 22:30 99 30 170/83 99 Mechanical Ventilator 75 06/05/17 22:01 35 06/05/17 22:00 101 34 211/83 99 Mechanical Ventilator 75 06/05/17 21:30 92 33 157/73 98 Mechanical Ventilator 75 06/05/17 21:03 93 31 80 06/05/17 21:00 101 33 190/59 100 Mechanical Ventilator 75 06/05/17 20:30 99 33 201/86 98 Mechanical Ventilator 75 06/05/17 20:02 108 231/90 06/05/17 20:00 100.7 101 33 190/59 98 Mechanical Ventilator 75 06/05/17 20:00 75 06/05/17 20:00 92 06/05/17 19:30 100 33 80 06/05/17 19:00 94 25 174/89 99 Mechanical Ventilator 75 06/05/17 18:00 89 29 168/67 97 Mechanical Ventilator 75 06/05/17 17:39 100.0 06/05/17 17:00 100 26 168/92 97 Mechanical Ventilator 75 06/05/17 16:49 108 32 75 06/05/17 16:02 100.0 93 29 164/77 92 Mechanical Ventilator 50 06/05/17 16:00 50 06/05/17 16:00 92 06/05/17 15:24 87 31 50 06/05/17 15:00 89 22 185/83 93 Mechanical Ventilator 50 06/05/17 14:00 82 23 158/85 92 Mechanical Ventilator 50 06/05/17 14:00 27 06/05/17 13:02 81 21 50 06/05/17 13:00 23 06/05/17 13:00 93 23 162/77 93 Mechanical Ventilator 50 Height (Feet): 6 Height (Inches): 1.00 Weight (Pounds): 257 HEENT: other - intubated Respiratory/Chest: lungs clear Cardiovascular: normal rate, regular rhythm, no gallop/murmur Abdomen: soft, non tender Extremities: no edema, other - right subclavian catheter Laboratory Tests Test 06/05/17 15:00 06/06/17 04:25 06/06/17 11:25 Vancomycin Level Trough 20.0 ug/mL (5.0-12.0) H Sodium Level 141 MMOL/L (136-145) Potassium Level 3.3 MMOL/L (3.5-5.1) L Chloride Level 102 MMOL/L (98-107) Carbon Dioxide Level 29 MMOL/L (21-32) Anion Gap 10 mmol/L (5-15) Blood Urea Nitrogen 12 mg/dL (7-18) Creatinine 0.9 MG/DL (0.55-1.30) Estimat Glomerular Filtration Rate > 60 mL/min (>60) Glucose Level 145 MG/DL (74-106) H Calcium Level 9.2 MG/DL (8.5-10.1) Total Bilirubin 0.5 MG/DL (0.2-1.0) Aspartate Amino Transf (AST/SGOT) 42 U/L (15-37) H Alanine Aminotransferase (ALT/SGPT) 92 U/L (12-78) H Alkaline Phosphatase 62 U/L (46-116) Total Protein 6.9 G/DL (6.4-8.2) Albumin 2.3 G/DL (3.4-5.0) L Globulin 4.6 g/dL Albumin/Globulin Ratio 0.5 (1.0-2.7) L Triglycerides Level 158 MG/DL (30-150) H Cholesterol Level 157 MG/DL (< 200) LDL Cholesterol 118 mg/dL (<100) H HDL Cholesterol 21 MG/DL (40-60) L Cholesterol/HDL Ratio 7.5 (3.3-4.4) H Arterial Blood pH 7.486 (7.350-7.450) Arterial Blood Partial Pressure CO2 39.1 mmHg (35.0-45.0) Arterial Blood Partial Pressure O2 94.5 mmHg (75.0-100.0) Arterial Blood HCO3 28.9 mmol/L (22.0-26.0) H Arterial Blood Oxygen Saturation 97.5 % (92.0-98.0) Arterial Blood Base Excess 5.2 Balaji Test Positive CHET DURAN Jun 06, 2017 12:27
--- NOTE | 2017-06-06 12:37 | General Progress Note ---
Assessment/Plan Problem List: (1) Anoxia ICD Codes: R09.02 - Hypoxemia SNOMED: 95359238 (2) Encephalopathy acute ICD Codes: G93.40 - Encephalopathy, unspecified SNOMED: 4798887 (3) Respiratory distress ICD Codes: R06.03 - Acute respiratory distress SNOMED: 913611796 (4) Renal insufficiency ICD Codes: N28.9 - Disorder of kidney and ureter, unspecified SNOMED: 561020808, 145789043 (5) Rhabdomyolysis ICD Codes: M62.82 - Rhabdomyolysis SNOMED: 511528175, 578157043 Qualifiers: Qualified Codes: M62.82 - Rhabdomyolysis (6) Sepsis ICD Codes: A41.9 - Sepsis, unspecified organism SNOMED: 54538915, 619583488 Qualifiers: Qualified Codes: A41.9 - Sepsis, unspecified organism (7) Pneumonia ICD Codes: J18.9 - Pneumonia, unspecified organism SNOMED: 763667557, 134102269 Qualifiers: Qualified Codes: J18.1 - Lobar pneumonia, unspecified organism (8) Elevated troponin ICD Codes: R74.8 - Abnormal levels of other serum enzymes SNOMED: 801785433, 733171371 Status: stable, not improved Assessment/Plan iv abx wean sedation as able consider ativan or propfol drip follow up cultures vent support resp care ngt feeds LP if able. replace michael locke pts mother at the bedside critical and guarded Subjective ROS Limited/Unobtainable: Yes Constitutional: Reports: malaise, weakness HEENT: Reports: no symptoms Cardiovascular: Reports: no symptoms Respiratory: Reports: shortness of breath Gastrointestinal/Abdominal: Reports: no symptoms Genitourinary: Reports: no symptoms Neurologic/Psychiatric: Reports: pre-existing deficit Endocrine: Reports: no symptoms Hematologic/Lymphatic: Reports: no symptoms Allergies: Coded Allergies: No Known Allergies (Unverified , 05/26/17) All Systems: reviewed and negative except above Subjective no events. eeg negative for szs. + slowing. remains unresponsive. on fentanyl drip- tried to wean but got aggitated. not following commands. on ngt feeds. Objective Last 24 Hour Vital Signs Date Time Temp Pulse Resp B/P (MAP) Pulse Ox O2 Delivery O2 Flow Rate FiO2 06/06/17 12:00 109 06/06/17 12:00 99.9 96 26 168/74 98 Mechanical Ventilator 50 06/06/17 12:00 26 06/06/17 12:00 50 06/06/17 11:30 77 25 157/71 100 Mechanical Ventilator 50 06/06/17 11:04 74 21 50 06/06/17 11:00 83 21 159/73 100 Mechanical Ventilator 50 06/06/17 11:00 21 06/06/17 10:30 75 30 158/76 100 Mechanical Ventilator 50 06/06/17 10:00 22 06/06/17 10:00 85 26 157/82 99 Mechanical Ventilator 50 06/06/17 09:36 80 27 50 06/06/17 09:30 77 24 189/87 98 Mechanical Ventilator 50 06/06/17 09:00 82 27 151/74 98 Mechanical Ventilator 50 06/06/17 09:00 74 24 150/79 98 Mechanical Ventilator 50 06/06/17 09:00 24 06/06/17 08:30 79 21 157/82 99 Mechanical Ventilator 50 06/06/17 08:22 84 167/77 06/06/17 08:08 50 06/06/17 08:00 82 06/06/17 08:00 21 06/06/17 08:00 50 06/06/17 08:00 99.6 100 24 167/77 100 Mechanical Ventilator 50 06/06/17 07:30 83 17 165/79 100 Mechanical Ventilator 75 06/06/17 07:25 98 32 60 06/06/17 07:00 92 17 173/95 100 Mechanical Ventilator 75 06/06/17 07:00 19 06/06/17 06:30 84 21 165/82 100 Mechanical Ventilator 75 06/06/17 06:00 21 06/06/17 06:00 78 21 146/73 100 Mechanical Ventilator 75 06/06/17 05:30 99 21 148/65 100 Mechanical Ventilator 75 06/06/17 05:02 110 162/74 06/06/17 05:00 21 06/06/17 05:00 86 21 149/65 100 Mechanical Ventilator 75 06/06/17 04:56 110 32 80 06/06/17 04:30 88 21 147/87 100 Mechanical Ventilator 75 06/06/17 04:00 75 06/06/17 04:00 100.1 79 24 162/74 100 Mechanical Ventilator 75 06/06/17 04:00 87 1/10/18 04:00 24 06/06/17 03:30 87 34 171/81 100 Mechanical Ventilator 75 06/06/17 03:00 27 06/06/17 03:00 97 28 104/99 100 Mechanical Ventilator 75 06/06/17 02:47 89 29 80 06/06/17 02:00 30 06/06/17 02:00 100 28 188/79 100 Mechanical Ventilator 75 06/06/17 01:30 81 28 80 06/06/17 01:00 99.9 85 26 157/87 100 Mechanical Ventilator 75 06/06/17 01:00 26 06/06/17 00:57 106 171/81 06/06/17 00:30 113 21 171/81 100 Mechanical Ventilator 75 06/06/17 00:00 86 06/06/17 00:00 100.2 106 28 140/88 98 Mechanical Ventilator 75 06/06/17 00:00 75 06/06/17 00:00 28 06/05/17 23:30 86 21 138/63 100 Mechanical Ventilator 75 06/05/17 23:16 88 25 80 06/05/17 23:00 30 06/05/17 23:00 96 30 199/96 99 Mechanical Ventilator 75 06/05/17 22:31 100.7 06/05/17 22:30 99 30 170/83 99 Mechanical Ventilator 75 06/05/17 22:01 35 06/05/17 22:00 101 34 211/83 99 Mechanical Ventilator 75 06/05/17 21:30 92 33 157/73 98 Mechanical Ventilator 75 06/05/17 21:03 93 31 80 06/05/17 21:00 101 33 190/59 100 Mechanical Ventilator 75 06/05/17 20:30 99 33 201/86 98 Mechanical Ventilator 75 06/05/17 20:02 108 231/90 06/05/17 20:00 100.7 101 33 190/59 98 Mechanical Ventilator 75 06/05/17 20:00 75 06/05/17 20:00 92 06/05/17 19:30 100 33 80 06/05/17 19:00 94 25 174/89 99 Mechanical Ventilator 75 06/05/17 18:00 89 29 168/67 97 Mechanical Ventilator 75 06/05/17 17:39 100.0 06/05/17 17:00 100 26 168/92 97 Mechanical Ventilator 75 06/05/17 16:49 108 32 75 06/05/17 16:02 100.0 93 29 164/77 92 Mechanical Ventilator 50 06/05/17 16:00 50 06/05/17 16:00 92 06/05/17 15:24 87 31 50 06/05/17 15:00 89 22 185/83 93 Mechanical Ventilator 50 06/05/17 14:00 82 23 158/85 92 Mechanical Ventilator 50 06/05/17 14:00 27 06/05/17 13:02 81 21 50 06/05/17 13:00 23 06/05/17 13:00 93 23 162/77 93 Mechanical Ventilator 50 Intake and Output 06/05/17 06/06/17 19:00 07:00 Intake Total 2939.562 ml 3199.708 ml Output Total 2425 ml 2475 ml Balance 514.562 ml 724.708 ml Free Water 50 ml IV Total 2279.562 ml 2429.708 ml Tube Feeding 660 ml 660 ml Other 60 ml Output Urine Total 2425 ml 2475 ml Laboratory Tests 06/05/17 15:00: Vancomycin Level Trough 20.0H 06/06/17 04:25: Sodium Level 141, Potassium Level 3.3L, Chloride Level 102, Carbon Dioxide Level 29, Anion Gap 10, Blood Urea Nitrogen 12, Creatinine 0.9, Estimat Glomerular Filtration Rate > 60, Glucose Level 145H, Calcium Level 9.2, Total Bilirubin 0.5, Aspartate Amino Transf (AST/SGOT) 42H, Alanine Aminotransferase ( ALT/SGPT) 92H, Alkaline Phosphatase 62, Total Protein 6.9, Albumin 2.3L, Globulin 4.6, Albumin/Globulin Ratio 0.5L, Triglycerides Level 158H, Cholesterol Level 157, LDL Cholesterol 118H, HDL Cholesterol 21L, Cholesterol/ HDL Ratio 7.5H 06/06/17 11:25: Arterial Blood pH 7.486H, Arterial Blood Partial Pressure CO2 39.1, Arterial Blood Partial Pressure O2 94.5, Arterial Blood HCO3 28.9H, Arterial Blood Oxygen Saturation 97.5, Arterial Blood Base Excess 5.2, Balaji Test Positive Height (Feet): 6 Height (Inches): 1.00 Weight (Pounds): 257 Objective General Appearance: WD/WN, lethargic. ngt Neck: supple Cardiovascular: regular rhythm Respiratory/Chest: chest wall non-tender, lungs clear, normal breath sounds Abdomen: normal bowel sounds, non tender, soft, no organomegaly Neurologic: unresponsive Skin: normal pigmentation. no rash JIMBO GLEASON Jun 06, 2017 12:37
[2017-06-06] MEDS: Thiamine HCl 100 MG in D5W 55 ML IVPB SCH (13:16)
[2017-06-06] MEDS ORDERED: Acyclovir 1,000 MG in NS 275 ML IV SCH (14:00)
[2017-06-06] MEDS ORDERED: Tubing IV Secondary IV ONE (17:13)
[2017-06-06] MEDS ORDERED: NS 275ml ONE (17:13)
[2017-06-06] MEDS ORDERED: D5 1/2NS 1000ml IV ONE (17:13)
[2017-06-06] MEDS: Dyna-Hex 2% Top Sol 2oz TOPIC SCH (19:51)
[2017-06-06] MEDS: Topiramate 25mg tab ORAL SCH (20:35)
[2017-06-06] MEDS: LORazepam Inj 2mg/ml 1ml IV PRN (21:49)
--- NOTE | 2017-06-06 21:54 | General Progress Note ---
Assessment/Plan Assessment/Plan Assessment - s/p arrest - s/p Rhabdo - resolving - Coma - s/p yoly - diverticulosis - recent PNA and hemoptysis Recommendations - supportive ICU care - Continue TF - IVF - Follow LFT - PPI - may need PEG Subjective Allergies: Coded Allergies: No Known Allergies (Unverified , 05/26/17) Subjective above noted seen in ICU with family at bedside non communicative intubated tolerating TF Objective Last 24 Hour Vital Signs Date Time Temp Pulse Resp B/P (MAP) Pulse Ox O2 Delivery O2 Flow Rate FiO2 06/06/17 21:30 95 36 154/100 96 Mechanical Ventilator 50 06/06/17 21:00 36 06/06/17 21:00 100 36 172/66 96 Mechanical Ventilator 50 06/06/17 20:53 104 34 50 06/06/17 20:40 94 196/90 06/06/17 20:31 85 169/80 06/06/17 20:30 100.8 96 36 196/90 89 Mechanical Ventilator 50 06/06/17 20:00 50 06/06/17 20:00 100.0 96 36 196/90 89 Mechanical Ventilator 50 06/06/17 20:00 36 06/06/17 19:30 93 35 151/69 99 Mechanical Ventilator 50 06/06/17 19:00 85 26 169/80 99 Mechanical Ventilator 50 06/06/17 19:00 26 06/06/17 18:55 102 33 50 06/06/17 18:30 71 26 177/85 99 Mechanical Ventilator 50 06/06/17 18:00 100 31 185/95 98 Mechanical Ventilator 50 06/06/17 18:00 26 06/06/17 17:44 91 175/93 06/06/17 17:30 82 30 182/84 98 Mechanical Ventilator 50 06/06/17 17:04 80 25 50 06/06/17 17:00 77 25 175/93 100 Mechanical Ventilator 50 06/06/17 17:00 26 06/06/17 16:48 28 06/06/17 16:30 83 24 177/91 100 Mechanical Ventilator 50 06/06/17 16:00 100.0 72 30 172/74 100 Mechanical Ventilator 50 06/06/17 16:00 25 06/06/17 16:00 75 06/06/17 16:00 50 06/06/17 15:30 76 26 175/84 100 Mechanical Ventilator 50 06/06/17 15:00 24 06/06/17 15:00 71 23 50 06/06/17 15:00 115 25 150/72 98 Mechanical Ventilator 50 06/06/17 14:00 67 26 178/77 98 Mechanical Ventilator 50 06/06/17 14:00 26 06/06/17 13:30 79 23 168/86 98 Mechanical Ventilator 50 06/06/17 13:17 93 163/94 06/06/17 13:00 74 22 163/94 98 Mechanical Ventilator 50 06/06/17 13:00 24 06/06/17 12:48 78 20 50 06/06/17 12:30 83 26 161/74 100 Mechanical Ventilator 50 06/06/17 12:00 109 06/06/17 12:00 99.9 96 26 168/74 98 Mechanical Ventilator 50 06/06/17 12:00 26 06/06/17 12:00 50 06/06/17 11:30 77 25 157/71 100 Mechanical Ventilator 50 06/06/17 11:04 74 21 50 06/06/17 11:00 83 21 159/73 100 Mechanical Ventilator 50 06/06/17 11:00 21 06/06/17 10:30 75 30 158/76 100 Mechanical Ventilator 50 06/06/17 10:00 22 06/06/17 10:00 85 26 157/82 99 Mechanical Ventilator 50 06/06/17 09:36 80 27 50 06/06/17 09:30 77 24 189/87 98 Mechanical Ventilator 50 06/06/17 09:00 82 27 151/74 98 Mechanical Ventilator 50 06/06/17 09:00 74 24 150/79 98 Mechanical Ventilator 50 06/06/17 09:00 24 06/06/17 08:30 79 21 157/82 99 Mechanical Ventilator 50 06/06/17 08:22 84 167/77 06/06/17 08:08 50 06/06/17 08:00 82 06/06/17 08:00 21 06/06/17 08:00 50 06/06/17 08:00 99.6 100 24 167/77 100 Mechanical Ventilator 50 06/06/17 07:30 83 17 165/79 100 Mechanical Ventilator 75 06/06/17 07:25 98 32 60 06/06/17 07:00 92 17 173/95 100 Mechanical Ventilator 75 06/06/17 07:00 19 06/06/17 06:30 84 21 165/82 100 Mechanical Ventilator 75 06/06/17 06:00 21 06/06/17 06:00 78 21 146/73 100 Mechanical Ventilator 75 06/06/17 05:30 99 21 148/65 100 Mechanical Ventilator 75 06/06/17 05:02 110 162/74 06/06/17 05:00 21 06/06/17 05:00 86 21 149/65 100 Mechanical Ventilator 75 06/06/17 04:56 110 32 80 06/06/17 04:30 88 21 147/87 100 Mechanical Ventilator 75 06/06/17 04:00 75 06/06/17 04:00 100.1 79 24 162/74 100 Mechanical Ventilator 75 06/06/17 04:00 87 06/06/17 04:00 24 06/06/17 03:30 87 34 171/81 100 Mechanical Ventilator 75 06/06/17 03:00 27 06/06/17 03:00 97 28 104/99 100 Mechanical Ventilator 75 06/06/17 02:47 89 29 80 06/06/17 02:00 30 06/06/17 02:00 100 28 188/79 100 Mechanical Ventilator 75 06/06/17 01:30 81 28 80 06/06/17 01:00 99.9 85 26 157/87 100 Mechanical Ventilator 75 06/06/17 01:00 26 06/06/17 00:57 106 171/81 06/06/17 00:30 113 21 171/81 100 Mechanical Ventilator 75 06/06/17 00:00 86 06/06/17 00:00 100.2 106 28 140/88 98 Mechanical Ventilator 75 06/06/17 00:00 75 06/06/17 00:00 28 06/05/17 23:30 86 21 138/63 100 Mechanical Ventilator 75 06/05/17 23:16 88 25 80 06/05/17 23:00 30 06/05/17 23:00 96 30 199/96 99 Mechanical Ventilator 75 06/05/17 22:31 100.7 06/05/17 22:30 99 30 170/83 99 Mechanical Ventilator 75 06/05/17 22:01 35 06/05/17 22:00 101 34 211/83 99 Mechanical Ventilator 75 Intake and Output 06/05/17 06/06/17 19:00 07:00 Intake Total 2939.562 ml 3199.708 ml Output Total 2425 ml 2475 ml Balance 514.562 ml 724.708 ml Free Water 50 ml IV Total 2279.562 ml 2429.708 ml Tube Feeding 660 ml 660 ml Other 60 ml Output Urine Total 2425 ml 2475 ml Laboratory Tests 06/06/17 04:25: Sodium Level 141, Potassium Level 3.3L, Chloride Level 102, Carbon Dioxide Level 29, Anion Gap 10, Blood Urea Nitrogen 12, Creatinine 0.9, Estimat Glomerular Filtration Rate > 60, Glucose Level 145H, Calcium Level 9.2, Total Bilirubin 0.5, Aspartate Amino Transf (AST/SGOT) 42H, Alanine Aminotransferase ( ALT/SGPT) 92H, Alkaline Phosphatase 62, Total Protein 6.9, Albumin 2.3L, Globulin 4.6, Albumin/Globulin Ratio 0.5L, Triglycerides Level 158H, Cholesterol Level 157, LDL Cholesterol 118H, HDL Cholesterol 21L, Cholesterol/ HDL Ratio 7.5H 06/06/17 11:25: Arterial Blood pH 7.486H, Arterial Blood Partial Pressure CO2 39.1, Arterial Blood Partial Pressure O2 94.5, Arterial Blood HCO3 28.9H, Arterial Blood Oxygen Saturation 97.5, Arterial Blood Base Excess 5.2, Balaji Test Positive Height (Feet): 6 Height (Inches): 1.00 Weight (Pounds): 257 Objective Obese WM Intubated supple Coarse BS RRR soft ND no edema non communicative JAMIN HEARD Jun 06, 2017 21:54
--- NOTE | 2017-06-06 23:52 | Cardiology Progress Note ---
Assessment/Plan Assessment/Plan 1. Asystole cardiac arrest due to respiratory failure, regained pulse after 8 minutes, possible anoxic encephalopathy. 2. Mild cardiomyopathy with LVEF at 45%, + anteroseptal wall hypokinesia, ? ischemic cardiomyopathy vs drug-induced CM. 3. Elevated troponin level likely due to sepsis/tachycardia/pneumonia, not a pattern for ACS, CP free on admission to ED. 4. Accelerated HTN, on metoprolol IVPB. 5. Acute respiratory failure, intubated. 6. Substance abuse 7. Obesity Subjective Subjective Sinus rhythm at 95. Intubated. Objective Last 24 Hour Vital Signs Date Time Temp Pulse Resp B/P (MAP) Pulse Ox O2 Delivery O2 Flow Rate FiO2 06/06/17 23:00 32 06/06/17 23:00 104 28 152/73 96 Mechanical Ventilator 50 06/06/17 22:37 96 32 50 06/06/17 22:30 117 28 131/62 96 Mechanical Ventilator 50 06/06/17 22:00 28 06/06/17 22:00 95 36 158/100 96 Mechanical Ventilator 50 06/06/17 21:30 95 36 154/100 96 Mechanical Ventilator 50 06/06/17 21:00 36 06/06/17 21:00 100 36 172/66 96 Mechanical Ventilator 50 06/06/17 20:53 104 34 50 06/06/17 20:40 94 196/90 06/06/17 20:31 85 169/80 06/06/17 20:30 100.8 96 36 196/90 89 Mechanical Ventilator 50 06/06/17 20:00 50 06/06/17 20:00 100.0 96 36 196/90 89 Mechanical Ventilator 50 06/06/17 20:00 36 06/06/17 19:30 93 35 151/69 99 Mechanical Ventilator 50 06/06/17 19:00 85 26 169/80 99 Mechanical Ventilator 50 06/06/17 19:00 26 06/06/17 18:55 102 33 50 06/06/17 18:30 71 26 177/85 99 Mechanical Ventilator 50 06/06/17 18:00 100 31 185/95 98 Mechanical Ventilator 50 06/06/17 18:00 26 06/06/17 17:44 91 175/93 06/06/17 17:30 82 30 182/84 98 Mechanical Ventilator 50 06/06/17 17:04 80 25 50 06/06/17 17:00 77 25 175/93 100 Mechanical Ventilator 50 06/06/17 17:00 26 06/06/17 16:48 28 06/06/17 16:30 83 24 177/91 100 Mechanical Ventilator 50 06/06/17 16:00 100.0 72 30 172/74 100 Mechanical Ventilator 50 06/06/17 16:00 25 06/06/17 16:00 75 06/06/17 16:00 50 06/06/17 15:30 76 26 175/84 100 Mechanical Ventilator 50 06/06/17 15:00 24 06/06/17 15:00 71 23 50 06/06/17 15:00 115 25 150/72 98 Mechanical Ventilator 50 06/06/17 14:00 67 26 178/77 98 Mechanical Ventilator 50 06/06/17 14:00 26 06/06/17 13:30 79 23 168/86 98 Mechanical Ventilator 50 06/06/17 13:17 93 163/94 06/06/17 13:00 74 22 163/94 98 Mechanical Ventilator 50 06/06/17 13:00 24 06/06/17 12:48 78 20 50 06/06/17 12:30 83 26 161/74 100 Mechanical Ventilator 50 06/06/17 12:00 109 06/06/17 12:00 99.9 96 26 168/74 98 Mechanical Ventilator 50 06/06/17 12:00 26 06/06/17 12:00 50 06/06/17 11:30 77 25 157/71 100 Mechanical Ventilator 50 06/06/17 11:04 74 21 50 06/06/17 11:00 83 21 159/73 100 Mechanical Ventilator 50 06/06/17 11:00 21 06/06/17 10:30 75 30 158/76 100 Mechanical Ventilator 50 06/06/17 10:00 22 06/06/17 10:00 85 26 157/82 99 Mechanical Ventilator 50 06/06/17 09:36 80 27 50 06/06/17 09:30 77 24 189/87 98 Mechanical Ventilator 50 06/06/17 09:00 82 27 151/74 98 Mechanical Ventilator 50 06/06/17 09:00 74 24 150/79 98 Mechanical Ventilator 50 06/06/17 09:00 24 06/06/17 08:30 79 21 157/82 99 Mechanical Ventilator 50 06/06/17 08:22 84 167/77 1/10/18 08:08 50 06/06/17 08:00 82 06/06/17 08:00 21 06/06/17 08:00 50 06/06/17 08:00 99.6 100 24 167/77 100 Mechanical Ventilator 50 06/06/17 07:30 83 17 165/79 100 Mechanical Ventilator 75 06/06/17 07:25 98 32 60 06/06/17 07:00 92 17 173/95 100 Mechanical Ventilator 75 06/06/17 07:00 19 06/06/17 06:30 84 21 165/82 100 Mechanical Ventilator 75 06/06/17 06:00 21 06/06/17 06:00 78 21 146/73 100 Mechanical Ventilator 75 06/06/17 05:30 99 21 148/65 100 Mechanical Ventilator 75 06/06/17 05:02 110 162/74 06/06/17 05:00 21 06/06/17 05:00 86 21 149/65 100 Mechanical Ventilator 75 06/06/17 04:56 110 32 80 06/06/17 04:30 88 21 147/87 100 Mechanical Ventilator 75 06/06/17 04:00 75 06/06/17 04:00 100.1 79 24 162/74 100 Mechanical Ventilator 75 06/06/17 04:00 87 06/06/17 04:00 24 06/06/17 03:30 87 34 171/81 100 Mechanical Ventilator 75 06/06/17 03:00 27 06/06/17 03:00 97 28 104/99 100 Mechanical Ventilator 75 06/06/17 02:47 89 29 80 06/06/17 02:00 30 06/06/17 02:00 100 28 188/79 100 Mechanical Ventilator 75 06/06/17 01:30 81 28 80 06/06/17 01:00 99.9 85 26 157/87 100 Mechanical Ventilator 75 06/06/17 01:00 26 06/06/17 00:57 106 171/81 06/06/17 00:30 113 21 171/81 100 Mechanical Ventilator 75 06/06/17 00:00 86 06/06/17 00:00 100.2 106 28 140/88 98 Mechanical Ventilator 75 06/06/17 00:00 75 06/06/17 00:00 28 Intake and Output 1/9/18 1/10/18 19:00 07:00 Intake Total 2939.562 ml 3199.708 ml Output Total 2425 ml 2475 ml Balance 514.562 ml 724.708 ml Free Water 50 ml IV Total 2279.562 ml 2429.708 ml Tube Feeding 660 ml 660 ml Other 60 ml Output Urine Total 2425 ml 2475 ml 2D Echo: EF 45%, Anteroseptal HK, RVSP 33 mmHg Laboratory Tests Test 06/06/17 04:25 06/06/17 11:25 Sodium Level 141 MMOL/L (136-145) Potassium Level 3.3 MMOL/L (3.5-5.1) L Chloride Level 102 MMOL/L (98-107) Carbon Dioxide Level 29 MMOL/L (21-32) Anion Gap 10 mmol/L (5-15) Blood Urea Nitrogen 12 mg/dL (7-18) Creatinine 0.9 MG/DL (0.55-1.30) Estimat Glomerular Filtration Rate > 60 mL/min (>60) Glucose Level 145 MG/DL (74-106) H Calcium Level 9.2 MG/DL (8.5-10.1) Total Bilirubin 0.5 MG/DL (0.2-1.0) Aspartate Amino Transf (AST/SGOT) 42 U/L (15-37) H Alanine Aminotransferase (ALT/SGPT) 92 U/L (12-78) H Alkaline Phosphatase 62 U/L (46-116) Total Protein 6.9 G/DL (6.4-8.2) Albumin 2.3 G/DL (3.4-5.0) L Globulin 4.6 g/dL Albumin/Globulin Ratio 0.5 (1.0-2.7) L Triglycerides Level 158 MG/DL (30-150) H Cholesterol Level 157 MG/DL (< 200) LDL Cholesterol 118 mg/dL (<100) H HDL Cholesterol 21 MG/DL (40-60) L Cholesterol/HDL Ratio 7.5 (3.3-4.4) H Arterial Blood pH 7.486 (7.350-7.450) Arterial Blood Partial Pressure CO2 39.1 mmHg (35.0-45.0) Arterial Blood Partial Pressure O2 94.5 mmHg (75.0-100.0) Arterial Blood HCO3 28.9 mmol/L (22.0-26.0) H Arterial Blood Oxygen Saturation 97.5 % (92.0-98.0) Arterial Blood Base Excess 5.2 Balaji Test Positive Objective HEENT: Intubated, on mechanical ventilator. NECK: JVP cannot be assessed, No carotid bruit. Carotid upstrokes 2+ bilaterally. CARDIOVASCULAR SYSTEM: Normal S1, S2. Regular rate and rhythm. Tachycardic, No murmurs, gallops, or rubs. PMI is at fourth intercostal space in the midclavicular line. LUNGS: Clear to auscultation bilaterally. ABDOMEN: Soft, nontender, nondistended. No hepatosplenomegaly. Positive bowel sounds. EXTREMITIES: No evidence of edema, clubbing, or cyanosis. CRISTA MURPHY Jun 06, 2017 23:51
[2017-06-07] VITALS (47 sets, daily range): BP systolic 125–213; BP diastolic 63–134
[2017-06-07] MEDS: NS IVPB SCH ×6 (01:09→20:55)
[2017-06-07] MEDS: METOPROLOL TARTRATE IVPB SCH ×6 (01:09→20:55)
[2017-06-07] MEDS: LORazepam Inj 2mg/ml 1ml IV PRN ×4 (03:52→20:14)
[2017-06-07] MEDS: Vancomycin 1gm/D5W 275ml IVPB SCH ×6 (05:59→17:31)
[2017-06-07 08:33] LABS: BASOPHILS % (AUTO) 0.4 % (0.0-2.0); EOSINOPHILS % (AUTO) 0.9 % (0.0-3.0); HEMATOCRIT 37.6 % (42.0-52.0); HEMOGLOBIN 12.6 G/DL (14.2-18.0); LYMPHOCYTES % (AUTO) 11.6 % (20.0-45.0); MEAN CORPUSCULAR VOLUME 89 FL (80-99); MONOCYTES % (AUTO) 8.2 % (1.0-10.0); NEUTROPHILS % (AUTO) 78.9 % (45.0-75.0); PLATELET COUNT 339 K/UL (150-450); RED BLOOD COUNT 4.23 M/UL (4.70-6.10); RED CELL DISTRIBUTION WIDTH 11.4 % (11.6-14.8); WHITE BLOOD COUNT 14.7 K/UL (4.8-10.8)
--- NOTE | 2017-06-07 08:40 | Critical Care Progress Note ---
Assessment/Plan Assessment/Plan IMPRESSION ARF - improved rhabdo- resolved CK elevated Liver enzyme- improving elevated troponin Pneumonia with abnormal CT reduced EF migraines s/p CPA acute encephalopathy with possible encephalitis tachycardia leukocytosis abnormal urine tox screen fevers PLAN labs noted IV antibiotics noted ID evaluation noted head CT and EEG discussed neuro appreciated- for now monitor all noted and appreciated monitor LOC ativan prn feeds per GI fentanyl drip for now acyclovir empiric HIV negative and hepatitis screen negative mother updated in detail- she confirms per texts on Jay's phone that he had taken fentanyl and purchased it night of the code medications/laboratory data/nursing notes/ICU care reviewed in detail note reviewed and edited care discussed with RN and RT ICU time spent 40 minutes Critical Care - Subjective Interval Events: care noted and reviewed no significant change neuro noted ROS Limited/Unobtainable: Yes Condition: critical EKG Rhythm: Sinus Rhythm Residuals: minimal Tube Feeding Tolerated: yes I&O: Intake and Output 06/06/17 06/07/17 19:00 07:00 Intake Total 3183.346 ml 2999.070 ml Output Total 2825 ml 2060 ml Balance 358.346 ml 939.070 ml IV Total 2523.346 ml 2279.070 ml Tube Feeding 660 ml 660 ml Other 60 ml Output Urine Total 2825 ml 2060 ml Critical Care - Objective ET-Tube: 7.5 ET Position: 24 Last 24 Hour Vital Signs Date Time Temp Pulse Resp B/P (MAP) Pulse Ox O2 Delivery O2 Flow Rate FiO2 06/07/17 08:31 50 06/07/17 07:30 101 31 150/88 98 Mechanical Ventilator 100 06/07/17 07:04 92 25 45 06/07/17 07:00 95 30 130/80 99 Mechanical Ventilator 50 06/07/17 07:00 27 06/07/17 06:30 100.0 105 32 135/88 97 Mechanical Ventilator 50 06/07/17 06:00 93 26 146/76 99 Mechanical Ventilator 50 06/07/17 06:00 26 06/07/17 05:30 99 37 181/88 93 Mechanical Ventilator 50 06/07/17 05:00 28 06/07/17 04:55 121 166/78 06/07/17 04:36 102 32 50 06/07/17 04:30 100.2 111 37 166/78 93 Mechanical Ventilator 50 06/07/17 04:00 50 06/07/17 04:00 95 06/07/17 04:00 38 06/07/17 04:00 103 37 186/107 93 Mechanical Ventilator 50 06/07/17 03:30 99 37 213/134 99 Mechanical Ventilator 50 06/07/17 03:27 94 31 50 06/07/17 03:00 31 06/07/17 03:00 93 28 153/83 98 Mechanical Ventilator 50 06/07/17 02:30 97 28 152/80 98 Mechanical Ventilator 50 06/07/17 02:00 93 28 156/73 98 Mechanical Ventilator 50 06/07/17 02:00 31 06/07/17 01:30 90 28 134/64 98 Mechanical Ventilator 50 06/07/17 01:09 97 156/78 06/07/17 01:06 97 31 50 06/07/17 01:00 99 28 174/93 98 Mechanical Ventilator 50 06/07/17 01:00 32 06/07/17 00:30 99 28 146/78 98 Mechanical Ventilator 50 06/07/17 00:00 101 28 156/78 96 Mechanical Ventilator 50 06/07/17 00:00 50 06/07/17 00:00 28 06/06/17 23:53 98 06/06/17 23:30 100.2 103 32 184/53 93 Mechanical Ventilator 50 06/06/17 23:00 32 06/06/17 23:00 104 28 152/73 96 Mechanical Ventilator 50 06/06/17 22:37 96 32 50 06/06/17 22:30 117 28 131/62 96 Mechanical Ventilator 50 06/06/17 22:00 28 06/06/17 22:00 95 36 158/100 96 Mechanical Ventilator 50 06/06/17 21:30 95 36 154/100 96 Mechanical Ventilator 50 06/06/17 21:00 36 06/06/17 21:00 100 36 172/66 96 Mechanical Ventilator 50 06/06/17 20:53 104 34 50 06/06/17 20:40 94 196/90 06/06/17 20:31 85 169/80 06/06/17 20:30 100.8 96 36 196/90 89 Mechanical Ventilator 50 06/06/17 20:00 50 06/06/17 20:00 100.0 96 36 196/90 89 Mechanical Ventilator 50 06/06/17 20:00 96 06/06/17 20:00 36 06/06/17 19:30 93 35 151/69 99 Mechanical Ventilator 50 06/06/17 19:00 85 26 169/80 99 Mechanical Ventilator 50 06/06/17 19:00 26 06/06/17 18:55 102 33 50 06/06/17 18:30 71 26 177/85 99 Mechanical Ventilator 50 06/06/17 18:00 100 31 185/95 98 Mechanical Ventilator 50 06/06/17 18:00 26 06/06/17 17:44 91 175/93 06/06/17 17:30 82 30 182/84 98 Mechanical Ventilator 50 06/06/17 17:04 80 25 50 06/06/17 17:00 77 25 175/93 100 Mechanical Ventilator 50 06/06/17 17:00 26 06/06/17 16:48 28 06/06/17 16:30 83 24 177/91 100 Mechanical Ventilator 50 06/06/17 16:00 100.0 72 30 172/74 100 Mechanical Ventilator 50 06/06/17 16:00 25 06/06/17 16:00 75 06/06/17 16:00 50 06/06/17 15:30 76 26 175/84 100 Mechanical Ventilator 50 06/06/17 15:00 24 06/06/17 15:00 71 23 50 06/06/17 15:00 115 25 150/72 98 Mechanical Ventilator 50 06/06/17 14:00 67 26 178/77 98 Mechanical Ventilator 50 06/06/17 14:00 26 06/06/17 13:30 79 23 168/86 98 Mechanical Ventilator 50 06/06/17 13:17 93 163/94 06/06/17 13:00 74 22 163/94 98 Mechanical Ventilator 50 06/06/17 13:00 24 06/06/17 12:48 78 20 50 06/06/17 12:30 83 26 161/74 100 Mechanical Ventilator 50 06/06/17 12:00 109 06/06/17 12:00 99.9 96 26 168/74 98 Mechanical Ventilator 50 06/06/17 12:00 26 06/06/17 12:00 50 06/06/17 11:30 77 25 157/71 100 Mechanical Ventilator 50 06/06/17 11:04 74 21 50 06/06/17 11:00 83 21 159/73 100 Mechanical Ventilator 50 06/06/17 11:00 21 06/06/17 10:30 75 30 158/76 100 Mechanical Ventilator 50 06/06/17 10:00 22 06/06/17 10:00 85 26 157/82 99 Mechanical Ventilator 50 06/06/17 09:36 80 27 50 06/06/17 09:30 77 24 189/87 98 Mechanical Ventilator 50 06/06/17 09:00 82 27 151/74 98 Mechanical Ventilator 50 06/06/17 09:00 74 24 150/79 98 Mechanical Ventilator 50 06/06/17 09:00 24 Labs: Labs Test 06/04/17 09:15 06/05/17 06:00 06/05/17 15:00 06/06/17 04:25 Vancomycin Level Trough 7.9 ug/mL (5.0-12.0) 20.0 ug/mL (5.0-12.0) White Blood Count 16.5 K/UL (4.8-10.8) Red Blood Count 4.54 M/UL (4.70-6.10) Hemoglobin 13.4 G/DL (14.2-18.0) Hematocrit 40.5 % (42.0-52.0) Mean Corpuscular Volume 89 FL (80-99) Mean Corpuscular Hemoglobin 29.6 PG (27.0-31.0) Mean Corpuscular Hemoglobin Concent 33.2 G/DL (32.0-36.0) Red Cell Distribution Width 11.9 % (11.6-14.8) Platelet Count 263 K/UL (150-450) Mean Platelet Volume 7.4 FL (6.5-10.1) Neutrophils (%) (Auto) 77.1 % (45.0-75.0) Lymphocytes (%) (Auto) 14.0 % (20.0-45.0) Monocytes (%) (Auto) 7.4 % (1.0-10.0) Eosinophils (%) (Auto) 1.1 % (0.0-3.0) Basophils (%) (Auto) 0.4 % (0.0-2.0) Sodium Level 138 MMOL/L (136-145) 141 MMOL/L (136-145) Potassium Level 3.5 MMOL/L (3.5-5.1) 3.3 MMOL/L (3.5-5.1) Chloride Level 102 MMOL/L (98-107) 102 MMOL/L (98-107) Carbon Dioxide Level 28 MMOL/L (21-32) 29 MMOL/L (21-32) Anion Gap 8 mmol/L (5-15) 10 mmol/L (5-15) Blood Urea Nitrogen 13 mg/dL (7-18) 12 mg/dL (7-18) Creatinine 1.0 MG/DL (0.55-1.30) 0.9 MG/DL (0.55-1.30) Estimat Glomerular Filtration Rate > 60 mL/min (>60) > 60 mL/min (>60) Glucose Level 149 MG/DL (74-106) 145 MG/DL (74-106) Calcium Level 7.8 MG/DL (8.5-10.1) 9.2 MG/DL (8.5-10.1) Magnesium Level 1.9 MG/DL (1.8-2.4) Total Bilirubin 0.5 MG/DL (0.2-1.0) 0.5 MG/DL (0.2-1.0) Aspartate Amino Transf (AST/SGOT) 39 U/L (15-37) 42 U/L (15-37) Alanine Aminotransferase (ALT/SGPT) 107 U/L (12-78) 92 U/L (12-78) Alkaline Phosphatase 59 U/L (46-116) 62 U/L (46-116) Total Protein 6.9 G/DL (6.4-8.2) 6.9 G/DL (6.4-8.2) Albumin 2.4 G/DL (3.4-5.0) 2.3 G/DL (3.4-5.0) Globulin 4.5 g/dL 4.6 g/dL Albumin/Globulin Ratio 0.5 (1.0-2.7) 0.5 (1.0-2.7) Triglycerides Level 158 MG/DL (30-150) Cholesterol Level 157 MG/DL (< 200) LDL Cholesterol 118 mg/dL (<100) HDL Cholesterol 21 MG/DL (40-60) Cholesterol/HDL Ratio 7.5 (3.3-4.4) Test 06/06/17 11:25 06/07/17 08:10 Arterial Blood pH 7.486 (7.350-7.450) Arterial Blood Partial Pressure CO2 39.1 mmHg (35.0-45.0) Arterial Blood Partial Pressure O2 94.5 mmHg (75.0-100.0) Arterial Blood HCO3 28.9 mmol/L (22.0-26.0) Arterial Blood Oxygen Saturation 97.5 % (92.0-98.0) Arterial Blood Base Excess 5.2 Balaji Test Positive White Blood Count 14.7 K/UL (4.8-10.8) Red Blood Count 4.23 M/UL (4.70-6.10) Hemoglobin 12.6 G/DL (14.2-18.0) Hematocrit 37.6 % (42.0-52.0) Mean Corpuscular Volume 89 FL (80-99) Mean Corpuscular Hemoglobin 29.8 PG (27.0-31.0) Mean Corpuscular Hemoglobin Concent 33.5 G/DL (32.0-36.0) Red Cell Distribution Width 11.4 % (11.6-14.8) Platelet Count 339 K/UL (150-450) Mean Platelet Volume 6.1 FL (6.5-10.1) Neutrophils (%) (Auto) 78.9 % (45.0-75.0) Lymphocytes (%) (Auto) 11.6 % (20.0-45.0) Monocytes (%) (Auto) 8.2 % (1.0-10.0) Eosinophils (%) (Auto) 0.9 % (0.0-3.0) Basophils (%) (Auto) 0.4 % (0.0-2.0) Objective: WDWN NAD improved breath sounds bilaterally without rhonchi or wheeze [id number] tachy without MRG NABS nontender no HSM no CCE nonfocal sedated ETT in place no rash MEGAN العلي Jun 07, 2017 08:40
[2017-06-07 08:44] LABS: ALANINE AMINOTRANSFERASE 68 U/L (12-78); ALBUMIN 2.3 G/DL (3.4-5.0); ALBUMIN/GLOBULIN RATIO 0.5 (1.0-2.7); ALKALINE PHOSPHATASE 55 U/L (46-116); ANION GAP 6 mmol/L (5-15); ASPARTATE AMINO TRANSFERASE 38 U/L (15-37); BILIRUBIN,TOTAL 0.5 MG/DL (0.2-1.0); BLOOD UREA NITROGEN 14 mg/dL (7-18); CALCIUM 8.9 MG/DL (8.5-10.1); CARBON DIOXIDE 32 MMOL/L (21-32); CHLORIDE 102 MMOL/L (98-107); POTASSIUM 3.4 MMOL/L (3.5-5.1); SODIUM 140 MMOL/L (136-145)
[2017-06-07] MEDS: levETIRAcetam 1,000mg/NS100ml 100 ML IVPB SCH ×2 (08:48→20:31)
[2017-06-07] MEDS: Cefepime HCl 2 GM in D5W 55 ML IVPB SCH ×2 (08:48→20:31)
[2017-06-07] MEDS: Metoprolol 25mg tab ORAL SCH ×2 (08:56→20:54)
[2017-06-07] MEDS: Aspirin EC 81mg tab ORAL SCH (08:56)
[2017-06-07] MEDS: Heparin 5000 units/ml inj SUBQ SCH ×2 (09:00→20:30)
--- NOTE | 2017-06-07 09:21 | Infectious Diseases Prog Note ---
Assessment/Plan Assessment/Plan A 1. pneumonia 2. Bacteremia 3. renal failure 4. rhabdomyolysis 5. respiratory failure 6. s/p cardiac arrest 7. Anoxic encephalopathy 8. CoNS on blood culture P 1. continue Vancomycin & Zosyn 2. repeat blood cultures 3. HIV test was negative Subjective ROS Limited/Unobtainable: Yes Constitutional: Reports: fever, other - T gna=231.8 Allergies: Coded Allergies: No Known Allergies (Unverified , 05/26/17) Objective Vital Signs Last 24 Hour Vital Signs Date Time Temp Pulse Resp B/P (MAP) Pulse Ox O2 Delivery O2 Flow Rate FiO2 06/07/17 09:00 97 140/72 06/07/17 08:56 103 140/72 06/07/17 08:31 50 06/07/17 08:30 99 18 140/72 100 Mechanical Ventilator 100 06/07/17 08:00 100.3 98 20 132/76 100 Mechanical Ventilator 100 06/07/17 07:30 101 31 150/88 98 Mechanical Ventilator 100 06/07/17 07:04 92 25 45 06/07/17 07:00 95 30 130/80 99 Mechanical Ventilator 50 06/07/17 07:00 27 06/07/17 06:30 100.0 105 32 135/88 97 Mechanical Ventilator 50 06/07/17 06:00 93 26 146/76 99 Mechanical Ventilator 50 06/07/17 06:00 26 06/07/17 05:30 99 37 181/88 93 Mechanical Ventilator 50 06/07/17 05:00 28 06/07/17 04:55 121 166/78 06/07/17 04:36 102 32 50 06/07/17 04:30 100.2 111 37 166/78 93 Mechanical Ventilator 50 06/07/17 04:00 50 06/07/17 04:00 95 06/07/17 04:00 38 06/07/17 04:00 103 37 186/107 93 Mechanical Ventilator 50 06/07/17 03:30 99 37 213/134 99 Mechanical Ventilator 50 06/07/17 03:27 94 31 50 06/07/17 03:00 31 06/07/17 03:00 93 28 153/83 98 Mechanical Ventilator 50 06/07/17 02:30 97 28 152/80 98 Mechanical Ventilator 50 06/07/17 02:00 93 28 156/73 98 Mechanical Ventilator 50 06/07/17 02:00 31 06/07/17 01:30 90 28 134/64 98 Mechanical Ventilator 50 06/07/17 01:09 97 156/78 06/07/17 01:06 97 31 50 06/07/17 01:00 99 28 174/93 98 Mechanical Ventilator 50 06/07/17 01:00 32 06/07/17 00:30 99 28 146/78 98 Mechanical Ventilator 50 06/07/17 00:00 101 28 156/78 96 Mechanical Ventilator 50 06/07/17 00:00 50 06/07/17 00:00 28 06/06/17 23:53 98 06/06/17 23:30 100.2 103 32 184/53 93 Mechanical Ventilator 50 06/06/17 23:00 32 06/06/17 23:00 104 28 152/73 96 Mechanical Ventilator 50 06/06/17 22:37 96 32 50 06/06/17 22:30 117 28 131/62 96 Mechanical Ventilator 50 06/06/17 22:00 28 06/06/17 22:00 95 36 158/100 96 Mechanical Ventilator 50 06/06/17 21:30 95 36 154/100 96 Mechanical Ventilator 50 06/06/17 21:00 36 06/06/17 21:00 100 36 172/66 96 Mechanical Ventilator 50 06/06/17 20:53 104 34 50 06/06/17 20:40 94 196/90 06/06/17 20:31 85 169/80 06/06/17 20:30 100.8 96 36 196/90 89 Mechanical Ventilator 50 06/06/17 20:00 50 06/06/17 20:00 100.0 96 36 196/90 89 Mechanical Ventilator 50 06/06/17 20:00 96 06/06/17 20:00 36 06/06/17 19:30 93 35 151/69 99 Mechanical Ventilator 50 06/06/17 19:00 85 26 169/80 99 Mechanical Ventilator 50 06/06/17 19:00 26 06/06/17 18:55 102 33 50 06/06/17 18:30 71 26 177/85 99 Mechanical Ventilator 50 06/06/17 18:00 100 31 185/95 98 Mechanical Ventilator 50 06/06/17 18:00 26 06/06/17 17:44 91 175/93 06/06/17 17:30 82 30 182/84 98 Mechanical Ventilator 50 06/06/17 17:04 80 25 50 06/06/17 17:00 77 25 175/93 100 Mechanical Ventilator 50 06/06/17 17:00 26 06/06/17 16:48 28 06/06/17 16:30 83 24 177/91 100 Mechanical Ventilator 50 06/06/17 16:00 100.0 72 30 172/74 100 Mechanical Ventilator 50 06/06/17 16:00 25 06/06/17 16:00 75 06/06/17 16:00 50 06/06/17 15:30 76 26 175/84 100 Mechanical Ventilator 50 06/06/17 15:00 24 06/06/17 15:00 71 23 50 06/06/17 15:00 115 25 150/72 98 Mechanical Ventilator 50 06/06/17 14:00 67 26 178/77 98 Mechanical Ventilator 50 06/06/17 14:00 26 06/06/17 13:30 79 23 168/86 98 Mechanical Ventilator 50 06/06/17 13:17 93 163/94 06/06/17 13:00 74 22 163/94 98 Mechanical Ventilator 50 06/06/17 13:00 24 06/06/17 12:48 78 20 50 06/06/17 12:30 83 26 161/74 100 Mechanical Ventilator 50 06/06/17 12:00 109 06/06/17 12:00 99.9 96 26 168/74 98 Mechanical Ventilator 50 06/06/17 12:00 26 06/06/17 12:00 50 06/06/17 11:30 77 25 157/71 100 Mechanical Ventilator 50 06/06/17 11:04 74 21 50 06/06/17 11:00 83 21 159/73 100 Mechanical Ventilator 50 06/06/17 11:00 21 06/06/17 10:30 75 30 158/76 100 Mechanical Ventilator 50 06/06/17 10:00 22 06/06/17 10:00 85 26 157/82 99 Mechanical Ventilator 50 06/06/17 09:36 80 27 50 06/06/17 09:30 77 24 189/87 98 Mechanical Ventilator 50 Height (Feet): 6 Height (Inches): 1.00 Weight (Pounds): 260 HEENT: other - orally intubated Respiratory/Chest: lungs clear, other - on ventilator Cardiovascular: tachycardia, other - R subclavian line Abdomen: soft, non tender Extremities: other - some dependent edema Neurologic/Psychiatric: unresponsiveness, other - on Fentanyl, Laboratory Tests Test 06/06/17 11:25 06/07/17 08:10 Arterial Blood pH 7.486 (7.350-7.450) Arterial Blood Partial Pressure CO2 39.1 mmHg (35.0-45.0) Arterial Blood Partial Pressure O2 94.5 mmHg (75.0-100.0) Arterial Blood HCO3 28.9 mmol/L (22.0-26.0) H Arterial Blood Oxygen Saturation 97.5 % (92.0-98.0) Arterial Blood Base Excess 5.2 Balaji Test Positive White Blood Count 14.7 K/UL (4.8-10.8) H Red Blood Count 4.23 M/UL (4.70-6.10) L Hemoglobin 12.6 G/DL (14.2-18.0) L Hematocrit 37.6 % (42.0-52.0) L Mean Corpuscular Volume 89 FL (80-99) Mean Corpuscular Hemoglobin 29.8 PG (27.0-31.0) Mean Corpuscular Hemoglobin Concent 33.5 G/DL (32.0-36.0) Red Cell Distribution Width 11.4 % (11.6-14.8) L Platelet Count 339 K/UL (150-450) Mean Platelet Volume 6.1 FL (6.5-10.1) L Neutrophils (%) (Auto) 78.9 % (45.0-75.0) H Lymphocytes (%) (Auto) 11.6 % (20.0-45.0) L Monocytes (%) (Auto) 8.2 % (1.0-10.0) Eosinophils (%) (Auto) 0.9 % (0.0-3.0) Basophils (%) (Auto) 0.4 % (0.0-2.0) Sodium Level 140 MMOL/L (136-145) Potassium Level 3.4 MMOL/L (3.5-5.1) L Chloride Level 102 MMOL/L (98-107) Carbon Dioxide Level 32 MMOL/L (21-32) Anion Gap 6 mmol/L (5-15) Blood Urea Nitrogen 14 mg/dL (7-18) Creatinine 1.0 MG/DL (0.55-1.30) Estimat Glomerular Filtration Rate > 60 mL/min (>60) Glucose Level 152 MG/DL (74-106) H Calcium Level 8.9 MG/DL (8.5-10.1) Total Bilirubin 0.5 MG/DL (0.2-1.0) Aspartate Amino Transf (AST/SGOT) 38 U/L (15-37) H Alanine Aminotransferase (ALT/SGPT) 68 U/L (12-78) Alkaline Phosphatase 55 U/L (46-116) Total Protein 6.8 G/DL (6.4-8.2) Albumin 2.3 G/DL (3.4-5.0) L Globulin 4.5 g/dL Albumin/Globulin Ratio 0.5 (1.0-2.7) L Current Medications Medications (Trade) Dose Ordered Sig/Brittny Route PRN Reason Start Time Stop Time Status Last Admin Dose Admin Acetaminophen (Tylenol) 650 mg Q4H PRN ORAL Mild Pain/Temp > 100.5 06/02/17 20:45 07/02/17 20:44 06/05/17 16:40 Acetaminophen/ Butalbital/ Caffeine (Fioricet) 1 tab Q6H PRN ORAL For Pain 06/01/17 04:58 06/30/17 04:57 Aspirin (Ecotrin) 81 mg DAILY ORAL 06/01/17 09:00 06/29/17 08:59 06/07/17 08:56 Cefepime HCl 2 gm/ Dextrose 55 ml @ 110 mls/hr EVERY 12 HOURS IVPB 06/05/17 13:30 06/12/17 13:29 06/07/17 08:48 Chlorhexidine Gluconate (Linda-Hex 2%) 1 applic DAILY@2000 TOPIC 06/04/17 20:00 07/04/17 19:59 06/06/17 19:51 Dicyclomine HCl (Bentyl) 20 mg TIDPRN PRN ORAL Abdominal cramps 06/01/17 04:59 06/26/17 04:58 Fentanyl Citrate 1000 mcg/Sodium Chloride 100 ml @ 0 mls/hr Q24H IV 06/03/17 04:45 06/10/17 04:44 06/06/17 16:48 Heparin Sodium (Porcine) (Heparin 5000 units/ml) 5,000 units EVERY 12 HOURS SUBQ 06/04/17 09:00 07/04/17 08:59 06/06/17 20:36 Ibuprofen (Motrin) 600 mg Q4H PRN ORAL For Pain 06/03/17 04:45 07/03/17 04:44 06/04/17 13:03 Levetiracetam 100 ml @ 400 mls/hr Q12HR IVPB 06/03/17 11:00 07/03/17 10:59 06/07/17 08:48 Lorazepam (Ativan 2mg/ml 1ml) 1 mg Q3HR PRN IV For Anxiety 06/02/17 08:30 06/09/17 08:29 06/07/17 08:43 Metoprolol Tartrate (Lopressor) 25 mg Q12HR ORAL 06/01/17 09:00 06/27/17 22:59 06/07/17 08:56 Metoprolol Tartrate 5 mg/ Sodium Chloride 115 ml @ 230 mls/hr Q4HR IVPB 06/05/17 21:00 07/05/17 20:59 06/07/17 04:55 Pantoprazole (Protonix) 40 mg DAILY ORAL 06/01/17 09:00 06/26/17 08:59 06/07/17 08:56 Potassium Chloride (K-Dur) 30 meq ONCE ONCE NG 06/07/17 09:00 06/07/17 09:01 UNV Sodium Chloride 1,000 ml @ 100 mls/hr Q10H IV 06/01/17 05:00 06/29/17 08:14 06/07/17 01:09 Thiamine HCl 100 mg/Dextrose 56 ml @ 112 mls/hr Q24H IVPB 06/03/17 11:00 07/03/17 10:59 06/06/17 13:16 Topiramate (Topamax) 25 mg QHS ORAL 06/01/17 21:00 06/30/17 20:59 06/06/17 20:35 Vancomycin HCl (Vanco rx to dose) 1 ea DAILY PRN MISC Per rx protocol 06/02/17 20:45 07/02/17 20:44 Vancomycin HCl 1 gm/Dextrose 275 ml @ 183.708 mls/hr Q6H IVPB 06/05/17 18:00 06/10/17 17:59 06/07/17 05:59 CHRISS LEI Jun 07, 2017 09:21
--- NOTE | 2017-06-07 11:00 | General Progress Note ---
Assessment/Plan Assessment/Plan Assessment - s/p arrest - s/p Rhabdo - resolving - Coma - s/p yoly - diverticulosis - recent PNA and hemoptysis Recommendations - supportive ICU care - Continue TF - IVF - Follow LFT - PPI - may need PEG Subjective Allergies: Coded Allergies: No Known Allergies (Unverified , 05/26/17) Subjective above noted seen in ICU with family at bedside non communicative intubated tolerating TF Objective Last 24 Hour Vital Signs Date Time Temp Pulse Resp B/P (MAP) Pulse Ox O2 Delivery O2 Flow Rate FiO2 06/07/17 10:30 95 20 135/78 100 Mechanical Ventilator 100 06/07/17 10:01 18 06/07/17 10:00 91 27 138/78 100 Mechanical Ventilator 100 06/07/17 09:30 89 22 139/84 100 Mechanical Ventilator 100 06/07/17 09:18 93 22 100 06/07/17 09:00 98 32 131/71 100 Mechanical Ventilator 100 06/07/17 09:00 97 140/72 06/07/17 09:00 39 06/07/17 08:56 103 140/72 06/07/17 08:31 50 06/07/17 08:30 99 18 140/72 100 Mechanical Ventilator 100 06/07/17 08:00 96 06/07/17 08:00 49 06/07/17 08:00 100.3 98 20 132/76 100 Mechanical Ventilator 100 06/07/17 07:30 101 31 150/88 98 Mechanical Ventilator 100 06/07/17 07:04 92 25 45 06/07/17 07:00 95 30 130/80 99 Mechanical Ventilator 50 06/07/17 07:00 27 06/07/17 06:30 100.0 105 32 135/88 97 Mechanical Ventilator 50 06/07/17 06:00 93 26 146/76 99 Mechanical Ventilator 50 06/07/17 06:00 26 06/07/17 05:30 99 37 181/88 93 Mechanical Ventilator 50 06/07/17 05:00 28 06/07/17 04:55 121 166/78 06/07/17 04:36 102 32 50 06/07/17 04:30 100.2 111 37 166/78 93 Mechanical Ventilator 50 06/07/17 04:00 50 06/07/17 04:00 95 06/07/17 04:00 38 06/07/17 04:00 103 37 186/107 93 Mechanical Ventilator 50 06/07/17 03:30 99 37 213/134 99 Mechanical Ventilator 50 06/07/17 03:27 94 31 50 06/07/17 03:00 31 06/07/17 03:00 93 28 153/83 98 Mechanical Ventilator 50 06/07/17 02:30 97 28 152/80 98 Mechanical Ventilator 50 06/07/17 02:00 93 28 156/73 98 Mechanical Ventilator 50 06/07/17 02:00 31 06/07/17 01:30 90 28 134/64 98 Mechanical Ventilator 50 06/07/17 01:09 97 156/78 06/07/17 01:06 97 31 50 06/07/17 01:00 99 28 174/93 98 Mechanical Ventilator 50 06/07/17 01:00 32 06/07/17 00:30 99 28 146/78 98 Mechanical Ventilator 50 06/07/17 00:00 101 28 156/78 96 Mechanical Ventilator 50 06/07/17 00:00 50 06/07/17 00:00 28 06/06/17 23:53 98 06/06/17 23:30 100.2 103 32 184/53 93 Mechanical Ventilator 50 06/06/17 23:00 32 06/06/17 23:00 104 28 152/73 96 Mechanical Ventilator 50 06/06/17 22:37 96 32 50 06/06/17 22:30 117 28 131/62 96 Mechanical Ventilator 50 06/06/17 22:00 28 06/06/17 22:00 95 36 158/100 96 Mechanical Ventilator 50 06/06/17 21:30 95 36 154/100 96 Mechanical Ventilator 50 06/06/17 21:00 36 06/06/17 21:00 100 36 172/66 96 Mechanical Ventilator 50 06/06/17 20:53 104 34 50 06/06/17 20:40 94 196/90 06/06/17 20:31 85 169/80 06/06/17 20:30 100.8 96 36 196/90 89 Mechanical Ventilator 50 06/06/17 20:00 50 06/06/17 20:00 100.0 96 36 196/90 89 Mechanical Ventilator 50 06/06/17 20:00 96 06/06/17 20:00 36 06/06/17 19:30 93 35 151/69 99 Mechanical Ventilator 50 06/06/17 19:00 85 26 169/80 99 Mechanical Ventilator 50 06/06/17 19:00 26 06/06/17 18:55 102 33 50 06/06/17 18:30 71 26 177/85 99 Mechanical Ventilator 50 06/06/17 18:00 100 31 185/95 98 Mechanical Ventilator 50 06/06/17 18:00 26 06/06/17 17:44 91 175/93 06/06/17 17:30 82 30 182/84 98 Mechanical Ventilator 50 06/06/17 17:04 80 25 50 06/06/17 17:00 77 25 175/93 100 Mechanical Ventilator 50 06/06/17 17:00 26 06/06/17 16:48 28 06/06/17 16:30 83 24 177/91 100 Mechanical Ventilator 50 06/06/17 16:00 100.0 72 30 172/74 100 Mechanical Ventilator 50 06/06/17 16:00 25 06/06/17 16:00 75 06/06/17 16:00 50 06/06/17 15:30 76 26 175/84 100 Mechanical Ventilator 50 06/06/17 15:00 24 06/06/17 15:00 71 23 50 06/06/17 15:00 115 25 150/72 98 Mechanical Ventilator 50 06/06/17 14:00 67 26 178/77 98 Mechanical Ventilator 50 06/06/17 14:00 26 06/06/17 13:30 79 23 168/86 98 Mechanical Ventilator 50 06/06/17 13:17 93 163/94 06/06/17 13:00 74 22 163/94 98 Mechanical Ventilator 50 06/06/17 13:00 24 06/06/17 12:48 78 20 50 06/06/17 12:30 83 26 161/74 100 Mechanical Ventilator 50 06/06/17 12:00 109 06/06/17 12:00 99.9 96 26 168/74 98 Mechanical Ventilator 50 06/06/17 12:00 26 06/06/17 12:00 50 06/06/17 11:30 77 25 157/71 100 Mechanical Ventilator 50 06/06/17 11:04 74 21 50 06/06/17 11:00 83 21 159/73 100 Mechanical Ventilator 50 06/06/17 11:00 21 Intake and Output 06/06/17 06/07/17 19:00 07:00 Intake Total 3183.346 ml 2999.070 ml Output Total 2825 ml 2060 ml Balance 358.346 ml 939.070 ml IV Total 2523.346 ml 2279.070 ml Tube Feeding 660 ml 660 ml Other 60 ml Output Urine Total 2825 ml 2060 ml Laboratory Tests 06/06/17 11:25: Arterial Blood pH 7.486H, Arterial Blood Partial Pressure CO2 39.1, Arterial Blood Partial Pressure O2 94.5, Arterial Blood HCO3 28.9H, Arterial Blood Oxygen Saturation 97.5, Arterial Blood Base Excess 5.2, Balaji Test Positive 06/07/17 08:10: White Blood Count 14.7H, Red Blood Count 4.23L, Hemoglobin 12.6L, Hematocrit 37.6L, Mean Corpuscular Volume 89, Mean Corpuscular Hemoglobin 29.8, Mean Corpuscular Hemoglobin Concent 33.5, Red Cell Distribution Width 11.4L, Platelet Count 339, Mean Platelet Volume 6.1L, Neutrophils (%) (Auto) 78.9H, Lymphocytes (%) (Auto) 11.6L, Monocytes (%) (Auto) 8.2, Eosinophils (%) (Auto) 0.9, Basophils (%) (Auto) 0.4, Sodium Level 140, Potassium Level 3.4L, Chloride Level 102, Carbon Dioxide Level 32, Anion Gap 6, Blood Urea Nitrogen 14, Creatinine 1.0, Estimat Glomerular Filtration Rate > 60, Glucose Level 152H, Calcium Level 8.9, Total Bilirubin 0.5, Aspartate Amino Transf (AST/SGOT) 38H, Alanine Aminotransferase (ALT/SGPT) 68, Alkaline Phosphatase 55, Total Protein 6.8, Albumin 2.3L, Globulin 4.5, Albumin/Globulin Ratio 0.5L Height (Feet): 6 Height (Inches): 1.00 Weight (Pounds): 260 Objective Obese WM Intubated supple Coarse BS RRR soft ND no edema non communicative JAMIN HEARD Jun 07, 2017 11:00
[2017-06-07] MEDS: Thiamine HCl 100 MG in D5W 55 ML IVPB SCH (12:11)
--- NOTE | 2017-06-07 13:21 | Neurology Progress Note ---
Interim History Interim History ROS Limited/Unobtainable: Yes Complaints: comatose Events: --decerebrate symmetric, sedated with Fentanyl Objective Physical Exam Last Vital Signs Date Time Temp Pulse Resp B/P (MAP) Pulse Ox O2 Delivery O2 Flow Rate FiO2 06/07/17 13:00 83 144/73 06/07/17 12:30 20 100 Mechanical Ventilator 80 06/07/17 12:14 101.3 06/01/17 00:00 4.0 Laboratory Tests Test 06/07/17 08:10 White Blood Count 14.7 K/UL (4.8-10.8) H Red Blood Count 4.23 M/UL (4.70-6.10) L Hemoglobin 12.6 G/DL (14.2-18.0) L Hematocrit 37.6 % (42.0-52.0) L Mean Corpuscular Volume 89 FL (80-99) Mean Corpuscular Hemoglobin 29.8 PG (27.0-31.0) Mean Corpuscular Hemoglobin Concent 33.5 G/DL (32.0-36.0) Red Cell Distribution Width 11.4 % (11.6-14.8) L Platelet Count 339 K/UL (150-450) Mean Platelet Volume 6.1 FL (6.5-10.1) L Neutrophils (%) (Auto) 78.9 % (45.0-75.0) H Lymphocytes (%) (Auto) 11.6 % (20.0-45.0) L Monocytes (%) (Auto) 8.2 % (1.0-10.0) Eosinophils (%) (Auto) 0.9 % (0.0-3.0) Basophils (%) (Auto) 0.4 % (0.0-2.0) Sodium Level 140 MMOL/L (136-145) Potassium Level 3.4 MMOL/L (3.5-5.1) L Chloride Level 102 MMOL/L (98-107) Carbon Dioxide Level 32 MMOL/L (21-32) Anion Gap 6 mmol/L (5-15) Blood Urea Nitrogen 14 mg/dL (7-18) Creatinine 1.0 MG/DL (0.55-1.30) Estimat Glomerular Filtration Rate > 60 mL/min (>60) Glucose Level 152 MG/DL (74-106) H Calcium Level 8.9 MG/DL (8.5-10.1) Total Bilirubin 0.5 MG/DL (0.2-1.0) Aspartate Amino Transf (AST/SGOT) 38 U/L (15-37) H Alanine Aminotransferase (ALT/SGPT) 68 U/L (12-78) Alkaline Phosphatase 55 U/L (46-116) Total Protein 6.8 G/DL (6.4-8.2) Albumin 2.3 G/DL (3.4-5.0) L Globulin 4.5 g/dL Albumin/Globulin Ratio 0.5 (1.0-2.7) L General: other - intubated obese sweating Head: normocophalic, atraumatic, other - flushed face/upper torso now on ice blanket for fevers Neck: no rigidity Neurologic Exam Mental Status: other - no responces ex decerebrate on stimuly Speech: other Language: other Cranial Nerve II: fundus normal Cranial Nerves III, IV, : other - p5mm sluggish/ EOM intact Cranial Nerve V: other Cranial Nerve VII: no facial asymmetry Cranial Nerve VIII: no nystagmus Cranial Nerve IX: other - no gag Cranial Nerve X: other Cranial Nerve XI: other Cranial Nerve XII: no tongue atrophy/fasciculations Motor System: other - diffuse rigidity no spont movement Sensory: other Coordination: other Deep Tendon Reflexes: 0 bicep (L), 0 bicep (R), 0 tricep (L), 0 tricep (R), 0 brachioradialis (L), 0 brachioradialis (R), 0 knee (L), 0 knee (R), 0 ankle (L) , 0 ankle (R) Reflexes: mute plantar (L), mute plantar (R) Stance: other Gait: other Impression/Recommendations Problems: (1) s/p full arrest (2) Anoxic encephalopathy syndrome (3) Sepsis (4) Pneumonia Status: stable, not improved Recommendations # [id number] EEG c/w severe encephalopathy cont supportive care CT brain ----diffuse edema ------now hyperventilated d/w family xre prognosis, Gtube/Trach d/w attend/staff prognosis guarded ok SBP >150 < 200 keep fever control with cooling blanket,tylenol d/c MITCH Hernandez 11, 2018 13:21
--- NOTE | 2017-06-07 17:40 | General Progress Note ---
Assessment/Plan Problem List: (1) Anoxia ICD Codes: R09.02 - Hypoxemia SNOMED: 68052242 (2) Encephalopathy acute ICD Codes: G93.40 - Encephalopathy, unspecified SNOMED: 2548060 (3) Respiratory distress ICD Codes: R06.03 - Acute respiratory distress SNOMED: 503034093 (4) Renal insufficiency ICD Codes: N28.9 - Disorder of kidney and ureter, unspecified SNOMED: 827306076, 708972238 (5) Rhabdomyolysis ICD Codes: M62.82 - Rhabdomyolysis SNOMED: 453775981, 069145318 Qualifiers: Qualified Codes: M62.82 - Rhabdomyolysis (6) Sepsis ICD Codes: A41.9 - Sepsis, unspecified organism SNOMED: 31897271, 791434109 Qualifiers: Qualified Codes: A41.9 - Sepsis, unspecified organism (7) Pneumonia ICD Codes: J18.9 - Pneumonia, unspecified organism SNOMED: 078130055, 795505642 Qualifiers: Qualified Codes: J18.1 - Lobar pneumonia, unspecified organism (8) Elevated troponin ICD Codes: R74.8 - Abnormal levels of other serum enzymes SNOMED: 238128310, 927646901 Status: stable, not improved Assessment/Plan iv abx wean sedation as able consider ativan or propfol drip follow up cultures vent support resp care ngt feeds LP if able. replace michael locke pts mother at the bedside critical and guarded Subjective ROS Limited/Unobtainable: No Constitutional: Reports: malaise, weakness HEENT: Reports: no symptoms Cardiovascular: Reports: no symptoms Respiratory: Reports: no symptoms, SOB with excertion Gastrointestinal/Abdominal: Reports: no symptoms Genitourinary: Reports: no symptoms Neurologic/Psychiatric: Reports: pre-existing deficit Endocrine: Reports: excessive sweating Hematologic/Lymphatic: Reports: no symptoms Allergies: Coded Allergies: No Known Allergies (Unverified , 05/26/17) All Systems: reviewed and negative except above Subjective no change. remains unresponsive. no fevers. no szs. on ngt feeds. family at the bedside Objective Last 24 Hour Vital Signs Date Time Temp Pulse Resp B/P (MAP) Pulse Ox O2 Delivery O2 Flow Rate FiO2 06/07/17 17:13 88 25 50 06/07/17 17:00 87 166/86 06/07/17 17:00 24 06/07/17 17:00 86 35 163/85 100 Mechanical Ventilator 60 06/07/17 16:30 85 15 166/75 100 Mechanical Ventilator 60 06/07/17 16:00 60 06/07/17 16:00 99.9 81 20 146/77 100 Mechanical Ventilator 60 06/07/17 16:00 83 06/07/17 16:00 20 06/07/17 15:30 82 28 134/75 100 Mechanical Ventilator 60 06/07/17 15:29 81 25 100 06/07/17 15:00 100.1 81 27 131/70 98 Mechanical Ventilator 80 06/07/17 15:00 21 06/07/17 14:30 80 20 139/92 98 Mechanical Ventilator 80 06/07/17 14:00 100.6 84 20 132/69 100 Mechanical Ventilator 80 06/07/17 14:00 22 06/07/17 13:30 83 20 125/74 100 Mechanical Ventilator 80 06/07/17 13:13 83 26 100 06/07/17 13:00 83 144/73 06/07/17 13:00 20 06/07/17 13:00 101.1 79 20 144/73 100 Mechanical Ventilator 80 06/07/17 12:30 77 20 139/69 100 Mechanical Ventilator 80 06/07/17 12:14 101.3 06/07/17 12:07 96 06/07/17 12:00 100 06/07/17 12:00 20 06/07/17 12:00 101.3 84 20 138/73 100 Mechanical Ventilator 100 06/07/17 11:30 86 20 137/79 100 Mechanical Ventilator 100 06/07/17 11:06 98 20 100 06/07/17 11:00 23 06/07/17 11:00 93 23 135/75 100 Mechanical Ventilator 100 06/07/17 10:30 95 20 135/78 100 Mechanical Ventilator 100 06/07/17 10:01 18 06/07/17 10:00 91 27 138/78 100 Mechanical Ventilator 100 06/07/17 09:30 89 22 139/84 100 Mechanical Ventilator 100 06/07/17 09:18 93 22 100 06/07/17 09:00 98 32 131/71 100 Mechanical Ventilator 100 06/07/17 09:00 97 140/72 06/07/17 09:00 39 06/07/17 08:56 103 140/72 06/07/17 08:31 50 06/07/17 08:30 99 18 140/72 100 Mechanical Ventilator 100 06/07/17 08:00 96 06/07/17 08:00 49 06/07/17 08:00 100.3 98 20 132/76 100 Mechanical Ventilator 100 06/07/17 07:30 101 31 150/88 98 Mechanical Ventilator 100 06/07/17 07:04 92 25 45 06/07/17 07:00 95 30 130/80 99 Mechanical Ventilator 50 06/07/17 07:00 27 06/07/17 06:30 100.0 105 32 135/88 97 Mechanical Ventilator 50 06/07/17 06:00 93 26 146/76 99 Mechanical Ventilator 50 06/07/17 06:00 26 06/07/17 05:30 99 37 181/88 93 Mechanical Ventilator 50 06/07/17 05:00 28 06/07/17 04:55 121 166/78 06/07/17 04:36 102 32 50 06/07/17 04:30 100.2 111 37 166/78 93 Mechanical Ventilator 50 06/07/17 04:00 50 06/07/17 04:00 95 06/07/17 04:00 38 06/07/17 04:00 103 37 186/107 93 Mechanical Ventilator 50 06/07/17 03:30 99 37 213/134 99 Mechanical Ventilator 50 06/07/17 03:27 94 31 50 06/07/17 03:00 31 06/07/17 03:00 93 28 153/83 98 Mechanical Ventilator 50 06/07/17 02:30 97 28 152/80 98 Mechanical Ventilator 50 06/07/17 02:00 93 28 156/73 98 Mechanical Ventilator 50 06/07/17 02:00 31 06/07/17 01:30 90 28 134/64 98 Mechanical Ventilator 50 06/07/17 01:09 97 156/78 06/07/17 01:06 97 31 50 06/07/17 01:00 99 28 174/93 98 Mechanical Ventilator 50 06/07/17 01:00 32 06/07/17 00:30 99 28 146/78 98 Mechanical Ventilator 50 06/07/17 00:00 101 28 156/78 96 Mechanical Ventilator 50 06/07/17 00:00 50 06/07/17 00:00 28 1/10/18 23:53 98 06/06/17 23:30 100.2 103 32 184/53 93 Mechanical Ventilator 50 06/06/17 23:00 32 06/06/17 23:00 104 28 152/73 96 Mechanical Ventilator 50 06/06/17 22:37 96 32 50 06/06/17 22:30 117 28 131/62 96 Mechanical Ventilator 50 06/06/17 22:00 28 06/06/17 22:00 95 36 158/100 96 Mechanical Ventilator 50 06/06/17 21:30 95 36 154/100 96 Mechanical Ventilator 50 06/06/17 21:00 36 06/06/17 21:00 100 36 172/66 96 Mechanical Ventilator 50 06/06/17 20:53 104 34 50 06/06/17 20:40 94 196/90 06/06/17 20:31 85 169/80 06/06/17 20:30 100.8 96 36 196/90 89 Mechanical Ventilator 50 06/06/17 20:00 50 06/06/17 20:00 100.0 96 36 196/90 89 Mechanical Ventilator 50 06/06/17 20:00 96 06/06/17 20:00 36 06/06/17 19:30 93 35 151/69 99 Mechanical Ventilator 50 06/06/17 19:00 85 26 169/80 99 Mechanical Ventilator 50 06/06/17 19:00 26 06/06/17 18:55 102 33 50 06/06/17 18:30 71 26 177/85 99 Mechanical Ventilator 50 06/06/17 18:00 100 31 185/95 98 Mechanical Ventilator 50 06/06/17 18:00 26 06/06/17 17:44 91 175/93 Intake and Output 06/06/17 06/07/17 19:00 07:00 Intake Total 3183.346 ml 2999.070 ml Output Total 2825 ml 2060 ml Balance 358.346 ml 939.070 ml IV Total 2523.346 ml 2279.070 ml Tube Feeding 660 ml 660 ml Other 60 ml Output Urine Total 2825 ml 2060 ml Laboratory Tests 06/07/17 08:10: White Blood Count 14.7H, Red Blood Count 4.23L, Hemoglobin 12.6L, Hematocrit 37.6L, Mean Corpuscular Volume 89, Mean Corpuscular Hemoglobin 29.8, Mean Corpuscular Hemoglobin Concent 33.5, Red Cell Distribution Width 11.4L, Platelet Count 339, Mean Platelet Volume 6.1L, Neutrophils (%) (Auto) 78.9H, Lymphocytes (%) (Auto) 11.6L, Monocytes (%) (Auto) 8.2, Eosinophils (%) (Auto) 0.9, Basophils (%) (Auto) 0.4, Sodium Level 140, Potassium Level 3.4L, Chloride Level 102, Carbon Dioxide Level 32, Anion Gap 6, Blood Urea Nitrogen 14, Creatinine 1.0, Estimat Glomerular Filtration Rate > 60, Glucose Level 152H, Calcium Level 8.9, Total Bilirubin 0.5, Aspartate Amino Transf (AST/SGOT) 38H, Alanine Aminotransferase (ALT/SGPT) 68, Alkaline Phosphatase 55, Total Protein 6.8, Albumin 2.3L, Globulin 4.5, Albumin/Globulin Ratio 0.5L Height (Feet): 6 Height (Inches): 1.00 Weight (Pounds): 260 Objective General Appearance: WD/WN, lethargic. ngt Neck: supple Cardiovascular: regular rhythm Respiratory/Chest: chest wall non-tender, lungs clear, normal breath sounds Abdomen: normal bowel sounds, non tender, soft, no organomegaly Neurologic: unresponsive Skin: normal pigmentation. no rash JIMBO GLEASON Jun 07, 2017 17:40
--- NOTE | 2017-06-07 18:40 | Cardiology Progress Note ---
Assessment/Plan Assessment/Plan 1. Asystole cardiac arrest due to respiratory failure, regained pulse after 8 minutes, possible anoxic encephalopathy. 2. Mild cardiomyopathy with LVEF at 45%, + anteroseptal wall hypokinesia, ? ischemic cardiomyopathy vs drug-induced CM. 3. Elevated troponin level likely due to sepsis/tachycardia/pneumonia, not a pattern for ACS, CP free on admission to ED. 4. Accelerated HTN, metoprolol IVPB on hold. 5. Acute respiratory failure, intubated. 6. Substance abuse 7. Obesity Subjective Subjective Sinus rhythm at 81. Not having cortical function likely due to hypoxia. Objective Last 24 Hour Vital Signs Date Time Temp Pulse Resp B/P (MAP) Pulse Ox O2 Delivery O2 Flow Rate FiO2 06/07/17 18:00 20 06/07/17 18:00 21 06/07/17 18:00 88 40 168/98 100 Mechanical Ventilator 60 06/07/17 18:00 88 28 168/96 100 Mechanical Ventilator 60 06/07/17 17:30 99.9 80 20 137/73 100 Mechanical Ventilator 60 06/07/17 17:13 88 25 50 06/07/17 17:00 87 166/86 06/07/17 17:00 24 06/07/17 17:00 86 35 163/85 100 Mechanical Ventilator 60 06/07/17 16:30 85 15 166/75 100 Mechanical Ventilator 60 06/07/17 16:00 60 06/07/17 16:00 99.9 81 20 146/77 100 Mechanical Ventilator 60 06/07/17 16:00 83 06/07/17 16:00 20 06/07/17 15:30 82 28 134/75 100 Mechanical Ventilator 60 06/07/17 15:29 81 25 100 06/07/17 15:00 100.1 81 27 131/70 98 Mechanical Ventilator 80 06/07/17 15:00 21 06/07/17 14:30 80 20 139/92 98 Mechanical Ventilator 80 06/07/17 14:00 100.6 84 20 132/69 100 Mechanical Ventilator 80 06/07/17 14:00 22 06/07/17 13:30 83 20 125/74 100 Mechanical Ventilator 80 06/07/17 13:13 83 26 100 06/07/17 13:00 83 144/73 06/07/17 13:00 20 06/07/17 13:00 101.1 79 20 144/73 100 Mechanical Ventilator 80 06/07/17 12:30 77 20 139/69 100 Mechanical Ventilator 80 06/07/17 12:14 101.3 06/07/17 12:07 96 06/07/17 12:00 100 06/07/17 12:00 20 06/07/17 12:00 101.3 84 20 138/73 100 Mechanical Ventilator 100 06/07/17 11:30 86 20 137/79 100 Mechanical Ventilator 100 06/07/17 11:06 98 20 100 06/07/17 11:00 23 06/07/17 11:00 93 23 135/75 100 Mechanical Ventilator 100 06/07/17 10:30 95 20 135/78 100 Mechanical Ventilator 100 06/07/17 10:01 18 06/07/17 10:00 91 27 138/78 100 Mechanical Ventilator 100 06/07/17 09:30 89 22 139/84 100 Mechanical Ventilator 100 06/07/17 09:18 93 22 100 06/07/17 09:00 98 32 131/71 100 Mechanical Ventilator 100 06/07/17 09:00 97 140/72 06/07/17 09:00 39 06/07/17 08:56 103 140/72 06/07/17 08:31 50 06/07/17 08:30 99 18 140/72 100 Mechanical Ventilator 100 06/07/17 08:00 96 06/07/17 08:00 49 06/07/17 08:00 100.3 98 20 132/76 100 Mechanical Ventilator 100 06/07/17 07:30 101 31 150/88 98 Mechanical Ventilator 100 06/07/17 07:04 92 25 45 06/07/17 07:00 95 30 130/80 99 Mechanical Ventilator 50 06/07/17 07:00 27 06/07/17 06:30 100.0 105 32 135/88 97 Mechanical Ventilator 50 06/07/17 06:00 93 26 146/76 99 Mechanical Ventilator 50 06/07/17 06:00 26 06/07/17 05:30 99 37 181/88 93 Mechanical Ventilator 50 06/07/17 05:00 28 06/07/17 04:55 121 166/78 06/07/17 04:36 102 32 50 06/07/17 04:30 100.2 111 37 166/78 93 Mechanical Ventilator 50 06/07/17 04:00 50 06/07/17 04:00 95 06/07/17 04:00 38 06/07/17 04:00 103 37 186/107 93 Mechanical Ventilator 50 06/07/17 03:30 99 37 213/134 99 Mechanical Ventilator 50 06/07/17 03:27 94 31 50 06/07/17 03:00 31 06/07/17 03:00 93 28 153/83 98 Mechanical Ventilator 50 06/07/17 02:30 97 28 152/80 98 Mechanical Ventilator 50 06/07/17 02:00 93 28 156/73 98 Mechanical Ventilator 50 06/07/17 02:00 31 06/07/17 01:30 90 28 134/64 98 Mechanical Ventilator 50 06/07/17 01:09 97 156/78 06/07/17 01:06 97 31 50 06/07/17 01:00 99 28 174/93 98 Mechanical Ventilator 50 06/07/17 01:00 32 06/07/17 00:30 99 28 146/78 98 Mechanical Ventilator 50 06/07/17 00:00 101 28 156/78 96 Mechanical Ventilator 50 06/07/17 00:00 50 06/07/17 00:00 28 06/06/17 23:53 98 06/06/17 23:30 100.2 103 32 184/53 93 Mechanical Ventilator 50 06/06/17 23:00 32 06/06/17 23:00 104 28 152/73 96 Mechanical Ventilator 50 06/06/17 22:37 96 32 50 06/06/17 22:30 117 28 131/62 96 Mechanical Ventilator 50 06/06/17 22:00 28 06/06/17 22:00 95 36 158/100 96 Mechanical Ventilator 50 06/06/17 21:30 95 36 154/100 96 Mechanical Ventilator 50 06/06/17 21:00 36 06/06/17 21:00 100 36 172/66 96 Mechanical Ventilator 50 06/06/17 20:53 104 34 50 06/06/17 20:40 94 196/90 06/06/17 20:31 85 169/80 06/06/17 20:30 100.8 96 36 196/90 89 Mechanical Ventilator 50 06/06/17 20:00 50 06/06/17 20:00 100.0 96 36 196/90 89 Mechanical Ventilator 50 06/06/17 20:00 96 06/06/17 20:00 36 1/10/18 19:30 93 35 151/69 99 Mechanical Ventilator 50 06/06/17 19:00 85 26 169/80 99 Mechanical Ventilator 50 06/06/17 19:00 26 06/06/17 18:55 102 33 50 Intake and Output 06/06/17 06/07/17 19:00 07:00 Intake Total 3183.346 ml 2999.070 ml Output Total 2825 ml 2060 ml Balance 358.346 ml 939.070 ml IV Total 2523.346 ml 2279.070 ml Tube Feeding 660 ml 660 ml Other 60 ml Output Urine Total 2825 ml 2060 ml 2D Echo: EF 45%, Anteroseptal HK, RVSP 33 mmHg Laboratory Tests Test 06/07/17 08:10 White Blood Count 14.7 K/UL (4.8-10.8) H Red Blood Count 4.23 M/UL (4.70-6.10) L Hemoglobin 12.6 G/DL (14.2-18.0) L Hematocrit 37.6 % (42.0-52.0) L Mean Corpuscular Volume 89 FL (80-99) Mean Corpuscular Hemoglobin 29.8 PG (27.0-31.0) Mean Corpuscular Hemoglobin Concent 33.5 G/DL (32.0-36.0) Red Cell Distribution Width 11.4 % (11.6-14.8) L Platelet Count 339 K/UL (150-450) Mean Platelet Volume 6.1 FL (6.5-10.1) L Neutrophils (%) (Auto) 78.9 % (45.0-75.0) H Lymphocytes (%) (Auto) 11.6 % (20.0-45.0) L Monocytes (%) (Auto) 8.2 % (1.0-10.0) Eosinophils (%) (Auto) 0.9 % (0.0-3.0) Basophils (%) (Auto) 0.4 % (0.0-2.0) Sodium Level 140 MMOL/L (136-145) Potassium Level 3.4 MMOL/L (3.5-5.1) L Chloride Level 102 MMOL/L (98-107) Carbon Dioxide Level 32 MMOL/L (21-32) Anion Gap 6 mmol/L (5-15) Blood Urea Nitrogen 14 mg/dL (7-18) Creatinine 1.0 MG/DL (0.55-1.30) Estimat Glomerular Filtration Rate > 60 mL/min (>60) Glucose Level 152 MG/DL (74-106) H Calcium Level 8.9 MG/DL (8.5-10.1) Total Bilirubin 0.5 MG/DL (0.2-1.0) Aspartate Amino Transf (AST/SGOT) 38 U/L (15-37) H Alanine Aminotransferase (ALT/SGPT) 68 U/L (12-78) Alkaline Phosphatase 55 U/L (46-116) Total Protein 6.8 G/DL (6.4-8.2) Albumin 2.3 G/DL (3.4-5.0) L Globulin 4.5 g/dL Albumin/Globulin Ratio 0.5 (1.0-2.7) L Objective HEENT: Intubated, on mechanical ventilator. NECK: JVP cannot be assessed, No carotid bruit. Carotid upstrokes 2+ bilaterally. CARDIOVASCULAR SYSTEM: Normal S1, S2. Regular rate and rhythm. No murmurs, gallops, or rubs. PMI is at fourth intercostal space in the midclavicular line. LUNGS: Clear to auscultation bilaterally. ABDOMEN: Soft, nontender, nondistended. No hepatosplenomegaly. Positive bowel sounds. EXTREMITIES: No evidence of edema, clubbing, or cyanosis. CRISTA MURPHY Jun 07, 2017 18:40
[2017-06-07] MEDS: Dyna-Hex 2% Top Sol 2oz TOPIC SCH (19:47)
[2017-06-07] MEDS: Topiramate 25mg tab ORAL SCH (20:30)
[2017-06-08] VITALS (48 sets, daily range): BP systolic 118–241; BP diastolic 58–132
[2017-06-08] MEDS: Vancomycin 1gm/D5W 275ml IVPB SCH ×8 (00:30→17:29)
[2017-06-08] MEDS: LORazepam Inj 2mg/ml 1ml IV PRN (00:36)
[2017-06-08] MEDS: METOPROLOL TARTRATE IVPB SCH ×6 (01:00→20:47)
[2017-06-08] MEDS: NS IVPB SCH ×6 (01:00→20:47)
[2017-06-08 05:37] LABS: BASOPHILS % (AUTO) 0.8 % (0.0-2.0); HEMATOCRIT 34.9 % (42.0-52.0); HEMOGLOBIN 12.4 G/DL (14.2-18.0); LYMPHOCYTES % (AUTO) 14.9 % (20.0-45.0); MEAN CORPUSCULAR VOLUME 88 FL (80-99); MONOCYTES % (AUTO) 10.3 % (1.0-10.0); NEUTROPHILS % (AUTO) 72.1 % (45.0-75.0); PLATELET COUNT 345 K/UL (150-450); RED BLOOD COUNT 3.98 M/UL (4.70-6.10); RED CELL DISTRIBUTION WIDTH 11.1 % (11.6-14.8); WHITE BLOOD COUNT 12.6 K/UL (4.8-10.8)
[2017-06-08 06:07] LABS: ALANINE AMINOTRANSFERASE 66 U/L (12-78); ALBUMIN 2.4 G/DL (3.4-5.0); ALBUMIN/GLOBULIN RATIO 0.5 (1.0-2.7); ALKALINE PHOSPHATASE 52 U/L (46-116); ANION GAP 7 mmol/L (5-15); ASPARTATE AMINO TRANSFERASE 42 U/L (15-37); BILIRUBIN,TOTAL 0.6 MG/DL (0.2-1.0); BLOOD UREA NITROGEN 15 mg/dL (7-18); CARBON DIOXIDE 31 MMOL/L (21-32); CHLORIDE 99 MMOL/L (98-107); CREATININE 0.9 MG/DL (0.55-1.30); POTASSIUM 3.4 MMOL/L (3.5-5.1); SODIUM 137 MMOL/L (136-145)
[2017-06-08] MEDS: levETIRAcetam 1,000mg/NS100ml 100 ML IVPB SCH ×2 (08:39→20:49)
[2017-06-08] MEDS: Cefepime HCl 2 GM in D5W 55 ML IVPB SCH ×2 (08:40→20:48)
[2017-06-08] MEDS: Metoprolol 25mg tab ORAL SCH ×2 (08:41→20:48)
--- NOTE | 2017-06-08 08:41 | Critical Care Progress Note ---
Assessment/Plan Assessment/Plan IMPRESSION ARF - improved rhabdo- resolved CK elevated Liver enzyme- improving elevated troponin Pneumonia with abnormal CT reduced EF migraines s/p CPA acute encephalopathy with possible encephalitis tachycardia leukocytosis abnormal urine tox screen fevers PLAN labs noted IV antibiotics and titrate ID evaluation reviewed head CT and EEG discussed neuro appreciated- for now monitor all noted and appreciated monitor LOC ativan prn feeds per GI fentanyl drip for now acyclovir empiric- may dc HIV negative and hepatitis screen negative hyperventilate and maintain blood pressure at higher normal mother updated in detail- she confirms per texts on Jay's phone that he had taken fentanyl and purchased it night of the code medications/laboratory data/nursing notes/ICU care reviewed in detail note reviewed and edited care discussed with RN and RT ICU time spent 38 minutes Critical Care - Subjective Interval Events: care noted and reviewed stable overnight ICu care noted critical and same ROS Limited/Unobtainable: Yes Condition: critical EKG Rhythm: Sinus Tachycardia Residuals: minimal Tube Feeding Tolerated: yes I&O: Intake and Output 06/07/17 06/08/17 19:00 07:00 Intake Total 2527 ml 2278 ml Output Total 2225 ml 2305 ml Balance 302 ml -27 ml Free Water 30 ml 90 ml IV Total 1727 ml 1533 ml Tube Feeding 660 ml 605 ml Other 110 ml 50 ml Output Urine Total 2225 ml 2305 ml Critical Care - Objective ET-Tube: 7.5 ET Position: 27 Last 24 Hour Vital Signs Date Time Temp Pulse Resp B/P (MAP) Pulse Ox O2 Delivery O2 Flow Rate FiO2 06/08/17 07:22 113 30 40 06/08/17 07:00 112 21 118/58 95 Mechanical Ventilator 40 06/08/17 06:30 96 21 135/58 95 Mechanical Ventilator 40 06/08/17 06:00 25 06/08/17 06:00 100 21 144/73 95 Mechanical Ventilator 40 06/08/17 05:30 104 21 133/70 95 Mechanical Ventilator 40 06/08/17 05:01 118 26 40 06/08/17 05:00 104 21 151/69 95 Mechanical Ventilator 40 06/08/17 05:00 101 133/70 06/08/17 05:00 20 06/08/17 04:30 109 17 131/62 95 Mechanical Ventilator 40 06/08/17 04:00 40 06/08/17 04:00 100.6 102 17 156/79 95 Mechanical Ventilator 40 06/08/17 04:00 98 06/08/17 04:00 18 06/08/17 03:30 102 17 145/77 95 Mechanical Ventilator 40 06/08/17 03:00 103 19 40 06/08/17 03:00 99 17 140/64 95 Mechanical Ventilator 40 06/08/17 03:00 24 06/08/17 02:30 98 17 131/64 95 Mechanical Ventilator 40 06/08/17 02:23 101.1 06/08/17 02:00 98 18 139/77 95 Mechanical Ventilator 40 06/08/17 02:00 24 06/08/17 01:30 100 18 130/69 95 Mechanical Ventilator 40 06/08/17 01:03 92 20 40 06/08/17 01:00 96 141/69 06/08/17 01:00 26 06/08/17 01:00 96 32 150/71 95 Mechanical Ventilator 40 06/08/17 00:30 92 42 141/69 95 Mechanical Ventilator 40 06/08/17 00:00 40 06/08/17 00:00 101.1 89 42 157/63 95 Mechanical Ventilator 40 06/08/17 00:00 24 06/08/17 00:00 40 06/08/17 00:00 86 06/07/17 23:30 79 25 138/75 98 Mechanical Ventilator 40 06/07/17 23:00 88 25 136/75 98 Mechanical Ventilator 40 06/07/17 22:57 91 20 40 06/07/17 22:30 83 25 133/65 98 Mechanical Ventilator 40 06/07/17 22:00 100.0 93 22 144/70 98 Mechanical Ventilator 40 06/07/17 22:00 26 06/07/17 21:30 96 25 182/92 98 Mechanical Ventilator 40 06/07/17 21:01 98 24 50 06/07/17 21:01 99.9 06/07/17 21:00 100 25 157/63 94 Mechanical Ventilator 40 06/07/17 21:00 24 06/07/17 20:55 104 168/114 06/07/17 20:54 104 168/114 06/07/17 20:31 25 06/07/17 20:30 105 40 132/68 94 Mechanical Ventilator 40 06/07/17 20:00 40 1/11/18 20:00 28 06/07/17 20:00 101.0 96 42 132/70 94 Mechanical Ventilator 40 06/07/17 20:00 82 06/07/17 19:30 87 40 178/126 94 Mechanical Ventilator 40 06/07/17 19:00 92 32 168/114 97 Mechanical Ventilator 60 06/07/17 19:00 32 06/07/17 18:55 91 25 50 06/07/17 18:30 96 28 149/72 97 Mechanical Ventilator 60 06/07/17 18:00 20 06/07/17 18:00 21 06/07/17 18:00 88 40 168/98 100 Mechanical Ventilator 60 06/07/17 18:00 88 28 168/96 100 Mechanical Ventilator 60 06/07/17 17:30 99.9 80 20 137/73 100 Mechanical Ventilator 60 06/07/17 17:13 88 25 50 06/07/17 17:00 87 166/86 06/07/17 17:00 24 06/07/17 17:00 86 35 163/85 100 Mechanical Ventilator 60 06/07/17 16:30 85 15 166/75 100 Mechanical Ventilator 60 06/07/17 16:00 60 06/07/17 16:00 99.9 81 20 146/77 100 Mechanical Ventilator 60 06/07/17 16:00 83 06/07/17 16:00 20 06/07/17 15:30 82 28 134/75 100 Mechanical Ventilator 60 06/07/17 15:29 81 25 100 06/07/17 15:00 100.1 81 27 131/70 98 Mechanical Ventilator 80 06/07/17 15:00 21 06/07/17 14:30 80 20 139/92 98 Mechanical Ventilator 80 06/07/17 14:00 100.6 84 20 132/69 100 Mechanical Ventilator 80 06/07/17 14:00 22 06/07/17 13:30 83 20 125/74 100 Mechanical Ventilator 80 06/07/17 13:13 83 26 100 06/07/17 13:00 83 144/73 06/07/17 13:00 20 06/07/17 13:00 101.1 79 20 144/73 100 Mechanical Ventilator 80 06/07/17 12:30 77 20 139/69 100 Mechanical Ventilator 80 06/07/17 12:14 101.3 06/07/17 12:07 96 06/07/17 12:00 100 06/07/17 12:00 20 06/07/17 12:00 101.3 84 20 138/73 100 Mechanical Ventilator 100 06/07/17 11:30 86 20 137/79 100 Mechanical Ventilator 100 06/07/17 11:06 98 20 100 06/07/17 11:00 23 06/07/17 11:00 93 23 135/75 100 Mechanical Ventilator 100 06/07/17 10:30 95 20 135/78 100 Mechanical Ventilator 100 06/07/17 10:01 18 06/07/17 10:00 91 27 138/78 100 Mechanical Ventilator 100 06/07/17 09:30 89 22 139/84 100 Mechanical Ventilator 100 06/07/17 09:18 93 22 100 06/07/17 09:00 98 32 131/71 100 Mechanical Ventilator 100 06/07/17 09:00 97 140/72 06/07/17 09:00 39 06/07/17 08:56 103 140/72 Labs: Labs Test 06/05/17 15:00 06/06/17 04:25 06/06/17 11:25 06/07/17 08:10 Vancomycin Level Trough 20.0 ug/mL (5.0-12.0) Sodium Level 141 MMOL/L (136-145) 140 MMOL/L (136-145) Potassium Level 3.3 MMOL/L (3.5-5.1) 3.4 MMOL/L (3.5-5.1) Chloride Level 102 MMOL/L (98-107) 102 MMOL/L (98-107) Carbon Dioxide Level 29 MMOL/L (21-32) 32 MMOL/L (21-32) Anion Gap 10 mmol/L (5-15) 6 mmol/L (5-15) Blood Urea Nitrogen 12 mg/dL (7-18) 14 mg/dL (7-18) Creatinine 0.9 MG/DL (0.55-1.30) 1.0 MG/DL (0.55-1.30) Estimat Glomerular Filtration Rate > 60 mL/min (>60) > 60 mL/min (>60) Glucose Level 145 MG/DL (74-106) 152 MG/DL (74-106) Calcium Level 9.2 MG/DL (8.5-10.1) 8.9 MG/DL (8.5-10.1) Total Bilirubin 0.5 MG/DL (0.2-1.0) 0.5 MG/DL (0.2-1.0) Aspartate Amino Transf (AST/SGOT) 42 U/L (15-37) 38 U/L (15-37) Alanine Aminotransferase (ALT/SGPT) 92 U/L (12-78) 68 U/L (12-78) Alkaline Phosphatase 62 U/L (46-116) 55 U/L (46-116) Total Protein 6.9 G/DL (6.4-8.2) 6.8 G/DL (6.4-8.2) Albumin 2.3 G/DL (3.4-5.0) 2.3 G/DL (3.4-5.0) Globulin 4.6 g/dL 4.5 g/dL Albumin/Globulin Ratio 0.5 (1.0-2.7) 0.5 (1.0-2.7) Triglycerides Level 158 MG/DL (30-150) Cholesterol Level 157 MG/DL (< 200) LDL Cholesterol 118 mg/dL (<100) HDL Cholesterol 21 MG/DL (40-60) Cholesterol/HDL Ratio 7.5 (3.3-4.4) Arterial Blood pH 7.486 (7.350-7.450) Arterial Blood Partial Pressure CO2 39.1 mmHg (35.0-45.0) Arterial Blood Partial Pressure O2 94.5 mmHg (75.0-100.0) Arterial Blood HCO3 28.9 mmol/L (22.0-26.0) Arterial Blood Oxygen Saturation 97.5 % (92.0-98.0) Arterial Blood Base Excess 5.2 Balaji Test Positive White Blood Count 14.7 K/UL (4.8-10.8) Red Blood Count 4.23 M/UL (4.70-6.10) Hemoglobin 12.6 G/DL (14.2-18.0) Hematocrit 37.6 % (42.0-52.0) Mean Corpuscular Volume 89 FL (80-99) Mean Corpuscular Hemoglobin 29.8 PG (27.0-31.0) Mean Corpuscular Hemoglobin Concent 33.5 G/DL (32.0-36.0) Red Cell Distribution Width 11.4 % (11.6-14.8) Platelet Count 339 K/UL (150-450) Mean Platelet Volume 6.1 FL (6.5-10.1) Neutrophils (%) (Auto) 78.9 % (45.0-75.0) Lymphocytes (%) (Auto) 11.6 % (20.0-45.0) Monocytes (%) (Auto) 8.2 % (1.0-10.0) Eosinophils (%) (Auto) 0.9 % (0.0-3.0) Basophils (%) (Auto) 0.4 % (0.0-2.0) Test 06/08/17 05:05 White Blood Count 12.6 K/UL (4.8-10.8) Red Blood Count 3.98 M/UL (4.70-6.10) Hemoglobin 12.4 G/DL (14.2-18.0) Hematocrit 34.9 % (42.0-52.0) Mean Corpuscular Volume 88 FL (80-99) Mean Corpuscular Hemoglobin 31.1 PG (27.0-31.0) Mean Corpuscular Hemoglobin Concent 35.5 G/DL (32.0-36.0) Red Cell Distribution Width 11.1 % (11.6-14.8) Platelet Count 345 K/UL (150-450) Mean Platelet Volume 6.7 FL (6.5-10.1) Neutrophils (%) (Auto) 72.1 % (45.0-75.0) Lymphocytes (%) (Auto) 14.9 % (20.0-45.0) Monocytes (%) (Auto) 10.3 % (1.0-10.0) Eosinophils (%) (Auto) 2.0 % (0.0-3.0) Basophils (%) (Auto) 0.8 % (0.0-2.0) Sodium Level 137 MMOL/L (136-145) Potassium Level 3.4 MMOL/L (3.5-5.1) Chloride Level 99 MMOL/L (98-107) Carbon Dioxide Level 31 MMOL/L (21-32) Anion Gap 7 mmol/L (5-15) Blood Urea Nitrogen 15 mg/dL (7-18) Creatinine 0.9 MG/DL (0.55-1.30) Estimat Glomerular Filtration Rate > 60 mL/min (>60) Glucose Level 155 MG/DL (74-106) Calcium Level 9.0 MG/DL (8.5-10.1) Total Bilirubin 0.6 MG/DL (0.2-1.0) Aspartate Amino Transf (AST/SGOT) 42 U/L (15-37) Alanine Aminotransferase (ALT/SGPT) 66 U/L (12-78) Alkaline Phosphatase 52 U/L (46-116) Total Protein 6.8 G/DL (6.4-8.2) Albumin 2.4 G/DL (3.4-5.0) Globulin 4.4 g/dL Albumin/Globulin Ratio 0.5 (1.0-2.7) Vancomycin Level Trough 17.9 ug/mL (5.0-12.0) Objective: WDWN NAD improved breath sounds bilaterally without rhonchi or wheeze S1S2RR tachy without MRG NABS nontender no HSM no CCE nonfocal sedated ETT in place no rash MEGAN العلي Jun 08, 2017 08:41
[2017-06-08] MEDS: Heparin 5000 units/ml inj SUBQ SCH ×2 (09:00→20:44)
--- NOTE | 2017-06-08 11:04 | General Progress Note ---
Assessment/Plan Problem List: (1) Anoxia ICD Codes: R09.02 - Hypoxemia SNOMED: 42891079 (2) Encephalopathy acute ICD Codes: G93.40 - Encephalopathy, unspecified SNOMED: 9668851 (3) Respiratory distress ICD Codes: R06.03 - Acute respiratory distress SNOMED: 841084784 (4) Renal insufficiency ICD Codes: N28.9 - Disorder of kidney and ureter, unspecified SNOMED: 757695244, 685777321 (5) Rhabdomyolysis ICD Codes: M62.82 - Rhabdomyolysis SNOMED: 374162663, 603887755 Qualifiers: Qualified Codes: M62.82 - Rhabdomyolysis (6) Sepsis ICD Codes: A41.9 - Sepsis, unspecified organism SNOMED: 09160316, 206463961 Qualifiers: Qualified Codes: A41.9 - Sepsis, unspecified organism (7) Pneumonia ICD Codes: J18.9 - Pneumonia, unspecified organism SNOMED: 537870909, 449840584 Qualifiers: Qualified Codes: J18.1 - Lobar pneumonia, unspecified organism (8) Elevated troponin ICD Codes: R74.8 - Abnormal levels of other serum enzymes SNOMED: 449419941, 411931996 Status: stable, not improved Assessment/Plan iv abx wean sedation as able consider ativan or propfol drip follow up cultures vent support resp care ngt feeds LP if able. replace mihcael locke pts mother at the bedside critical and guarded Subjective ROS Limited/Unobtainable: No Constitutional: Reports: malaise, weakness HEENT: Reports: no symptoms Cardiovascular: Reports: no symptoms Respiratory: Reports: shortness of breath Gastrointestinal/Abdominal: Reports: difficulty swallowing Genitourinary: Reports: no symptoms Neurologic/Psychiatric: Reports: pre-existing deficit Endocrine: Reports: no symptoms Hematologic/Lymphatic: Reports: anemia Allergies: Coded Allergies: No Known Allergies (Unverified , 05/26/17) All Systems: reviewed and negative except above Subjective no change. remains unresponsive. no fevers. no szs. on ngt feeds. family at the bedside. no new concerns Objective Last 24 Hour Vital Signs Date Time Temp Pulse Resp B/P (MAP) Pulse Ox O2 Delivery O2 Flow Rate FiO2 06/08/17 10:39 82 16 40 06/08/17 10:00 100.0 82 17 118/63 100 Mechanical Ventilator 40 06/08/17 09:04 111 30 40 06/08/17 08:41 81 134/74 06/08/17 08:41 81 134/74 06/08/17 08:00 40 06/08/17 07:22 113 30 40 06/08/17 07:00 112 21 118/58 95 Mechanical Ventilator 40 06/08/17 06:30 96 21 135/58 95 Mechanical Ventilator 40 06/08/17 06:00 25 06/08/17 06:00 100 21 144/73 95 Mechanical Ventilator 40 06/08/17 05:30 104 21 133/70 95 Mechanical Ventilator 40 06/08/17 05:01 118 26 40 06/08/17 05:00 104 21 151/69 95 Mechanical Ventilator 40 06/08/17 05:00 101 133/70 06/08/17 05:00 20 06/08/17 04:30 109 17 131/62 95 Mechanical Ventilator 40 06/08/17 04:00 40 06/08/17 04:00 100.6 102 17 156/79 95 Mechanical Ventilator 40 06/08/17 04:00 98 06/08/17 04:00 18 06/08/17 03:30 102 17 145/77 95 Mechanical Ventilator 40 06/08/17 03:00 103 19 40 06/08/17 03:00 99 17 140/64 95 Mechanical Ventilator 40 06/08/17 03:00 24 06/08/17 02:30 98 17 131/64 95 Mechanical Ventilator 40 06/08/17 02:23 101.1 06/08/17 02:00 98 18 139/77 95 Mechanical Ventilator 40 06/08/17 02:00 24 06/08/17 01:30 100 18 130/69 95 Mechanical Ventilator 40 06/08/17 01:03 92 20 40 06/08/17 01:00 96 141/69 06/08/17 01:00 26 06/08/17 01:00 96 32 150/71 95 Mechanical Ventilator 40 06/08/17 00:30 92 42 141/69 95 Mechanical Ventilator 40 06/08/17 00:00 40 06/08/17 00:00 101.1 89 42 157/63 95 Mechanical Ventilator 40 06/08/17 00:00 24 06/08/17 00:00 40 06/08/17 00:00 86 06/07/17 23:30 79 25 138/75 98 Mechanical Ventilator 40 06/07/17 23:00 88 25 136/75 98 Mechanical Ventilator 40 06/07/17 22:57 91 20 40 06/07/17 22:30 83 25 133/65 98 Mechanical Ventilator 40 06/07/17 22:00 100.0 93 22 144/70 98 Mechanical Ventilator 40 06/07/17 22:00 26 06/07/17 21:30 96 25 182/92 98 Mechanical Ventilator 40 06/07/17 21:01 98 24 50 06/07/17 21:01 99.9 06/07/17 21:00 100 25 157/63 94 Mechanical Ventilator 40 06/07/17 21:00 24 06/07/17 20:55 104 168/114 06/07/17 20:54 104 168/114 06/07/17 20:31 25 06/07/17 20:30 105 40 132/68 94 Mechanical Ventilator 40 06/07/17 20:00 40 06/07/17 20:00 28 06/07/17 20:00 101.0 96 42 132/70 94 Mechanical Ventilator 40 06/07/17 20:00 82 06/07/17 19:30 87 40 178/126 94 Mechanical Ventilator 40 06/07/17 19:00 92 32 168/114 97 Mechanical Ventilator 60 06/07/17 19:00 32 06/07/17 18:55 91 25 50 06/07/17 18:30 96 28 149/72 97 Mechanical Ventilator 60 06/07/17 18:00 20 06/07/17 18:00 21 06/07/17 18:00 88 40 168/98 100 Mechanical Ventilator 60 06/07/17 18:00 88 28 168/96 100 Mechanical Ventilator 60 06/07/17 17:30 99.9 80 20 137/73 100 Mechanical Ventilator 60 06/07/17 17:13 88 25 50 06/07/17 17:00 87 166/86 06/07/17 17:00 24 06/07/17 17:00 86 35 163/85 100 Mechanical Ventilator 60 06/07/17 16:30 85 15 166/75 100 Mechanical Ventilator 60 06/07/17 16:00 60 06/07/17 16:00 99.9 81 20 146/77 100 Mechanical Ventilator 60 06/07/17 16:00 83 06/07/17 16:00 20 06/07/17 15:30 82 28 134/75 100 Mechanical Ventilator 60 06/07/17 15:29 81 25 100 06/07/17 15:00 100.1 81 27 131/70 98 Mechanical Ventilator 80 06/07/17 15:00 21 06/07/17 14:30 80 20 139/92 98 Mechanical Ventilator 80 06/07/17 14:00 100.6 84 20 132/69 100 Mechanical Ventilator 80 06/07/17 14:00 22 06/07/17 13:30 83 20 125/74 100 Mechanical Ventilator 80 06/07/17 13:13 83 26 100 06/07/17 13:00 83 144/73 06/07/17 13:00 20 06/07/17 13:00 101.1 79 20 144/73 100 Mechanical Ventilator 80 06/07/17 12:30 77 20 139/69 100 Mechanical Ventilator 80 06/07/17 12:14 101.3 06/07/17 12:07 96 06/07/17 12:00 100 06/07/17 12:00 20 06/07/17 12:00 101.3 84 20 138/73 100 Mechanical Ventilator 100 06/07/17 11:30 86 20 137/79 100 Mechanical Ventilator 100 06/07/17 11:06 98 20 100 Intake and Output 06/07/17 06/08/17 19:00 07:00 Intake Total 2527 ml 2278 ml Output Total 2225 ml 2305 ml Balance 302 ml -27 ml Free Water 30 ml 90 ml IV Total 1727 ml 1533 ml Tube Feeding 660 ml 605 ml Other 110 ml 50 ml Output Urine Total 2225 ml 2305 ml Laboratory Tests 06/08/17 05:05: White Blood Count 12.6H, Red Blood Count 3.98L, Hemoglobin 12.4L, Hematocrit 34.9L, Mean Corpuscular Volume 88, Mean Corpuscular Hemoglobin 31.1H, Mean Corpuscular Hemoglobin Concent 35.5, Red Cell Distribution Width 11.1L, Platelet Count 345, Mean Platelet Volume 6.7, Neutrophils (%) (Auto) 72.1, Lymphocytes (%) (Auto) 14.9L, Monocytes (%) (Auto) 10.3H, Eosinophils (%) (Auto ) 2.0, Basophils (%) (Auto) 0.8, Sodium Level 137, Potassium Level 3.4L, Chloride Level 99, Carbon Dioxide Level 31, Anion Gap 7, Blood Urea Nitrogen 15 , Creatinine 0.9, Estimat Glomerular Filtration Rate > 60, Glucose Level 155H, Calcium Level 9.0, Total Bilirubin 0.6, Aspartate Amino Transf (AST/SGOT) 42H, Alanine Aminotransferase (ALT/SGPT) 66, Alkaline Phosphatase 52, Total Protein 6.8, Albumin 2.4L, Globulin 4.4, Albumin/Globulin Ratio 0.5L, Vancomycin Level Trough 17.9H Height (Feet): 6 Height (Inches): 1.00 Weight (Pounds): 257 Objective General Appearance: WD/WN, lethargic. ngt Neck: supple Cardiovascular: regular rhythm Respiratory/Chest: chest wall non-tender, lungs clear, normal breath sounds Abdomen: normal bowel sounds, non tender, soft, no organomegaly Neurologic: unresponsive Skin: normal pigmentation. no rash JIMBO GLEASON Jun 08, 2017 11:04
--- NOTE | 2017-06-08 11:31 | Neurology Progress Note ---
Interim History Interim History ROS Limited/Unobtainable: No Complaints: comatose Events: --decerebrate symmetric, sedated with Fentanyl,cooling blanket on Objective Physical Exam Last Vital Signs Date Time Temp Pulse Resp B/P (MAP) Pulse Ox O2 Delivery O2 Flow Rate FiO2 06/08/17 10:39 82 16 40 06/08/17 10:00 100.0 118/63 100 Mechanical Ventilator 06/01/17 00:00 4.0 Laboratory Tests Test 06/08/17 05:05 White Blood Count 12.6 K/UL (4.8-10.8) H Red Blood Count 3.98 M/UL (4.70-6.10) L Hemoglobin 12.4 G/DL (14.2-18.0) L Hematocrit 34.9 % (42.0-52.0) L Mean Corpuscular Volume 88 FL (80-99) Mean Corpuscular Hemoglobin 31.1 PG (27.0-31.0) H Mean Corpuscular Hemoglobin Concent 35.5 G/DL (32.0-36.0) Red Cell Distribution Width 11.1 % (11.6-14.8) L Platelet Count 345 K/UL (150-450) Mean Platelet Volume 6.7 FL (6.5-10.1) Neutrophils (%) (Auto) 72.1 % (45.0-75.0) Lymphocytes (%) (Auto) 14.9 % (20.0-45.0) L Monocytes (%) (Auto) 10.3 % (1.0-10.0) H Eosinophils (%) (Auto) 2.0 % (0.0-3.0) Basophils (%) (Auto) 0.8 % (0.0-2.0) Sodium Level 137 MMOL/L (136-145) Potassium Level 3.4 MMOL/L (3.5-5.1) L Chloride Level 99 MMOL/L (98-107) Carbon Dioxide Level 31 MMOL/L (21-32) Anion Gap 7 mmol/L (5-15) Blood Urea Nitrogen 15 mg/dL (7-18) Creatinine 0.9 MG/DL (0.55-1.30) Estimat Glomerular Filtration Rate > 60 mL/min (>60) Glucose Level 155 MG/DL (74-106) H Calcium Level 9.0 MG/DL (8.5-10.1) Total Bilirubin 0.6 MG/DL (0.2-1.0) Aspartate Amino Transf (AST/SGOT) 42 U/L (15-37) H Alanine Aminotransferase (ALT/SGPT) 66 U/L (12-78) Alkaline Phosphatase 52 U/L (46-116) Total Protein 6.8 G/DL (6.4-8.2) Albumin 2.4 G/DL (3.4-5.0) L Globulin 4.4 g/dL Albumin/Globulin Ratio 0.5 (1.0-2.7) L Vancomycin Level Trough 17.9 ug/mL (5.0-12.0) H General: other - intubated obese sweating overbreathing vent Head: normocophalic, atraumatic, other - flushed face/upper torso now on ice blanket for fevers Neck: no rigidity Neurologic Exam Mental Status: other - no responces ex decerebrate on stimuly Speech: other Language: other Cranial Nerve II: fundus normal Cranial Nerves III, IV, : other - p5mm sluggish/ EOM intact Cranial Nerve V: other Cranial Nerve VII: no facial asymmetry Cranial Nerve VIII: no nystagmus Cranial Nerve IX: other - no gag Cranial Nerve X: other Cranial Nerve XI: other Cranial Nerve XII: no tongue atrophy/fasciculations Motor System: other - diffuse rigidity no spont movement Sensory: other Coordination: other Deep Tendon Reflexes: 0 bicep (L), 0 bicep (R), 0 tricep (L), 0 tricep (R), 0 brachioradialis (L), 0 brachioradialis (R), 0 knee (L), 0 knee (R), 0 ankle (L) , 0 ankle (R) Reflexes: mute plantar (L), mute plantar (R) Stance: other Gait: other Impression/Recommendations Problems: (1) s/p full arrest (2) Anoxic encephalopathy syndrome (3) Sepsis (4) Pneumonia Status: not improved, unchanged Recommendations # [id number] EEG c/w severe encephalopathy cont supportive care CT brain ----diffuse edema ------now hyperventilated d/w family re prognosis, Gtube/Trach d/w attend/staff prognosis guarded ok SBP >150 < 200 keep fever control with cooling blanket,tylenol MITCH PUTNAM Jun 08, 2017 11:31
[2017-06-08] MEDS: LORazepam Inj 2mg/ml 1ml IV SCH ×4 (12:00→23:28)
[2017-06-08] MEDS: Thiamine HCl 100 MG in D5W 55 ML IVPB SCH (12:16)
--- NOTE | 2017-06-08 12:27 | Infectious Diseases Prog Note ---
Assessment/Plan Assessment/Plan antibiotics : vancomycin iv, cefepime, acyclovir A 1. pneumonia 2. leucocytosis improving 3. renal failure improved 4. rhabdomyolysis 5. respiratory failure 6. coag neg staph sepsis 7. encephalopathy 8. fever P 1. continue vancomycin iv, cefepime 2. will follow up cultures 3. consider removal of right subclavian catheter 4. UA and urine culture 5. sputum culture Subjective ROS Limited/Unobtainable: Yes Allergies: Coded Allergies: No Known Allergies (Unverified , 05/26/17) Objective Vital Signs Last 24 Hour Vital Signs Date Time Temp Pulse Resp B/P (MAP) Pulse Ox O2 Delivery O2 Flow Rate FiO2 06/08/17 10:39 82 16 40 06/08/17 10:00 100.0 82 17 118/63 100 Mechanical Ventilator 40 06/08/17 09:04 111 30 40 06/08/17 08:41 81 134/74 06/08/17 08:41 81 134/74 06/08/17 08:00 40 06/08/17 07:22 113 30 40 06/08/17 07:00 112 21 118/58 95 Mechanical Ventilator 40 06/08/17 06:30 96 21 135/58 95 Mechanical Ventilator 40 06/08/17 06:00 25 06/08/17 06:00 100 21 144/73 95 Mechanical Ventilator 40 06/08/17 05:30 104 21 133/70 95 Mechanical Ventilator 40 06/08/17 05:01 118 26 40 06/08/17 05:00 104 21 151/69 95 Mechanical Ventilator 40 06/08/17 05:00 101 133/70 06/08/17 05:00 20 06/08/17 04:30 109 17 131/62 95 Mechanical Ventilator 40 06/08/17 04:00 40 06/08/17 04:00 100.6 102 17 156/79 95 Mechanical Ventilator 40 06/08/17 04:00 98 06/08/17 04:00 18 06/08/17 03:30 102 17 145/77 95 Mechanical Ventilator 40 06/08/17 03:00 103 19 40 06/08/17 03:00 99 17 140/64 95 Mechanical Ventilator 40 06/08/17 03:00 24 06/08/17 02:30 98 17 131/64 95 Mechanical Ventilator 40 06/08/17 02:23 101.1 06/08/17 02:00 98 18 139/77 95 Mechanical Ventilator 40 06/08/17 02:00 24 06/08/17 01:30 100 18 130/69 95 Mechanical Ventilator 40 06/08/17 01:03 92 20 40 06/08/17 01:00 96 141/69 06/08/17 01:00 26 06/08/17 01:00 96 32 150/71 95 Mechanical Ventilator 40 06/08/17 00:30 92 42 141/69 95 Mechanical Ventilator 40 06/08/17 00:00 40 06/08/17 00:00 101.1 89 42 157/63 95 Mechanical Ventilator 40 06/08/17 00:00 24 06/08/17 00:00 40 06/08/17 00:00 86 06/07/17 23:30 79 25 138/75 98 Mechanical Ventilator 40 06/07/17 23:00 88 25 136/75 98 Mechanical Ventilator 40 06/07/17 22:57 91 20 40 06/07/17 22:30 83 25 133/65 98 Mechanical Ventilator 40 06/07/17 22:00 100.0 93 22 144/70 98 Mechanical Ventilator 40 06/07/17 22:00 26 06/07/17 21:30 96 25 182/92 98 Mechanical Ventilator 40 06/07/17 21:01 98 24 50 06/07/17 21:01 99.9 06/07/17 21:00 100 25 157/63 94 Mechanical Ventilator 40 06/07/17 21:00 24 06/07/17 20:55 104 168/114 06/07/17 20:54 104 168/114 06/07/17 20:31 25 06/07/17 20:30 105 40 132/68 94 Mechanical Ventilator 40 06/07/17 20:00 40 06/07/17 20:00 28 06/07/17 20:00 101.0 96 42 132/70 94 Mechanical Ventilator 40 06/07/17 20:00 82 06/07/17 19:30 87 40 178/126 94 Mechanical Ventilator 40 06/07/17 19:00 92 32 168/114 97 Mechanical Ventilator 60 06/07/17 19:00 32 06/07/17 18:55 91 25 50 06/07/17 18:30 96 28 149/72 97 Mechanical Ventilator 60 06/07/17 18:00 20 06/07/17 18:00 21 06/07/17 18:00 88 40 168/98 100 Mechanical Ventilator 60 06/07/17 18:00 88 28 168/96 100 Mechanical Ventilator 60 06/07/17 17:30 99.9 80 20 137/73 100 Mechanical Ventilator 60 06/07/17 17:13 88 25 50 06/07/17 17:00 87 166/86 06/07/17 17:00 24 06/07/17 17:00 86 35 163/85 100 Mechanical Ventilator 60 06/07/17 16:30 85 15 166/75 100 Mechanical Ventilator 60 06/07/17 16:00 60 06/07/17 16:00 99.9 81 20 146/77 100 Mechanical Ventilator 60 06/07/17 16:00 83 06/07/17 16:00 20 06/07/17 15:30 82 28 134/75 100 Mechanical Ventilator 60 06/07/17 15:29 81 25 100 06/07/17 15:00 100.1 81 27 131/70 98 Mechanical Ventilator 80 06/07/17 15:00 21 06/07/17 14:30 80 20 139/92 98 Mechanical Ventilator 80 06/07/17 14:00 100.6 84 20 132/69 100 Mechanical Ventilator 80 06/07/17 14:00 22 06/07/17 13:30 83 20 125/74 100 Mechanical Ventilator 80 06/07/17 13:13 83 26 100 06/07/17 13:00 83 144/73 06/07/17 13:00 20 06/07/17 13:00 101.1 79 20 144/73 100 Mechanical Ventilator 80 06/07/17 12:30 77 20 139/69 100 Mechanical Ventilator 80 Height (Feet): 6 Height (Inches): 1.00 Weight (Pounds): 257 HEENT: other - intubated Respiratory/Chest: lungs clear Cardiovascular: normal rate, regular rhythm, no gallop/murmur Abdomen: soft, non tender Extremities: no edema, other - right subclavian catheter Microbiology Date/Time Source Procedure Growth Status 06/07/17 10:00 Blood Blood Culture - Preliminary Resulted Laboratory Tests Test 06/08/17 05:05 White Blood Count 12.6 K/UL (4.8-10.8) H Red Blood Count 3.98 M/UL (4.70-6.10) L Hemoglobin 12.4 G/DL (14.2-18.0) L Hematocrit 34.9 % (42.0-52.0) L Mean Corpuscular Volume 88 FL (80-99) Mean Corpuscular Hemoglobin 31.1 PG (27.0-31.0) H Mean Corpuscular Hemoglobin Concent 35.5 G/DL (32.0-36.0) Red Cell Distribution Width 11.1 % (11.6-14.8) L Platelet Count 345 K/UL (150-450) Mean Platelet Volume 6.7 FL (6.5-10.1) Neutrophils (%) (Auto) 72.1 % (45.0-75.0) Lymphocytes (%) (Auto) 14.9 % (20.0-45.0) L Monocytes (%) (Auto) 10.3 % (1.0-10.0) H Eosinophils (%) (Auto) 2.0 % (0.0-3.0) Basophils (%) (Auto) 0.8 % (0.0-2.0) Sodium Level 137 MMOL/L (136-145) Potassium Level 3.4 MMOL/L (3.5-5.1) L Chloride Level 99 MMOL/L (98-107) Carbon Dioxide Level 31 MMOL/L (21-32) Anion Gap 7 mmol/L (5-15) Blood Urea Nitrogen 15 mg/dL (7-18) Creatinine 0.9 MG/DL (0.55-1.30) Estimat Glomerular Filtration Rate > 60 mL/min (>60) Glucose Level 155 MG/DL (74-106) H Calcium Level 9.0 MG/DL (8.5-10.1) Total Bilirubin 0.6 MG/DL (0.2-1.0) Aspartate Amino Transf (AST/SGOT) 42 U/L (15-37) H Alanine Aminotransferase (ALT/SGPT) 66 U/L (12-78) Alkaline Phosphatase 52 U/L (46-116) Total Protein 6.8 G/DL (6.4-8.2) Albumin 2.4 G/DL (3.4-5.0) L Globulin 4.4 g/dL Albumin/Globulin Ratio 0.5 (1.0-2.7) L Vancomycin Level Trough 17.9 ug/mL (5.0-12.0) H CHET DURAN Jun 08, 2017 12:27
[2017-06-08 17:11] LABS: APPEARANCE,URINE CLEAR; BILIRUBIN, URINE NEGATIVE (NEGATIVE); COLOR,URINE PALE YELLOW; GLUCOSE, URINE (UA) NEGATIVE (NEGATIVE); KETONES,URINE NEGATIVE (NEGATIVE); LEUKOCYTE ESTERASE ,URINE NEGATIVE (NEGATIVE); NITRITE,URINE NEGATIVE (NEGATIVE); PH,URINE 7 (4.5-8.0); PROTEIN,URINE 1+ (NEGATIVE); UROBILINOGEN,URINE NORMAL MG/DL (0.0-1.0)
--- NOTE | 2017-06-08 17:40 | General Progress Note ---
Assessment/Plan Assessment/Plan Assessment - s/p arrest - s/p Rhabdo - resolving - Coma - s/p yoly - diverticulosis - recent PNA and hemoptysis Recommendations - supportive ICU care - Continue TF - IVF - Follow LFT - PPI - may need PEG Subjective Allergies: Coded Allergies: No Known Allergies (Unverified , 05/26/17) Subjective above noted non communicative intubated tolerating TF Objective Last 24 Hour Vital Signs Date Time Temp Pulse Resp B/P (MAP) Pulse Ox O2 Delivery O2 Flow Rate FiO2 06/08/17 17:07 88 16 40 06/08/17 16:18 20 06/08/17 16:11 81 159/90 06/08/17 16:00 40 06/08/17 15:23 88 16 40 06/08/17 13:14 86 16 40 06/08/17 13:00 99.2 87 40 136/77 100 Mechanical Ventilator 40 06/08/17 13:00 87 136/77 06/08/17 12:30 98 40 152/84 100 Mechanical Ventilator 40 06/08/17 12:00 99.2 86 40 157/83 100 Mechanical Ventilator 40 06/08/17 12:00 95 06/08/17 12:00 40 06/08/17 11:30 95 40 173/120 100 Mechanical Ventilator 40 06/08/17 11:00 99.9 98 42 143/77 100 Mechanical Ventilator 40 06/08/17 10:39 82 16 40 06/08/17 10:30 96 38 123/63 100 Mechanical Ventilator 40 06/08/17 10:00 100.0 82 17 118/63 100 Mechanical Ventilator 40 06/08/17 09:30 83 20 136/65 95 Mechanical Ventilator 40 06/08/17 09:04 111 30 40 06/08/17 09:00 91 24 146/72 95 Mechanical Ventilator 40 06/08/17 08:41 81 134/74 06/08/17 08:41 81 134/74 06/08/17 08:30 82 16 134/74 95 Mechanical Ventilator 40 06/08/17 08:00 40 06/08/17 08:00 102.7 85 17 130/59 95 Mechanical Ventilator 40 06/08/17 08:00 105 06/08/17 07:30 92 18 139/70 95 Mechanical Ventilator 40 06/08/17 07:22 113 30 40 06/08/17 07:00 112 21 118/58 95 Mechanical Ventilator 40 06/08/17 06:30 96 21 135/58 95 Mechanical Ventilator 40 06/08/17 06:00 25 06/08/17 06:00 100 21 144/73 95 Mechanical Ventilator 40 06/08/17 05:30 104 21 133/70 95 Mechanical Ventilator 40 06/08/17 05:01 118 26 40 06/08/17 05:00 104 21 151/69 95 Mechanical Ventilator 40 06/08/17 05:00 101 133/70 06/08/17 05:00 20 06/08/17 04:30 109 17 131/62 95 Mechanical Ventilator 40 06/08/17 04:00 40 06/08/17 04:00 100.6 102 17 156/79 95 Mechanical Ventilator 40 06/08/17 04:00 98 06/08/17 04:00 18 06/08/17 03:30 102 17 145/77 95 Mechanical Ventilator 40 06/08/17 03:00 103 19 40 06/08/17 03:00 99 17 140/64 95 Mechanical Ventilator 40 06/08/17 03:00 24 06/08/17 02:30 98 17 131/64 95 Mechanical Ventilator 40 06/08/17 02:23 101.1 06/08/17 02:00 98 18 139/77 95 Mechanical Ventilator 40 06/08/17 02:00 24 06/08/17 01:30 100 18 130/69 95 Mechanical Ventilator 40 06/08/17 01:03 92 20 40 06/08/17 01:00 96 141/69 06/08/17 01:00 26 06/08/17 01:00 96 32 150/71 95 Mechanical Ventilator 40 06/08/17 00:30 92 42 141/69 95 Mechanical Ventilator 40 06/08/17 00:00 40 06/08/17 00:00 101.1 89 42 157/63 95 Mechanical Ventilator 40 06/08/17 00:00 24 06/08/17 00:00 40 06/08/17 00:00 86 06/07/17 23:30 79 25 138/75 98 Mechanical Ventilator 40 06/07/17 23:00 88 25 136/75 98 Mechanical Ventilator 40 06/07/17 22:57 91 20 40 06/07/17 22:30 83 25 133/65 98 Mechanical Ventilator 40 06/07/17 22:00 100.0 93 22 144/70 98 Mechanical Ventilator 40 06/07/17 22:00 26 06/07/17 21:30 96 25 182/92 98 Mechanical Ventilator 40 06/07/17 21:01 98 24 50 06/07/17 21:01 99.9 06/07/17 21:00 100 25 157/63 94 Mechanical Ventilator 40 06/07/17 21:00 24 06/07/17 20:55 104 168/114 06/07/17 20:54 104 168/114 06/07/17 20:31 25 06/07/17 20:30 105 40 132/68 94 Mechanical Ventilator 40 06/07/17 20:00 40 06/07/17 20:00 28 06/07/17 20:00 101.0 96 42 132/70 94 Mechanical Ventilator 40 06/07/17 20:00 82 06/07/17 19:30 87 40 178/126 94 Mechanical Ventilator 40 06/07/17 19:00 92 32 168/114 97 Mechanical Ventilator 60 06/07/17 19:00 32 06/07/17 18:55 91 25 50 06/07/17 18:30 96 28 149/72 97 Mechanical Ventilator 60 06/07/17 18:00 20 06/07/17 18:00 21 06/07/17 18:00 88 40 168/98 100 Mechanical Ventilator 60 06/07/17 18:00 88 28 168/96 100 Mechanical Ventilator 60 Intake and Output 06/07/17 06/08/17 19:00 07:00 Intake Total 2527 ml 2278 ml Output Total 2225 ml 2305 ml Balance 302 ml -27 ml Free Water 30 ml 90 ml IV Total 1727 ml 1533 ml Tube Feeding 660 ml 605 ml Other 110 ml 50 ml Output Urine Total 2225 ml 2305 ml Laboratory Tests 06/08/17 05:05: White Blood Count 12.6H, Red Blood Count 3.98L, Hemoglobin 12.4L, Hematocrit 34.9L, Mean Corpuscular Volume 88, Mean Corpuscular Hemoglobin 31.1H, Mean Corpuscular Hemoglobin Concent 35.5, Red Cell Distribution Width 11.1L, Platelet Count 345, Mean Platelet Volume 6.7, Neutrophils (%) (Auto) 72.1, Lymphocytes (%) (Auto) 14.9L, Monocytes (%) (Auto) 10.3H, Eosinophils (%) (Auto ) 2.0, Basophils (%) (Auto) 0.8, Sodium Level 137, Potassium Level 3.4L, Chloride Level 99, Carbon Dioxide Level 31, Anion Gap 7, Blood Urea Nitrogen 15 , Creatinine 0.9, Estimat Glomerular Filtration Rate > 60, Glucose Level 155H, Calcium Level 9.0, Total Bilirubin 0.6, Aspartate Amino Transf (AST/SGOT) 42H, Alanine Aminotransferase (ALT/SGPT) 66, Alkaline Phosphatase 52, Total Protein 6.8, Albumin 2.4L, Globulin 4.4, Albumin/Globulin Ratio 0.5L, Vancomycin Level Trough 17.9H 06/08/17 17:00: Urine Color Pale yellow, Urine Appearance Clear, Urine pH 7, Urine Specific [place] 1.010, Urine Protein 1+H, Urine Glucose (UA) Negative, Urine Ketones Negative, Urine Occult Blood 3+H, Urine Nitrite Negative, Urine Bilirubin Negative, Urine Urobilinogen Normal, Urine Leukocyte Esterase Negative, Urine RBC [Pending], Urine WBC [Pending], Urine Squamous Epithelial Cells [Pending], Urine Bacteria [Pending] Height (Feet): 6 Height (Inches): 1.00 Weight (Pounds): 257 Objective Obese WM Intubated supple Coarse BS RRR soft ND no edema non communicative JAMIN HEARD Jun 08, 2017 17:40
--- NOTE | 2017-06-08 19:50 | Wound Care Consultation ---
Wound Assessment Wound Assessment : Wound Number: 1 Wound Present on Admission: No New Wound: Yes Status Change of Wound: No Wound Location Body Site Modif: right, upper Wound Location Body Site: back Wound Type: pressure ulcer Felipa Test: Does not Felipa Pressure Ulcer Stage: Deep Tissue Injury Wound Thickness: Full Thickness Wound Length: 14.0 Wound Width: 18.0 Wound Depth: utd Percent of Wound Purple/Maroon: 100 Wound Drainage Amount: None Wound Drainage Odor: None/Absent Tissue Surrounding Wound: Erythemic Wound General Appearance: Reddened - purple/maroon Wound Comment #1 Right upper back DTI pressure ulcer Recommendation -Local wound care per protocol -Keep clean and dry -Turn and reposition -Optimize nutrition -Low air loss P200 mattress -Offload both heels -Heel protector on both heels -Assess and f/u accordingly for any changes SHEILA HILL RN Jun 08, 2017 19:50
[2017-06-08] MEDS: Dyna-Hex 2% Top Sol 2oz TOPIC SCH (19:58)
--- NOTE | 2017-06-08 22:01 | Cardiology Progress Note ---
Assessment/Plan Assessment/Plan 1. Asystole cardiac arrest due to respiratory failure, regained pulse after 8 minutes, possible anoxic encephalopathy. 2. Mild cardiomyopathy with LVEF at 45%, + anteroseptal wall hypokinesia, ? ischemic cardiomyopathy vs drug-induced CM. 3. Elevated troponin level likely due to sepsis/tachycardia/pneumonia, not a pattern for ACS, CP free on admission to ED. 4. Accelerated HTN.Consider placing him back on metoprolol IVPB. 5. Acute respiratory failure, intubated. 6. Substance abuse 7. Obesity Subjective Subjective Sinus rhythm at 91. Unresponsive. Objective Last 24 Hour Vital Signs Date Time Temp Pulse Resp B/P (MAP) Pulse Ox O2 Delivery O2 Flow Rate FiO2 06/08/17 21:00 30 06/08/17 20:48 92 175/95 06/08/17 20:47 91 175/95 06/08/17 20:00 35 06/08/17 19:03 105 26 40 06/08/17 19:00 100.5 76 25 184/100 Mechanical Ventilator 40 06/08/17 19:00 30 06/08/17 18:30 80 26 174/88 Mechanical Ventilator 40 06/08/17 18:00 100.0 85 29 178/97 Mechanical Ventilator 40 06/08/17 17:30 85 29 178/97 Mechanical Ventilator 40 06/08/17 17:07 88 16 40 06/08/17 17:00 79 29 167/86 Mechanical Ventilator 40 06/08/17 17:00 25 06/08/17 16:30 79 28 144/79 Mechanical Ventilator 40 06/08/17 16:18 20 06/08/17 16:11 81 159/90 06/08/17 16:00 85 06/08/17 16:00 100.1 83 25 159/90 99 Mechanical Ventilator 40 06/08/17 16:00 40 06/08/17 16:00 25 06/08/17 15:30 83 19 151/82 99 Mechanical Ventilator 40 06/08/17 15:23 88 16 40 06/08/17 15:00 25 06/08/17 15:00 83 21 185/73 99 Mechanical Ventilator 40 06/08/17 14:30 83 20 187/102 Mechanical Ventilator 40 06/08/17 14:00 25 06/08/17 14:00 84 17 153/82 Mechanical Ventilator 40 06/08/17 13:30 85 19 160/77 Mechanical Ventilator 40 06/08/17 13:14 86 16 40 06/08/17 13:00 99.2 87 40 136/77 100 Mechanical Ventilator 40 06/08/17 13:00 87 136/77 06/08/17 13:00 25 06/08/17 12:30 98 40 152/84 100 Mechanical Ventilator 40 06/08/17 12:00 99.2 86 40 157/83 100 Mechanical Ventilator 40 06/08/17 12:00 95 06/08/17 12:00 25 06/08/17 12:00 40 06/08/17 11:30 95 40 173/120 100 Mechanical Ventilator 40 06/08/17 11:00 99.9 98 42 143/77 100 Mechanical Ventilator 40 06/08/17 11:00 25 06/08/17 10:39 82 16 40 06/08/17 10:30 96 38 123/63 100 Mechanical Ventilator 40 06/08/17 10:00 25 06/08/17 10:00 100.0 82 17 118/63 100 Mechanical Ventilator 40 06/08/17 09:30 83 20 136/65 95 Mechanical Ventilator 40 06/08/17 09:04 111 30 40 06/08/17 09:00 91 24 146/72 95 Mechanical Ventilator 40 06/08/17 09:00 24 06/08/17 08:41 81 134/74 06/08/17 08:41 81 134/74 06/08/17 08:30 82 16 134/74 95 Mechanical Ventilator 40 06/08/17 08:00 40 06/08/17 08:00 20 06/08/17 08:00 102.7 85 17 130/59 95 Mechanical Ventilator 40 06/08/17 08:00 105 06/08/17 07:30 92 18 139/70 95 Mechanical Ventilator 40 06/08/17 07:22 113 30 40 06/08/17 07:00 112 21 118/58 95 Mechanical Ventilator 40 06/08/17 07:00 25 06/08/17 06:30 96 21 135/58 95 Mechanical Ventilator 40 06/08/17 06:00 25 06/08/17 06:00 100 21 144/73 95 Mechanical Ventilator 40 06/08/17 05:30 104 21 133/70 95 Mechanical Ventilator 40 06/08/17 05:01 118 26 40 06/08/17 05:00 104 21 151/69 95 Mechanical Ventilator 40 06/08/17 05:00 101 133/70 06/08/17 05:00 20 06/08/17 04:30 109 17 131/62 95 Mechanical Ventilator 40 06/08/17 04:00 40 06/08/17 04:00 100.6 102 17 156/79 95 Mechanical Ventilator 40 06/08/17 04:00 98 06/08/17 04:00 18 06/08/17 03:30 102 17 145/77 95 Mechanical Ventilator 40 06/08/17 03:00 103 19 40 06/08/17 03:00 99 17 140/64 95 Mechanical Ventilator 40 06/08/17 03:00 24 06/08/17 02:30 98 17 131/64 95 Mechanical Ventilator 40 06/08/17 02:23 101.1 06/08/17 02:00 98 18 139/77 95 Mechanical Ventilator 40 06/08/17 02:00 24 06/08/17 01:30 100 18 130/69 95 Mechanical Ventilator 40 06/08/17 01:03 92 20 40 06/08/17 01:00 96 141/69 06/08/17 01:00 26 06/08/17 01:00 96 32 150/71 95 Mechanical Ventilator 40 06/08/17 00:30 92 42 141/69 95 Mechanical Ventilator 40 06/08/17 00:00 40 06/08/17 00:00 101.1 89 42 157/63 95 Mechanical Ventilator 40 06/08/17 00:00 24 06/08/17 00:00 40 06/08/17 00:00 86 06/07/17 23:30 79 25 138/75 98 Mechanical Ventilator 40 06/07/17 23:00 88 25 136/75 98 Mechanical Ventilator 40 06/07/17 22:57 91 20 40 06/07/17 22:30 83 25 133/65 98 Mechanical Ventilator 40 06/07/17 22:00 100.0 93 22 144/70 98 Mechanical Ventilator 40 06/07/17 22:00 26 Intake and Output 06/07/17 06/08/17 19:00 07:00 Intake Total 2527 ml 2378 ml Output Total 2225 ml 2305 ml Balance 302 ml 73 ml Free Water 30 ml 90 ml IV Total 1727 ml 1633 ml Tube Feeding 660 ml 605 ml Other 110 ml 50 ml Output Urine Total 2225 ml 2305 ml 2D Echo: EF 45%, Anteroseptal HK, RVSP 33 mmHg Laboratory Tests Test 06/08/17 05:05 06/08/17 17:00 White Blood Count 12.6 K/UL (4.8-10.8) H Red Blood Count 3.98 M/UL (4.70-6.10) L Hemoglobin 12.4 G/DL (14.2-18.0) L Hematocrit 34.9 % (42.0-52.0) L Mean Corpuscular Volume 88 FL (80-99) Mean Corpuscular Hemoglobin 31.1 PG (27.0-31.0) H Mean Corpuscular Hemoglobin Concent 35.5 G/DL (32.0-36.0) Red Cell Distribution Width 11.1 % (11.6-14.8) L Platelet Count 345 K/UL (150-450) Mean Platelet Volume 6.7 FL (6.5-10.1) Neutrophils (%) (Auto) 72.1 % (45.0-75.0) Lymphocytes (%) (Auto) 14.9 % (20.0-45.0) L Monocytes (%) (Auto) 10.3 % (1.0-10.0) H Eosinophils (%) (Auto) 2.0 % (0.0-3.0) Basophils (%) (Auto) 0.8 % (0.0-2.0) Sodium Level 137 MMOL/L (136-145) Potassium Level 3.4 MMOL/L (3.5-5.1) L Chloride Level 99 MMOL/L (98-107) Carbon Dioxide Level 31 MMOL/L (21-32) Anion Gap 7 mmol/L (5-15) Blood Urea Nitrogen 15 mg/dL (7-18) Creatinine 0.9 MG/DL (0.55-1.30) Estimat Glomerular Filtration Rate > 60 mL/min (>60) Glucose Level 155 MG/DL (74-106) H Calcium Level 9.0 MG/DL (8.5-10.1) Total Bilirubin 0.6 MG/DL (0.2-1.0) Aspartate Amino Transf (AST/SGOT) 42 U/L (15-37) H Alanine Aminotransferase (ALT/SGPT) 66 U/L (12-78) Alkaline Phosphatase 52 U/L (46-116) Total Protein 6.8 G/DL (6.4-8.2) Albumin 2.4 G/DL (3.4-5.0) L Globulin 4.4 g/dL Albumin/Globulin Ratio 0.5 (1.0-2.7) L Vancomycin Level Trough 17.9 ug/mL (5.0-12.0) H Urine Color Pale yellow Urine Appearance Clear Urine pH 7 (4.5-8.0) Urine Specific [place] 1.010 (1.005-1.035) Urine Protein 1+ (NEGATIVE) H Urine Glucose (UA) Negative (NEGATIVE) Urine Ketones Negative (NEGATIVE) Urine Occult Blood 3+ (NEGATIVE) H Urine Nitrite Negative (NEGATIVE) Urine Bilirubin Negative (NEGATIVE) Urine Urobilinogen Normal MG/DL (0.0-1.0) Urine Leukocyte Esterase Negative (NEGATIVE) Urine RBC 10-15 /HPF (0 - 0) H Urine WBC 0-2 /HPF (0 - 0) Urine Squamous Epithelial Cells None /LPF (NONE/OCC) Urine Bacteria Occasional /HPF (NONE) Microbiology Date/Time Source Procedure Growth Status 06/07/17 10:00 Blood Blood Culture - Preliminary Resulted Objective HEENT: Intubated, on mechanical ventilator. NECK: JVP cannot be assessed, No carotid bruit. Carotid upstrokes 2+ bilaterally. CARDIOVASCULAR SYSTEM: Normal S1, S2. Regular rate and rhythm. No murmurs, gallops, or rubs. PMI is at fourth intercostal space in the midclavicular line. LUNGS: Clear to auscultation bilaterally. ABDOMEN: Soft, nontender, nondistended. No hepatosplenomegaly. Positive bowel sounds. EXTREMITIES: No evidence of edema, clubbing, or cyanosis. CRISTA MURPHY Jun 08, 2017 22:01
[2017-06-08] MEDS: Acetaminophen 650mg/20.3ml GT PRN (23:28)
[2017-06-09] VITALS (46 sets, daily range): BP systolic 126–192; BP diastolic 45–105
[2017-06-09] MEDS: Vancomycin 1gm/D5W 275ml IVPB SCH ×8 (00:13→17:17)
[2017-06-09] MEDS: NS IVPB SCH ×6 (01:00→20:38)
[2017-06-09] MEDS: METOPROLOL TARTRATE IVPB SCH ×6 (01:00→20:38)
[2017-06-09] MEDS: LORazepam Inj 2mg/ml 1ml IV SCH ×6 (03:46→23:16)
[2017-06-09] MEDS: levETIRAcetam 1,000mg/NS100ml 100 ML IVPB SCH ×2 (08:03→20:38)
[2017-06-09] MEDS: Cefepime HCl 2 GM in D5W 55 ML IVPB SCH ×2 (08:04→20:38)
--- NOTE | 2017-06-09 08:06 | Critical Care Progress Note ---
Assessment/Plan Assessment/Plan IMPRESSION ARF - improved rhabdo- resolved CK elevated Liver enzyme- improving elevated troponin Pneumonia with abnormal CT reduced EF migraines s/p CPA acute encephalopathy with possible encephalitis tachycardia leukocytosis abnormal urine tox screen fevers PLAN labs noted IV antibiotics and titrate ID evaluation reviewed head CT and EEG discussed neuro appreciated- for now monitor all noted and appreciated monitor LOC ativan prn feeds per GI fentanyl drip for now acyclovir empiric- may dc hyperventilate and maintain blood pressure at higher normal mother aware and discussion shelter care vs terminal extubation medications/laboratory data/nursing notes/ICU care reviewed in detail note reviewed and edited care discussed with RN and RT ICU time spent 38 minutes Critical Care - Subjective Interval Events: overall same no change noted ROS Limited/Unobtainable: Yes Condition: critical EKG Rhythm: Sinus Rhythm Residuals: minimal Tube Feeding Tolerated: yes I&O: Intake and Output 06/08/17 06/09/17 19:00 07:00 Intake Total 2180 ml 2202.708 ml Output Total 2000 ml 1900 ml Balance 180 ml 302.708 ml Free Water 360 ml 60 ml IV Total 1110 ml 1537.708 ml Tube Feeding 660 ml 605 ml Other 50 ml Output Urine Total 2000 ml 1900 ml Critical Care - Objective ET-Tube: 7.5 ET Position: 27 Last 24 Hour Vital Signs Date Time Temp Pulse Resp B/P (MAP) Pulse Ox O2 Delivery O2 Flow Rate FiO2 06/09/17 07:00 77 12 144/71 100 Mechanical Ventilator 40 06/09/17 07:00 30 06/09/17 06:30 102 18 40 06/09/17 06:30 99.6 104 22 137/66 100 Mechanical Ventilator 40 06/09/17 06:00 30 06/09/17 06:00 99.5 82 22 137/66 100 Mechanical Ventilator 40 06/09/17 05:30 99.5 112 12 137/76 100 Mechanical Ventilator 40 06/09/17 05:29 95 18 40 06/09/17 05:00 99.6 82 12 141/70 100 Mechanical Ventilator 40 06/09/17 05:00 79 141/70 06/09/17 05:00 30 06/09/17 04:00 40 06/09/17 04:00 99.9 82 12 143/70 100 Mechanical Ventilator 40 06/09/17 04:00 18 06/09/17 04:00 78 06/09/17 03:30 80 12 139/82 100 Mechanical Ventilator 40 06/09/17 03:17 79 23 40 06/09/17 03:00 81 13 126/66 99 Mechanical Ventilator 40 06/09/17 03:00 30 06/09/17 02:30 92 36 153/79 95 Mechanical Ventilator 40 06/09/17 02:23 33 06/09/17 02:00 82 35 159/80 99 Mechanical Ventilator 40 06/09/17 02:00 30 06/09/17 01:30 82 21 169/90 100 Mechanical Ventilator 40 06/09/17 01:24 81 24 40 06/09/17 01:00 82 21 169/90 100 Mechanical Ventilator 40 06/09/17 01:00 80 159/85 06/09/17 01:00 30 06/09/17 00:30 99.9 83 33 159/85 100 Mechanical Ventilator 40 06/09/17 00:00 87 06/09/17 00:00 87 33 169/90 100 Mechanical Ventilator 40 06/09/17 00:00 30 06/08/17 23:58 100.0 06/08/17 23:30 87 33 164/86 100 Mechanical Ventilator 40 06/08/17 23:17 89 22 40 06/08/17 23:00 30 06/08/17 23:00 90 33 192/86 100 Mechanical Ventilator 40 06/08/17 22:30 92 23 157/96 100 Mechanical Ventilator 40 06/08/17 22:00 30 06/08/17 22:00 100.4 93 45 181/88 91 Mechanical Ventilator 40 06/08/17 21:30 89 45 241/132 91 Mechanical Ventilator 40 06/08/17 21:19 87 25 40 06/08/17 21:00 89 22 170/85 92 Mechanical Ventilator 40 06/08/17 21:00 30 06/08/17 20:48 92 175/95 06/08/17 20:47 91 175/95 06/08/17 20:30 85 26 195/94 92 Mechanical Ventilator 40 06/08/17 20:00 72 06/08/17 20:00 85 26 195/94 91 Mechanical Ventilator 40 06/08/17 20:00 35 06/08/17 20:00 40 06/08/17 19:30 74 17 168/88 86 Mechanical Ventilator 40 06/08/17 19:03 105 26 40 06/08/17 19:00 100.5 76 25 184/100 Mechanical Ventilator 40 06/08/17 19:00 30 06/08/17 18:30 80 26 174/88 Mechanical Ventilator 40 06/08/17 18:00 100.0 85 29 178/97 Mechanical Ventilator 40 06/08/17 17:30 85 29 178/97 Mechanical Ventilator 40 06/08/17 17:07 88 16 40 06/08/17 17:00 79 29 167/86 Mechanical Ventilator 40 06/08/17 17:00 25 06/08/17 16:30 79 28 144/79 Mechanical Ventilator 40 06/08/17 16:18 20 06/08/17 16:11 81 159/90 06/08/17 16:00 85 06/08/17 16:00 100.1 83 25 159/90 99 Mechanical Ventilator 40 06/08/17 16:00 40 06/08/17 16:00 25 06/08/17 15:30 83 19 151/82 99 Mechanical Ventilator 40 06/08/17 15:23 88 16 40 06/08/17 15:00 25 06/08/17 15:00 83 21 185/73 99 Mechanical Ventilator 40 06/08/17 14:30 83 20 187/102 Mechanical Ventilator 40 06/08/17 14:00 25 06/08/17 14:00 84 17 153/82 Mechanical Ventilator 40 06/08/17 13:30 85 19 160/77 Mechanical Ventilator 40 06/08/17 13:14 86 16 40 06/08/17 13:00 99.2 87 40 136/77 100 Mechanical Ventilator 40 06/08/17 13:00 87 136/77 06/08/17 13:00 25 06/08/17 12:30 98 40 152/84 100 Mechanical Ventilator 40 06/08/17 12:00 99.2 86 40 157/83 100 Mechanical Ventilator 40 06/08/17 12:00 95 06/08/17 12:00 25 06/08/17 12:00 40 06/08/17 11:30 95 40 173/120 100 Mechanical Ventilator 40 06/08/17 11:00 99.9 98 42 143/77 100 Mechanical Ventilator 40 06/08/17 11:00 25 06/08/17 10:39 82 16 40 06/08/17 10:30 96 38 123/63 100 Mechanical Ventilator 40 06/08/17 10:00 25 06/08/17 10:00 100.0 82 17 118/63 100 Mechanical Ventilator 40 06/08/17 09:30 83 20 136/65 95 Mechanical Ventilator 40 06/08/17 09:04 111 30 40 06/08/17 09:00 91 24 146/72 95 Mechanical Ventilator 40 06/08/17 09:00 24 06/08/17 08:41 81 134/74 06/08/17 08:41 81 134/74 06/08/17 08:30 82 16 134/74 95 Mechanical Ventilator 40 Labs: Labs Test 06/06/17 11:25 06/07/17 08:10 06/08/17 05:05 06/08/17 17:00 Arterial Blood pH 7.486 (7.350-7.450) Arterial Blood Partial Pressure CO2 39.1 mmHg (35.0-45.0) Arterial Blood Partial Pressure O2 94.5 mmHg (75.0-100.0) Arterial Blood HCO3 28.9 mmol/L (22.0-26.0) Arterial Blood Oxygen Saturation 97.5 % (92.0-98.0) Arterial Blood Base Excess 5.2 Balaji Test Positive White Blood Count 14.7 K/UL (4.8-10.8) 12.6 K/UL (4.8-10.8) Red Blood Count 4.23 M/UL (4.70-6.10) 3.98 M/UL (4.70-6.10) Hemoglobin 12.6 G/DL (14.2-18.0) 12.4 G/DL (14.2-18.0) Hematocrit 37.6 % (42.0-52.0) 34.9 % (42.0-52.0) Mean Corpuscular Volume 89 FL (80-99) 88 FL (80-99) Mean Corpuscular Hemoglobin 29.8 PG (27.0-31.0) 31.1 PG (27.0-31.0) Mean Corpuscular Hemoglobin Concent 33.5 G/DL (32.0-36.0) 35.5 G/DL (32.0-36.0) Red Cell Distribution Width 11.4 % (11.6-14.8) 11.1 % (11.6-14.8) Platelet Count 339 K/UL (150-450) 345 K/UL (150-450) Mean Platelet Volume 6.1 FL (6.5-10.1) 6.7 FL (6.5-10.1) Neutrophils (%) (Auto) 78.9 % (45.0-75.0) 72.1 % (45.0-75.0) Lymphocytes (%) (Auto) 11.6 % (20.0-45.0) 14.9 % (20.0-45.0) Monocytes (%) (Auto) 8.2 % (1.0-10.0) 10.3 % (1.0-10.0) Eosinophils (%) (Auto) 0.9 % (0.0-3.0) 2.0 % (0.0-3.0) Basophils (%) (Auto) 0.4 % (0.0-2.0) 0.8 % (0.0-2.0) Sodium Level 140 MMOL/L (136-145) 137 MMOL/L (136-145) Potassium Level 3.4 MMOL/L (3.5-5.1) 3.4 MMOL/L (3.5-5.1) Chloride Level 102 MMOL/L (98-107) 99 MMOL/L (98-107) Carbon Dioxide Level 32 MMOL/L (21-32) 31 MMOL/L (21-32) Anion Gap 6 mmol/L (5-15) 7 mmol/L (5-15) Blood Urea Nitrogen 14 mg/dL (7-18) 15 mg/dL (7-18) Creatinine 1.0 MG/DL (0.55-1.30) 0.9 MG/DL (0.55-1.30) Estimat Glomerular Filtration Rate > 60 mL/min (>60) > 60 mL/min (>60) Glucose Level 152 MG/DL (74-106) 155 MG/DL (74-106) Calcium Level 8.9 MG/DL (8.5-10.1) 9.0 MG/DL (8.5-10.1) Total Bilirubin 0.5 MG/DL (0.2-1.0) 0.6 MG/DL (0.2-1.0) Aspartate Amino Transf (AST/SGOT) 38 U/L (15-37) 42 U/L (15-37) Alanine Aminotransferase (ALT/SGPT) 68 U/L (12-78) 66 U/L (12-78) Alkaline Phosphatase 55 U/L (46-116) 52 U/L (46-116) Total Protein 6.8 G/DL (6.4-8.2) 6.8 G/DL (6.4-8.2) Albumin 2.3 G/DL (3.4-5.0) 2.4 G/DL (3.4-5.0) Globulin 4.5 g/dL 4.4 g/dL Albumin/Globulin Ratio 0.5 (1.0-2.7) 0.5 (1.0-2.7) Vancomycin Level Trough 17.9 ug/mL (5.0-12.0) Urine Color Pale yellow Urine Appearance Clear Urine pH 7 (4.5-8.0) Urine Specific [place] 1.010 (1.005-1.035) Urine Protein 1+ (NEGATIVE) Urine Glucose (UA) Negative (NEGATIVE) Urine Ketones Negative (NEGATIVE) Urine Occult Blood 3+ (NEGATIVE) Urine Nitrite Negative (NEGATIVE) Urine Bilirubin Negative (NEGATIVE) Urine Urobilinogen Normal MG/DL (0.0-1.0) Urine Leukocyte Esterase Negative (NEGATIVE) Urine RBC 10-15 /HPF (0 - 0) Urine WBC 0-2 /HPF (0 - 0) Urine Squamous Epithelial Cells None /LPF (NONE/OCC) Urine Bacteria Occasional /HPF (NONE) Objective: WDWN NAD improved breath sounds bilaterally without rhonchi or wheeze [id number] tachy without MRG NABS nontender no HSM no CCE nonfocal sedated ETT in place ecchymoses back Micro: Microbiology Date/Time Source Procedure Growth Status 06/07/17 10:00 Blood Blood Culture - Preliminary NO GROWTH AFTER 24 HOURS Resulted 06/07/17 10:00 Blood Blood Culture - Preliminary Resulted 06/08/17 17:00 Urine,Clean Catch Urine Culture - Preliminary NO GROWTH Resulted MEGAN العلي Jun 09, 2017 08:06
[2017-06-09] MEDS: Heparin 5000 units/ml inj SUBQ SCH ×2 (08:27→20:39)
[2017-06-09] MEDS: Metoprolol 25mg tab ORAL SCH ×2 (08:27→20:38)
[2017-06-09] MEDS: fentaNYL Citrate 2,500 MCG in NS 200 ML IVPB SCH (10:30)
--- NOTE | 2017-06-09 10:45 | General Progress Note ---
Assessment/Plan Problem List: (1) Anoxia ICD Codes: R09.02 - Hypoxemia SNOMED: 55582325 (2) Encephalopathy acute ICD Codes: G93.40 - Encephalopathy, unspecified SNOMED: 4467959 (3) Respiratory distress ICD Codes: R06.03 - Acute respiratory distress SNOMED: 065141706 (4) Renal insufficiency ICD Codes: N28.9 - Disorder of kidney and ureter, unspecified SNOMED: 307823139, 994476655 (5) Rhabdomyolysis ICD Codes: M62.82 - Rhabdomyolysis SNOMED: 882190268, 394365332 Qualifiers: Qualified Codes: M62.82 - Rhabdomyolysis (6) Sepsis ICD Codes: A41.9 - Sepsis, unspecified organism SNOMED: 91515733, 934518112 Qualifiers: Qualified Codes: A41.9 - Sepsis, unspecified organism (7) Pneumonia ICD Codes: J18.9 - Pneumonia, unspecified organism SNOMED: 460106795, 686134593 Qualifiers: Qualified Codes: J18.1 - Lobar pneumonia, unspecified organism (8) Elevated troponin ICD Codes: R74.8 - Abnormal levels of other serum enzymes SNOMED: 293468400, 873172688 Status: stable, not improved Assessment/Plan iv abx wean sedation as able ativan and fentanyl for agitation follow up cultures vent support resp care ngt feeds LP if able. replace michael d/w critical and guarded Subjective ROS Limited/Unobtainable: Yes Constitutional: Reports: malaise, weakness HEENT: Reports: no symptoms Cardiovascular: Reports: no symptoms Respiratory: Reports: SOB at rest Gastrointestinal/Abdominal: Reports: no symptoms Genitourinary: Reports: no symptoms Neurologic/Psychiatric: Reports: pre-existing deficit Endocrine: Reports: no symptoms Hematologic/Lymphatic: Reports: no symptoms Allergies: Coded Allergies: No Known Allergies (Unverified , 05/26/17) All Systems: reviewed and negative except above Subjective no change. remains unresponsive. no fevers. no szs. on ngt feeds. less agitated. Objective Last 24 Hour Vital Signs Date Time Temp Pulse Resp B/P (MAP) Pulse Ox O2 Delivery O2 Flow Rate FiO2 06/09/17 10:30 23 06/09/17 09:08 81 18 40 06/09/17 08:30 78 13 138/72 100 Mechanical Ventilator 40 06/09/17 08:27 78 138/72 06/09/17 08:26 78 138/72 06/09/17 08:00 40 06/09/17 08:00 13 06/09/17 08:00 78 06/09/17 07:00 77 12 144/71 100 Mechanical Ventilator 40 06/09/17 07:00 30 06/09/17 06:30 102 18 40 06/09/17 06:30 99.6 104 22 137/66 100 Mechanical Ventilator 40 06/09/17 06:00 30 06/09/17 06:00 99.5 82 22 137/66 100 Mechanical Ventilator 40 06/09/17 05:30 99.5 112 12 137/76 100 Mechanical Ventilator 40 06/09/17 05:29 95 18 40 06/09/17 05:00 99.6 82 12 141/70 100 Mechanical Ventilator 40 06/09/17 05:00 79 141/70 06/09/17 05:00 30 06/09/17 04:00 40 06/09/17 04:00 99.9 82 12 143/70 100 Mechanical Ventilator 40 06/09/17 04:00 18 06/09/17 04:00 78 06/09/17 03:30 80 12 139/82 100 Mechanical Ventilator 40 06/09/17 03:17 79 23 40 06/09/17 03:00 81 13 126/66 99 Mechanical Ventilator 40 06/09/17 03:00 30 06/09/17 02:30 92 36 153/79 95 Mechanical Ventilator 40 06/09/17 02:23 33 06/09/17 02:00 82 35 159/80 99 Mechanical Ventilator 40 06/09/17 02:00 30 06/09/17 01:30 82 21 169/90 100 Mechanical Ventilator 40 06/09/17 01:24 81 24 40 06/09/17 01:00 82 21 169/90 100 Mechanical Ventilator 40 06/09/17 01:00 80 159/85 06/09/17 01:00 30 06/09/17 00:30 99.9 83 33 159/85 100 Mechanical Ventilator 40 06/09/17 00:00 87 06/09/17 00:00 87 33 169/90 100 Mechanical Ventilator 40 06/09/17 00:00 30 06/08/17 23:58 100.0 06/08/17 23:30 87 33 164/86 100 Mechanical Ventilator 40 06/08/17 23:17 89 22 40 06/08/17 23:00 30 06/08/17 23:00 90 33 192/86 100 Mechanical Ventilator 40 06/08/17 22:30 92 23 157/96 100 Mechanical Ventilator 40 06/08/17 22:00 30 06/08/17 22:00 100.4 93 45 181/88 91 Mechanical Ventilator 40 06/08/17 21:30 89 45 241/132 91 Mechanical Ventilator 40 06/08/17 21:19 87 25 40 06/08/17 21:00 89 22 170/85 92 Mechanical Ventilator 40 06/08/17 21:00 30 06/08/17 20:48 92 175/95 06/08/17 20:47 91 175/95 06/08/17 20:30 85 26 195/94 92 Mechanical Ventilator 40 06/08/17 20:00 72 06/08/17 20:00 85 26 195/94 91 Mechanical Ventilator 40 06/08/17 20:00 35 06/08/17 20:00 40 06/08/17 19:30 74 17 168/88 86 Mechanical Ventilator 40 06/08/17 19:03 105 26 40 06/08/17 19:00 100.5 76 25 184/100 Mechanical Ventilator 40 06/08/17 19:00 30 06/08/17 18:30 80 26 174/88 Mechanical Ventilator 40 06/08/17 18:00 100.0 85 29 178/97 Mechanical Ventilator 40 06/08/17 17:30 85 29 178/97 Mechanical Ventilator 40 06/08/17 17:07 88 16 40 06/08/17 17:00 79 29 167/86 Mechanical Ventilator 40 06/08/17 17:00 25 06/08/17 16:30 79 28 144/79 Mechanical Ventilator 40 06/08/17 16:18 20 06/08/17 16:11 81 159/90 06/08/17 16:00 85 06/08/17 16:00 100.1 83 25 159/90 99 Mechanical Ventilator 40 06/08/17 16:00 40 06/08/17 16:00 25 06/08/17 15:30 83 19 151/82 99 Mechanical Ventilator 40 06/08/17 15:23 88 16 40 06/08/17 15:00 25 06/08/17 15:00 83 21 185/73 99 Mechanical Ventilator 40 06/08/17 14:30 83 20 187/102 Mechanical Ventilator 40 06/08/17 14:00 25 06/08/17 14:00 84 17 153/82 Mechanical Ventilator 40 06/08/17 13:30 85 19 160/77 Mechanical Ventilator 40 06/08/17 13:14 86 16 40 06/08/17 13:00 99.2 87 40 136/77 100 Mechanical Ventilator 40 06/08/17 13:00 87 136/77 06/08/17 13:00 25 06/08/17 12:30 98 40 152/84 100 Mechanical Ventilator 40 06/08/17 12:00 99.2 86 40 157/83 100 Mechanical Ventilator 40 06/08/17 12:00 95 06/08/17 12:00 25 06/08/17 12:00 40 06/08/17 11:30 95 40 173/120 100 Mechanical Ventilator 40 06/08/17 11:00 99.9 98 42 143/77 100 Mechanical Ventilator 40 06/08/17 11:00 25 Intake and Output 06/08/17 06/09/17 19:00 07:00 Intake Total 2180 ml 2202.708 ml Output Total 2000 ml 1900 ml Balance 180 ml 302.708 ml Free Water 360 ml 60 ml IV Total 1110 ml 1537.708 ml Tube Feeding 660 ml 605 ml Other 50 ml Output Urine Total 2000 ml 1900 ml Laboratory Tests 06/08/17 17:00: Urine Color Pale yellow, Urine Appearance Clear, Urine pH 7, Urine Specific [place] 1.010, Urine Protein 1+H, Urine Glucose (UA) Negative, Urine Ketones Negative, Urine Occult Blood 3+H, Urine Nitrite Negative, Urine Bilirubin Negative, Urine Urobilinogen Normal, Urine Leukocyte Esterase Negative, Urine RBC 10-15H, Urine WBC 0-2, Urine Squamous Epithelial Cells None, Urine Bacteria Occasional Height (Feet): 6 Height (Inches): 1.00 Weight (Pounds): 252 Objective General Appearance: WD/WN, lethargic. ngt Neck: supple Cardiovascular: regular rhythm Respiratory/Chest: chest wall non-tender, lungs clear, normal breath sounds Abdomen: normal bowel sounds, non tender, soft, no organomegaly Neurologic: unresponsive Skin: normal pigmentation. no rash UOMOTO,JIMBO Jun 09, 2017 10:45
[2017-06-09] MEDS: Thiamine HCl 100 MG in D5W 55 ML IVPB SCH (11:41)
--- NOTE | 2017-06-09 14:51 | General Progress Note ---
Assessment/Plan Assessment/Plan Assessment - s/p arrest - s/p Rhabdo - resolving - Coma - s/p yoly - diverticulosis - recent PNA and hemoptysis Recommendations - supportive ICU care - Continue TF - IVF - Follow LFT - PPI - may need PEG Subjective Allergies: Coded Allergies: No Known Allergies (Unverified , 05/26/17) Subjective above noted non communicative intubated tolerating TF Objective Last 24 Hour Vital Signs Date Time Temp Pulse Resp B/P (MAP) Pulse Ox O2 Delivery O2 Flow Rate FiO2 06/09/17 14:30 91 23 159/80 98 Mechanical Ventilator 40 06/09/17 14:00 96 32 176/94 96 Mechanical Ventilator 40 06/09/17 13:30 99 36 181/86 97 Mechanical Ventilator 40 06/09/17 13:00 97 26 181/84 96 Mechanical Ventilator 40 06/09/17 13:00 26 06/09/17 13:00 91 159/80 06/09/17 12:44 105 19 40 06/09/17 12:00 90 06/09/17 12:00 40 06/09/17 12:00 100.0 93 44 179/78 100 Mechanical Ventilator 40 06/09/17 11:41 44 06/09/17 11:30 94 33 187/73 100 Mechanical Ventilator 40 06/09/17 11:09 30 06/09/17 11:00 88 30 167/82 100 Mechanical Ventilator 40 06/09/17 11:00 100.0 06/09/17 10:43 93 19 40 06/09/17 10:30 90 22 138/72 100 Mechanical Ventilator 40 06/09/17 10:30 23 06/09/17 10:00 90 27 172/73 95 Mechanical Ventilator 40 06/09/17 09:30 94 24 159/45 97 Mechanical Ventilator 40 06/09/17 09:08 81 18 40 06/09/17 09:00 90 22 162/74 92 Mechanical Ventilator 40 06/09/17 09:00 22 06/09/17 08:30 78 13 138/72 100 Mechanical Ventilator 40 06/09/17 08:27 78 138/72 06/09/17 08:26 78 138/72 06/09/17 08:00 40 06/09/17 08:00 14 06/09/17 08:00 13 06/09/17 08:00 78 06/09/17 07:30 99.7 82 17 142/69 93 Mechanical Ventilator 40 06/09/17 07:00 77 12 144/71 100 Mechanical Ventilator 40 06/09/17 07:00 30 06/09/17 06:30 102 18 40 06/09/17 06:30 99.6 104 22 137/66 100 Mechanical Ventilator 40 06/09/17 06:00 30 06/09/17 06:00 99.5 82 22 137/66 100 Mechanical Ventilator 40 06/09/17 05:30 99.5 112 12 137/76 100 Mechanical Ventilator 40 06/09/17 05:29 95 18 40 06/09/17 05:00 99.6 82 12 141/70 100 Mechanical Ventilator 40 06/09/17 05:00 79 141/70 06/09/17 05:00 30 06/09/17 04:00 40 06/09/17 04:00 99.9 82 12 143/70 100 Mechanical Ventilator 40 06/09/17 04:00 18 06/09/17 04:00 78 06/09/17 03:30 80 12 139/82 100 Mechanical Ventilator 40 06/09/17 03:17 79 23 40 06/09/17 03:00 81 13 126/66 99 Mechanical Ventilator 40 06/09/17 03:00 30 06/09/17 02:30 92 36 153/79 95 Mechanical Ventilator 40 06/09/17 02:23 33 06/09/17 02:00 82 35 159/80 99 Mechanical Ventilator 40 06/09/17 02:00 30 06/09/17 01:30 82 21 169/90 100 Mechanical Ventilator 40 06/09/17 01:24 81 24 40 06/09/17 01:00 82 21 169/90 100 Mechanical Ventilator 40 06/09/17 01:00 80 159/85 06/09/17 01:00 30 06/09/17 00:30 99.9 83 33 159/85 100 Mechanical Ventilator 40 06/09/17 00:00 87 06/09/17 00:00 87 33 169/90 100 Mechanical Ventilator 40 06/09/17 00:00 30 06/08/17 23:58 100.0 06/08/17 23:30 87 33 164/86 100 Mechanical Ventilator 40 06/08/17 23:17 89 22 40 06/08/17 23:00 30 06/08/17 23:00 90 33 192/86 100 Mechanical Ventilator 40 06/08/17 22:30 92 23 157/96 100 Mechanical Ventilator 40 06/08/17 22:00 30 06/08/17 22:00 100.4 93 45 181/88 91 Mechanical Ventilator 40 06/08/17 21:30 89 45 241/132 91 Mechanical Ventilator 40 06/08/17 21:19 87 25 40 06/08/17 21:00 89 22 170/85 92 Mechanical Ventilator 40 06/08/17 21:00 30 06/08/17 20:48 92 175/95 06/08/17 20:47 91 175/95 06/08/17 20:30 85 26 195/94 92 Mechanical Ventilator 40 06/08/17 20:00 72 06/08/17 20:00 85 26 195/94 91 Mechanical Ventilator 40 06/08/17 20:00 35 06/08/17 20:00 40 06/08/17 19:30 74 17 168/88 86 Mechanical Ventilator 40 06/08/17 19:03 105 26 40 06/08/17 19:00 100.5 76 25 184/100 Mechanical Ventilator 40 06/08/17 19:00 30 06/08/17 18:30 80 26 174/88 Mechanical Ventilator 40 06/08/17 18:00 100.0 85 29 178/97 Mechanical Ventilator 40 06/08/17 17:30 85 29 178/97 Mechanical Ventilator 40 06/08/17 17:07 88 16 40 06/08/17 17:00 79 29 167/86 Mechanical Ventilator 40 06/08/17 17:00 25 06/08/17 16:30 79 28 144/79 Mechanical Ventilator 40 06/08/17 16:18 20 06/08/17 16:11 81 159/90 06/08/17 16:00 85 06/08/17 16:00 100.1 83 25 159/90 99 Mechanical Ventilator 40 06/08/17 16:00 40 06/08/17 16:00 25 06/08/17 15:30 83 19 151/82 99 Mechanical Ventilator 40 06/08/17 15:23 88 16 40 06/08/17 15:00 25 06/08/17 15:00 83 21 185/73 99 Mechanical Ventilator 40 Intake and Output 06/08/17 06/09/17 19:00 07:00 Intake Total 2180 ml 2202.708 ml Output Total 2000 ml 1900 ml Balance 180 ml 302.708 ml Free Water 360 ml 60 ml IV Total 1110 ml 1537.708 ml Tube Feeding 660 ml 605 ml Other 50 ml Output Urine Total 2000 ml 1900 ml Laboratory Tests 06/08/17 17:00: Urine Color Pale yellow, Urine Appearance Clear, Urine pH 7, Urine Specific [place] 1.010, Urine Protein 1+H, Urine Glucose (UA) Negative, Urine Ketones Negative, Urine Occult Blood 3+H, Urine Nitrite Negative, Urine Bilirubin Negative, Urine Urobilinogen Normal, Urine Leukocyte Esterase Negative, Urine RBC 10-15H, Urine WBC 0-2, Urine Squamous Epithelial Cells None, Urine Bacteria Occasional Height (Feet): 6 Height (Inches): 1.00 Weight (Pounds): 252 Objective Obese WM Intubated supple Coarse BS RRR soft ND no edema non communicative JAMIN HEARD Jun 09, 2017 14:51
[2017-06-09] MEDS ORDERED: NS 275ml ONE ×3 (15:26→17:44)
[2017-06-09] MEDS ORDERED: D5W 275ml ONE (15:26)
--- NOTE | 2017-06-09 16:01 | Cardiology Report ---
APPROVED REPORT EKG Measurement Heart [id number] [id number] Sinus tachycardia Incomplete right bundle branch block Left posterior fascicular block Cannot rule out Inferior infarct, age undetermined Abnormal ECG
[2017-06-09] MEDS ORDERED: Tubing IV Secondary IV ONE (17:44)
[2017-06-09] MEDS: Dyna-Hex 2% Top Sol 2oz TOPIC SCH (20:37)
[2017-06-09] MEDS: Acetaminophen 650mg/20.3ml GT PRN (21:56)
[2017-06-10] VITALS (48 sets, daily range): BP systolic 104–170; BP diastolic 50–110
[2017-06-10] MEDS: Vancomycin 1gm/D5W 275ml IVPB SCH ×8 (00:18→17:44)
[2017-06-10] MEDS: METOPROLOL TARTRATE IVPB SCH ×6 (01:00→20:45)
[2017-06-10] MEDS: NS IVPB SCH ×6 (01:00→20:45)
[2017-06-10] MEDS: LORazepam Inj 2mg/ml 1ml IV SCH ×6 (03:25→23:30)
[2017-06-10] MEDS: fentaNYL Citrate 2,500 MCG in NS 200 ML IVPB SCH (04:57)
[2017-06-10 05:41] LABS: BASOPHILS % (AUTO) 1.3 % (0.0-2.0); HEMATOCRIT 37.9 % (42.0-52.0); HEMOGLOBIN 13.3 G/DL (14.2-18.0); LYMPHOCYTES % (AUTO) 15.6 % (20.0-45.0); MEAN CORPUSCULAR VOLUME 88 FL (80-99); MONOCYTES % (AUTO) 13.2 % (1.0-10.0); PLATELET COUNT 327 K/UL (150-450); RED BLOOD COUNT 4.29 M/UL (4.70-6.10); RED CELL DISTRIBUTION WIDTH 11.7 % (11.6-14.8); WHITE BLOOD COUNT 10.9 K/UL (4.8-10.8)
[2017-06-10 05:51] LABS: ALANINE AMINOTRANSFERASE 84 U/L (12-78); ALBUMIN 2.6 G/DL (3.4-5.0); ALBUMIN/GLOBULIN RATIO 0.5 (1.0-2.7); ALKALINE PHOSPHATASE 74 U/L (46-116); ANION GAP 6 mmol/L (5-15); ASPARTATE AMINO TRANSFERASE 66 U/L (15-37); BILIRUBIN,TOTAL 0.7 MG/DL (0.2-1.0); BLOOD UREA NITROGEN 10 mg/dL (7-18); CALCIUM 9.7 MG/DL (8.5-10.1); CARBON DIOXIDE 34 MMOL/L (21-32); CHLORIDE 98 MMOL/L (98-107); CREATININE 0.9 MG/DL (0.55-1.30); POTASSIUM 4.1 MMOL/L (3.5-5.1); SODIUM 137 MMOL/L (136-145)
--- NOTE | 2017-06-10 07:57 | Infectious Diseases Prog Note ---
Assessment/Plan Assessment/Plan A 1. pneumonia 2. Bacteremia with CoANS 3. renal failure 4. rhabdomyolysis 5. respiratory failure 6. s/p cardiac arrest 7. Anoxic encephalopathy P 1. continue Vancomycin & Cefepime 2. repeat CXR Subjective ROS Limited/Unobtainable: Yes Constitutional: Reports: fever, other - low grade Allergies: Coded Allergies: No Known Allergies (Unverified , 05/26/17) Objective Vital Signs Last 24 Hour Vital Signs Date Time Temp Pulse Resp B/P (MAP) Pulse Ox O2 Delivery O2 Flow Rate FiO2 06/10/17 07:01 104 18 40 06/10/17 07:00 101 29 154/110 100 Mechanical Ventilator 40 06/10/17 06:30 99.8 112 34 140/66 100 Mechanical Ventilator 40 06/10/17 06:00 99.7 101 29 104/67 100 Mechanical Ventilator 40 06/10/17 06:00 30 06/10/17 05:30 101 29 169/74 100 Mechanical Ventilator 40 06/10/17 05:20 93 21 40 06/10/17 05:00 101 29 132/66 100 Mechanical Ventilator 40 06/10/17 05:00 30 06/10/17 04:57 22 06/10/17 04:57 118 140/76 06/10/17 04:30 98 35 169/74 100 Mechanical Ventilator 40 06/10/17 04:00 40 06/10/17 04:00 25 06/10/17 04:00 99.8 102 24 140/76 100 Mechanical Ventilator 40 06/10/17 04:00 94 06/10/17 03:30 94 24 123/62 100 Mechanical Ventilator 40 06/10/17 03:11 102 18 40 06/10/17 03:00 93 24 123/62 95 Mechanical Ventilator 40 06/10/17 03:00 30 06/10/17 02:30 96 24 135/61 95 Mechanical Ventilator 40 06/10/17 02:00 95 24 152/62 95 Mechanical Ventilator 40 06/10/17 02:00 30 06/10/17 01:30 101 21 130/65 95 Mechanical Ventilator 40 06/10/17 01:15 105 18 40 06/10/17 01:00 95 22 153/57 95 Mechanical Ventilator 40 06/10/17 01:00 30 06/10/17 01:00 91 144/72 06/10/17 00:30 93 19 152/50 96 Mechanical Ventilator 40 06/10/17 00:00 40 06/10/17 00:00 94 18 144/74 100 Mechanical Ventilator 40 06/10/17 00:00 30 06/10/17 00:00 99 06/09/17 23:30 102 25 157/73 95 Mechanical Ventilator 40 06/09/17 23:26 100 22 40 06/09/17 23:00 99 25 157/73 95 Mechanical Ventilator 40 06/09/17 23:00 30 06/09/17 22:46 100.1 06/09/17 22:30 102 25 126/59 95 Mechanical Ventilator 40 06/09/17 22:00 110 17 145/81 100 Mechanical Ventilator 40 06/09/17 22:00 30 06/09/17 21:30 110 17 130/81 100 Mechanical Ventilator 40 06/09/17 21:25 115 18 40 06/09/17 21:00 33 06/09/17 21:00 102 17 142/85 100 Mechanical Ventilator 40 06/09/17 20:38 104 149/74 06/09/17 20:38 103 149/74 06/09/17 20:30 104 24 136/77 100 Mechanical Ventilator 40 06/09/17 20:00 106 21 149/74 100 Mechanical Ventilator 40 06/09/17 20:00 20 06/09/17 20:00 40 06/09/17 20:00 90 06/09/17 19:30 100.0 111 23 167/104 100 Mechanical Ventilator 40 06/09/17 19:16 103 20 40 06/09/17 19:00 114 32 157/82 100 Mechanical Ventilator 40 06/09/17 19:00 30 06/09/17 18:30 115 27 176/93 100 Mechanical Ventilator 40 06/09/17 18:00 106 23 138/76 100 Mechanical Ventilator 40 06/09/17 18:00 27 06/09/17 17:30 91 20 186/84 100 Mechanical Ventilator 40 06/09/17 17:04 102 20 40 06/09/17 17:00 96 17 169/72 100 Mechanical Ventilator 40 06/09/17 17:00 29 06/09/17 16:41 101 157/77 06/09/17 16:30 103 29 155/73 100 Mechanical Ventilator 40 06/09/17 16:00 40 06/09/17 16:00 99 1/13/18 16:00 34 06/09/17 16:00 100.2 101 39 185/75 89 Mechanical Ventilator 40 06/09/17 15:30 107 39 192/99 100 Mechanical Ventilator 40 06/09/17 15:13 109 20 40 06/09/17 15:00 100 34 189/105 97 Mechanical Ventilator 40 06/09/17 14:45 34 06/09/17 14:30 91 23 159/80 98 Mechanical Ventilator 40 06/09/17 14:00 26 06/09/17 14:00 96 32 176/94 96 Mechanical Ventilator 40 06/09/17 13:30 99 36 181/86 97 Mechanical Ventilator 40 06/09/17 13:00 97 26 181/84 96 Mechanical Ventilator 40 06/09/17 13:00 26 06/09/17 13:00 91 159/80 06/09/17 12:44 105 19 40 06/09/17 12:30 102 30 177/93 99 Mechanical Ventilator 40 06/09/17 12:00 90 06/09/17 12:00 40 06/09/17 12:00 100.0 93 44 179/78 100 Mechanical Ventilator 40 06/09/17 11:41 44 06/09/17 11:30 94 33 187/73 100 Mechanical Ventilator 40 06/09/17 11:09 30 06/09/17 11:00 88 30 167/82 100 Mechanical Ventilator 40 06/09/17 11:00 100.0 06/09/17 10:43 93 19 40 06/09/17 10:30 90 22 138/72 100 Mechanical Ventilator 40 06/09/17 10:30 23 06/09/17 10:00 90 27 172/73 95 Mechanical Ventilator 40 06/09/17 09:30 94 24 159/45 97 Mechanical Ventilator 40 06/09/17 09:08 81 18 40 06/09/17 09:00 90 22 162/74 92 Mechanical Ventilator 40 06/09/17 09:00 22 06/09/17 08:30 78 13 138/72 100 Mechanical Ventilator 40 06/09/17 08:27 78 138/72 06/09/17 08:26 78 138/72 06/09/17 08:00 40 06/09/17 08:00 14 06/09/17 08:00 13 06/09/17 08:00 78 Height (Feet): 6 Height (Inches): 1.00 Weight (Pounds): 255 HEENT: other - orally intubated Respiratory/Chest: lungs clear, decreased breath sounds, other - on ventilator Cardiovascular: tachycardia, other - R subclavian line Abdomen: soft, non tender, other - NG tube Extremities: no edema Neurologic/Psychiatric: other - sedated Microbiology Date/Time Source Procedure Growth Status 06/07/17 10:00 Blood Blood Culture - Preliminary NO GROWTH AFTER 48 HOURS Resulted 06/07/17 10:00 Blood Blood Culture - Final Staphylococcus Sp Coag Neg Complete 06/08/17 17:00 Urine,Clean Catch Urine Culture - Preliminary NO GROWTH Resulted Laboratory Tests Test 06/10/17 04:40 White Blood Count 10.9 K/UL (4.8-10.8) H Red Blood Count 4.29 M/UL (4.70-6.10) L Hemoglobin 13.3 G/DL (14.2-18.0) L Hematocrit 37.9 % (42.0-52.0) L Mean Corpuscular Volume 88 FL (80-99) Mean Corpuscular Hemoglobin 31.0 PG (27.0-31.0) Mean Corpuscular Hemoglobin Concent 35.1 G/DL (32.0-36.0) Red Cell Distribution Width 11.7 % (11.6-14.8) Platelet Count 327 K/UL (150-450) Mean Platelet Volume 6.8 FL (6.5-10.1) Neutrophils (%) (Auto) 68.0 % (45.0-75.0) Lymphocytes (%) (Auto) 15.6 % (20.0-45.0) L Monocytes (%) (Auto) 13.2 % (1.0-10.0) H Eosinophils (%) (Auto) 2.0 % (0.0-3.0) Basophils (%) (Auto) 1.3 % (0.0-2.0) Sodium Level 137 MMOL/L (136-145) Potassium Level 4.1 MMOL/L (3.5-5.1) Chloride Level 98 MMOL/L (98-107) Carbon Dioxide Level 34 MMOL/L (21-32) H Anion Gap 6 mmol/L (5-15) Blood Urea Nitrogen 10 mg/dL (7-18) Creatinine 0.9 MG/DL (0.55-1.30) Estimat Glomerular Filtration Rate > 60 mL/min (>60) Glucose Level 109 MG/DL (74-106) H Calcium Level 9.7 MG/DL (8.5-10.1) Total Bilirubin 0.7 MG/DL (0.2-1.0) Aspartate Amino Transf (AST/SGOT) 66 U/L (15-37) H Alanine Aminotransferase (ALT/SGPT) 84 U/L (12-78) H Alkaline Phosphatase 74 U/L (46-116) Total Protein 7.6 G/DL (6.4-8.2) Albumin 2.6 G/DL (3.4-5.0) L Globulin 5.0 g/dL Albumin/Globulin Ratio 0.5 (1.0-2.7) L Current Medications Medications (Trade) Dose Ordered Sig/Brittny Route PRN Reason Start Time Stop Time Status Last Admin Dose Admin Acetaminophen (Tylenol) 650 mg Q4H PRN GT Mild Pain/Temp > 100.5 06/08/17 09:45 07/08/17 11:59 06/09/17 21:56 Cefepime HCl 2 gm/ Dextrose 55 ml @ 110 mls/hr EVERY 12 HOURS IVPB 06/05/17 13:30 06/12/17 13:29 06/09/17 20:38 Chlorhexidine Gluconate (Linda-Hex 2%) 1 applic DAILY@2000 TOPIC 06/04/17 20:00 07/04/17 19:59 06/09/17 20:37 Dicyclomine HCl (Bentyl) 20 mg TIDPRN PRN ORAL Abdominal cramps 06/01/17 04:59 06/26/17 04:58 Fentanyl Citrate 2500 mcg/Sodium Chloride 250 ml @ 0 mls/hr Q24H IVPB 06/09/17 09:00 06/16/17 08:59 06/10/17 04:57 Heparin Sodium (Porcine) (Heparin 5000 units/ml) 5,000 units EVERY 12 HOURS SUBQ 06/04/17 09:00 07/04/17 08:59 06/07/17 20:30 Lansoprazole (Prevacid) 30 mg DAILY GT 06/09/17 09:00 07/09/17 08:59 06/09/17 08:25 Levetiracetam 100 ml @ 400 mls/hr Q12HR IVPB 06/03/17 11:00 07/03/17 10:59 06/09/17 20:38 Lorazepam (Ativan 2mg/ml 1ml) 2 mg Q4H IV 06/08/17 11:30 06/15/17 11:29 06/10/17 03:25 Metoprolol Tartrate (Lopressor) 25 mg Q12HR ORAL 06/01/17 09:00 06/27/17 22:59 06/07/17 20:54 Metoprolol Tartrate 5 mg/ Sodium Chloride 115 ml @ 230 mls/hr Q4HR IVPB 06/05/17 21:00 07/05/17 20:59 06/07/17 04:55 Sodium Chloride 1,000 ml @ 100 mls/hr Q10H IV 06/01/17 05:00 06/29/17 08:14 06/09/17 23:16 Thiamine HCl 100 mg/Dextrose 56 ml @ 112 mls/hr Q24H IVPB 06/03/17 11:00 07/03/17 10:59 06/09/17 11:41 Vancomycin HCl (Vanco rx to dose) 1 ea DAILY PRN MISC Per rx protocol 06/02/17 20:45 07/02/17 20:44 Vancomycin HCl 1 gm/Dextrose 275 ml @ 183.708 mls/hr Q6H IVPB 06/05/17 18:00 06/10/17 17:59 06/10/17 05:44 CHRISS LEI Jun 10, 2017 07:57
[2017-06-10] MEDS: Metoprolol 25mg tab ORAL SCH ×2 (09:00→20:46)
[2017-06-10] MEDS: Heparin 5000 units/ml inj SUBQ SCH ×2 (09:00→20:42)
--- NOTE | 2017-06-10 09:39 | General Progress Note ---
Assessment/Plan Problem List: (1) Anoxia ICD Codes: R09.02 - Hypoxemia SNOMED: 05295072 (2) Encephalopathy acute ICD Codes: G93.40 - Encephalopathy, unspecified SNOMED: 0937316 (3) Respiratory distress ICD Codes: R06.03 - Acute respiratory distress SNOMED: 815080863 (4) Renal insufficiency ICD Codes: N28.9 - Disorder of kidney and ureter, unspecified SNOMED: 072231816, 893046770 (5) Rhabdomyolysis ICD Codes: M62.82 - Rhabdomyolysis SNOMED: 001321092, 123251664 Qualifiers: Qualified Codes: M62.82 - Rhabdomyolysis (6) Sepsis ICD Codes: A41.9 - Sepsis, unspecified organism SNOMED: 58472191, 614737685 Qualifiers: Qualified Codes: A41.9 - Sepsis, unspecified organism (7) Pneumonia ICD Codes: J18.9 - Pneumonia, unspecified organism SNOMED: 620754560, 276296468 Qualifiers: Qualified Codes: J18.1 - Lobar pneumonia, unspecified organism (8) Elevated troponin ICD Codes: R74.8 - Abnormal levels of other serum enzymes SNOMED: 832147024, 732884150 Status: stable, progressing Assessment/Plan iv abx wean sedation as able ativan and fentanyl for agitation follow up cultures vent support resp care ngt feeds d/w critical and guarded Subjective ROS Limited/Unobtainable: Yes Constitutional: Reports: malaise, weakness HEENT: Reports: no symptoms Cardiovascular: Reports: no symptoms Respiratory: Reports: shortness of breath, sputum Gastrointestinal/Abdominal: Reports: difficulty swallowing Genitourinary: Reports: no symptoms Neurologic/Psychiatric: Reports: pre-existing deficit Endocrine: Reports: no symptoms Hematologic/Lymphatic: Reports: no symptoms Allergies: Coded Allergies: No Known Allergies (Unverified , 05/26/17) All Systems: reviewed and negative except above Subjective no change. remains unresponsive. no fevers. no szs. on ngt feeds. on fentanyl and ativan atc Objective Last 24 Hour Vital Signs Date Time Temp Pulse Resp B/P (MAP) Pulse Ox O2 Delivery O2 Flow Rate FiO2 06/10/17 09:24 101 22 40 06/10/17 08:30 101 30 121/86 96 Mechanical Ventilator 40 06/10/17 08:00 101 06/10/17 08:00 101 26 121/86 97 Mechanical Ventilator 40 06/10/17 08:00 40 06/10/17 07:30 101 29 154/110 100 Mechanical Ventilator 40 06/10/17 07:30 100.0 105 22 130/65 96 Mechanical Ventilator 40 06/10/17 07:01 104 18 40 06/10/17 07:00 101 29 154/110 100 Mechanical Ventilator 40 06/10/17 06:30 99.8 112 34 140/66 100 Mechanical Ventilator 40 06/10/17 06:00 99.7 101 29 104/67 100 Mechanical Ventilator 40 06/10/17 06:00 30 06/10/17 05:30 101 29 169/74 100 Mechanical Ventilator 40 06/10/17 05:20 93 21 40 06/10/17 05:00 101 29 132/66 100 Mechanical Ventilator 40 06/10/17 05:00 30 06/10/17 04:57 22 06/10/17 04:57 118 140/76 06/10/17 04:30 98 35 169/74 100 Mechanical Ventilator 40 06/10/17 04:00 40 06/10/17 04:00 25 06/10/17 04:00 99.8 102 24 140/76 100 Mechanical Ventilator 40 06/10/17 04:00 94 06/10/17 03:30 94 24 123/62 100 Mechanical Ventilator 40 06/10/17 03:11 102 18 40 06/10/17 03:00 93 24 123/62 95 Mechanical Ventilator 40 06/10/17 03:00 30 06/10/17 02:30 96 24 135/61 95 Mechanical Ventilator 40 06/10/17 02:00 95 24 152/62 95 Mechanical Ventilator 40 06/10/17 02:00 30 06/10/17 01:30 101 21 130/65 95 Mechanical Ventilator 40 06/10/17 01:15 105 18 40 06/10/17 01:00 95 22 153/57 95 Mechanical Ventilator 40 06/10/17 01:00 30 06/10/17 01:00 91 144/72 06/10/17 00:30 93 19 152/50 96 Mechanical Ventilator 40 06/10/17 00:00 40 06/10/17 00:00 94 18 144/74 100 Mechanical Ventilator 40 06/10/17 00:00 30 06/10/17 00:00 99 06/09/17 23:30 102 25 157/73 95 Mechanical Ventilator 40 06/09/17 23:26 100 22 40 06/09/17 23:00 99 25 157/73 95 Mechanical Ventilator 40 06/09/17 23:00 30 06/09/17 22:46 100.1 06/09/17 22:30 102 25 126/59 95 Mechanical Ventilator 40 06/09/17 22:00 110 17 145/81 100 Mechanical Ventilator 40 06/09/17 22:00 30 06/09/17 21:30 110 17 130/81 100 Mechanical Ventilator 40 06/09/17 21:25 115 18 40 06/09/17 21:00 33 06/09/17 21:00 102 17 142/85 100 Mechanical Ventilator 40 06/09/17 20:38 104 149/74 06/09/17 20:38 103 149/74 06/09/17 20:30 104 24 136/77 100 Mechanical Ventilator 40 06/09/17 20:00 106 21 149/74 100 Mechanical Ventilator 40 06/09/17 20:00 20 06/09/17 20:00 40 06/09/17 20:00 90 06/09/17 19:30 100.0 111 23 167/104 100 Mechanical Ventilator 40 06/09/17 19:16 103 20 40 06/09/17 19:00 114 32 157/82 100 Mechanical Ventilator 40 06/09/17 19:00 30 06/09/17 18:30 115 27 176/93 100 Mechanical Ventilator 40 06/09/17 18:00 106 23 138/76 100 Mechanical Ventilator 40 06/09/17 18:00 27 06/09/17 17:30 91 20 186/84 100 Mechanical Ventilator 40 06/09/17 17:04 102 20 40 06/09/17 17:00 96 17 169/72 100 Mechanical Ventilator 40 06/09/17 17:00 29 06/09/17 16:41 101 157/77 06/09/17 16:30 103 29 155/73 100 Mechanical Ventilator 40 06/09/17 16:00 40 06/09/17 16:00 99 06/09/17 16:00 34 06/09/17 16:00 100.2 101 39 185/75 89 Mechanical Ventilator 40 06/09/17 15:30 107 39 192/99 100 Mechanical Ventilator 40 06/09/17 15:13 109 20 40 06/09/17 15:00 100 34 189/105 97 Mechanical Ventilator 40 06/09/17 14:45 34 06/09/17 14:30 91 23 159/80 98 Mechanical Ventilator 40 06/09/17 14:00 26 06/09/17 14:00 96 32 176/94 96 Mechanical Ventilator 40 06/09/17 13:30 99 36 181/86 97 Mechanical Ventilator 40 06/09/17 13:00 97 26 181/84 96 Mechanical Ventilator 40 06/09/17 13:00 26 06/09/17 13:00 91 159/80 06/09/17 12:44 105 19 40 06/09/17 12:30 102 30 177/93 99 Mechanical Ventilator 40 06/09/17 12:00 90 06/09/17 12:00 40 06/09/17 12:00 100.0 93 44 179/78 100 Mechanical Ventilator 40 06/09/17 11:41 44 06/09/17 11:30 94 33 187/73 100 Mechanical Ventilator 40 06/09/17 11:09 30 06/09/17 11:00 88 30 167/82 100 Mechanical Ventilator 40 06/09/17 11:00 100.0 06/09/17 10:43 93 19 40 06/09/17 10:30 90 22 138/72 100 Mechanical Ventilator 40 06/09/17 10:30 23 06/09/17 10:00 90 27 172/73 95 Mechanical Ventilator 40 Intake and Output 06/09/17 06/10/17 19:00 07:00 Intake Total 3024.124 ml 2439.416 ml Output Total 2740 ml 1695 ml Balance 284.124 ml 744.416 ml Free Water 120 ml IV Total 2364.124 ml 1599.416 ml Tube Feeding 660 ml 660 ml Other 60 ml Output Urine Total 2740 ml 1695 ml Laboratory Tests 06/10/17 04:40: White Blood Count 10.9H, Red Blood Count 4.29L, Hemoglobin 13.3L, Hematocrit 37.9L, Mean Corpuscular Volume 88, Mean Corpuscular Hemoglobin 31.0, Mean Corpuscular Hemoglobin Concent 35.1, Red Cell Distribution Width 11.7, Platelet Count 327, Mean Platelet Volume 6.8, Neutrophils (%) (Auto) 68.0, Lymphocytes (% ) (Auto) 15.6L, Monocytes (%) (Auto) 13.2H, Eosinophils (%) (Auto) 2.0, Basophils (%) (Auto) 1.3, Sodium Level 137, Potassium Level 4.1, Chloride Level 98, Carbon Dioxide Level 34H, Anion Gap 6, Blood Urea Nitrogen 10, Creatinine 0.9, Estimat Glomerular Filtration Rate > 60, Glucose Level 109H, Calcium Level 9.7, Total Bilirubin 0.7, Aspartate Amino Transf (AST/SGOT) 66H, Alanine Aminotransferase (ALT/SGPT) 84H, Alkaline Phosphatase 74, Total Protein 7.6, Albumin 2.6L, Globulin 5.0, Albumin/Globulin Ratio 0.5L Height (Feet): 6 Height (Inches): 1.00 Weight (Pounds): 255 Objective General Appearance: WD/WN, lethargic. ngt Neck: supple Cardiovascular: regular rhythm Respiratory/Chest: chest wall non-tender, lungs clear, normal breath sounds Abdomen: normal bowel sounds, non tender, soft, no organomegaly Neurologic: unresponsive Skin: normal pigmentation. no rash JIMBO GLEASON Jun 10, 2017 09:39
[2017-06-10] MEDS: levETIRAcetam 1,000mg/NS100ml 100 ML IVPB SCH ×2 (10:15→20:41)
[2017-06-10] MEDS: Thiamine HCl 100 MG in D5W 55 ML IVPB SCH (11:29)
--- NOTE | 2017-06-10 13:11 | Critical Care Progress Note ---
Assessment/Plan Assessment/Plan IMPRESSION ARF - improved rhabdo- resolved CK elevated Liver enzyme- improving elevated troponin Pneumonia with abnormal CT reduced EF migraines s/p CPA acute encephalopathy with possible encephalitis tachycardia leukocytosis abnormal urine tox screen fevers PLAN labs noted IV antibiotics per ID repeat Head CT in am all noted and appreciated monitor LOC ativan prn feeds per GI fentanyl as needed update family hyperventilate and maintain blood pressure at higher normal mother aware and discussion buttermaker continuous churn care vs terminal extubation medications/laboratory data/nursing notes/ICU care reviewed in detail note reviewed and edited care discussed with RN and RT ICU time spent 38 minutes Critical Care - Subjective Interval Events: no significant improvement care noted trying to taper sedation ROS Limited/Unobtainable: Yes Condition: critical EKG Rhythm: Sinus Rhythm Residuals: minimal Tube Feeding Tolerated: yes I&O: Intake and Output 06/09/17 06/10/17 19:00 07:00 Intake Total 3024.124 ml 2439.416 ml Output Total 2740 ml 1695 ml Balance 284.124 ml 744.416 ml Free Water 120 ml IV Total 2364.124 ml 1599.416 ml Tube Feeding 660 ml 660 ml Other 60 ml Output Urine Total 2740 ml 1695 ml Critical Care - Objective ET-Tube: 7.5 ET Position: 27 Last 24 Hour Vital Signs Date Time Temp Pulse Resp B/P (MAP) Pulse Ox O2 Delivery O2 Flow Rate FiO2 06/10/17 11:03 94 20 40 06/10/17 11:00 93 13 143/92 93 Mechanical Ventilator 40 06/10/17 10:30 101 28 133/75 96 Mechanical Ventilator 40 06/10/17 10:00 97 17 133/75 96 Mechanical Ventilator 40 06/10/17 09:30 99 31 123/62 96 Mechanical Ventilator 40 06/10/17 09:24 101 22 40 06/10/17 09:00 102 30 123/62 96 Mechanical Ventilator 40 06/10/17 09:00 96 133/75 06/10/17 09:00 97 133/75 06/10/17 08:30 101 30 121/86 96 Mechanical Ventilator 40 06/10/17 08:00 101 06/10/17 08:00 101 26 121/86 97 Mechanical Ventilator 40 06/10/17 08:00 40 06/10/17 07:30 101 29 154/110 100 Mechanical Ventilator 40 06/10/17 07:30 100.0 105 22 130/65 96 Mechanical Ventilator 40 06/10/17 07:01 104 18 40 06/10/17 07:00 101 29 154/110 100 Mechanical Ventilator 40 06/10/17 06:30 99.8 112 34 140/66 100 Mechanical Ventilator 40 06/10/17 06:00 99.7 101 29 104/67 100 Mechanical Ventilator 40 06/10/17 06:00 30 06/10/17 05:30 101 29 169/74 100 Mechanical Ventilator 40 06/10/17 05:20 93 21 40 06/10/17 05:00 101 29 132/66 100 Mechanical Ventilator 40 06/10/17 05:00 30 06/10/17 04:57 22 06/10/17 04:57 118 140/76 06/10/17 04:30 98 35 169/74 100 Mechanical Ventilator 40 06/10/17 04:00 40 06/10/17 04:00 25 06/10/17 04:00 99.8 102 24 140/76 100 Mechanical Ventilator 40 06/10/17 04:00 94 06/10/17 03:30 94 24 123/62 100 Mechanical Ventilator 40 06/10/17 03:11 102 18 40 06/10/17 03:00 93 24 123/62 95 Mechanical Ventilator 40 06/10/17 03:00 30 06/10/17 02:30 96 24 135/61 95 Mechanical Ventilator 40 06/10/17 02:00 95 24 152/62 95 Mechanical Ventilator 40 06/10/17 02:00 30 06/10/17 01:30 101 21 130/65 95 Mechanical Ventilator 40 06/10/17 01:15 105 18 40 06/10/17 01:00 95 22 153/57 95 Mechanical Ventilator 40 06/10/17 01:00 30 06/10/17 01:00 91 144/72 06/10/17 00:30 93 19 152/50 96 Mechanical Ventilator 40 06/10/17 00:00 40 06/10/17 00:00 94 18 144/74 100 Mechanical Ventilator 40 06/10/17 00:00 30 06/10/17 00:00 99 06/09/17 23:30 102 25 157/73 95 Mechanical Ventilator 40 06/09/17 23:26 100 22 40 06/09/17 23:00 99 25 157/73 95 Mechanical Ventilator 40 06/09/17 23:00 30 06/09/17 22:46 100.1 06/09/17 22:30 102 25 126/59 95 Mechanical Ventilator 40 06/09/17 22:00 110 17 145/81 100 Mechanical Ventilator 40 06/09/17 22:00 30 06/09/17 21:30 110 17 130/81 100 Mechanical Ventilator 40 06/09/17 21:25 115 18 40 06/09/17 21:00 33 06/09/17 21:00 102 17 142/85 100 Mechanical Ventilator 40 06/09/17 20:38 104 149/74 06/09/17 20:38 103 149/74 06/09/17 20:30 104 24 136/77 100 Mechanical Ventilator 40 06/09/17 20:00 106 21 149/74 100 Mechanical Ventilator 40 06/09/17 20:00 20 06/09/17 20:00 40 06/09/17 20:00 90 06/09/17 19:30 100.0 111 23 167/104 100 Mechanical Ventilator 40 06/09/17 19:16 103 20 40 06/09/17 19:00 114 32 157/82 100 Mechanical Ventilator 40 06/09/17 19:00 30 06/09/17 18:30 115 27 176/93 100 Mechanical Ventilator 40 06/09/17 18:00 106 23 138/76 100 Mechanical Ventilator 40 06/09/17 18:00 27 06/09/17 17:30 91 20 186/84 100 Mechanical Ventilator 40 06/09/17 17:04 102 20 40 06/09/17 17:00 96 17 169/72 100 Mechanical Ventilator 40 06/09/17 17:00 29 06/09/17 16:41 101 157/77 06/09/17 16:30 103 29 155/73 100 Mechanical Ventilator 40 06/09/17 16:00 40 06/09/17 16:00 99 06/09/17 16:00 34 06/09/17 16:00 100.2 101 39 185/75 89 Mechanical Ventilator 40 06/09/17 15:30 107 39 192/99 100 Mechanical Ventilator 40 06/09/17 15:13 109 20 40 06/09/17 15:00 100 34 189/105 97 Mechanical Ventilator 40 06/09/17 14:45 34 06/09/17 14:30 91 23 159/80 98 Mechanical Ventilator 40 06/09/17 14:00 26 06/09/17 14:00 96 32 176/94 96 Mechanical Ventilator 40 06/09/17 13:30 99 36 181/86 97 Mechanical Ventilator 40 Labs: Laboratory Tests Test 06/10/17 04:40 White Blood Count 10.9 K/UL (4.8-10.8) H Red Blood Count 4.29 M/UL (4.70-6.10) L Hemoglobin 13.3 G/DL (14.2-18.0) L Hematocrit 37.9 % (42.0-52.0) L Mean Corpuscular Volume 88 FL (80-99) Mean Corpuscular Hemoglobin 31.0 PG (27.0-31.0) Mean Corpuscular Hemoglobin Concent 35.1 G/DL (32.0-36.0) Red Cell Distribution Width 11.7 % (11.6-14.8) Platelet Count 327 K/UL (150-450) Mean Platelet Volume 6.8 FL (6.5-10.1) Neutrophils (%) (Auto) 68.0 % (45.0-75.0) Lymphocytes (%) (Auto) 15.6 % (20.0-45.0) L Monocytes (%) (Auto) 13.2 % (1.0-10.0) H Eosinophils (%) (Auto) 2.0 % (0.0-3.0) Basophils (%) (Auto) 1.3 % (0.0-2.0) Sodium Level 137 MMOL/L (136-145) Potassium Level 4.1 MMOL/L (3.5-5.1) Chloride Level 98 MMOL/L (98-107) Carbon Dioxide Level 34 MMOL/L (21-32) H Anion Gap 6 mmol/L (5-15) Blood Urea Nitrogen 10 mg/dL (7-18) Creatinine 0.9 MG/DL (0.55-1.30) Estimat Glomerular Filtration Rate > 60 mL/min (>60) Glucose Level 109 MG/DL (74-106) H Calcium Level 9.7 MG/DL (8.5-10.1) Total Bilirubin 0.7 MG/DL (0.2-1.0) Aspartate Amino Transf (AST/SGOT) 66 U/L (15-37) H Alanine Aminotransferase (ALT/SGPT) 84 U/L (12-78) H Alkaline Phosphatase 74 U/L (46-116) Total Protein 7.6 G/DL (6.4-8.2) Albumin 2.6 G/DL (3.4-5.0) L Globulin 5.0 g/dL Albumin/Globulin Ratio 0.5 (1.0-2.7) L Objective: WDWN NAD improved breath sounds bilaterally without rhonchi or wheeze [id number] tachy without MRG NABS nontender no HSM no CCE nonfocal sedated ETT in place ecchymoses back Micro: Microbiology Date/Time Source Procedure Growth Status 06/09/17 04:30 Sputum Gram Stain Pending Resulted 06/09/17 04:30 Sputum Sputum Culture - Preliminary NORMAL UPPER RESPIRATORY LAURA AT 24 ... Resulted 06/08/17 17:00 Urine,Clean Catch Urine Culture - Preliminary NO GROWTH AFTER 24 HOURS Resulted MEGAN العلي Jun 10, 2017 13:10
[2017-06-10] MEDS: Cefepime HCl 2 GM in D5W 55 ML IVPB SCH ×2 (13:25→20:41)
--- NOTE | 2017-06-10 14:23 | Cardiology Progress Note ---
Assessment/Plan Assessment/Plan 1. Asystole cardiac arrest due to respiratory failure, regained pulse after 8 minutes, possible anoxic encephalopathy. 2. Mild cardiomyopathy with LVEF at 45%, + anteroseptal wall hypokinesia, ? ischemic cardiomyopathy vs drug-induced CM. 3. Elevated troponin level likely due to sepsis/tachycardia/pneumonia, not a pattern for ACS, CP free on admission to ED. 4. Accelerated HTN. On metoprolol IVPB. 5. Acute respiratory failure, intubated. 6. Substance abuse 7. Obesity 8. Sinus tachycardia. Subjective Subjective Sinus rhythm at 93. Unresponsive. Family at the bedside. Objective Last 24 Hour Vital Signs Date Time Temp Pulse Resp B/P (MAP) Pulse Ox O2 Delivery O2 Flow Rate FiO2 06/10/17 14:00 93 13 143/92 93 Mechanical Ventilator 40 06/10/17 13:28 90 18 40 06/10/17 13:00 96 19 130/70 93 Mechanical Ventilator 40 06/10/17 13:00 98 139/71 06/10/17 12:00 40 06/10/17 12:00 94 06/10/17 12:00 99.2 93 21 157/83 93 Mechanical Ventilator 40 06/10/17 11:03 94 20 40 06/10/17 11:00 93 13 143/92 93 Mechanical Ventilator 40 06/10/17 10:30 101 28 133/75 96 Mechanical Ventilator 40 06/10/17 10:00 97 17 133/75 96 Mechanical Ventilator 40 06/10/17 09:30 99 31 123/62 96 Mechanical Ventilator 40 06/10/17 09:24 101 22 40 06/10/17 09:00 102 30 123/62 96 Mechanical Ventilator 40 06/10/17 09:00 96 133/75 06/10/17 09:00 97 133/75 06/10/17 08:30 101 30 121/86 96 Mechanical Ventilator 40 06/10/17 08:00 101 06/10/17 08:00 101 26 121/86 97 Mechanical Ventilator 40 06/10/17 08:00 40 06/10/17 07:30 101 29 154/110 100 Mechanical Ventilator 40 06/10/17 07:30 100.0 105 22 130/65 96 Mechanical Ventilator 40 06/10/17 07:01 104 18 40 06/10/17 07:00 101 29 154/110 100 Mechanical Ventilator 40 06/10/17 06:30 99.8 112 34 140/66 100 Mechanical Ventilator 40 06/10/17 06:00 99.7 101 29 104/67 100 Mechanical Ventilator 40 06/10/17 06:00 30 06/10/17 05:30 101 29 169/74 100 Mechanical Ventilator 40 06/10/17 05:20 93 21 40 06/10/17 05:00 101 29 132/66 100 Mechanical Ventilator 40 06/10/17 05:00 30 06/10/17 04:57 22 06/10/17 04:57 118 140/76 06/10/17 04:30 98 35 169/74 100 Mechanical Ventilator 40 06/10/17 04:00 40 06/10/17 04:00 25 06/10/17 04:00 99.8 102 24 140/76 100 Mechanical Ventilator 40 06/10/17 04:00 94 06/10/17 03:30 94 24 123/62 100 Mechanical Ventilator 40 06/10/17 03:11 102 18 40 06/10/17 03:00 93 24 123/62 95 Mechanical Ventilator 40 06/10/17 03:00 30 06/10/17 02:30 96 24 135/61 95 Mechanical Ventilator 40 06/10/17 02:00 95 24 152/62 95 Mechanical Ventilator 40 06/10/17 02:00 30 06/10/17 01:30 101 21 130/65 95 Mechanical Ventilator 40 06/10/17 01:15 105 18 40 06/10/17 01:00 95 22 153/57 95 Mechanical Ventilator 40 06/10/17 01:00 30 06/10/17 01:00 91 144/72 06/10/17 00:30 93 19 152/50 96 Mechanical Ventilator 40 06/10/17 00:00 40 06/10/17 00:00 94 18 144/74 100 Mechanical Ventilator 40 06/10/17 00:00 30 06/10/17 00:00 99 06/09/17 23:30 102 25 157/73 95 Mechanical Ventilator 40 06/09/17 23:26 100 22 40 06/09/17 23:00 99 25 157/73 95 Mechanical Ventilator 40 06/09/17 23:00 30 06/09/17 22:46 100.1 06/09/17 22:30 102 25 126/59 95 Mechanical Ventilator 40 06/09/17 22:00 110 17 145/81 100 Mechanical Ventilator 40 06/09/17 22:00 30 06/09/17 21:30 110 17 130/81 100 Mechanical Ventilator 40 06/09/17 21:25 115 18 40 06/09/17 21:00 33 06/09/17 21:00 102 17 142/85 100 Mechanical Ventilator 40 06/09/17 20:38 104 149/74 06/09/17 20:38 103 149/74 06/09/17 20:30 104 24 136/77 100 Mechanical Ventilator 40 06/09/17 20:00 106 21 149/74 100 Mechanical Ventilator 40 06/09/17 20:00 20 06/09/17 20:00 40 06/09/17 20:00 90 06/09/17 19:30 100.0 111 23 167/104 100 Mechanical Ventilator 40 06/09/17 19:16 103 20 40 06/09/17 19:00 114 32 157/82 100 Mechanical Ventilator 40 06/09/17 19:00 30 06/09/17 18:30 115 27 176/93 100 Mechanical Ventilator 40 06/09/17 18:00 106 23 138/76 100 Mechanical Ventilator 40 06/09/17 18:00 27 06/09/17 17:30 91 20 186/84 100 Mechanical Ventilator 40 06/09/17 17:04 102 20 40 06/09/17 17:00 96 17 169/72 100 Mechanical Ventilator 40 06/09/17 17:00 29 06/09/17 16:41 101 157/77 06/09/17 16:30 103 29 155/73 100 Mechanical Ventilator 40 06/09/17 16:00 40 06/09/17 16:00 99 06/09/17 16:00 34 06/09/17 16:00 100.2 101 39 185/75 89 Mechanical Ventilator 40 06/09/17 15:30 107 39 192/99 100 Mechanical Ventilator 40 06/09/17 15:13 109 20 40 06/09/17 15:00 100 34 189/105 97 Mechanical Ventilator 40 06/09/17 14:45 34 06/09/17 14:30 91 23 159/80 98 Mechanical Ventilator 40 Intake and Output 06/09/17 06/10/17 19:00 07:00 Intake Total 3024.124 ml 2439.416 ml Output Total 2740 ml 1695 ml Balance 284.124 ml 744.416 ml Free Water 120 ml IV Total 2364.124 ml 1599.416 ml Tube Feeding 660 ml 660 ml Other 60 ml Output Urine Total 2740 ml 1695 ml 2D Echo: EF 45%, Anteroseptal HK, RVSP 33 mmHg Laboratory Tests Test 06/10/17 04:40 White Blood Count 10.9 K/UL (4.8-10.8) H Red Blood Count 4.29 M/UL (4.70-6.10) L Hemoglobin 13.3 G/DL (14.2-18.0) L Hematocrit 37.9 % (42.0-52.0) L Mean Corpuscular Volume 88 FL (80-99) Mean Corpuscular Hemoglobin 31.0 PG (27.0-31.0) Mean Corpuscular Hemoglobin Concent 35.1 G/DL (32.0-36.0) Red Cell Distribution Width 11.7 % (11.6-14.8) Platelet Count 327 K/UL (150-450) Mean Platelet Volume 6.8 FL (6.5-10.1) Neutrophils (%) (Auto) 68.0 % (45.0-75.0) Lymphocytes (%) (Auto) 15.6 % (20.0-45.0) L Monocytes (%) (Auto) 13.2 % (1.0-10.0) H Eosinophils (%) (Auto) 2.0 % (0.0-3.0) Basophils (%) (Auto) 1.3 % (0.0-2.0) Sodium Level 137 MMOL/L (136-145) Potassium Level 4.1 MMOL/L (3.5-5.1) Chloride Level 98 MMOL/L (98-107) Carbon Dioxide Level 34 MMOL/L (21-32) H Anion Gap 6 mmol/L (5-15) Blood Urea Nitrogen 10 mg/dL (7-18) Creatinine 0.9 MG/DL (0.55-1.30) Estimat Glomerular Filtration Rate > 60 mL/min (>60) Glucose Level 109 MG/DL (74-106) H Calcium Level 9.7 MG/DL (8.5-10.1) Total Bilirubin 0.7 MG/DL (0.2-1.0) Aspartate Amino Transf (AST/SGOT) 66 U/L (15-37) H Alanine Aminotransferase (ALT/SGPT) 84 U/L (12-78) H Alkaline Phosphatase 74 U/L (46-116) Total Protein 7.6 G/DL (6.4-8.2) Albumin 2.6 G/DL (3.4-5.0) L Globulin 5.0 g/dL Albumin/Globulin Ratio 0.5 (1.0-2.7) L Microbiology Date/Time Source Procedure Growth Status 06/09/17 04:30 Sputum Gram Stain - Final Resulted 06/09/17 04:30 Sputum Sputum Culture - Preliminary NORMAL UPPER RESPIRATORY LAURA AT 24 ... Resulted 06/08/17 17:00 Urine,Clean Catch Urine Culture - Preliminary NO GROWTH AFTER 24 HOURS Resulted Objective HEENT: Intubated, on mechanical ventilator. NECK: JVP cannot be assessed, No carotid bruit. Carotid upstrokes 2+ bilaterally. CARDIOVASCULAR SYSTEM: Normal S1, S2. Regular rate and rhythm. No murmurs, gallops, or rubs. PMI is at fourth intercostal space in the midclavicular line. LUNGS: Clear to auscultation bilaterally. ABDOMEN: Soft, nontender, nondistended. No hepatosplenomegaly. Positive bowel sounds. EXTREMITIES: No evidence of edema, clubbing, or cyanosis. CRISTA MURPHY Jun 10, 2017 14:23
[2017-06-10] MEDS ORDERED: NS 500ML ONE ×2 (15:49→21:19)
[2017-06-10] MEDS ORDERED: Tubing IV Secondary IV ONE (15:49)
--- NOTE | 2017-06-10 18:11 | General Progress Note ---
Assessment/Plan Assessment/Plan Assessment - s/p arrest - s/p Rhabdo - resolving - Coma - s/p yoly - diverticulosis - recent PNA and hemoptysis Recommendations - supportive ICU care - Continue TF - IVF - Follow LFT - PPI - may need PEG Subjective Allergies: Coded Allergies: No Known Allergies (Unverified , 05/26/17) Subjective above noted non communicative intubated tolerating TF Objective Last 24 Hour Vital Signs Date Time Temp Pulse Resp B/P (MAP) Pulse Ox O2 Delivery O2 Flow Rate FiO2 06/10/17 17:11 84 16 40 06/10/17 17:00 89 19 130/65 100 Mechanical Ventilator 40 06/10/17 17:00 19 06/10/17 17:00 85 130/65 06/10/17 16:30 88 18 132/62 100 Mechanical Ventilator 40 06/10/17 16:00 99.1 95 22 147/79 100 Mechanical Ventilator 40 06/10/17 16:00 92 06/10/17 16:00 17 06/10/17 16:00 40 06/10/17 15:30 87 16 147/79 100 Mechanical Ventilator 40 06/10/17 15:14 87 19 40 06/10/17 15:00 103 18 136/75 100 Mechanical Ventilator 40 06/10/17 15:00 18 06/10/17 14:30 113 23 162/89 100 Mechanical Ventilator 40 06/10/17 14:00 24 06/10/17 14:00 93 13 143/92 93 Mechanical Ventilator 40 06/10/17 13:30 94 24 143/83 93 Mechanical Ventilator 40 06/10/17 13:28 90 18 40 06/10/17 13:00 96 19 130/70 93 Mechanical Ventilator 40 06/10/17 13:00 19 06/10/17 13:00 98 139/71 06/10/17 12:30 97 20 142/73 94 Mechanical Ventilator 40 06/10/17 12:00 40 06/10/17 12:00 21 06/10/17 12:00 100 06/10/17 12:00 99.2 93 21 157/83 93 Mechanical Ventilator 40 06/10/17 11:30 97 23 140/73 94 Mechanical Ventilator 40 06/10/17 11:03 94 20 40 06/10/17 11:00 93 13 143/92 93 Mechanical Ventilator 40 06/10/17 11:00 25 06/10/17 10:30 101 28 133/75 96 Mechanical Ventilator 40 06/10/17 10:00 27 06/10/17 10:00 97 17 133/75 96 Mechanical Ventilator 40 06/10/17 09:30 99 31 123/62 96 Mechanical Ventilator 40 06/10/17 09:24 101 22 40 06/10/17 09:00 102 30 123/62 96 Mechanical Ventilator 40 06/10/17 09:00 30 06/10/17 09:00 96 133/75 06/10/17 09:00 97 133/75 06/10/17 08:30 101 30 121/86 96 Mechanical Ventilator 40 06/10/17 08:00 102 06/10/17 08:00 26 06/10/17 08:00 101 26 121/86 97 Mechanical Ventilator 40 06/10/17 08:00 40 06/10/17 07:30 101 29 154/110 100 Mechanical Ventilator 40 06/10/17 07:30 100.0 105 22 130/65 96 Mechanical Ventilator 40 06/10/17 07:01 104 18 40 06/10/17 07:00 101 29 154/110 100 Mechanical Ventilator 40 06/10/17 07:00 29 06/10/17 06:30 99.8 112 34 140/66 100 Mechanical Ventilator 40 06/10/17 06:00 99.7 101 29 104/67 100 Mechanical Ventilator 40 06/10/17 06:00 30 06/10/17 05:30 101 29 169/74 100 Mechanical Ventilator 40 06/10/17 05:20 93 21 40 06/10/17 05:00 101 29 132/66 100 Mechanical Ventilator 40 06/10/17 05:00 30 06/10/17 04:57 22 06/10/17 04:57 118 140/76 06/10/17 04:30 98 35 169/74 100 Mechanical Ventilator 40 06/10/17 04:00 40 06/10/17 04:00 25 06/10/17 04:00 99.8 102 24 140/76 100 Mechanical Ventilator 40 06/10/17 04:00 94 06/10/17 03:30 94 24 123/62 100 Mechanical Ventilator 40 06/10/17 03:11 102 18 40 06/10/17 03:00 93 24 123/62 95 Mechanical Ventilator 40 06/10/17 03:00 30 06/10/17 02:30 96 24 135/61 95 Mechanical Ventilator 40 06/10/17 02:00 95 24 152/62 95 Mechanical Ventilator 40 06/10/17 02:00 30 06/10/17 01:30 101 21 130/65 95 Mechanical Ventilator 40 06/10/17 01:15 105 18 40 06/10/17 01:00 95 22 153/57 95 Mechanical Ventilator 40 06/10/17 01:00 30 06/10/17 01:00 91 144/72 06/10/17 00:30 93 19 152/50 96 Mechanical Ventilator 40 06/10/17 00:00 40 06/10/17 00:00 94 18 144/74 100 Mechanical Ventilator 40 06/10/17 00:00 30 06/10/17 00:00 99 06/09/17 23:30 102 25 157/73 95 Mechanical Ventilator 40 06/09/17 23:26 100 22 40 06/09/17 23:00 99 25 157/73 95 Mechanical Ventilator 40 06/09/17 23:00 30 06/09/17 22:46 100.1 06/09/17 22:30 102 25 126/59 95 Mechanical Ventilator 40 06/09/17 22:00 110 17 145/81 100 Mechanical Ventilator 40 06/09/17 22:00 30 06/09/17 21:30 110 17 130/81 100 Mechanical Ventilator 40 06/09/17 21:25 115 18 40 06/09/17 21:00 33 06/09/17 21:00 102 17 142/85 100 Mechanical Ventilator 40 06/09/17 20:38 104 149/74 06/09/17 20:38 103 149/74 06/09/17 20:30 104 24 136/77 100 Mechanical Ventilator 40 06/09/17 20:00 106 21 149/74 100 Mechanical Ventilator 40 06/09/17 20:00 20 06/09/17 20:00 40 06/09/17 20:00 90 06/09/17 19:30 100.0 111 23 167/104 100 Mechanical Ventilator 40 06/09/17 19:16 103 20 40 06/09/17 19:00 114 32 157/82 100 Mechanical Ventilator 40 06/09/17 19:00 30 06/09/17 18:30 115 27 176/93 100 Mechanical Ventilator 40 Intake and Output 06/09/17 06/10/17 19:00 07:00 Intake Total 3024.124 ml 2551.416 ml Output Total 2740 ml 1695 ml Balance 284.124 ml 856.416 ml Free Water 120 ml IV Total 2364.124 ml 1711.416 ml Tube Feeding 660 ml 660 ml Other 60 ml Output Urine Total 2740 ml 1695 ml Laboratory Tests 06/10/17 04:40: White Blood Count 10.9H, Red Blood Count 4.29L, Hemoglobin 13.3L, Hematocrit 37.9L, Mean Corpuscular Volume 88, Mean Corpuscular Hemoglobin 31.0, Mean Corpuscular Hemoglobin Concent 35.1, Red Cell Distribution Width 11.7, Platelet Count 327, Mean Platelet Volume 6.8, Neutrophils (%) (Auto) 68.0, Lymphocytes (% ) (Auto) 15.6L, Monocytes (%) (Auto) 13.2H, Eosinophils (%) (Auto) 2.0, Basophils (%) (Auto) 1.3, Sodium Level 137, Potassium Level 4.1, Chloride Level 98, Carbon Dioxide Level 34H, Anion Gap 6, Blood Urea Nitrogen 10, Creatinine 0.9, Estimat Glomerular Filtration Rate > 60, Glucose Level 109H, Calcium Level 9.7, Total Bilirubin 0.7, Aspartate Amino Transf (AST/SGOT) 66H, Alanine Aminotransferase (ALT/SGPT) 84H, Alkaline Phosphatase 74, Total Protein 7.6, Albumin 2.6L, Globulin 5.0, Albumin/Globulin Ratio 0.5L Height (Feet): 6 Height (Inches): 1.00 Weight (Pounds): 255 Objective Obese WM Intubated supple Coarse BS RRR soft ND no edema non communicative JAMIN HEARD Jun 10, 2017 18:11
[2017-06-10] MEDS: Dyna-Hex 2% Top Sol 2oz TOPIC SCH (19:53)
[2017-06-11] VITALS (47 sets, daily range): BP systolic 108–184; BP diastolic 57–119
[2017-06-11] MEDS: Vancomycin 1gm/D5W 275ml IVPB SCH ×10 (00:25→23:37)
[2017-06-11] MEDS: NS IVPB SCH ×6 (01:00→21:59)
[2017-06-11] MEDS: METOPROLOL TARTRATE IVPB SCH ×6 (01:00→21:59)
[2017-06-11] MEDS: LORazepam Inj 2mg/ml 1ml IV SCH ×6 (03:30→23:27)
[2017-06-11] MEDS: fentaNYL Citrate 2,500 MCG in NS 200 ML IVPB SCH (06:20)
[2017-06-11] MEDS: Metoprolol 25mg tab ORAL SCH ×2 (08:47→21:57)
--- NOTE | 2017-06-11 08:48 | Critical Care Progress Note ---
Assessment/Plan Assessment/Plan IMPRESSION ARF - improved rhabdo- resolved CK elevated Liver enzyme- improving elevated troponin Pneumonia with abnormal CT reduced EF migraines s/p CPA acute encephalopathy with possible encephalitis tachycardia leukocytosis abnormal urine tox screen fevers PLAN labs noted IV antibiotics per ID repeat Head CT today all noted and appreciated monitor LOC ativan prn sedation feeds per GI fentanyl as needed update family hyperventilate and maintain blood pressure at higher normal await family decision medications/laboratory data/nursing notes/ICU care reviewed in detail note reviewed and edited care discussed with RN and RT ICU time spent 35 minutes Critical Care - Subjective Interval Events: care reviewed no improvement in LOC decerebrates ROS Limited/Unobtainable: Yes Condition: critical EKG Rhythm: Sinus Tachycardia Residuals: minimal Tube Feeding Tolerated: yes I&O: Intake and Output 06/10/17 06/11/17 19:00 07:00 Intake Total 2760.25 ml 2567.708 ml Output Total 2450 ml 1880 ml Balance 310.25 ml 687.708 ml IV Total 2100.25 ml 1907.708 ml Tube Feeding 660 ml 660 ml Output Urine Total 2450 ml 1880 ml Critical Care - Objective ET-Tube: 7.5 ET Position: 27 Last 24 Hour Vital Signs Date Time Temp Pulse Resp B/P (MAP) Pulse Ox O2 Delivery O2 Flow Rate FiO2 06/11/17 07:02 122 22 40 06/11/17 07:00 101 20 131/60 99 Mechanical Ventilator 40 06/11/17 07:00 17 06/11/17 06:50 99.7 06/11/17 06:30 120 24 127/70 99 Mechanical Ventilator 40 06/11/17 06:20 20 06/11/17 06:00 105 24 123/66 97 Mechanical Ventilator 40 06/11/17 06:00 25 06/11/17 05:30 115 19 184/119 97 Mechanical Ventilator 40 06/11/17 05:30 124 34 40 06/11/17 05:00 24 06/11/17 05:00 115 159/110 06/11/17 05:00 123 22 159/107 97 Mechanical Ventilator 40 06/11/17 04:30 109 19 131/72 97 Mechanical Ventilator 40 06/11/17 04:00 99.7 115 25 131/88 97 Mechanical Ventilator 40 06/11/17 04:00 19 06/11/17 04:00 124 06/11/17 04:00 40 06/11/17 03:30 115 18 40 06/11/17 03:30 109 19 131/72 97 Mechanical Ventilator 40 06/11/17 03:00 20 06/11/17 03:00 115 20 164/77 99 Mechanical Ventilator 40 06/11/17 02:30 104 22 134/68 100 Mechanical Ventilator 40 06/11/17 02:00 102 27 143/76 100 Mechanical Ventilator 40 06/11/17 02:00 19 06/11/17 01:30 127 19 40 06/11/17 01:30 103 22 180/111 100 Mechanical Ventilator 40 06/11/17 01:00 103 22 135/85 100 Mechanical Ventilator 40 06/11/17 01:00 19 06/11/17 01:00 98 142/76 06/11/17 00:30 102 27 143/76 100 Mechanical Ventilator 40 06/11/17 00:00 99 06/11/17 00:00 21 06/11/17 00:00 99.0 99 19 147/85 100 Mechanical Ventilator 40 06/11/17 00:00 40 06/10/17 23:30 103 18 147/85 100 Mechanical Ventilator 40 06/10/17 23:28 100 16 40 06/10/17 23:00 105 22 158/81 100 Mechanical Ventilator 40 06/10/17 23:00 21 06/10/17 22:30 108 22 153/86 100 Mechanical Ventilator 40 06/10/17 22:00 20 06/10/17 22:00 105 22 158/81 100 Mechanical Ventilator 40 06/10/17 21:30 115 35 170/94 100 Mechanical Ventilator 40 06/10/17 21:30 85 18 40 06/10/17 21:00 102 33 146/74 100 Mechanical Ventilator 40 06/10/17 21:00 20 06/10/17 20:46 87 145/83 06/10/17 20:45 87 145/83 06/10/17 20:30 91 33 145/83 100 Mechanical Ventilator 40 06/10/17 20:00 40 06/10/17 20:00 99.2 92 26 165/88 100 Mechanical Ventilator 40 06/10/17 20:00 24 06/10/17 20:00 101 06/10/17 19:30 95 28 154/108 100 Mechanical Ventilator 40 06/10/17 19:30 87 19 40 06/10/17 19:00 24 06/10/17 19:00 95 24 164/89 100 Mechanical Ventilator 40 06/10/17 18:30 98 27 142/65 100 Mechanical Ventilator 40 06/10/17 18:00 19 06/10/17 18:00 86 19 135/98 100 Mechanical Ventilator 40 06/10/17 17:30 101 27 130/65 100 Mechanical Ventilator 40 06/10/17 17:11 84 16 40 06/10/17 17:00 89 19 130/65 100 Mechanical Ventilator 40 06/10/17 17:00 19 06/10/17 17:00 85 130/65 06/10/17 16:30 88 18 132/62 100 Mechanical Ventilator 40 06/10/17 16:00 99.1 95 22 147/79 100 Mechanical Ventilator 40 06/10/17 16:00 92 06/10/17 16:00 17 06/10/17 16:00 40 06/10/17 15:30 87 16 147/79 100 Mechanical Ventilator 40 06/10/17 15:14 87 19 40 06/10/17 15:00 103 18 136/75 100 Mechanical Ventilator 40 06/10/17 15:00 18 06/10/17 14:30 113 23 162/89 100 Mechanical Ventilator 40 06/10/17 14:00 24 06/10/17 14:00 93 13 143/92 93 Mechanical Ventilator 40 06/10/17 13:30 94 24 143/83 93 Mechanical Ventilator 40 06/10/17 13:28 90 18 40 06/10/17 13:00 96 19 130/70 93 Mechanical Ventilator 40 06/10/17 13:00 19 06/10/17 13:00 98 139/71 06/10/17 12:30 97 20 142/73 94 Mechanical Ventilator 40 06/10/17 12:00 40 06/10/17 12:00 21 06/10/17 12:00 100 06/10/17 12:00 99.2 93 21 157/83 93 Mechanical Ventilator 40 06/10/17 11:30 97 23 140/73 94 Mechanical Ventilator 40 06/10/17 11:03 94 20 40 06/10/17 11:00 93 13 143/92 93 Mechanical Ventilator 40 06/10/17 11:00 25 06/10/17 10:30 101 28 133/75 96 Mechanical Ventilator 40 06/10/17 10:00 27 06/10/17 10:00 97 17 133/75 96 Mechanical Ventilator 40 06/10/17 09:30 99 31 123/62 96 Mechanical Ventilator 40 06/10/17 09:24 101 22 40 06/10/17 09:00 102 30 123/62 96 Mechanical Ventilator 40 06/10/17 09:00 30 06/10/17 09:00 96 133/75 06/10/17 09:00 97 133/75 Objective: WDWN NAD improved breath sounds bilaterally without rhonchi or wheeze [id number] tachy without MRG NABS nontender no HSM no CCE nonfocal sedated ETT in place ecchymoses back Micro: Microbiology Date/Time Source Procedure Growth Status 06/09/17 04:30 Sputum Gram Stain - Final Complete 06/09/17 04:30 Sputum Culture - Final Maria C Albicans Usual Upper Respiratory Lazara Complete 06/08/17 17:00 Urine,Clean Catch Urine Culture - Final NO GROWTH AFTER 48 HOURS Complete MEGAN العلي Jun 11, 2017 08:48
[2017-06-11] MEDS: levETIRAcetam 1,000mg/NS100ml 100 ML IVPB SCH ×2 (08:49→21:57)
[2017-06-11] MEDS: Cefepime HCl 2 GM in D5W 55 ML IVPB SCH ×2 (08:49→21:58)
[2017-06-11] MEDS: Heparin 5000 units/ml inj SUBQ SCH ×2 (08:52→22:00)
--- NOTE | 2017-06-11 08:57 | Diagnostic Imaging Report ---
Indication: Shortness of breath Technique: XRAY Chest 1v Comparison: 06/04/2017 Findings: Endotracheal tube has been retracted, tip above the level of the clavicles, approximately 5.5 cm above the chase. Advancement by 3 cm is recommended for more ideal positioning. NG tube tip in the stomach. Right subclavian catheter unchanged in position. Heart size and mediastinal contours are stable. Persistent but improved right upper lung patchy opacity. No pneumothorax. Impression: Interval retraction of ET tube, tip above the level of the clavicles. Advancement by approximately 2-3 cm recommended for more optimal position. This is discussed with the treating ICU nurse via telephone conversation at 8:50 AM on 06/11/2017. Persistent but slightly improved right-sided airspace opacities.
--- NOTE | 2017-06-11 09:12 | General Progress Note ---
Assessment/Plan Problem List: (1) Anoxia ICD Codes: R09.02 - Hypoxemia SNOMED: 46759505 (2) Encephalopathy acute ICD Codes: G93.40 - Encephalopathy, unspecified SNOMED: 1005476 (3) Respiratory distress ICD Codes: R06.03 - Acute respiratory distress SNOMED: 202899848 (4) Renal insufficiency ICD Codes: N28.9 - Disorder of kidney and ureter, unspecified SNOMED: 270433555, 307334724 (5) Rhabdomyolysis ICD Codes: M62.82 - Rhabdomyolysis SNOMED: 446340777, 521928928 Qualifiers: Qualified Codes: M62.82 - Rhabdomyolysis (6) Sepsis ICD Codes: A41.9 - Sepsis, unspecified organism SNOMED: 34604770, 271569105 Qualifiers: Qualified Codes: A41.9 - Sepsis, unspecified organism (7) Pneumonia ICD Codes: J18.9 - Pneumonia, unspecified organism SNOMED: 359171517, 509116378 Qualifiers: Qualified Codes: J18.1 - Lobar pneumonia, unspecified organism (8) Elevated troponin ICD Codes: R74.8 - Abnormal levels of other serum enzymes SNOMED: 001266884, 137998535 Status: stable, not improved Assessment/Plan iv abx wean sedation as able ativan and fentanyl for agitation follow up cultures vent support resp care ngt feeds d/w critical and guarded Subjective ROS Limited/Unobtainable: Yes Constitutional: Reports: no symptoms HEENT: Reports: no symptoms Cardiovascular: Reports: no symptoms Respiratory: Reports: shortness of breath Gastrointestinal/Abdominal: Reports: difficulty swallowing Genitourinary: Reports: no symptoms Neurologic/Psychiatric: Reports: pre-existing deficit Endocrine: Reports: no symptoms Hematologic/Lymphatic: Reports: no symptoms Allergies: Coded Allergies: No Known Allergies (Unverified , 05/26/17) All Systems: reviewed and negative except above Subjective no change. remains unresponsive. no fevers. no szs. on ngt feeds. on fentanyl and ativan atc. d/w rn. no events Objective Last 24 Hour Vital Signs Date Time Temp Pulse Resp B/P (MAP) Pulse Ox O2 Delivery O2 Flow Rate FiO2 06/11/17 08:47 102 118/59 06/11/17 08:47 102 118/59 06/11/17 07:02 122 22 40 1/15/18 07:00 101 20 131/60 99 Mechanical Ventilator 40 06/11/17 07:00 17 06/11/17 06:50 99.7 06/11/17 06:30 120 24 127/70 99 Mechanical Ventilator 40 06/11/17 06:20 20 06/11/17 06:00 105 24 123/66 97 Mechanical Ventilator 40 06/11/17 06:00 25 06/11/17 05:30 115 19 184/119 97 Mechanical Ventilator 40 06/11/17 05:30 124 34 40 06/11/17 05:00 24 06/11/17 05:00 115 159/110 06/11/17 05:00 123 22 159/107 97 Mechanical Ventilator 40 06/11/17 04:30 109 19 131/72 97 Mechanical Ventilator 40 06/11/17 04:00 99.7 115 25 131/88 97 Mechanical Ventilator 40 06/11/17 04:00 19 06/11/17 04:00 124 06/11/17 04:00 40 06/11/17 03:30 115 18 40 06/11/17 03:30 109 19 131/72 97 Mechanical Ventilator 40 06/11/17 03:00 20 06/11/17 03:00 115 20 164/77 99 Mechanical Ventilator 40 06/11/17 02:30 104 22 134/68 100 Mechanical Ventilator 40 06/11/17 02:00 102 27 143/76 100 Mechanical Ventilator 40 06/11/17 02:00 19 06/11/17 01:30 127 19 40 06/11/17 01:30 103 22 180/111 100 Mechanical Ventilator 40 06/11/17 01:00 103 22 135/85 100 Mechanical Ventilator 40 06/11/17 01:00 19 06/11/17 01:00 98 142/76 06/11/17 00:30 102 27 143/76 100 Mechanical Ventilator 40 06/11/17 00:00 99 06/11/17 00:00 21 06/11/17 00:00 99.0 99 19 147/85 100 Mechanical Ventilator 40 06/11/17 00:00 40 06/10/17 23:30 103 18 147/85 100 Mechanical Ventilator 40 06/10/17 23:28 100 16 40 06/10/17 23:00 105 22 158/81 100 Mechanical Ventilator 40 06/10/17 23:00 21 06/10/17 22:30 108 22 153/86 100 Mechanical Ventilator 40 06/10/17 22:00 20 06/10/17 22:00 105 22 158/81 100 Mechanical Ventilator 40 06/10/17 21:30 115 35 170/94 100 Mechanical Ventilator 40 06/10/17 21:30 85 18 40 06/10/17 21:00 102 33 146/74 100 Mechanical Ventilator 40 06/10/17 21:00 20 06/10/17 20:46 87 145/83 06/10/17 20:45 87 145/83 06/10/17 20:30 91 33 145/83 100 Mechanical Ventilator 40 06/10/17 20:00 40 06/10/17 20:00 99.2 92 26 165/88 100 Mechanical Ventilator 40 06/10/17 20:00 24 06/10/17 20:00 101 06/10/17 19:30 95 28 154/108 100 Mechanical Ventilator 40 06/10/17 19:30 87 19 40 06/10/17 19:00 24 06/10/17 19:00 95 24 164/89 100 Mechanical Ventilator 40 06/10/17 18:30 98 27 142/65 100 Mechanical Ventilator 40 06/10/17 18:00 19 06/10/17 18:00 86 19 135/98 100 Mechanical Ventilator 40 06/10/17 17:30 101 27 130/65 100 Mechanical Ventilator 40 06/10/17 17:11 84 16 40 06/10/17 17:00 89 19 130/65 100 Mechanical Ventilator 40 06/10/17 17:00 19 06/10/17 17:00 85 130/65 06/10/17 16:30 88 18 132/62 100 Mechanical Ventilator 40 06/10/17 16:00 99.1 95 22 147/79 100 Mechanical Ventilator 40 06/10/17 16:00 92 06/10/17 16:00 17 06/10/17 16:00 40 06/10/17 15:30 87 16 147/79 100 Mechanical Ventilator 40 06/10/17 15:14 87 19 40 06/10/17 15:00 103 18 136/75 100 Mechanical Ventilator 40 06/10/17 15:00 18 06/10/17 14:30 113 23 162/89 100 Mechanical Ventilator 40 06/10/17 14:00 24 06/10/17 14:00 93 13 143/92 93 Mechanical Ventilator 40 06/10/17 13:30 94 24 143/83 93 Mechanical Ventilator 40 06/10/17 13:28 90 18 40 06/10/17 13:00 96 19 130/70 93 Mechanical Ventilator 40 06/10/17 13:00 19 06/10/17 13:00 98 139/71 06/10/17 12:30 97 20 142/73 94 Mechanical Ventilator 40 06/10/17 12:00 40 06/10/17 12:00 21 06/10/17 12:00 100 06/10/17 12:00 99.2 93 21 157/83 93 Mechanical Ventilator 40 06/10/17 11:30 97 23 140/73 94 Mechanical Ventilator 40 06/10/17 11:03 94 20 40 06/10/17 11:00 93 13 143/92 93 Mechanical Ventilator 40 06/10/17 11:00 25 06/10/17 10:30 101 28 133/75 96 Mechanical Ventilator 40 06/10/17 10:00 27 06/10/17 10:00 97 17 133/75 96 Mechanical Ventilator 40 06/10/17 09:30 99 31 123/62 96 Mechanical Ventilator 40 06/10/17 09:24 101 22 40 Intake and Output 06/10/17 06/11/17 19:00 07:00 Intake Total 2760.25 ml 2567.708 ml Output Total 2450 ml 1880 ml Balance 310.25 ml 687.708 ml IV Total 2100.25 ml 1907.708 ml Tube Feeding 660 ml 660 ml Output Urine Total 2450 ml 1880 ml Height (Feet): 6 Height (Inches): 1.00 Weight (Pounds): 256 Objective General Appearance: WD/WN, lethargic. ngt Neck: supple Cardiovascular: regular rhythm Respiratory/Chest: chest wall non-tender, lungs clear, normal breath sounds Abdomen: normal bowel sounds, non tender, soft, no organomegaly Neurologic: unresponsive Skin: normal pigmentation. no rash JIMBO GLEASON Jun 11, 2017 09:12
--- NOTE | 2017-06-11 11:14 | General Progress Note ---
Assessment/Plan Assessment/Plan Assessment - s/p arrest - s/p Rhabdo - resolving - Coma - s/p yoly - diverticulosis - constipation - recent PNA and hemoptysis Recommendations - supportive ICU care - Continue TF - IVF - Follow LFT - PPI - laxative - may need PEG Subjective Allergies: Coded Allergies: No Known Allergies (Unverified , 05/26/17) Subjective above noted non communicative intubated tolerating TF No BM for few days, per RN Objective Last 24 Hour Vital Signs Date Time Temp Pulse Resp B/P (MAP) Pulse Ox O2 Delivery O2 Flow Rate FiO2 06/11/17 10:34 110 17 40 06/11/17 10:30 102 17 128/65 96 Mechanical Ventilator 40 06/11/17 10:00 108 16 128/58 97 Mechanical Ventilator 40 06/11/17 09:43 105 18 40 06/11/17 09:30 104 23 145/84 96 Mechanical Ventilator 40 06/11/17 09:00 104 22 117/67 95 Mechanical Ventilator 40 06/11/17 08:47 102 118/59 06/11/17 08:47 102 118/59 06/11/17 08:30 103 18 118/59 96 Mechanical Ventilator 40 06/11/17 08:00 40 06/11/17 08:00 99.0 102 18 108/57 95 Mechanical Ventilator 40 06/11/17 08:00 115 06/11/17 07:30 102 22 120/62 96 Mechanical Ventilator 40 06/11/17 07:02 122 22 40 06/11/17 07:00 101 20 131/60 99 Mechanical Ventilator 40 06/11/17 07:00 17 06/11/17 06:50 99.7 06/11/17 06:30 120 24 127/70 99 Mechanical Ventilator 40 06/11/17 06:20 20 06/11/17 06:00 105 24 123/66 97 Mechanical Ventilator 40 06/11/17 06:00 25 06/11/17 05:30 115 19 184/119 97 Mechanical Ventilator 40 06/11/17 05:30 124 34 40 06/11/17 05:00 24 06/11/17 05:00 115 159/110 06/11/17 05:00 123 22 159/107 97 Mechanical Ventilator 40 06/11/17 04:30 109 19 131/72 97 Mechanical Ventilator 40 06/11/17 04:00 99.7 115 25 131/88 97 Mechanical Ventilator 40 06/11/17 04:00 19 06/11/17 04:00 124 06/11/17 04:00 40 06/11/17 03:30 115 18 40 06/11/17 03:30 109 19 131/72 97 Mechanical Ventilator 40 06/11/17 03:00 20 06/11/17 03:00 115 20 164/77 99 Mechanical Ventilator 40 06/11/17 02:30 104 22 134/68 100 Mechanical Ventilator 40 06/11/17 02:00 102 27 143/76 100 Mechanical Ventilator 40 06/11/17 02:00 19 06/11/17 01:30 127 19 40 06/11/17 01:30 103 22 180/111 100 Mechanical Ventilator 40 06/11/17 01:00 103 22 135/85 100 Mechanical Ventilator 40 06/11/17 01:00 19 06/11/17 01:00 98 142/76 06/11/17 00:30 102 27 143/76 100 Mechanical Ventilator 40 06/11/17 00:00 99 06/11/17 00:00 21 06/11/17 00:00 99.0 99 19 147/85 100 Mechanical Ventilator 40 06/11/17 00:00 40 06/10/17 23:30 103 18 147/85 100 Mechanical Ventilator 40 06/10/17 23:28 100 16 40 06/10/17 23:00 105 22 158/81 100 Mechanical Ventilator 40 06/10/17 23:00 21 06/10/17 22:30 108 22 153/86 100 Mechanical Ventilator 40 06/10/17 22:00 20 06/10/17 22:00 105 22 158/81 100 Mechanical Ventilator 40 06/10/17 21:30 115 35 170/94 100 Mechanical Ventilator 40 06/10/17 21:30 85 18 40 06/10/17 21:00 102 33 146/74 100 Mechanical Ventilator 40 06/10/17 21:00 20 06/10/17 20:46 87 145/83 06/10/17 20:45 87 145/83 06/10/17 20:30 91 33 145/83 100 Mechanical Ventilator 40 06/10/17 20:00 40 06/10/17 20:00 99.2 92 26 165/88 100 Mechanical Ventilator 40 06/10/17 20:00 24 06/10/17 20:00 101 06/10/17 19:30 95 28 154/108 100 Mechanical Ventilator 40 06/10/17 19:30 87 19 40 06/10/17 19:00 24 06/10/17 19:00 95 24 164/89 100 Mechanical Ventilator 40 06/10/17 18:30 98 27 142/65 100 Mechanical Ventilator 40 06/10/17 18:00 19 06/10/17 18:00 86 19 135/98 100 Mechanical Ventilator 40 06/10/17 17:30 101 27 130/65 100 Mechanical Ventilator 40 06/10/17 17:11 84 16 40 06/10/17 17:00 89 19 130/65 100 Mechanical Ventilator 40 06/10/17 17:00 19 06/10/17 17:00 85 130/65 06/10/17 16:30 88 18 132/62 100 Mechanical Ventilator 40 06/10/17 16:00 99.1 95 22 147/79 100 Mechanical Ventilator 40 06/10/17 16:00 92 06/10/17 16:00 17 06/10/17 16:00 40 06/10/17 15:30 87 16 147/79 100 Mechanical Ventilator 40 06/10/17 15:14 87 19 40 06/10/17 15:00 103 18 136/75 100 Mechanical Ventilator 40 06/10/17 15:00 18 06/10/17 14:30 113 23 162/89 100 Mechanical Ventilator 40 06/10/17 14:00 24 06/10/17 14:00 93 13 143/92 93 Mechanical Ventilator 40 06/10/17 13:30 94 24 143/83 93 Mechanical Ventilator 40 06/10/17 13:28 90 18 40 06/10/17 13:00 96 19 130/70 93 Mechanical Ventilator 40 06/10/17 13:00 19 06/10/17 13:00 98 139/71 06/10/17 12:30 97 20 142/73 94 Mechanical Ventilator 40 06/10/17 12:00 40 06/10/17 12:00 21 06/10/17 12:00 100 06/10/17 12:00 99.2 93 21 157/83 93 Mechanical Ventilator 40 06/10/17 11:30 97 23 140/73 94 Mechanical Ventilator 40 Intake and Output 06/10/17 06/11/17 19:00 07:00 Intake Total 2760.25 ml 2567.708 ml Output Total 2450 ml 1880 ml Balance 310.25 ml 687.708 ml IV Total 2100.25 ml 1907.708 ml Tube Feeding 660 ml 660 ml Output Urine Total 2450 ml 1880 ml Height (Feet): 6 Height (Inches): 1.00 Weight (Pounds): 256 Objective Obese WM Intubated supple Coarse BS RRR soft ND no edema non communicative JAMIN HEARD Jun 11, 2017 11:14
[2017-06-11] MEDS ORDERED: Sorbitol Solution UD 30ml ORAL ONE (11:30)
[2017-06-11] MEDS: Thiamine HCl 100 MG in D5W 55 ML IVPB SCH (12:19)
--- NOTE | 2017-06-11 12:21 | Diagnostic Imaging Report ---
Indication: ET tube adjustment Technique: XRAY Chest 1v Comparison: 06/11/2017, 7:44 Findings/impression: Endotracheal tube has been advanced, tip now at the level of the clavicles, approximately 4 cm above the chase. Additional findings without significant interval change compared to exam a few hours earlier.
--- NOTE | 2017-06-11 13:10 | Wound Care Consultation ---
Wound Assessment Wound Assessment : Wound Number: 1 Wound Present on Admission: No New Wound: Yes Status Change of Wound: No Wound Location Body Site Modif: left Wound Location Body Site: buttocks Wound Type: pressure ulcer - medical photographer Felipa Test: Does not Felipa Pressure Ulcer Stage: Pressure by Foreign Body - medical photographer Wound Thickness: Full Thickness Wound Length: 1.5 Wound Width: 0.5 Wound Depth: utd Percent of Wound Purple/Maroon: 100 Wound Drainage Amount: None Wound Drainage Odor: None/Absent Tissue Surrounding Wound: Erythemic Wound General Appearance: Reddened - purple/maroon Wound Comment #1 left buttocks deep tissue injury due to medical photographer. (linear) #2 Right upper back DTI pressure ulcer -reassessment done site remains as deep tissue injury noted small area with denuded skin revealing Recommendation -Local wound care per protocol -Avoid pressure to site with medical devices -Keep clean and dry -Turn and reposition -Optimize nutrition -Low air loss P200 mattress -Offload both heels -Heel protector on both heels -Assess and f/u accordingly for any changes DIONI SANDOVAL Jun 11, 2017 13:10
--- NOTE | 2017-06-11 13:55 | Cardiology Progress Note ---
Assessment/Plan Assessment/Plan 1. Asystole cardiac arrest due to respiratory failure, regained pulse after 8 minutes, possible anoxic encephalopathy. 2. Mild cardiomyopathy with LVEF at 45%, + anteroseptal wall hypokinesia, ? ischemic cardiomyopathy vs drug-induced CM. 3. Elevated troponin level likely due to sepsis/tachycardia/pneumonia, not a pattern for ACS, CP free on admission to ED. 4. Accelerated HTN, metoprolol on hold today due to low BP. 5. Acute respiratory failure, intubated. 6. Substance abuse 7. Obesity 8. Sinus tachycardia. Subjective Subjective Sinus tachycardia at 104. Unresponsive, with movements. Family at the bedside. Objective Last 24 Hour Vital Signs Date Time Temp Pulse Resp B/P (MAP) Pulse Ox O2 Delivery O2 Flow Rate FiO2 06/11/17 13:17 104 17 40 06/11/17 13:00 113 23 130/65 97 Mechanical Ventilator 40 06/11/17 13:00 112 130/65 06/11/17 12:30 102 15 130/71 96 Mechanical Ventilator 40 06/11/17 12:00 116 06/11/17 12:00 100.0 107 20 119/65 95 Mechanical Ventilator 40 06/11/17 12:00 40 06/11/17 11:30 111 20 133/70 96 Mechanical Ventilator 40 06/11/17 11:00 107 18 128/63 97 Mechanical Ventilator 40 06/11/17 10:34 110 17 40 06/11/17 10:30 102 17 128/65 96 Mechanical Ventilator 40 06/11/17 10:00 108 16 128/58 97 Mechanical Ventilator 40 06/11/17 09:43 105 18 40 06/11/17 09:30 104 23 145/84 96 Mechanical Ventilator 40 06/11/17 09:00 104 22 117/67 95 Mechanical Ventilator 40 06/11/17 08:47 102 118/59 06/11/17 08:47 102 118/59 06/11/17 08:30 103 18 118/59 96 Mechanical Ventilator 40 06/11/17 08:00 40 06/11/17 08:00 99.0 102 18 108/57 95 Mechanical Ventilator 40 06/11/17 08:00 115 06/11/17 07:30 102 22 120/62 96 Mechanical Ventilator 40 06/11/17 07:02 122 22 40 06/11/17 07:00 101 20 131/60 99 Mechanical Ventilator 40 06/11/17 07:00 17 06/11/17 06:50 99.7 06/11/17 06:30 120 24 127/70 99 Mechanical Ventilator 40 06/11/17 06:20 20 06/11/17 06:00 105 24 123/66 97 Mechanical Ventilator 40 06/11/17 06:00 25 06/11/17 05:30 115 19 184/119 97 Mechanical Ventilator 40 06/11/17 05:30 124 34 40 06/11/17 05:00 24 06/11/17 05:00 115 159/110 06/11/17 05:00 123 22 159/107 97 Mechanical Ventilator 40 06/11/17 04:30 109 19 131/72 97 Mechanical Ventilator 40 06/11/17 04:00 99.7 115 25 131/88 97 Mechanical Ventilator 40 06/11/17 04:00 19 06/11/17 04:00 124 06/11/17 04:00 40 06/11/17 03:30 115 18 40 06/11/17 03:30 109 19 131/72 97 Mechanical Ventilator 40 06/11/17 03:00 20 06/11/17 03:00 115 20 164/77 99 Mechanical Ventilator 40 06/11/17 02:30 104 22 134/68 100 Mechanical Ventilator 40 06/11/17 02:00 102 27 143/76 100 Mechanical Ventilator 40 06/11/17 02:00 19 06/11/17 01:30 127 19 40 06/11/17 01:30 103 22 180/111 100 Mechanical Ventilator 40 06/11/17 01:00 103 22 135/85 100 Mechanical Ventilator 40 06/11/17 01:00 19 06/11/17 01:00 98 142/76 06/11/17 00:30 102 27 143/76 100 Mechanical Ventilator 40 06/11/17 00:00 99 06/11/17 00:00 21 06/11/17 00:00 99.0 99 19 147/85 100 Mechanical Ventilator 40 06/11/17 00:00 40 06/10/17 23:30 103 18 147/85 100 Mechanical Ventilator 40 06/10/17 23:28 100 16 40 06/10/17 23:00 105 22 158/81 100 Mechanical Ventilator 40 06/10/17 23:00 21 06/10/17 22:30 108 22 153/86 100 Mechanical Ventilator 40 06/10/17 22:00 20 06/10/17 22:00 105 22 158/81 100 Mechanical Ventilator 40 06/10/17 21:30 115 35 170/94 100 Mechanical Ventilator 40 06/10/17 21:30 85 18 40 06/10/17 21:00 102 33 146/74 100 Mechanical Ventilator 40 06/10/17 21:00 20 06/10/17 20:46 87 145/83 06/10/17 20:45 87 145/83 06/10/17 20:30 91 33 145/83 100 Mechanical Ventilator 40 06/10/17 20:00 40 06/10/17 20:00 99.2 92 26 165/88 100 Mechanical Ventilator 40 06/10/17 20:00 24 06/10/17 20:00 101 06/10/17 19:30 95 28 154/108 100 Mechanical Ventilator 40 06/10/17 19:30 87 19 40 06/10/17 19:00 24 06/10/17 19:00 95 24 164/89 100 Mechanical Ventilator 40 06/10/17 18:30 98 27 142/65 100 Mechanical Ventilator 40 06/10/17 18:00 19 06/10/17 18:00 86 19 135/98 100 Mechanical Ventilator 40 06/10/17 17:30 101 27 130/65 100 Mechanical Ventilator 40 06/10/17 17:11 84 16 40 06/10/17 17:00 89 19 130/65 100 Mechanical Ventilator 40 06/10/17 17:00 19 06/10/17 17:00 85 130/65 06/10/17 16:30 88 18 132/62 100 Mechanical Ventilator 40 06/10/17 16:00 99.1 95 22 147/79 100 Mechanical Ventilator 40 06/10/17 16:00 92 06/10/17 16:00 17 06/10/17 16:00 40 06/10/17 15:30 87 16 147/79 100 Mechanical Ventilator 40 06/10/17 15:14 87 19 40 06/10/17 15:00 103 18 136/75 100 Mechanical Ventilator 40 06/10/17 15:00 18 06/10/17 14:30 113 23 162/89 100 Mechanical Ventilator 40 06/10/17 14:00 24 06/10/17 14:00 93 13 143/92 93 Mechanical Ventilator 40 Intake and Output 06/10/17 06/11/17 18:59 06:59 Intake Total 2577.00 ml 2572.25 ml Output Total 2360 ml 1680 ml Balance 217.00 ml 892.25 ml IV Total 1917.00 ml 1912.25 ml Tube Feeding 660 ml 660 ml Output Urine Total 2360 ml 1680 ml 2D Echo: EF 45%, Anteroseptal HK, RVSP 33 mmHg Microbiology Date/Time Source Procedure Growth Status 06/09/17 04:30 Sputum Gram Stain - Final Complete 06/09/17 04:30 Sputum Culture - Final Maria C Albicans Usual Upper Respiratory Lazara Complete 06/08/17 17:00 Urine,Clean Catch Urine Culture - Final NO GROWTH AFTER 48 HOURS Complete Objective HEENT: Intubated, on mechanical ventilator. NECK: JVP cannot be assessed, No carotid bruit. Carotid upstrokes 2+ bilaterally. CARDIOVASCULAR SYSTEM: Normal S1, S2. Regular rate and rhythm. No murmurs, gallops, or rubs. PMI is at fourth intercostal space in the midclavicular line. LUNGS: Clear to auscultation bilaterally. ABDOMEN: Soft, nontender, nondistended. No hepatosplenomegaly. Positive bowel sounds. EXTREMITIES: No evidence of edema, clubbing, or cyanosis. CRISTA MURPHY Jun 11, 2017 13:55
--- NOTE | 2017-06-11 15:30 | Infectious Diseases Prog Note ---
Assessment/Plan Assessment/Plan A 1. pneumonia 2. Bacteremia with CoANS 3. renal failure 4. rhabdomyolysis 5. respiratory failure 6. s/p cardiac arrest 7. Anoxic encephalopathy P 1. continue Vancomycin & Cefepime 2. Consider change of subclavian line Subjective ROS Limited/Unobtainable: Yes Constitutional: Reports: fever, other - low grade Allergies: Coded Allergies: No Known Allergies (Unverified , 05/26/17) Objective Vital Signs Last 24 Hour Vital Signs Date Time Temp Pulse Resp B/P (MAP) Pulse Ox O2 Delivery O2 Flow Rate FiO2 06/11/17 15:11 118 27 40 06/11/17 15:00 102 16 130/65 96 Mechanical Ventilator 40 06/11/17 14:30 107 17 138/75 96 Mechanical Ventilator 40 06/11/17 14:00 114 37 142/78 96 Mechanical Ventilator 40 06/11/17 13:30 109 19 129/69 96 Mechanical Ventilator 40 06/11/17 13:17 104 17 40 06/11/17 13:00 113 23 130/65 97 Mechanical Ventilator 40 06/11/17 13:00 112 130/65 06/11/17 12:30 102 15 130/71 96 Mechanical Ventilator 40 06/11/17 12:00 116 06/11/17 12:00 100.0 107 20 119/65 95 Mechanical Ventilator 40 06/11/17 12:00 40 06/11/17 11:30 111 20 133/70 96 Mechanical Ventilator 40 06/11/17 11:00 107 18 128/63 97 Mechanical Ventilator 40 06/11/17 10:34 110 17 40 06/11/17 10:30 102 17 128/65 96 Mechanical Ventilator 40 06/11/17 10:00 108 16 128/58 97 Mechanical Ventilator 40 06/11/17 09:43 105 18 40 06/11/17 09:30 104 23 145/84 96 Mechanical Ventilator 40 06/11/17 09:00 104 22 117/67 95 Mechanical Ventilator 40 06/11/17 08:47 102 118/59 06/11/17 08:47 102 118/59 06/11/17 08:30 103 18 118/59 96 Mechanical Ventilator 40 06/11/17 08:00 40 06/11/17 08:00 99.0 102 18 108/57 95 Mechanical Ventilator 40 06/11/17 08:00 115 06/11/17 07:30 102 22 120/62 96 Mechanical Ventilator 40 06/11/17 07:02 122 22 40 06/11/17 07:00 101 20 131/60 99 Mechanical Ventilator 40 06/11/17 07:00 17 06/11/17 06:50 99.7 06/11/17 06:30 120 24 127/70 99 Mechanical Ventilator 40 06/11/17 06:20 20 06/11/17 06:00 105 24 123/66 97 Mechanical Ventilator 40 06/11/17 06:00 25 06/11/17 05:30 115 19 184/119 97 Mechanical Ventilator 40 06/11/17 05:30 124 34 40 06/11/17 05:00 24 06/11/17 05:00 115 159/110 06/11/17 05:00 123 22 159/107 97 Mechanical Ventilator 40 06/11/17 04:30 109 19 131/72 97 Mechanical Ventilator 40 06/11/17 04:00 99.7 115 25 131/88 97 Mechanical Ventilator 40 06/11/17 04:00 19 06/11/17 04:00 124 06/11/17 04:00 40 06/11/17 03:30 115 18 40 06/11/17 03:30 109 19 131/72 97 Mechanical Ventilator 40 06/11/17 03:00 20 06/11/17 03:00 115 20 164/77 99 Mechanical Ventilator 40 06/11/17 02:30 104 22 134/68 100 Mechanical Ventilator 40 06/11/17 02:00 102 27 143/76 100 Mechanical Ventilator 40 06/11/17 02:00 19 06/11/17 01:30 127 19 40 06/11/17 01:30 103 22 180/111 100 Mechanical Ventilator 40 06/11/17 01:00 103 22 135/85 100 Mechanical Ventilator 40 06/11/17 01:00 19 06/11/17 01:00 98 142/76 06/11/17 00:30 102 27 143/76 100 Mechanical Ventilator 40 06/11/17 00:00 99 06/11/17 00:00 21 06/11/17 00:00 99.0 99 19 147/85 100 Mechanical Ventilator 40 06/11/17 00:00 40 06/10/17 23:30 103 18 147/85 100 Mechanical Ventilator 40 06/10/17 23:28 100 16 40 06/10/17 23:00 105 22 158/81 100 Mechanical Ventilator 40 06/10/17 23:00 21 06/10/17 22:30 108 22 153/86 100 Mechanical Ventilator 40 06/10/17 22:00 20 06/10/17 22:00 105 22 158/81 100 Mechanical Ventilator 40 06/10/17 21:30 115 35 170/94 100 Mechanical Ventilator 40 06/10/17 21:30 85 18 40 06/10/17 21:00 102 33 146/74 100 Mechanical Ventilator 40 06/10/17 21:00 20 06/10/17 20:46 87 145/83 06/10/17 20:45 87 145/83 06/10/17 20:30 91 33 145/83 100 Mechanical Ventilator 40 06/10/17 20:00 40 06/10/17 20:00 99.2 92 26 165/88 100 Mechanical Ventilator 40 06/10/17 20:00 24 06/10/17 20:00 101 06/10/17 19:30 95 28 154/108 100 Mechanical Ventilator 40 06/10/17 19:30 87 19 40 06/10/17 19:00 24 06/10/17 19:00 95 24 164/89 100 Mechanical Ventilator 40 06/10/17 18:30 98 27 142/65 100 Mechanical Ventilator 40 06/10/17 18:00 19 06/10/17 18:00 86 19 135/98 100 Mechanical Ventilator 40 06/10/17 17:30 101 27 130/65 100 Mechanical Ventilator 40 06/10/17 17:11 84 16 40 06/10/17 17:00 89 19 130/65 100 Mechanical Ventilator 40 06/10/17 17:00 19 06/10/17 17:00 85 130/65 06/10/17 16:30 88 18 132/62 100 Mechanical Ventilator 40 06/10/17 16:00 99.1 95 22 147/79 100 Mechanical Ventilator 40 06/10/17 16:00 92 06/10/17 16:00 17 06/10/17 16:00 40 06/10/17 15:30 87 16 147/79 100 Mechanical Ventilator 40 Height (Feet): 6 Height (Inches): 1.00 Weight (Pounds): 256 HEENT: other - orally intubated Respiratory/Chest: lungs clear, other - on ventilator Cardiovascular: tachycardia, other - R subclavian central line Abdomen: soft, non tender, other - tube feeding Extremities: no edema Skin: other - facial erythema Neurologic/Psychiatric: other - sedated Microbiology Date/Time Source Procedure Growth Status 06/09/17 04:30 Sputum Gram Stain - Final Complete 06/09/17 04:30 Sputum Culture - Final Maria C Albicans Usual Upper Respiratory Lazara Complete 06/08/17 17:00 Urine,Clean Catch Urine Culture - Final NO GROWTH AFTER 48 HOURS Complete Current Medications Medications (Trade) Dose Ordered Sig/Brittny Route PRN Reason Start Time Stop Time Status Last Admin Dose Admin Acetaminophen (Tylenol) 650 mg Q4H PRN GT Mild Pain/Temp > 100.5 06/08/17 09:45 07/08/17 11:59 06/09/17 21:56 Cefepime HCl 2 gm/ Dextrose 55 ml @ 110 mls/hr EVERY 12 HOURS IVPB 06/05/17 13:30 06/12/17 13:29 06/11/17 08:49 Chlorhexidine Gluconate (Linda-Hex 2%) 1 applic DAILY@2000 TOPIC 06/04/17 20:00 07/04/17 19:59 06/10/17 19:53 Dicyclomine HCl (Bentyl) 20 mg TIDPRN PRN ORAL Abdominal cramps 06/01/17 04:59 06/26/17 04:58 Fentanyl Citrate 2500 mcg/Sodium Chloride 250 ml @ 0 mls/hr Q24H IVPB 06/09/17 09:00 06/16/17 08:59 06/11/17 06:20 Heparin Sodium (Porcine) (Heparin 5000 units/ml) 5,000 units EVERY 12 HOURS SUBQ 06/04/17 09:00 07/04/17 08:59 06/11/17 08:52 Lansoprazole (Prevacid) 30 mg DAILY GT 06/09/17 09:00 07/09/17 08:59 06/11/17 08:48 Levetiracetam 100 ml @ 400 mls/hr Q12HR IVPB 06/03/17 11:00 07/03/17 10:59 06/11/17 08:49 Lorazepam (Ativan 2mg/ml 1ml) 2 mg Q4H IV 06/08/17 11:30 06/15/17 11:29 06/11/17 12:19 Metoprolol Tartrate (Lopressor) 25 mg Q12HR ORAL 06/01/17 09:00 06/27/17 22:59 06/07/17 20:54 Metoprolol Tartrate 5 mg/ Sodium Chloride 115 ml @ 230 mls/hr Q4HR IVPB 06/05/17 21:00 07/05/17 20:59 06/07/17 04:55 Sodium Chloride 1,000 ml @ 100 mls/hr Q10H IV 06/01/17 05:00 06/29/17 08:14 06/11/17 08:50 Thiamine HCl 100 mg/Dextrose 56 ml @ 112 mls/hr Q24H IVPB 06/03/17 11:00 07/03/17 10:59 06/11/17 12:19 Vancomycin HCl (Vanco rx to dose) 1 ea DAILY PRN MISC Per rx protocol 06/02/17 20:45 07/02/17 20:44 Vancomycin HCl 1 gm/Dextrose 275 ml @ 183.708 mls/hr Q6H IVPB 06/05/17 18:00 06/15/17 17:59 06/11/17 12:19 CHRISS LEI Jun 11, 2017 15:30
--- NOTE | 2017-06-11 19:48 | Diagnostic Imaging Report ---
Indication: Respiratory failure Technique: CT scan of the chest without intravenous contrast utilizing automated exposure control. Axial, sagittal and coronal reformats. Comparison: CT of the chest 05/29/2017 Findings: Exam significantly degraded by respiratory motion artifact. Within these limitations, the following observations are made: Endotracheal tube tip above the chase. There is trace pleural fluid on the left. There is no pneumothorax. There is subtle perihilar haziness, finding which may be related to a degree of interstitial edema/fluid overload. The previously seen groundglass and tree-in-bud opacities are not as clearly seen as on the prior exam however these are subtle findings and may be obscured by respiratory motion. There is suggestion of persistence of these findings in the left upper lobe (series 5 image #15) There are some scattered small foci of consolidation. For example in the right upper lobe (series 5 image #16) and within the medial left lower lobe (series 5 image #35). Some dependent atelectasis is noted within the right lower lobe. Heart size within normal limits. There is no pericardial effusion. Nonspecific prominent mediastinal lymph nodes are again noted, thought to be reactive in etiology. Imaged thyroid is grossly unremarkable. Thoracic aorta is normal in caliber. The pulmonary artery is normal in size. NG tube has its tip in the stomach. There is hepatic steatosis. The patient is status post cholecystectomy. Adrenal glands are unremarkable. The spleen is enlarged, measuring 13.5 cm in length. No acute osseous abnormality seen. Impression: Respiratory motion significantly degrades exam. Within these limitations, the following observations are made: * Subtle perihilar haziness possibly reflective of a degree of interstitial edema/fluid overload vs motion artifact. * Previously seen groundglass and tree in bud opacities obscured by respiratory motion but likely persist in the left upper lobe. * Scattered small foci of more dense airspace consolidation in the right upper lobe, left lower lobe and right lower lobe may reflect areas of pneumonia and/or atelectasis. * Interval resolution of the previously seen right pleural effusion. * Hepatic steatosis. * Mild Splenomegaly.
[2017-06-11] MEDS: Dyna-Hex 2% Top Sol 2oz TOPIC SCH (20:00)
[2017-06-12] VITALS (40 sets, daily range): BP systolic 110–179; BP diastolic 56–117
[2017-06-12] MEDS: METOPROLOL TARTRATE IVPB SCH ×6 (02:46→20:47)
[2017-06-12] MEDS: NS IVPB SCH ×6 (02:46→20:47)
[2017-06-12] MEDS: LORazepam Inj 2mg/ml 1ml IV SCH ×6 (03:12→23:56)
[2017-06-12] MEDS: Vancomycin 1gm/D5W 275ml IVPB SCH ×2 (06:00)
[2017-06-12 06:25] LABS: BASOPHILS % (AUTO) 0.6 % (0.0-2.0); EOSINOPHILS % (AUTO) 1.4 % (0.0-3.0); HEMATOCRIT 33.7 % (42.0-52.0); HEMOGLOBIN 11.2 G/DL (14.2-18.0); LYMPHOCYTES % (AUTO) 15.1 % (20.0-45.0); MEAN CORPUSCULAR VOLUME 88 FL (80-99); MONOCYTES % (AUTO) 10.4 % (1.0-10.0); NEUTROPHILS % (AUTO) 72.6 % (45.0-75.0); PLATELET COUNT 274 K/UL (150-450); RED BLOOD COUNT 3.83 M/UL (4.70-6.10); RED CELL DISTRIBUTION WIDTH 11.9 % (11.6-14.8)
[2017-06-12 06:29] LABS: ALANINE AMINOTRANSFERASE 51 U/L (12-78); ALBUMIN 2.4 G/DL (3.4-5.0); ALBUMIN/GLOBULIN RATIO 0.5 (1.0-2.7); ALKALINE PHOSPHATASE 61 U/L (46-116); ANION GAP 8 mmol/L (5-15); ASPARTATE AMINO TRANSFERASE 46 U/L (15-37); BILIRUBIN,TOTAL 0.7 MG/DL (0.2-1.0); BLOOD UREA NITROGEN 8 mg/dL (7-18); CALCIUM 9.3 MG/DL (8.5-10.1); CARBON DIOXIDE 31 MMOL/L (21-32); CHLORIDE 99 MMOL/L (98-107); CREATININE 0.8 MG/DL (0.55-1.30); POTASSIUM 3.5 MMOL/L (3.5-5.1); SODIUM 138 MMOL/L (136-145)
--- NOTE | 2017-06-12 07:22 | Critical Care Progress Note ---
Assessment/Plan Assessment/Plan IMPRESSION ARF - improved rhabdo- resolved CK elevated Liver enzyme- improving elevated troponin Pneumonia with abnormal CT reduced EF migraines s/p CPA acute encephalopathy with possible encephalitis tachycardia leukocytosis abnormal urine tox screen fevers PLAN labs noted IV antibiotics per ID repeat Head CT today all noted and appreciated monitor LOC ativan prn sedation as needed feeds per GI fentanyl as needed update family hyperventilate and maintain blood pressure at higher normal await family decision as to plan; still unable at present medications/laboratory data/nursing notes/ICU care reviewed in detail note reviewed and edited care discussed with RN and RT ICU time spent 35 minutes Critical Care - Subjective Interval Events: same on the vent care d/w family ROS Limited/Unobtainable: Yes Condition: critical EKG Rhythm: Sinus Rhythm Residuals: minimal Tube Feeding Tolerated: yes I&O: Intake and Output 06/11/17 06/12/17 19:00 07:00 Intake Total 2911.708 ml 2371 ml Output Total 1470 ml 960 ml Balance 1441.708 ml 1411 ml Free Water 150 ml 100 ml IV Total 2031.708 ml 1666 ml Tube Feeding 660 ml 605 ml Other 70 ml Output Urine Total 1470 ml 960 ml # Bowel Movements 1 Critical Care - Objective ET-Tube: 7.5 ET Position: 27 Last 24 Hour Vital Signs Date Time Temp Pulse Resp B/P (MAP) Pulse Ox O2 Delivery O2 Flow Rate FiO2 06/12/17 07:01 82 19 40 06/12/17 06:00 22 06/12/17 06:00 83 18 141/74 99 Mechanical Ventilator 40 06/12/17 05:45 91 140/76 06/12/17 05:30 98 20 146/84 98 Mechanical Ventilator 40 06/12/17 05:13 98 21 40 06/12/17 05:00 108 26 145/88 96 Mechanical Ventilator 40 06/12/17 05:00 21 06/12/17 04:30 105 33 153/93 96 Mechanical Ventilator 40 06/12/17 04:00 40 06/12/17 04:00 99.2 101 30 152/79 96 Mechanical Ventilator 40 06/12/17 04:00 18 06/12/17 04:00 101 06/12/17 03:30 103 24 144/87 96 Mechanical Ventilator 40 06/12/17 03:14 100 22 40 06/12/17 03:00 103 32 147/81 96 Mechanical Ventilator 40 06/12/17 03:00 21 06/12/17 02:46 103 171/92 06/12/17 02:30 110 34 171/92 97 Mechanical Ventilator 40 06/12/17 02:00 103 26 146/86 97 Mechanical Ventilator 40 06/12/17 01:30 100 30 140/96 97 Mechanical Ventilator 40 06/12/17 01:25 92 21 40 06/12/17 01:00 94 26 139/67 97 Mechanical Ventilator 40 06/12/17 00:30 98 33 151/88 99 Mechanical Ventilator 40 06/12/17 00:00 98.4 92 28 141/81 100 Mechanical Ventilator 40 06/12/17 00:00 40 06/12/17 00:00 92 06/11/17 23:30 105 32 156/73 99 Mechanical Ventilator 40 06/11/17 23:12 88 18 40 06/11/17 23:00 85 24 135/82 99 Mechanical Ventilator 40 06/11/17 22:30 100 26 146/79 99 Mechanical Ventilator 40 06/11/17 22:00 101 24 135/75 98 Mechanical Ventilator 40 06/11/17 22:00 24 06/11/17 21:59 83 173/78 06/11/17 21:57 85 173/78 06/11/17 21:12 89 18 40 06/11/17 21:00 90 27 124/73 99 Mechanical Ventilator 40 06/11/17 21:00 27 06/11/17 20:30 91 36 126/79 98 Mechanical Ventilator 40 06/11/17 20:00 34 06/11/17 20:00 40 06/11/17 20:00 100.2 96 34 150/81 98 Mechanical Ventilator 40 06/11/17 20:00 96 06/11/17 19:30 119 31 161/82 97 Mechanical Ventilator 40 06/11/17 19:11 116 31 40 06/11/17 19:00 20 06/11/17 19:00 100 20 133/69 97 Mechanical Ventilator 40 06/11/17 18:30 104 20 129/66 100 Mechanical Ventilator 40 06/11/17 18:00 98 52 126/61 96 Mechanical Ventilator 40 06/11/17 18:00 21 06/11/17 17:30 107 19 140/70 95 Mechanical Ventilator 40 06/11/17 17:22 101 19 40 06/11/17 17:00 22 06/11/17 17:00 111 140/70 06/11/17 17:00 119 37 161/82 97 Mechanical Ventilator 40 06/11/17 16:30 114 26 140/78 98 Mechanical Ventilator 40 06/11/17 16:00 114 06/11/17 16:00 100.4 101 17 131/65 98 Mechanical Ventilator 40 06/11/17 16:00 19 06/11/17 16:00 40 06/11/17 15:30 121 20 152/87 97 Mechanical Ventilator 40 06/11/17 15:11 118 27 40 06/11/17 15:00 18 06/11/17 15:00 102 16 130/65 96 Mechanical Ventilator 40 06/11/17 14:30 107 17 138/75 96 Mechanical Ventilator 40 06/11/17 14:00 114 37 142/78 96 Mechanical Ventilator 40 06/11/17 14:00 17 06/11/17 13:30 109 19 129/69 96 Mechanical Ventilator 40 06/11/17 13:17 104 17 40 06/11/17 13:00 113 23 130/65 97 Mechanical Ventilator 40 06/11/17 13:00 19 06/11/17 13:00 112 130/65 06/11/17 12:30 102 15 130/71 96 Mechanical Ventilator 40 06/11/17 12:00 116 06/11/17 12:00 100.0 107 20 119/65 95 Mechanical Ventilator 40 06/11/17 12:00 40 06/11/17 12:00 18 06/11/17 11:30 111 20 133/70 96 Mechanical Ventilator 40 06/11/17 11:00 19 06/11/17 11:00 107 18 128/63 97 Mechanical Ventilator 40 06/11/17 10:34 110 17 40 06/11/17 10:30 102 17 128/65 96 Mechanical Ventilator 40 06/11/17 10:00 108 16 128/58 97 Mechanical Ventilator 40 06/11/17 10:00 17 06/11/17 09:43 105 18 40 06/11/17 09:30 104 23 145/84 96 Mechanical Ventilator 40 06/11/17 09:00 104 22 117/67 95 Mechanical Ventilator 40 06/11/17 09:00 23 06/11/17 08:47 102 118/59 06/11/17 08:47 102 118/59 06/11/17 08:30 103 18 118/59 96 Mechanical Ventilator 40 06/11/17 08:00 40 06/11/17 08:00 99.0 102 18 108/57 95 Mechanical Ventilator 40 06/11/17 08:00 115 06/11/17 08:00 37 06/11/17 07:30 102 22 120/62 96 Mechanical Ventilator 40 Labs: Laboratory Tests Test 06/12/17 04:00 White Blood Count 11.0 K/UL (4.8-10.8) H Red Blood Count 3.83 M/UL (4.70-6.10) L Hemoglobin 11.2 G/DL (14.2-18.0) L Hematocrit 33.7 % (42.0-52.0) L Mean Corpuscular Volume 88 FL (80-99) Mean Corpuscular Hemoglobin 29.2 PG (27.0-31.0) Mean Corpuscular Hemoglobin Concent 33.2 G/DL (32.0-36.0) Red Cell Distribution Width 11.9 % (11.6-14.8) Platelet Count 274 K/UL (150-450) Mean Platelet Volume 5.7 FL (6.5-10.1) L Neutrophils (%) (Auto) 72.6 % (45.0-75.0) Lymphocytes (%) (Auto) 15.1 % (20.0-45.0) L Monocytes (%) (Auto) 10.4 % (1.0-10.0) H Eosinophils (%) (Auto) 1.4 % (0.0-3.0) Basophils (%) (Auto) 0.6 % (0.0-2.0) Sodium Level 138 MMOL/L (136-145) Potassium Level 3.5 MMOL/L (3.5-5.1) Chloride Level 99 MMOL/L (98-107) Carbon Dioxide Level 31 MMOL/L (21-32) Anion Gap 8 mmol/L (5-15) Blood Urea Nitrogen 8 mg/dL (7-18) Creatinine 0.8 MG/DL (0.55-1.30) Estimat Glomerular Filtration Rate > 60 mL/min (>60) Glucose Level 104 MG/DL (74-106) Calcium Level 9.3 MG/DL (8.5-10.1) Total Bilirubin 0.7 MG/DL (0.2-1.0) Aspartate Amino Transf (AST/SGOT) 46 U/L (15-37) H Alanine Aminotransferase (ALT/SGPT) 51 U/L (12-78) Alkaline Phosphatase 61 U/L (46-116) Total Protein 7.1 G/DL (6.4-8.2) Albumin 2.4 G/DL (3.4-5.0) L Globulin 4.7 g/dL Albumin/Globulin Ratio 0.5 (1.0-2.7) L Vancomycin Level Trough 22.2 ug/mL (5.0-12.0) H Objective: WDWN NAD improved breath sounds bilaterally without rhonchi or wheeze [id number] tachy without MRG NABS nontender no HSM no CCE nonfocal sedated ETT in place ecchymoses back MEGAN العلي Jun 12, 2017 07:22
[2017-06-12] MEDS: Metoprolol 25mg tab ORAL SCH ×3 (09:00→20:48)
[2017-06-12] MEDS: levETIRAcetam 1,000mg/NS100ml 100 ML IVPB SCH ×2 (09:19→20:40)
[2017-06-12] MEDS: Cefepime HCl 2 GM in D5W 55 ML IVPB SCH ×2 (09:20→16:56)
--- NOTE | 2017-06-12 09:22 | Diagnostic Imaging Report ---
Indication: Altered level of consciousness. Cerebral edema. Technique: Contiguous 5 mm thick transaxial imaging of the head obtained in a Siemens Sensation [address] scanner. Soft tissue and bone windows generated. Automatic Exposure Control was utilized. Total Dose length Product (DLP): 1471.[address] Dose Index Volume (CTDIvol): 70.38 mGy Comparison: 06/06/2017 Findings: The current study is limited by artifact. There is evidence of cerebral edema with loss of lr-white differentiation and sulcal effacement. Compared to the exam from 06/06/2017 there is slightly less effacement of the sulci and ventricles. No change otherwise. IMPRESSION: Cerebral edema. Slight interval improvement in the degree of edema compared to 06/06/2017. The CT scanner at [facility] is accredited by the [employer] [place] and the scans are performed using dose optimization techniques as appropriate to a performed exam including Automatic Exposure control.
[2017-06-12] MEDS: Heparin 5000 units/ml inj SUBQ SCH ×2 (09:23→20:57)
[2017-06-12] MEDS: fentaNYL Citrate 2,500 MCG in NS 200 ML IVPB SCH (09:46)
[2017-06-12] MEDS: Vancomycin 1250mg/D5W 250ml IVPB SCH ×2 (10:42→18:29)
[2017-06-12] MEDS ORDERED: Thiamine HCl 100mg/ml 2 ml Inj ONE (11:30)
[2017-06-12] MEDS: Thiamine HCl 100 MG in D5W 55 ML IVPB SCH (12:19)
--- NOTE | 2017-06-12 12:59 | General Progress Note ---
Assessment/Plan Problem List: (1) Anoxia ICD Codes: R09.02 - Hypoxemia SNOMED: 05778003 (2) Encephalopathy acute ICD Codes: G93.40 - Encephalopathy, unspecified SNOMED: 6331013 (3) Respiratory distress ICD Codes: R06.03 - Acute respiratory distress SNOMED: 038025081 (4) Renal insufficiency ICD Codes: N28.9 - Disorder of kidney and ureter, unspecified SNOMED: 091647867, 594391198 (5) Rhabdomyolysis ICD Codes: M62.82 - Rhabdomyolysis SNOMED: 645776302, 309754483 Qualifiers: Qualified Codes: M62.82 - Rhabdomyolysis (6) Sepsis ICD Codes: A41.9 - Sepsis, unspecified organism SNOMED: 41300047, 510528346 Qualifiers: Qualified Codes: A41.9 - Sepsis, unspecified organism (7) Pneumonia ICD Codes: J18.9 - Pneumonia, unspecified organism SNOMED: 051758581, 009432538 Qualifiers: Qualified Codes: J18.1 - Lobar pneumonia, unspecified organism (8) Elevated troponin ICD Codes: R74.8 - Abnormal levels of other serum enzymes SNOMED: 507807752, 240012655 Status: stable, not improved Assessment/Plan iv abx wean sedation as able ativan and fentanyl for agitation feeds adjusted vent support resp care ngt feeds d/w critical and guarded Subjective ROS Limited/Unobtainable: Yes Constitutional: Reports: malaise, weakness HEENT: Reports: no symptoms Cardiovascular: Reports: no symptoms Respiratory: Reports: no symptoms Gastrointestinal/Abdominal: Reports: difficulty swallowing Genitourinary: Reports: no symptoms Neurologic/Psychiatric: Reports: pre-existing deficit Endocrine: Reports: no symptoms Hematologic/Lymphatic: Reports: no symptoms Allergies: Coded Allergies: No Known Allergies (Unverified , 05/26/17) All Systems: reviewed and negative except above Subjective no change. remains unresponsive. no fevers. no szs. on ngt feeds. CT with slight improvement in edema. on fentanyl and ativan atc. d/w rn. no events Objective Last 24 Hour Vital Signs Date Time Temp Pulse Resp B/P (MAP) Pulse Ox O2 Delivery O2 Flow Rate FiO2 06/12/17 12:32 83 23 40 06/12/17 12:30 99.9 90 13 133/66 98 Mechanical Ventilator 40 06/12/17 12:00 93 13 130/66 98 Mechanical Ventilator 40 06/12/17 12:00 40 06/12/17 12:00 95 06/12/17 11:30 87 18 146/86 98 Mechanical Ventilator 40 06/12/17 11:20 85 17 40 06/12/17 11:00 101 20 146/85 98 Mechanical Ventilator 40 06/12/17 10:30 88 18 140/82 98 Mechanical Ventilator 40 06/12/17 10:16 99.0 06/12/17 10:00 91 20 131/74 98 Mechanical Ventilator 40 06/12/17 09:46 20 06/12/17 09:30 89 19 144/72 98 Mechanical Ventilator 40 06/12/17 09:26 90 22 40 06/12/17 09:00 87 134/82 06/12/17 09:00 87 134/82 06/12/17 09:00 87 22 134/82 98 Mechanical Ventilator 40 06/12/17 08:30 88 19 126/66 97 Mechanical Ventilator 40 06/12/17 08:00 40 06/12/17 08:00 91 06/12/17 08:00 91 21 136/74 97 Mechanical Ventilator 40 06/12/17 07:30 99.4 88 18 134/85 98 Mechanical Ventilator 40 06/12/17 07:01 82 19 40 06/12/17 07:00 84 20 110/56 98 Mechanical Ventilator 40 06/12/17 06:30 88 18 119/59 99 Mechanical Ventilator 40 06/12/17 06:00 22 06/12/17 06:00 83 18 141/74 99 Mechanical Ventilator 40 06/12/17 05:45 91 140/76 06/12/17 05:30 98 20 146/84 98 Mechanical Ventilator 40 06/12/17 05:13 98 21 40 06/12/17 05:00 108 26 145/88 96 Mechanical Ventilator 40 06/12/17 05:00 21 06/12/17 04:30 105 33 153/93 96 Mechanical Ventilator 40 06/12/17 04:00 40 06/12/17 04:00 99.2 101 30 152/79 96 Mechanical Ventilator 40 06/12/17 04:00 18 06/12/17 04:00 101 06/12/17 03:30 103 24 144/87 96 Mechanical Ventilator 40 06/12/17 03:14 100 22 40 06/12/17 03:00 103 32 147/81 96 Mechanical Ventilator 40 06/12/17 03:00 21 06/12/17 02:46 103 171/92 06/12/17 02:30 110 34 171/92 97 Mechanical Ventilator 40 06/12/17 02:00 103 26 146/86 97 Mechanical Ventilator 40 06/12/17 01:30 100 30 140/96 97 Mechanical Ventilator 40 06/12/17 01:25 92 21 40 06/12/17 01:00 94 26 139/67 97 Mechanical Ventilator 40 06/12/17 00:30 98 33 151/88 99 Mechanical Ventilator 40 06/12/17 00:00 98.4 92 28 141/81 100 Mechanical Ventilator 40 06/12/17 00:00 40 06/12/17 00:00 92 06/11/17 23:30 105 32 156/73 99 Mechanical Ventilator 40 06/11/17 23:12 88 18 40 06/11/17 23:00 85 24 135/82 99 Mechanical Ventilator 40 06/11/17 22:30 100 26 146/79 99 Mechanical Ventilator 40 06/11/17 22:00 101 24 135/75 98 Mechanical Ventilator 40 06/11/17 22:00 24 06/11/17 21:59 83 173/78 06/11/17 21:57 85 173/78 06/11/17 21:12 89 18 40 06/11/17 21:00 90 27 124/73 99 Mechanical Ventilator 40 06/11/17 21:00 27 06/11/17 20:30 91 36 126/79 98 Mechanical Ventilator 40 06/11/17 20:00 34 06/11/17 20:00 40 06/11/17 20:00 100.2 96 34 150/81 98 Mechanical Ventilator 40 06/11/17 20:00 96 06/11/17 19:30 119 31 161/82 97 Mechanical Ventilator 40 06/11/17 19:11 116 31 40 06/11/17 19:00 20 06/11/17 19:00 100 20 133/69 97 Mechanical Ventilator 40 06/11/17 18:30 104 20 129/66 100 Mechanical Ventilator 40 06/11/17 18:00 98 52 126/61 96 Mechanical Ventilator 40 06/11/17 18:00 21 06/11/17 17:30 107 19 140/70 95 Mechanical Ventilator 40 06/11/17 17:22 101 19 40 06/11/17 17:00 22 06/11/17 17:00 111 140/70 06/11/17 17:00 119 37 161/82 97 Mechanical Ventilator 40 06/11/17 16:30 114 26 140/78 98 Mechanical Ventilator 40 06/11/17 16:00 114 06/11/17 16:00 100.4 101 17 131/65 98 Mechanical Ventilator 40 06/11/17 16:00 19 06/11/17 16:00 40 06/11/17 15:30 121 20 152/87 97 Mechanical Ventilator 40 06/11/17 15:11 118 27 40 06/11/17 15:00 18 06/11/17 15:00 102 16 130/65 96 Mechanical Ventilator 40 06/11/17 14:30 107 17 138/75 96 Mechanical Ventilator 40 06/11/17 14:00 114 37 142/78 96 Mechanical Ventilator 40 06/11/17 14:00 17 06/11/17 13:30 109 19 129/69 96 Mechanical Ventilator 40 06/11/17 13:17 104 17 40 06/11/17 13:00 113 23 130/65 97 Mechanical Ventilator 40 06/11/17 13:00 19 06/11/17 13:00 112 130/65 Intake and Output 06/11/17 06/12/17 19:00 07:00 Intake Total 2911.708 ml 2426 ml Output Total 1470 ml 1000 ml Balance 1441.708 ml 1426 ml Free Water 150 ml 100 ml IV Total 2031.708 ml 1666 ml Tube Feeding 660 ml 660 ml Other 70 ml Output Urine Total 1470 ml 1000 ml # Bowel Movements 1 Laboratory Tests 06/12/17 04:00: White Blood Count 11.0H, Red Blood Count 3.83L, Hemoglobin 11.2L, Hematocrit 33.7L, Mean Corpuscular Volume 88, Mean Corpuscular Hemoglobin 29.2, Mean Corpuscular Hemoglobin Concent 33.2, Red Cell Distribution Width 11.9, Platelet Count 274, Mean Platelet Volume 5.7L, Neutrophils (%) (Auto) 72.6, Lymphocytes ( %) (Auto) 15.1L, Monocytes (%) (Auto) 10.4H, Eosinophils (%) (Auto) 1.4, Basophils (%) (Auto) 0.6, Sodium Level 138, Potassium Level 3.5, Chloride Level 99, Carbon Dioxide Level 31, Anion Gap 8, Blood Urea Nitrogen 8, Creatinine 0.8 , Estimat Glomerular Filtration Rate > 60, Glucose Level 104, Calcium Level 9.3 , Total Bilirubin 0.7, Aspartate Amino Transf (AST/SGOT) 46H, Alanine Aminotransferase (ALT/SGPT) 51, Alkaline Phosphatase 61, Total Protein 7.1, Albumin 2.4L, Globulin 4.7, Albumin/Globulin Ratio 0.5L, Vancomycin Level Trough 22.2H Height (Feet): 6 Height (Inches): 1.00 Weight (Pounds): 263 Objective General Appearance: WD/WN, lethargic. ngt Neck: supple Cardiovascular: regular rhythm Respiratory/Chest: chest wall non-tender, lungs clear, normal breath sounds Abdomen: normal bowel sounds, non tender, soft, no organomegaly Neurologic: unresponsive Skin: normal pigmentation. no rash JIMBO GLEASON Jun 12, 2017 12:59
--- NOTE | 2017-06-12 14:21 | Infectious Diseases Prog Note ---
Assessment/Plan Assessment/Plan antibiotics : vancomycin iv, cefepime, acyclovir A 1. pneumonia 2. leucocytosis improving 3. renal failure improved 4. rhabdomyolysis 5. respiratory failure 6. coag neg staph sepsis 7. encephalopathy 8. fever P 1. continue vancomycin iv, cefepime 2. will follow up cultures 3. consider removal of right subclavian catheter Subjective ROS Limited/Unobtainable: Yes Allergies: Coded Allergies: No Known Allergies (Unverified , 05/26/17) Objective Vital Signs Last 24 Hour Vital Signs Date Time Temp Pulse Resp B/P (MAP) Pulse Ox O2 Delivery O2 Flow Rate FiO2 06/12/17 14:00 106 27 137/88 98 Mechanical Ventilator 40 06/12/17 13:30 98 22 145/84 99 Mechanical Ventilator 40 06/12/17 13:00 99 19 124/66 99 Mechanical Ventilator 40 06/12/17 13:00 93 124/66 06/12/17 12:32 83 23 40 06/12/17 12:30 99.9 90 13 133/66 98 Mechanical Ventilator 40 06/12/17 12:00 93 13 130/66 98 Mechanical Ventilator 40 06/12/17 12:00 40 06/12/17 12:00 95 06/12/17 11:30 87 18 146/86 98 Mechanical Ventilator 40 06/12/17 11:20 85 17 40 06/12/17 11:00 101 20 146/85 98 Mechanical Ventilator 40 06/12/17 10:30 88 18 140/82 98 Mechanical Ventilator 40 06/12/17 10:16 99.0 06/12/17 10:00 91 20 131/74 98 Mechanical Ventilator 40 06/12/17 09:46 20 06/12/17 09:30 89 19 144/72 98 Mechanical Ventilator 40 06/12/17 09:26 90 22 40 06/12/17 09:00 87 134/82 06/12/17 09:00 87 134/82 06/12/17 09:00 87 22 134/82 98 Mechanical Ventilator 40 06/12/17 08:30 88 19 126/66 97 Mechanical Ventilator 40 06/12/17 08:00 40 06/12/17 08:00 91 06/12/17 08:00 91 21 136/74 97 Mechanical Ventilator 40 06/12/17 07:30 99.4 88 18 134/85 98 Mechanical Ventilator 40 06/12/17 07:01 82 19 40 06/12/17 07:00 84 20 110/56 98 Mechanical Ventilator 40 06/12/17 06:30 88 18 119/59 99 Mechanical Ventilator 40 06/12/17 06:00 22 06/12/17 06:00 83 18 141/74 99 Mechanical Ventilator 40 06/12/17 05:45 91 140/76 06/12/17 05:30 98 20 146/84 98 Mechanical Ventilator 40 06/12/17 05:13 98 21 40 06/12/17 05:00 108 26 145/88 96 Mechanical Ventilator 40 06/12/17 05:00 21 06/12/17 04:30 105 33 153/93 96 Mechanical Ventilator 40 06/12/17 04:00 40 06/12/17 04:00 99.2 101 30 152/79 96 Mechanical Ventilator 40 06/12/17 04:00 18 06/12/17 04:00 101 06/12/17 03:30 103 24 144/87 96 Mechanical Ventilator 40 06/12/17 03:14 100 22 40 06/12/17 03:00 103 32 147/81 96 Mechanical Ventilator 40 06/12/17 03:00 21 06/12/17 02:46 103 171/92 06/12/17 02:30 110 34 171/92 97 Mechanical Ventilator 40 06/12/17 02:00 103 26 146/86 97 Mechanical Ventilator 40 06/12/17 01:30 100 30 140/96 97 Mechanical Ventilator 40 06/12/17 01:25 92 21 40 06/12/17 01:00 94 26 139/67 97 Mechanical Ventilator 40 06/12/17 00:30 98 33 151/88 99 Mechanical Ventilator 40 06/12/17 00:00 98.4 92 28 141/81 100 Mechanical Ventilator 40 06/12/17 00:00 40 06/12/17 00:00 92 06/11/17 23:30 105 32 156/73 99 Mechanical Ventilator 40 06/11/17 23:12 88 18 40 06/11/17 23:00 85 24 135/82 99 Mechanical Ventilator 40 06/11/17 22:30 100 26 146/79 99 Mechanical Ventilator 40 06/11/17 22:00 101 24 135/75 98 Mechanical Ventilator 40 06/11/17 22:00 24 06/11/17 21:59 83 173/78 06/11/17 21:57 85 173/78 06/11/17 21:12 89 18 40 06/11/17 21:00 90 27 124/73 99 Mechanical Ventilator 40 06/11/17 21:00 27 06/11/17 20:30 91 36 126/79 98 Mechanical Ventilator 40 06/11/17 20:00 34 06/11/17 20:00 40 06/11/17 20:00 100.2 96 34 150/81 98 Mechanical Ventilator 40 06/11/17 20:00 96 06/11/17 19:30 119 31 161/82 97 Mechanical Ventilator 40 06/11/17 19:11 116 31 40 06/11/17 19:00 20 06/11/17 19:00 100 20 133/69 97 Mechanical Ventilator 40 06/11/17 18:30 104 20 129/66 100 Mechanical Ventilator 40 06/11/17 18:00 98 52 126/61 96 Mechanical Ventilator 40 06/11/17 18:00 21 06/11/17 17:30 107 19 140/70 95 Mechanical Ventilator 40 06/11/17 17:22 101 19 40 06/11/17 17:00 22 06/11/17 17:00 111 140/70 06/11/17 17:00 119 37 161/82 97 Mechanical Ventilator 40 06/11/17 16:30 114 26 140/78 98 Mechanical Ventilator 40 06/11/17 16:00 114 06/11/17 16:00 100.4 101 17 131/65 98 Mechanical Ventilator 40 06/11/17 16:00 19 06/11/17 16:00 40 06/11/17 15:30 121 20 152/87 97 Mechanical Ventilator 40 06/11/17 15:11 118 27 40 06/11/17 15:00 18 06/11/17 15:00 102 16 130/65 96 Mechanical Ventilator 40 06/11/17 14:30 107 17 138/75 96 Mechanical Ventilator 40 Height (Feet): 6 Height (Inches): 1.00 Weight (Pounds): 263 HEENT: other - intubated Respiratory/Chest: lungs clear Cardiovascular: normal rate, regular rhythm, no gallop/murmur Abdomen: soft, non tender Extremities: no edema Laboratory Tests Test 06/12/17 04:00 White Blood Count 11.0 K/UL (4.8-10.8) H Red Blood Count 3.83 M/UL (4.70-6.10) L Hemoglobin 11.2 G/DL (14.2-18.0) L Hematocrit 33.7 % (42.0-52.0) L Mean Corpuscular Volume 88 FL (80-99) Mean Corpuscular Hemoglobin 29.2 PG (27.0-31.0) Mean Corpuscular Hemoglobin Concent 33.2 G/DL (32.0-36.0) Red Cell Distribution Width 11.9 % (11.6-14.8) Platelet Count 274 K/UL (150-450) Mean Platelet Volume 5.7 FL (6.5-10.1) L Neutrophils (%) (Auto) 72.6 % (45.0-75.0) Lymphocytes (%) (Auto) 15.1 % (20.0-45.0) L Monocytes (%) (Auto) 10.4 % (1.0-10.0) H Eosinophils (%) (Auto) 1.4 % (0.0-3.0) Basophils (%) (Auto) 0.6 % (0.0-2.0) Sodium Level 138 MMOL/L (136-145) Potassium Level 3.5 MMOL/L (3.5-5.1) Chloride Level 99 MMOL/L (98-107) Carbon Dioxide Level 31 MMOL/L (21-32) Anion Gap 8 mmol/L (5-15) Blood Urea Nitrogen 8 mg/dL (7-18) Creatinine 0.8 MG/DL (0.55-1.30) Estimat Glomerular Filtration Rate > 60 mL/min (>60) Glucose Level 104 MG/DL (74-106) Calcium Level 9.3 MG/DL (8.5-10.1) Total Bilirubin 0.7 MG/DL (0.2-1.0) Aspartate Amino Transf (AST/SGOT) 46 U/L (15-37) H Alanine Aminotransferase (ALT/SGPT) 51 U/L (12-78) Alkaline Phosphatase 61 U/L (46-116) Total Protein 7.1 G/DL (6.4-8.2) Albumin 2.4 G/DL (3.4-5.0) L Globulin 4.7 g/dL Albumin/Globulin Ratio 0.5 (1.0-2.7) L Vancomycin Level Trough 22.2 ug/mL (5.0-12.0) H CHET DURAN Jun 12, 2017 14:21
--- NOTE | 2017-06-12 15:13 | Neurology Progress Note ---
Interim History Interim History ROS Limited/Unobtainable: Yes Complaints: comatose off propofol Events: -less oft-decerebrate symmetric, ,cooling blanket on Objective Physical Exam Last Vital Signs Date Time Temp Pulse Resp B/P (MAP) Pulse Ox O2 Delivery O2 Flow Rate FiO2 06/12/17 14:30 103 27 140/80 98 Mechanical Ventilator 40 06/12/17 12:30 99.9 Laboratory Tests Test 06/12/17 04:00 White Blood Count 11.0 K/UL (4.8-10.8) H Red Blood Count 3.83 M/UL (4.70-6.10) L Hemoglobin 11.2 G/DL (14.2-18.0) L Hematocrit 33.7 % (42.0-52.0) L Mean Corpuscular Volume 88 FL (80-99) Mean Corpuscular Hemoglobin 29.2 PG (27.0-31.0) Mean Corpuscular Hemoglobin Concent 33.2 G/DL (32.0-36.0) Red Cell Distribution Width 11.9 % (11.6-14.8) Platelet Count 274 K/UL (150-450) Mean Platelet Volume 5.7 FL (6.5-10.1) L Neutrophils (%) (Auto) 72.6 % (45.0-75.0) Lymphocytes (%) (Auto) 15.1 % (20.0-45.0) L Monocytes (%) (Auto) 10.4 % (1.0-10.0) H Eosinophils (%) (Auto) 1.4 % (0.0-3.0) Basophils (%) (Auto) 0.6 % (0.0-2.0) Sodium Level 138 MMOL/L (136-145) Potassium Level 3.5 MMOL/L (3.5-5.1) Chloride Level 99 MMOL/L (98-107) Carbon Dioxide Level 31 MMOL/L (21-32) Anion Gap 8 mmol/L (5-15) Blood Urea Nitrogen 8 mg/dL (7-18) Creatinine 0.8 MG/DL (0.55-1.30) Estimat Glomerular Filtration Rate > 60 mL/min (>60) Glucose Level 104 MG/DL (74-106) Calcium Level 9.3 MG/DL (8.5-10.1) Total Bilirubin 0.7 MG/DL (0.2-1.0) Aspartate Amino Transf (AST/SGOT) 46 U/L (15-37) H Alanine Aminotransferase (ALT/SGPT) 51 U/L (12-78) Alkaline Phosphatase 61 U/L (46-116) Total Protein 7.1 G/DL (6.4-8.2) Albumin 2.4 G/DL (3.4-5.0) L Globulin 4.7 g/dL Albumin/Globulin Ratio 0.5 (1.0-2.7) L Vancomycin Level Trough 22.2 ug/mL (5.0-12.0) H General: other - intubated obese sweating overbreathing vent Head: normocophalic, atraumatic, other - flushed face/upper torso now on ice blanket for fevers Neck: no rigidity Neurologic Exam Mental Status: other - no responces ex decerebrate on stimuly Speech: other Language: other Cranial Nerve II: fundus normal Cranial Nerves III, IV, : other - p5mm sluggish/ EOM intact Cranial Nerve V: other Cranial Nerve VII: no facial asymmetry Cranial Nerve VIII: no nystagmus Cranial Nerve IX: other - no gag Cranial Nerve X: other Cranial Nerve XI: other Cranial Nerve XII: no tongue atrophy/fasciculations Motor System: other - diffuse rigidity no spont movement Sensory: other Coordination: other Deep Tendon Reflexes: 0 bicep (L), 0 bicep (R), 0 tricep (L), 0 tricep (R), 0 brachioradialis (L), 0 brachioradialis (R), 0 knee (L), 0 knee (R), 0 ankle (L) , 0 ankle (R) Reflexes: mute plantar (L), mute plantar (R) Stance: other Gait: other Impression/Recommendations Problems: (1) s/p full arrest (2) Anoxic encephalopathy syndrome (3) Sepsis (4) Pneumonia Status: stable, not improved, unchanged Recommendations # [id number] EEG c/w severe encephalopathy cont supportive care CT brain ----diffuse edema less prominent ------now hyperventilated d/w family re prognosis, Gtube/Trach d/w attend/staff prognosis guarded ok SBP >150 <170 keep fever control with cooling blanket,tylenol MITCH PUTNAM Jun 12, 2017 15:13
[2017-06-12] MEDS ORDERED: Dicyclomine HCl 10mg/5ml oral soln GT PRN (17:00)
[2017-06-12] MEDS: Dyna-Hex 2% Top Sol 2oz TOPIC SCH (19:30)
--- NOTE | 2017-06-12 21:52 | Cardiology Progress Note ---
Assessment/Plan Assessment/Plan 1. Asystole cardiac arrest due to respiratory failure, regained pulse after 8 minutes, severe anoxic encephalopathy confirmed by EEG. 2. Mild cardiomyopathy with LVEF at 45%, + anteroseptal wall hypokinesia, ? ischemic cardiomyopathy vs drug-induced CM. 3. Elevated troponin level likely due to sepsis/tachycardia/pneumonia, not a pattern for ACS, CP free on admission to ED. 4. Accelerated HTN, keep BP ~150-170 mmHg. 5. Acute respiratory failure, intubated. 6. Substance abuse 7. Obesity 8. Sinus tachycardia, persistent. Subjective Subjective Low grade fever Sinus tachycardia at 103. Comatose, off sedatives. Objective Last 24 Hour Vital Signs Date Time Temp Pulse Resp B/P (MAP) Pulse Ox O2 Delivery O2 Flow Rate FiO2 06/12/17 21:25 112 31 40 06/12/17 20:48 105 171/98 06/12/17 20:47 105 171/98 06/12/17 19:30 110 30 40 06/12/17 19:00 113 25 153/96 99 Mechanical Ventilator 40 06/12/17 18:00 94 23 137/69 97 Mechanical Ventilator 40 06/12/17 18:00 105 24 159/95 97 Mechanical Ventilator 40 06/12/17 17:15 108 28 40 06/12/17 17:00 112 158/117 06/12/17 17:00 112 24 158/117 98 Mechanical Ventilator 40 06/12/17 16:00 99.6 105 20 148/102 97 Mechanical Ventilator 40 06/12/17 16:00 103 06/12/17 16:00 40 06/12/17 15:36 105 20 40 06/12/17 15:30 106 26 145/99 97 Mechanical Ventilator 40 06/12/17 15:00 18 06/12/17 15:00 102 24 154/87 97 Mechanical Ventilator 40 06/12/17 14:30 103 27 140/80 98 Mechanical Ventilator 40 06/12/17 14:00 20 06/12/17 14:00 106 27 137/88 98 Mechanical Ventilator 40 06/12/17 13:30 98 22 145/84 99 Mechanical Ventilator 40 06/12/17 13:00 99 19 124/66 99 Mechanical Ventilator 40 06/12/17 13:00 18 06/12/17 13:00 93 124/66 06/12/17 12:32 83 23 40 06/12/17 12:30 99.9 90 13 133/66 98 Mechanical Ventilator 40 06/12/17 12:00 93 13 130/66 98 Mechanical Ventilator 40 06/12/17 12:00 40 06/12/17 12:00 95 06/12/17 11:32 15 06/12/17 11:30 87 18 146/86 98 Mechanical Ventilator 40 06/12/17 11:20 85 17 40 06/12/17 11:00 101 20 146/85 98 Mechanical Ventilator 40 06/12/17 10:42 18 06/12/17 10:30 88 18 140/82 98 Mechanical Ventilator 40 06/12/17 10:16 99.0 06/12/17 10:00 91 20 131/74 98 Mechanical Ventilator 40 06/12/17 10:00 18 06/12/17 09:46 20 06/12/17 09:30 89 19 144/72 98 Mechanical Ventilator 40 06/12/17 09:26 90 22 40 06/12/17 09:00 18 06/12/17 09:00 87 134/82 06/12/17 09:00 87 134/82 06/12/17 09:00 87 22 134/82 98 Mechanical Ventilator 40 06/12/17 08:30 88 19 126/66 97 Mechanical Ventilator 40 06/12/17 08:00 20 06/12/17 08:00 40 06/12/17 08:00 91 06/12/17 08:00 91 21 136/74 97 Mechanical Ventilator 40 06/12/17 07:30 99.4 88 18 134/85 98 Mechanical Ventilator 40 06/12/17 07:01 82 19 40 06/12/17 07:00 84 20 110/56 98 Mechanical Ventilator 40 06/12/17 07:00 20 06/12/17 06:30 88 18 119/59 99 Mechanical Ventilator 40 06/12/17 06:00 22 06/12/17 06:00 83 18 141/74 99 Mechanical Ventilator 40 06/12/17 05:45 91 140/76 06/12/17 05:30 98 20 146/84 98 Mechanical Ventilator 40 06/12/17 05:13 98 21 40 06/12/17 05:00 108 26 145/88 96 Mechanical Ventilator 40 06/12/17 05:00 21 06/12/17 04:30 105 33 153/93 96 Mechanical Ventilator 40 06/12/17 04:00 40 06/12/17 04:00 99.2 101 30 152/79 96 Mechanical Ventilator 40 06/12/17 04:00 18 06/12/17 04:00 101 06/12/17 03:30 103 24 144/87 96 Mechanical Ventilator 40 06/12/17 03:14 100 22 40 06/12/17 03:00 103 32 147/81 96 Mechanical Ventilator 40 06/12/17 03:00 21 06/12/17 02:46 103 171/92 06/12/17 02:30 110 34 171/92 97 Mechanical Ventilator 40 06/12/17 02:00 103 26 146/86 97 Mechanical Ventilator 40 06/12/17 01:30 100 30 140/96 97 Mechanical Ventilator 40 06/12/17 01:25 92 21 40 06/12/17 01:00 94 26 139/67 97 Mechanical Ventilator 40 06/12/17 00:30 98 33 151/88 99 Mechanical Ventilator 40 06/12/17 00:00 98.4 92 28 141/81 100 Mechanical Ventilator 40 06/12/17 00:00 40 06/12/17 00:00 92 06/11/17 23:30 105 32 156/73 99 Mechanical Ventilator 40 06/11/17 23:12 88 18 40 06/11/17 23:00 85 24 135/82 99 Mechanical Ventilator 40 06/11/17 22:30 100 26 146/79 99 Mechanical Ventilator 40 06/11/17 22:00 101 24 135/75 98 Mechanical Ventilator 40 06/11/17 22:00 24 06/11/17 21:59 83 173/78 06/11/17 21:57 85 173/78 Intake and Output 06/11/17 06/12/17 19:00 07:00 Intake Total 2911.708 ml 2532 ml Output Total 1470 ml 1000 ml Balance 1441.708 ml 1532 ml Free Water 150 ml 100 ml IV Total 2031.708 ml 1772 ml Tube Feeding 660 ml 660 ml Other 70 ml Output Urine Total 1470 ml 1000 ml # Bowel Movements 1 2D Echo: EF 45%, Anteroseptal HK, RVSP 33 mmHg Laboratory Tests Test 06/12/17 04:00 White Blood Count 11.0 K/UL (4.8-10.8) H Red Blood Count 3.83 M/UL (4.70-6.10) L Hemoglobin 11.2 G/DL (14.2-18.0) L Hematocrit 33.7 % (42.0-52.0) L Mean Corpuscular Volume 88 FL (80-99) Mean Corpuscular Hemoglobin 29.2 PG (27.0-31.0) Mean Corpuscular Hemoglobin Concent 33.2 G/DL (32.0-36.0) Red Cell Distribution Width 11.9 % (11.6-14.8) Platelet Count 274 K/UL (150-450) Mean Platelet Volume 5.7 FL (6.5-10.1) L Neutrophils (%) (Auto) 72.6 % (45.0-75.0) Lymphocytes (%) (Auto) 15.1 % (20.0-45.0) L Monocytes (%) (Auto) 10.4 % (1.0-10.0) H Eosinophils (%) (Auto) 1.4 % (0.0-3.0) Basophils (%) (Auto) 0.6 % (0.0-2.0) Sodium Level 138 MMOL/L (136-145) Potassium Level 3.5 MMOL/L (3.5-5.1) Chloride Level 99 MMOL/L (98-107) Carbon Dioxide Level 31 MMOL/L (21-32) Anion Gap 8 mmol/L (5-15) Blood Urea Nitrogen 8 mg/dL (7-18) Creatinine 0.8 MG/DL (0.55-1.30) Estimat Glomerular Filtration Rate > 60 mL/min (>60) Glucose Level 104 MG/DL (74-106) Calcium Level 9.3 MG/DL (8.5-10.1) Total Bilirubin 0.7 MG/DL (0.2-1.0) Aspartate Amino Transf (AST/SGOT) 46 U/L (15-37) H Alanine Aminotransferase (ALT/SGPT) 51 U/L (12-78) Alkaline Phosphatase 61 U/L (46-116) Total Protein 7.1 G/DL (6.4-8.2) Albumin 2.4 G/DL (3.4-5.0) L Globulin 4.7 g/dL Albumin/Globulin Ratio 0.5 (1.0-2.7) L Vancomycin Level Trough 22.2 ug/mL (5.0-12.0) H Objective HEENT: Intubated, on mechanical ventilator. NECK: JVP cannot be assessed, No carotid bruit. Carotid upstrokes 2+ bilaterally. CARDIOVASCULAR SYSTEM: Normal S1, S2. Regular rate and rhythm. Tachycardic. No murmurs, gallops, or rubs. PMI is at fourth intercostal space in the midclavicular line. LUNGS: Clear to auscultation bilaterally. ABDOMEN: Soft, nontender, nondistended. No hepatosplenomegaly. Positive bowel sounds. EXTREMITIES: No evidence of edema, clubbing, or cyanosis. CRISTA MURPHY Jun 12, 2017 21:52
--- NOTE | 2017-06-12 22:11 | General Progress Note ---
Assessment/Plan Assessment/Plan Assessment - s/p arrest - s/p Rhabdo - resolving - Coma - s/p yoly - diverticulosis - constipation - recent PNA and hemoptysis Recommendations - supportive ICU care - Continue TF - IVF - Follow LFT - PPI - laxative PRN Subjective Allergies: Coded Allergies: No Known Allergies (Unverified , 05/26/17) Subjective non communicative intubated tolerating TF family discussions noted Objective Last 24 Hour Vital Signs Date Time Temp Pulse Resp B/P (MAP) Pulse Ox O2 Delivery O2 Flow Rate FiO2 06/12/17 21:25 112 31 40 06/12/17 21:00 97 25 179/98 98 Mechanical Ventilator 40 06/12/17 20:48 105 171/98 06/12/17 20:47 105 171/98 06/12/17 20:00 40 06/12/17 20:00 100.9 105 29 179/102 97 Mechanical Ventilator 40 06/12/17 20:00 105 06/12/17 19:30 110 30 40 06/12/17 19:00 113 25 153/96 99 Mechanical Ventilator 40 06/12/17 18:00 94 23 137/69 97 Mechanical Ventilator 40 06/12/17 18:00 105 24 159/95 97 Mechanical Ventilator 40 06/12/17 17:15 108 28 40 06/12/17 17:00 112 158/117 06/12/17 17:00 112 24 158/117 98 Mechanical Ventilator 40 06/12/17 16:00 99.6 105 20 148/102 97 Mechanical Ventilator 40 06/12/17 16:00 103 06/12/17 16:00 40 06/12/17 15:36 105 20 40 06/12/17 15:30 106 26 145/99 97 Mechanical Ventilator 40 06/12/17 15:00 18 06/12/17 15:00 102 24 154/87 97 Mechanical Ventilator 40 06/12/17 14:30 103 27 140/80 98 Mechanical Ventilator 40 06/12/17 14:00 20 06/12/17 14:00 106 27 137/88 98 Mechanical Ventilator 40 06/12/17 13:30 98 22 145/84 99 Mechanical Ventilator 40 06/12/17 13:00 99 19 124/66 99 Mechanical Ventilator 40 06/12/17 13:00 18 06/12/17 13:00 93 124/66 06/12/17 12:32 83 23 40 06/12/17 12:30 99.9 90 13 133/66 98 Mechanical Ventilator 40 06/12/17 12:00 93 13 130/66 98 Mechanical Ventilator 40 06/12/17 12:00 40 06/12/17 12:00 95 06/12/17 11:32 15 06/12/17 11:30 87 18 146/86 98 Mechanical Ventilator 40 06/12/17 11:20 85 17 40 06/12/17 11:00 101 20 146/85 98 Mechanical Ventilator 40 06/12/17 10:42 18 06/12/17 10:30 88 18 140/82 98 Mechanical Ventilator 40 06/12/17 10:16 99.0 06/12/17 10:00 91 20 131/74 98 Mechanical Ventilator 40 06/12/17 10:00 18 06/12/17 09:46 20 06/12/17 09:30 89 19 144/72 98 Mechanical Ventilator 40 06/12/17 09:26 90 22 40 06/12/17 09:00 18 06/12/17 09:00 87 134/82 06/12/17 09:00 87 134/82 06/12/17 09:00 87 22 134/82 98 Mechanical Ventilator 40 06/12/17 08:30 88 19 126/66 97 Mechanical Ventilator 40 06/12/17 08:00 20 06/12/17 08:00 40 06/12/17 08:00 91 06/12/17 08:00 91 21 136/74 97 Mechanical Ventilator 40 06/12/17 07:30 99.4 88 18 134/85 98 Mechanical Ventilator 40 06/12/17 07:01 82 19 40 06/12/17 07:00 84 20 110/56 98 Mechanical Ventilator 40 06/12/17 07:00 20 06/12/17 06:30 88 18 119/59 99 Mechanical Ventilator 40 06/12/17 06:00 22 06/12/17 06:00 83 18 141/74 99 Mechanical Ventilator 40 06/12/17 05:45 91 140/76 06/12/17 05:30 98 20 146/84 98 Mechanical Ventilator 40 06/12/17 05:13 98 21 40 06/12/17 05:00 108 26 145/88 96 Mechanical Ventilator 40 06/12/17 05:00 21 06/12/17 04:30 105 33 153/93 96 Mechanical Ventilator 40 06/12/17 04:00 40 06/12/17 04:00 99.2 101 30 152/79 96 Mechanical Ventilator 40 06/12/17 04:00 18 06/12/17 04:00 101 06/12/17 03:30 103 24 144/87 96 Mechanical Ventilator 40 06/12/17 03:14 100 22 40 06/12/17 03:00 103 32 147/81 96 Mechanical Ventilator 40 06/12/17 03:00 21 06/12/17 02:46 103 171/92 06/12/17 02:30 110 34 171/92 97 Mechanical Ventilator 40 06/12/17 02:00 103 26 146/86 97 Mechanical Ventilator 40 06/12/17 01:30 100 30 140/96 97 Mechanical Ventilator 40 06/12/17 01:25 92 21 40 06/12/17 01:00 94 26 139/67 97 Mechanical Ventilator 40 06/12/17 00:30 98 33 151/88 99 Mechanical Ventilator 40 06/12/17 00:00 98.4 92 28 141/81 100 Mechanical Ventilator 40 06/12/17 00:00 40 06/12/17 00:00 92 06/11/17 23:30 105 32 156/73 99 Mechanical Ventilator 40 06/11/17 23:12 88 18 40 06/11/17 23:00 85 24 135/82 99 Mechanical Ventilator 40 06/11/17 22:30 100 26 146/79 99 Mechanical Ventilator 40 Intake and Output 06/11/17 06/12/17 19:00 07:00 Intake Total 2911.708 ml 2532 ml Output Total 1470 ml 1000 ml Balance 1441.708 ml 1532 ml Free Water 150 ml 100 ml IV Total 2031.708 ml 1772 ml Tube Feeding 660 ml 660 ml Other 70 ml Output Urine Total 1470 ml 1000 ml # Bowel Movements 1 Laboratory Tests 06/12/17 04:00: White Blood Count 11.0H, Red Blood Count 3.83L, Hemoglobin 11.2L, Hematocrit 33.7L, Mean Corpuscular Volume 88, Mean Corpuscular Hemoglobin 29.2, Mean Corpuscular Hemoglobin Concent 33.2, Red Cell Distribution Width 11.9, Platelet Count 274, Mean Platelet Volume 5.7L, Neutrophils (%) (Auto) 72.6, Lymphocytes ( %) (Auto) 15.1L, Monocytes (%) (Auto) 10.4H, Eosinophils (%) (Auto) 1.4, Basophils (%) (Auto) 0.6, Sodium Level 138, Potassium Level 3.5, Chloride Level 99, Carbon Dioxide Level 31, Anion Gap 8, Blood Urea Nitrogen 8, Creatinine 0.8 , Estimat Glomerular Filtration Rate > 60, Glucose Level 104, Calcium Level 9.3 , Total Bilirubin 0.7, Aspartate Amino Transf (AST/SGOT) 46H, Alanine Aminotransferase (ALT/SGPT) 51, Alkaline Phosphatase 61, Total Protein 7.1, Albumin 2.4L, Globulin 4.7, Albumin/Globulin Ratio 0.5L, Vancomycin Level Trough 22.2H Height (Feet): 6 Height (Inches): 1.00 Weight (Pounds): 263 Objective Obese WM Intubated supple Coarse BS RRR soft ND no edema non communicative JAMIN HEARD Jun 12, 2017 22:11
[2017-06-13] VITALS (18 sets, daily range): BP systolic 87–175; BP diastolic 50–138
[2017-06-13] MEDS: METOPROLOL TARTRATE IVPB SCH ×4 (01:00→13:00)
[2017-06-13] MEDS: NS IVPB SCH ×4 (01:00→13:00)
[2017-06-13] MEDS: Vancomycin 1250mg/D5W 250ml IVPB SCH ×2 (02:39→10:05)
[2017-06-13] MEDS: LORazepam Inj 2mg/ml 1ml IV SCH ×3 (03:20→12:22)
[2017-06-13] MEDS: Cefepime HCl 2 GM in D5W 55 ML IVPB SCH (05:39)
[2017-06-13 07:18] LABS: BASOPHILS % (AUTO) 0.3 % (0.0-2.0); EOSINOPHILS % (AUTO) 0.4 % (0.0-3.0); HEMATOCRIT 33.6 % (42.0-52.0); HEMOGLOBIN 11.4 G/DL (14.2-18.0); MEAN CORPUSCULAR VOLUME 88 FL (80-99); NEUTROPHILS % (AUTO) 80.2 % (45.0-75.0); PLATELET COUNT 258 K/UL (150-450); RED BLOOD COUNT 3.82 M/UL (4.70-6.10); RED CELL DISTRIBUTION WIDTH 11.4 % (11.6-14.8); WHITE BLOOD COUNT 14.4 K/UL (4.8-10.8)
[2017-06-13 07:20] LABS: ALANINE AMINOTRANSFERASE 56 U/L (12-78); ALBUMIN 2.5 G/DL (3.4-5.0); ALBUMIN/GLOBULIN RATIO 0.5 (1.0-2.7); ALKALINE PHOSPHATASE 70 U/L (46-116); ANION GAP 9 mmol/L (5-15); ASPARTATE AMINO TRANSFERASE 44 U/L (15-37); BILIRUBIN,TOTAL 0.7 MG/DL (0.2-1.0); BLOOD UREA NITROGEN 10 mg/dL (7-18); CALCIUM 9.7 MG/DL (8.5-10.1); CARBON DIOXIDE 32 MMOL/L (21-32); CHLORIDE 99 MMOL/L (98-107); CREATININE 0.8 MG/DL (0.55-1.30); POTASSIUM 3.3 MMOL/L (3.5-5.1); SODIUM 139 MMOL/L (136-145); TRIGLYCERIDES 127 MG/DL (30-150)
[2017-06-13] MEDS: levETIRAcetam 1,000mg/NS100ml 100 ML IVPB SCH (08:19)
[2017-06-13] MEDS: fentaNYL Citrate 2,500 MCG in NS 200 ML IVPB SCH (08:20)
[2017-06-13] MEDS: Heparin 5000 units/ml inj SUBQ SCH (08:22)
[2017-06-13] MEDS ORDERED: Metoprolol 25mg tab ORAL SCH (09:00)
[2017-06-13] MEDS: Thiamine HCl 100 MG in D5W 55 ML IVPB SCH (10:30)
--- NOTE | 2017-06-13 13:37 | Infectious Diseases Prog Note ---
Assessment/Plan Assessment/Plan antibiotics : vancomycin iv, cefepime, acyclovir A 1. pneumonia 2. leucocytosis 3. renal failure improved 4. rhabdomyolysis 5. respiratory failure 6. coag neg staph sepsis 7. anoxic encephalopathy 8. substance abuse P 1. continue vancomycin iv 2. d/c cefepime 3. start zosyn 4. will follow up cultures Subjective ROS Limited/Unobtainable: Yes Allergies: Coded Allergies: No Known Allergies (Unverified , 05/26/17) Objective Vital Signs Last 24 Hour Vital Signs Date Time Temp Pulse Resp B/P (MAP) Pulse Ox O2 Delivery O2 Flow Rate FiO2 06/13/17 12:00 109 26 165/115 97 Mechanical Ventilator 40 06/13/17 12:00 40 06/13/17 11:00 99.9 108 26 160/120 97 Mechanical Ventilator 40 06/13/17 10:48 106 25 40 06/13/17 10:00 110 30 168/104 96 Mechanical Ventilator 40 06/13/17 09:24 107 24 40 06/13/17 09:00 105 28 160/122 98 Mechanical Ventilator 30 06/13/17 08:20 24 06/13/17 08:20 104 156/125 06/13/17 08:00 102 06/13/17 08:00 104 30 156/125 98 Mechanical Ventilator 40 06/13/17 08:00 40 06/13/17 07:18 103 27 40 06/13/17 07:00 99.5 95 19 175/108 98 Mechanical Ventilator 40 06/13/17 06:00 95 27 164/98 98 Mechanical Ventilator 40 06/13/17 05:43 103 163/98 06/13/17 05:07 111 28 40 06/13/17 05:00 118 36 163/98 97 Mechanical Ventilator 40 06/13/17 04:00 91 06/13/17 04:00 91 20 154/91 97 Mechanical Ventilator 40 06/13/17 04:00 40 06/13/17 03:30 110 30 40 06/13/17 03:00 90 20 140/95 97 Mechanical Ventilator 40 06/13/17 02:00 102 25 155/92 98 Mechanical Ventilator 40 06/13/17 01:30 116 21 40 06/13/17 01:00 96 133/78 06/13/17 01:00 92 25 125/70 96 Mechanical Ventilator 40 06/13/17 00:00 109 06/13/17 00:00 40 06/13/17 00:00 99.8 102 22 133/78 97 Mechanical Ventilator 40 06/12/17 23:30 109 29 40 06/12/17 23:00 106 21 142/78 95 Mechanical Ventilator 40 06/12/17 22:00 96 21 152/95 96 Mechanical Ventilator 40 06/12/17 21:25 112 31 40 06/12/17 21:00 97 25 179/98 98 Mechanical Ventilator 40 06/12/17 20:48 105 171/98 06/12/17 20:47 105 171/98 06/12/17 20:00 40 06/12/17 20:00 100.9 105 29 179/102 97 Mechanical Ventilator 40 06/12/17 20:00 105 06/12/17 19:30 110 30 40 06/12/17 19:00 113 25 153/96 99 Mechanical Ventilator 40 06/12/17 18:00 94 23 137/69 97 Mechanical Ventilator 40 06/12/17 18:00 105 24 159/95 97 Mechanical Ventilator 40 06/12/17 17:15 108 28 40 06/12/17 17:00 112 158/117 06/12/17 17:00 112 24 158/117 98 Mechanical Ventilator 40 06/12/17 16:00 99.6 105 20 148/102 97 Mechanical Ventilator 40 06/12/17 16:00 103 06/12/17 16:00 40 06/12/17 15:36 105 20 40 06/12/17 15:30 106 26 145/99 97 Mechanical Ventilator 40 06/12/17 15:00 18 06/12/17 15:00 102 24 154/87 97 Mechanical Ventilator 40 06/12/17 14:30 103 27 140/80 98 Mechanical Ventilator 40 06/12/17 14:00 20 06/12/17 14:00 106 27 137/88 98 Mechanical Ventilator 40 Height (Feet): 6 Height (Inches): 1.00 Weight (Pounds): 264 HEENT: other - intubated Respiratory/Chest: lungs clear Cardiovascular: normal rate, regular rhythm, no gallop/murmur Abdomen: soft, non tender Extremities: no edema Laboratory Tests Test 06/13/17 05:00 White Blood Count 14.4 K/UL (4.8-10.8) H Red Blood Count 3.82 M/UL (4.70-6.10) L Hemoglobin 11.4 G/DL (14.2-18.0) L Hematocrit 33.6 % (42.0-52.0) L Mean Corpuscular Volume 88 FL (80-99) Mean Corpuscular Hemoglobin 29.8 PG (27.0-31.0) Mean Corpuscular Hemoglobin Concent 33.8 G/DL (32.0-36.0) Red Cell Distribution Width 11.4 % (11.6-14.8) L Platelet Count 258 K/UL (150-450) Mean Platelet Volume 5.6 FL (6.5-10.1) L Neutrophils (%) (Auto) 80.2 % (45.0-75.0) H Lymphocytes (%) (Auto) 11.0 % (20.0-45.0) L Monocytes (%) (Auto) 8.0 % (1.0-10.0) Eosinophils (%) (Auto) 0.4 % (0.0-3.0) Basophils (%) (Auto) 0.3 % (0.0-2.0) Sodium Level 139 MMOL/L (136-145) Potassium Level 3.3 MMOL/L (3.5-5.1) L Chloride Level 99 MMOL/L (98-107) Carbon Dioxide Level 32 MMOL/L (21-32) Anion Gap 9 mmol/L (5-15) Blood Urea Nitrogen 10 mg/dL (7-18) Creatinine 0.8 MG/DL (0.55-1.30) Estimat Glomerular Filtration Rate > 60 mL/min (>60) Glucose Level 108 MG/DL (74-106) H Calcium Level 9.7 MG/DL (8.5-10.1) Total Bilirubin 0.7 MG/DL (0.2-1.0) Aspartate Amino Transf (AST/SGOT) 44 U/L (15-37) H Alanine Aminotransferase (ALT/SGPT) 56 U/L (12-78) Alkaline Phosphatase 70 U/L (46-116) Total Protein 7.5 G/DL (6.4-8.2) Albumin 2.5 G/DL (3.4-5.0) L Globulin 5.0 g/dL Albumin/Globulin Ratio 0.5 (1.0-2.7) L Triglycerides Level 127 MG/DL (30-150) CHET DURAN Jun 13, 2017 13:37
[2017-06-13] MEDS ORDERED: Morphine Sulfate 10mg/ml Inj IVP ONE (13:45)
--- NOTE | 2017-06-13 13:52 | Consultation ---
Consult Note Consult Note NEUROLOGY CONSULTATION: Full note dictated #[id number] 27 y/o, RH, CM with a long H/O opiate addiction. Towards the end of 2016 he had a respiratory infection. He was hospitalized at [facility] [place] on [place]/26/17 for SOB thought to be due to pneumonia. He was being treated for his pneumonia but on 06/01/17 he had a cardiorespiratory arrest. CPR was started immediately but it took a few minutes before he was intubated and a cardiac rhythm was obtained. Following that he had to be artificially ventilated and sedated due to decerebrate posturing and cardio-respiratory maintainence. He has been off Fentanyl for 24 hours but is on q 4 hour Ativan. ON EXAM: Comatose - only responds to deep with LE > UE withdrawal. OCM present Pupils 6 mm and minimally reactive Corneals brisk. Gag present but delayed. CT with generalized cerebral edema. EEG 06/04/17 with low voltage slow c/w severe cerebral dysfunction. IMPRESSION: Severe anoxic/ischemic cerebral injury following prolonged cardio-pulmonary arrest. Prognosis for recovery of full neurologic function not favorable. REC: Agree with management. If possible would watch for a day or so off all mind altering drugs. Following that would decide on level of care as per the patient's prior wishes. Kelsea Humphries M.D., M.S.P.H. KELSEA HUMPHRIES Jun 13, 2017 13:52
[2017-06-13] MEDS ORDERED: Potassium Chloride 40 MEQ in Sodium Chloride 500ML 550 ML IVPB ONE (14:00)
[2017-06-13] MEDS ORDERED: Piperacillin/Tazobactam 3.375 GM in NS 110 ML IVPB SCH (14:00)
[2017-06-13] MEDS: Morphine Sulfate 4mg/ml Inj IVP SCH ×8 (14:04→23:36)
[2017-06-13] MEDS: LORazepam Inj 2mg/ml 1ml IV PRN ×2 (14:07→15:05)
--- NOTE | 2017-06-13 14:11 | Critical Care Progress Note ---
Assessment/Plan Assessment/Plan IMPRESSION ARF - improved rhabdo- resolved CK elevated Liver enzyme- improving elevated troponin Pneumonia with abnormal CT reduced EF migraines s/p CPA acute encephalopathy with possible encephalitis tachycardia leukocytosis abnormal urine tox screen fevers PLAN per family proceed with terminal extubation supervised extubation morphine for distress per family, dc all meds and keep comfortable medications/laboratory data/nursing notes/ICU care reviewed in detail note reviewed and edited care discussed with RN and RT ICU time spent 35 minutes Critical Care - Subjective Interval Events: d/w family at bedside all want terminal extubation DNR terminal care ROS Limited/Unobtainable: Yes Condition: critical I&O: Intake and Output 06/12/17 06/13/17 19:00 07:00 Intake Total 1777.334 ml 2007 ml Output Total 515 ml 1270 ml Balance 1262.334 ml 737 ml Free Water 150 ml IV Total 1292.334 ml 1385 ml Tube Feeding 485 ml 472 ml Output Urine Total 515 ml 1270 ml Critical Care - Objective ET-Tube: 7.5 ET Position: 27 Last 24 Hour Vital Signs Date Time Temp Pulse Resp B/P (MAP) Pulse Ox O2 Delivery O2 Flow Rate FiO2 06/13/17 12:00 109 26 165/115 97 Mechanical Ventilator 40 06/13/17 12:00 40 06/13/17 11:00 99.9 108 26 160/120 97 Mechanical Ventilator 40 06/13/17 10:48 106 25 40 06/13/17 10:00 110 30 168/104 96 Mechanical Ventilator 40 06/13/17 09:24 107 24 40 06/13/17 09:00 105 28 160/122 98 Mechanical Ventilator 30 06/13/17 08:20 24 06/13/17 08:20 104 156/125 06/13/17 08:00 102 06/13/17 08:00 104 30 156/125 98 Mechanical Ventilator 40 06/13/17 08:00 40 06/13/17 07:18 103 27 40 06/13/17 07:00 99.5 95 19 175/108 98 Mechanical Ventilator 40 06/13/17 06:00 95 27 164/98 98 Mechanical Ventilator 40 06/13/17 05:43 103 163/98 06/13/17 05:07 111 28 40 06/13/17 05:00 118 36 163/98 97 Mechanical Ventilator 40 06/13/17 04:00 91 06/13/17 04:00 91 20 154/91 97 Mechanical Ventilator 40 06/13/17 04:00 40 06/13/17 03:30 110 30 40 06/13/17 03:00 90 20 140/95 97 Mechanical Ventilator 40 06/13/17 02:00 102 25 155/92 98 Mechanical Ventilator 40 06/13/17 01:30 116 21 40 06/13/17 01:00 96 133/78 06/13/17 01:00 92 25 125/70 96 Mechanical Ventilator 40 06/13/17 00:00 109 06/13/17 00:00 40 06/13/17 00:00 99.8 102 22 133/78 97 Mechanical Ventilator 40 06/12/17 23:30 109 29 40 06/12/17 23:00 106 21 142/78 95 Mechanical Ventilator 40 06/12/17 22:00 96 21 152/95 96 Mechanical Ventilator 40 06/12/17 21:25 112 31 40 06/12/17 21:00 97 25 179/98 98 Mechanical Ventilator 40 06/12/17 20:48 105 171/98 06/12/17 20:47 105 171/98 06/12/17 20:00 40 06/12/17 20:00 100.9 105 29 179/102 97 Mechanical Ventilator 40 06/12/17 20:00 105 06/12/17 19:30 110 30 40 06/12/17 19:00 113 25 153/96 99 Mechanical Ventilator 40 06/12/17 18:00 94 23 137/69 97 Mechanical Ventilator 40 06/12/17 18:00 105 24 159/95 97 Mechanical Ventilator 40 06/12/17 17:15 108 28 40 06/12/17 17:00 112 158/117 06/12/17 17:00 112 24 158/117 98 Mechanical Ventilator 40 06/12/17 16:00 99.6 105 20 148/102 97 Mechanical Ventilator 40 06/12/17 16:00 103 18 16:00 40 18 15:36 105 20 40 18 15:30 106 26 145/99 97 Mechanical Ventilator 40 18 15:00 18 18 15:00 102 24 154/87 97 Mechanical Ventilator 40 06/12/17 14:30 103 27 140/80 98 Mechanical Ventilator 40 Objective: WDWN NAD improved breath sounds bilaterally without rhonchi or wheeze S1S2RR tachy without MRG NABS nontender no HSM no CCE nonfocal sedated ETT in place ecchymoses back MEGAN العلي Jun 13, 2017 14:11
[2017-06-13] MEDS ORDERED: Rate Change PCA 1 Each MISC PRN (16:00)
--- NOTE | 2017-06-13 16:03 | General Progress Note ---
Assessment/Plan Problem List: (1) Anoxia ICD Codes: R09.02 - Hypoxemia SNOMED: 26288487 (2) Encephalopathy acute ICD Codes: G93.40 - Encephalopathy, unspecified SNOMED: 9450460 (3) Respiratory distress ICD Codes: R06.03 - Acute respiratory distress SNOMED: 270620842 (4) Renal insufficiency ICD Codes: N28.9 - Disorder of kidney and ureter, unspecified SNOMED: 185899297, 825693206 (5) Rhabdomyolysis ICD Codes: M62.82 - Rhabdomyolysis SNOMED: 293894852, 854280070 Qualifiers: Qualified Codes: M62.82 - Rhabdomyolysis (6) Sepsis ICD Codes: A41.9 - Sepsis, unspecified organism SNOMED: 88716531, 778697407 Qualifiers: Qualified Codes: A41.9 - Sepsis, unspecified organism (7) Pneumonia ICD Codes: J18.9 - Pneumonia, unspecified organism SNOMED: 039236233, 705312110 Qualifiers: Qualified Codes: J18.1 - Lobar pneumonia, unspecified organism (8) Elevated troponin ICD Codes: R74.8 - Abnormal levels of other serum enzymes SNOMED: 113703621, 394317900 Status: not improved Assessment/Plan extubate comfort measures Subjective ROS Limited/Unobtainable: No Constitutional: Reports: malaise, weakness HEENT: Reports: no symptoms Cardiovascular: Reports: no symptoms Respiratory: Reports: cough Gastrointestinal/Abdominal: Reports: no symptoms Genitourinary: Reports: no symptoms Neurologic/Psychiatric: Reports: no symptoms Endocrine: Reports: no symptoms Hematologic/Lymphatic: Reports: no symptoms Allergies: Coded Allergies: No Known Allergies (Unverified , 05/26/17) All Systems: reviewed and negative except above Subjective no change. unresponsive. all noted. family wants terminal extubation Objective Last 24 Hour Vital Signs Date Time Temp Pulse Resp B/P (MAP) Pulse Ox O2 Delivery O2 Flow Rate FiO2 06/13/17 15:00 100.2 120 06/13/17 14:34 99.9 06/13/17 14:34 99.9 06/13/17 14:00 125 06/13/17 13:00 110 28 161/138 97 Mechanical Ventilator 40 06/13/17 13:00 109 165/115 06/13/17 12:00 109 26 165/115 97 Mechanical Ventilator 40 1/17/18 12:00 40 06/13/17 12:00 108 06/13/17 11:00 99.9 108 26 160/120 97 Mechanical Ventilator 40 06/13/17 10:48 106 25 40 18 10:00 110 30 168/104 96 Mechanical Ventilator 40 06/13/17 09:24 107 24 40 06/13/17 09:00 105 28 160/122 98 Mechanical Ventilator 30 06/13/17 08:20 24 06/13/17 08:20 104 156/125 06/13/17 08:00 102 06/13/17 08:00 104 30 156/125 98 Mechanical Ventilator 40 06/13/17 08:00 40 06/13/17 07:18 103 27 40 06/13/17 07:00 99.5 95 19 175/108 98 Mechanical Ventilator 40 06/13/17 06:00 95 27 164/98 98 Mechanical Ventilator 40 06/13/17 05:43 103 163/98 06/13/17 05:07 111 28 40 06/13/17 05:00 118 36 163/98 97 Mechanical Ventilator 40 06/13/17 04:00 91 06/13/17 04:00 91 20 154/91 97 Mechanical Ventilator 40 06/13/17 04:00 40 06/13/17 03:30 110 30 40 06/13/17 03:00 90 20 140/95 97 Mechanical Ventilator 40 06/13/17 02:00 102 25 155/92 98 Mechanical Ventilator 40 06/13/17 01:30 116 21 40 06/13/17 01:00 96 133/78 06/13/17 01:00 92 25 125/70 96 Mechanical Ventilator 40 06/13/17 00:00 109 06/13/17 00:00 40 06/13/17 00:00 99.8 102 22 133/78 97 Mechanical Ventilator 40 06/12/17 23:30 109 29 40 06/12/17 23:00 106 21 142/78 95 Mechanical Ventilator 40 06/12/17 22:00 96 21 152/95 96 Mechanical Ventilator 40 06/12/17 21:25 112 31 40 06/12/17 21:00 97 25 179/98 98 Mechanical Ventilator 40 06/12/17 20:48 105 171/98 06/12/17 20:47 105 171/98 06/12/17 20:00 40 06/12/17 20:00 100.9 105 29 179/102 97 Mechanical Ventilator 40 06/12/17 20:00 105 06/12/17 19:30 110 30 40 06/12/17 19:00 113 25 153/96 99 Mechanical Ventilator 40 06/12/17 18:00 94 23 137/69 97 Mechanical Ventilator 40 06/12/17 18:00 105 24 159/95 97 Mechanical Ventilator 40 06/12/17 17:15 108 28 40 06/12/17 17:00 112 158/117 06/12/17 17:00 112 24 158/117 98 Mechanical Ventilator 40 Intake and Output 06/12/17 06/13/17 19:00 07:00 Intake Total 1777.334 ml 2007 ml Output Total 515 ml 1270 ml Balance 1262.334 ml 737 ml Free Water 150 ml IV Total 1292.334 ml 1385 ml Tube Feeding 485 ml 472 ml Output Urine Total 515 ml 1270 ml Laboratory Tests 06/13/17 05:00: White Blood Count 14.4H, Red Blood Count 3.82L, Hemoglobin 11.4L, Hematocrit 33.6L, Mean Corpuscular Volume 88, Mean Corpuscular Hemoglobin 29.8, Mean Corpuscular Hemoglobin Concent 33.8, Red Cell Distribution Width 11.4L, Platelet Count 258, Mean Platelet Volume 5.6L, Neutrophils (%) (Auto) 80.2H, Lymphocytes (%) (Auto) 11.0L, Monocytes (%) (Auto) 8.0, Eosinophils (%) (Auto) 0.4, Basophils (%) (Auto) 0.3, Sodium Level 139, Potassium Level 3.3L, Chloride Level 99, Carbon Dioxide Level 32, Anion Gap 9, Blood Urea Nitrogen 10, Creatinine 0.8, Estimat Glomerular Filtration Rate > 60, Glucose Level 108H, Calcium Level 9.7, Total Bilirubin 0.7, Aspartate Amino Transf (AST/SGOT) 44H, Alanine Aminotransferase (ALT/SGPT) 56, Alkaline Phosphatase 70, Total Protein 7.5, Albumin 2.5L, Globulin 5.0, Albumin/Globulin Ratio 0.5L, Triglycerides Level 127 Height (Feet): 6 Height (Inches): 1.00 Weight (Pounds): 264 Objective General Appearance: WD/WN, lethargic. ngt Neck: supple Cardiovascular: regular rhythm Respiratory/Chest: chest wall non-tender, lungs clear, normal breath sounds Abdomen: normal bowel sounds, non tender, soft, no organomegaly Neurologic: unresponsive Skin: normal pigmentation. no rash JIMBO GLEASON Jun 13, 2017 16:03
[2017-06-13] MEDS: Morphine Sulfate 4mg/ml Inj IVP PRN ×2 (16:45→17:46)
[2017-06-13] MEDS ORDERED: Morphine Sulfate 2mg/ml Inj IVP PRN (18:30)
[2017-06-13] MEDS: PCA shift volume MISC SCH (19:00)
[2017-06-13] MEDS: PCA Morphine 1mg/ml 30 ML IV PRN (21:35)
--- NOTE | 2017-06-13 22:49 | General Progress Note ---
Assessment/Plan Assessment/Plan Assessment - s/p arrest - s/p Rhabdo - Coma Recommendations - comfort measures per family directives - will sign off Subjective Allergies: Coded Allergies: No Known Allergies (Unverified , 05/26/17) Subjective patient seen early am no events overnight later today was extubated for comfort care Objective Last 24 Hour Vital Signs Date Time Temp Pulse Resp B/P (MAP) Pulse Ox O2 Delivery O2 Flow Rate FiO2 06/13/17 22:30 99.9 06/13/17 22:29 99.9 06/13/17 19:00 131 06/13/17 18:00 130 06/13/17 17:00 133 06/13/17 16:51 Non-Rebreather 15.0 100 06/13/17 16:00 130 06/13/17 16:00 130 06/13/17 15:00 100.2 120 06/13/17 14:34 99.9 06/13/17 14:34 99.9 06/13/17 14:00 125 06/13/17 13:00 110 28 161/138 97 Mechanical Ventilator 40 06/13/17 13:00 109 165/115 06/13/17 12:00 109 26 165/115 97 Mechanical Ventilator 40 06/13/17 12:00 40 06/13/17 12:00 108 06/13/17 11:00 99.9 108 26 160/120 97 Mechanical Ventilator 40 06/13/17 10:48 106 25 40 06/13/17 10:00 110 30 168/104 96 Mechanical Ventilator 40 06/13/17 09:24 107 24 40 06/13/17 09:00 131 165/115 06/13/17 09:00 105 28 160/122 98 Mechanical Ventilator 30 06/13/17 08:20 24 06/13/17 08:20 104 156/125 06/13/17 08:00 102 06/13/17 08:00 104 30 156/125 98 Mechanical Ventilator 40 06/13/17 08:00 40 06/13/17 07:18 103 27 40 06/13/17 07:00 99.5 95 19 175/108 98 Mechanical Ventilator 40 06/13/17 06:00 95 27 164/98 98 Mechanical Ventilator 40 06/13/17 05:43 103 163/98 06/13/17 05:07 111 28 40 06/13/17 05:00 118 36 163/98 97 Mechanical Ventilator 40 06/13/17 04:00 91 06/13/17 04:00 91 20 154/91 97 Mechanical Ventilator 40 06/13/17 04:00 40 06/13/17 03:30 110 30 40 06/13/17 03:00 90 20 140/95 97 Mechanical Ventilator 40 06/13/17 02:00 102 25 155/92 98 Mechanical Ventilator 40 06/13/17 01:30 116 21 40 06/13/17 01:00 96 133/78 06/13/17 01:00 92 25 125/70 96 Mechanical Ventilator 40 06/13/17 00:00 109 06/13/17 00:00 40 06/13/17 00:00 99.8 102 22 133/78 97 Mechanical Ventilator 40 06/12/17 23:30 109 29 40 06/12/17 23:00 106 21 142/78 95 Mechanical Ventilator 40 Intake and Output 06/12/17 06/13/17 19:00 07:00 Intake Total 1777.334 ml 2007 ml Output Total 515 ml 1270 ml Balance 1262.334 ml 737 ml Free Water 150 ml IV Total 1292.334 ml 1385 ml Tube Feeding 485 ml 472 ml Output Urine Total 515 ml 1270 ml Laboratory Tests 06/13/17 05:00: White Blood Count 14.4H, Red Blood Count 3.82L, Hemoglobin 11.4L, Hematocrit 33.6L, Mean Corpuscular Volume 88, Mean Corpuscular Hemoglobin 29.8, Mean Corpuscular Hemoglobin Concent 33.8, Red Cell Distribution Width 11.4L, Platelet Count 258, Mean Platelet Volume 5.6L, Neutrophils (%) (Auto) 80.2H, Lymphocytes (%) (Auto) 11.0L, Monocytes (%) (Auto) 8.0, Eosinophils (%) (Auto) 0.4, Basophils (%) (Auto) 0.3, Sodium Level 139, Potassium Level 3.3L, Chloride Level 99, Carbon Dioxide Level 32, Anion Gap 9, Blood Urea Nitrogen 10, Creatinine 0.8, Estimat Glomerular Filtration Rate > 60, Glucose Level 108H, Calcium Level 9.7, Total Bilirubin 0.7, Aspartate Amino Transf (AST/SGOT) 44H, Alanine Aminotransferase (ALT/SGPT) 56, Alkaline Phosphatase 70, Total Protein 7.5, Albumin 2.5L, Globulin 5.0, Albumin/Globulin Ratio 0.5L, Triglycerides Level 127 Height (Feet): 6 Height (Inches): 1.00 Weight (Pounds): 264 Objective Exam reflects early am Obese WM Intubated supple Coarse BS RRR soft ND no edema non communicative JAMIN HEARD Jun 13, 2017 22:49
--- NOTE | 2017-06-13 23:48 | Consultation ---
DATE OF CONSULTATION: 06/13/2017 NEUROLOGY CONSULTATION (Second Opinion) CONSULTING PHYSICIAN: Andrew Humphries M.D. REQUESTING PHYSICIANS: Stu Tang M.D. and Sohail Wilson M.D. HISTORY: Mr. Jay James is a 27-year-old, right-handed, gentleman, who has a long history of opiate addiction. Towards the end of 2016, he had respiratory infection. He was hospitalized in a hospital in [place] for a short time and then improved and came to [place]. He was noted to be significantly short of breath and as a result of that presented to the [facility] emergency room on 05/26/2017. It was thought that he had a pneumonia. He was admitted to the hospital and treated with appropriate antibiotics. On 06/01/2017, in the early hours of the day, he was noted to have agonal respirations. Cardiopulmonary resuscitation was started immediately and the emergency room doctor was called in. He was being ventilated through bag-valve and when the emergency room doctor got to him, he was noted to have cardiac arrest and respiratory dysfunction that was being corrected with bagging. It took at least 7 to 10 minutes to resuscitate him. Following that, he was noted to have significant elevations in his liver enzymes and in addition renal dysfunction. His toxicology screen was positive for opiates, barbiturates, and marijuana. He was moved to the ICU and has since needed artificial ventilation and in addition was on fentanyl until 06/12/2017 because of abnormal body jerks and in addition posturing. He had a CT scan of the brain, which revealed global cerebral edema. An EEG was also done, which revealed slowing of the background in the delta and theta range with significant low amplitudes compatible with a significant anoxic ischemic cerebral insult. The second opinion neurological consultation was requested to evaluate the patient from a neurological point of view and to help with prognostication. At this point in time, the patient continues to be in the ICU on a ventilator and not responsive. PAST MEDICAL HISTORY: Significant for long history of polysubstance abuse, mainly opiates. FAMILY HISTORY: Significant for hypertension. PERSONAL HISTORY: Home: He lives alone. Work: He is unemployed at this point in time. Habits: There is a long history of opiate use. He also smokes, but does not drink much alcohol. MEDICATIONS: Present medications include metoprolol, cefepime, Bentyl, vancomycin, Prevacid, fentanyl that was discontinued recently, Ativan 2 mg q.4 h. IV, Tylenol, heparin, thiamine, Keppra, and metoprolol. PHYSICAL EXAMINATION: GENERAL: He is a well-developed, well-nourished, slightly obese, gentleman, lying in an ICU bed, connected to a ventilator through an orotracheal tube. VITAL SIGNS: Pulse 109 per minute, blood pressure 165/150 mmHg, respirations 26 per minute, and temperature 99.9 degrees Fahrenheit. HEAD: Normocephalic and atraumatic. EENT: Examination benign. NECK: No neck rigidity was observed. NEUROLOGIC EXAMINATION: MENTAL STATUS EXAMINATION: He was comatose and only responded to deep pain with withdrawal, more marked in the lower extremities than the upper extremities. Further mental status testing was impossible. SPEECH: Could not be tested. LANGUAGE: Could not be tested. CRANIAL NERVE EXAMINATION: II: He did not blink to threat. III, IV & : External ocular movements were present on oculocephalic maneuvers. The pupils were 6 mm in diameter and reacted minimally to light. V & VII: The corneal reflexes were present and brisk. VIII: He did not respond to sounds and had no nystagmus. IX & X: The gag reflex was present, but delayed when the endotracheal tube was manipulated. XI: The sternocleidomastoids and trapezii did not function. XII: Could not be tested. MOTOR SYSTEM: The tone was minimally decreased in both upper extremities and minimally spastic in both lower extremities. Examination of muscle mass revealed no focal wasting. Examination of power could not be performed on individual muscle groups; however, when deep painful stimuli were applied, he had minimal movements in the upper extremities and more brisk withdrawal in both lower extremities. SENSORY EXAMINATION: He responded appropriately to deep pain. Other sensory modalities could not be tested. REFLEXES: 1+ and bilaterally symmetrical at the biceps, triceps, brachioradialis, knees, and ankles. The plantar responses were extensor bilaterally. COORDINATION, STANCE & GAIT: Could not be tested. DIAGNOSTIC IMPRESSION: 1. Mr. Jay James is a 27-year-old, right-handed, gentleman, who has a long history of opiate addiction who towards the end of 2016 had a pneumonia and this was treated in a hospital in [place]. He then came to [place] where he had to be rehospitalized on 05/26/2017 for shortness of breath, again due to pneumonia. While he was being treated for the pneumonia in the hospital, on 06/01/2017, he had a cardiopulmonary arrest. Of note is that an unknown white powder was found close to him. Cardiopulmonary resuscitation was started immediately, but it took at least 7 to 10 minutes before he was intubated and a cardiac rhythm was obtained. Following that, he was moved to the intensive care unit and has been artificially ventilated and sedated due to decerebrate posturing and for cardiorespiratory function maintenance. He has been off fentanyl for the last 24 hours, but is on Ativan 2 mg intravenously q 4 h at this point in time and continues to be comatose. 2. On neurological examination, at this time, he is comatose and only responds to deep painful stimuli with lower extremity greater than upper extremity withdrawal. He does have oculocephalic eye movements and in addition, his pupils are 6 mm in diameter and minimally reactive to light. The corneal reflexes are present bilaterally and brisk. The gag reflex on the other hand is delayed and subdued. 3. The CT scan of the brain has revealed generalized cerebral edema. 4. The electroencephalogram performed on 06/04/2017 revealed low voltage slow activity in the theta and delta range compatible with a severe anoxic ischemic cerebral insult. 5. The patient's history, neurological examination, laboratory data, CT scan findings, and EEG are most compatible with severe anoxic ischemic cerebral injury following a relatively prolonged cardiopulmonary arrest. 6. The prognosis for recovery of full neurological function is not very favorable. RECOMMENDATIONS: 1. Agree with management thus far. 2. If possible, would watch the patient off all mind altering drugs for at least 24 hours. 3. Following that, would make a decision regarding the level of care as per the patient's prior wishes and his family's wishes. Thank you for entrusting me with the care of Mr. James. Please do let me know if I cam be of any further help. Andrew Humphries M.D., M.S.P.H. DR: NICOEL JOB#: [id number] SARAH
--- NOTE | 2017-06-13 23:50 | Cardiology Progress Note ---
Assessment/Plan Assessment/Plan 1. Asystole cardiac arrest due to respiratory failure, regained pulse after 8 minutes, severe anoxic encephalopathy confirmed by EEG. 2. Mild cardiomyopathy with LVEF at 45%, + anteroseptal wall hypokinesia, ? ischemic cardiomyopathy vs drug-induced CM. 3. Elevated troponin level likely due to sepsis/tachycardia/pneumonia, not a pattern for ACS, CP free on admission to ED. 4. Accelerated HTN, keep BP ~150-170 mmHg. 5. Acute respiratory failure, intubated. 6. Substance abuse 7. Obesity 8. Sinus tachycardia, persistent. Subjective Subjective Low grade fever Sinus tachycardia at 133. Comatose. Objective Last 24 Hour Vital Signs Date Time Temp Pulse Resp B/P (MAP) Pulse Ox O2 Delivery O2 Flow Rate FiO2 06/13/17 23:11 99.9 06/13/17 23:00 133 12 110/60 95 Non-Rebreather 100 06/13/17 22:29 99.9 06/13/17 22:00 134 11 87/50 95 Non-Rebreather 100 06/13/17 21:00 133 12 98/60 95 Non-Rebreather 100 06/13/17 20:00 132 06/13/17 20:00 99.0 132 12 100/60 95 Non-Rebreather 100 06/13/17 19:00 12 06/13/17 19:00 131 06/13/17 18:00 130 06/13/17 17:00 133 06/13/17 16:51 Non-Rebreather 15.0 100 06/13/17 16:00 130 06/13/17 16:00 130 06/13/17 15:00 100.2 120 06/13/17 14:34 99.9 06/13/17 14:34 99.9 06/13/17 14:00 125 06/13/17 13:00 110 28 161/138 97 Mechanical Ventilator 40 06/13/17 13:00 109 165/115 06/13/17 12:00 109 26 165/115 97 Mechanical Ventilator 40 06/13/17 12:00 40 06/13/17 12:00 108 06/13/17 11:00 99.9 108 26 160/120 97 Mechanical Ventilator 40 06/13/17 10:48 106 25 40 06/13/17 10:00 110 30 168/104 96 Mechanical Ventilator 40 06/13/17 09:24 107 24 40 06/13/17 09:00 131 165/115 06/13/17 09:00 105 28 160/122 98 Mechanical Ventilator 30 06/13/17 08:20 24 06/13/17 08:20 104 156/125 06/13/17 08:00 102 06/13/17 08:00 104 30 156/125 98 Mechanical Ventilator 40 06/13/17 08:00 40 06/13/17 07:18 103 27 40 06/13/17 07:00 99.5 95 19 175/108 98 Mechanical Ventilator 40 06/13/17 06:00 95 27 164/98 98 Mechanical Ventilator 40 06/13/17 05:43 103 163/98 06/13/17 05:07 111 28 40 06/13/17 05:00 118 36 163/98 97 Mechanical Ventilator 40 06/13/17 04:00 91 06/13/17 04:00 91 20 154/91 97 Mechanical Ventilator 40 06/13/17 04:00 40 06/13/17 03:30 110 30 40 06/13/17 03:00 90 20 140/95 97 Mechanical Ventilator 40 06/13/17 02:00 102 25 155/92 98 Mechanical Ventilator 40 06/13/17 01:30 116 21 40 06/13/17 01:00 96 133/78 06/13/17 01:00 92 25 125/70 96 Mechanical Ventilator 40 06/13/17 00:00 109 06/13/17 00:00 40 06/13/17 00:00 99.8 102 22 133/78 97 Mechanical Ventilator 40 Intake and Output 06/12/17 06/13/17 19:00 07:00 Intake Total 1777.334 ml 2007 ml Output Total 515 ml 1270 ml Balance 1262.334 ml 737 ml Free Water 150 ml IV Total 1292.334 ml 1385 ml Tube Feeding 485 ml 472 ml Output Urine Total 515 ml 1270 ml 2D Echo: EF 45%, Anteroseptal HK, RVSP 33 mmHg Laboratory Tests Test 06/13/17 05:00 White Blood Count 14.4 K/UL (4.8-10.8) H Red Blood Count 3.82 M/UL (4.70-6.10) L Hemoglobin 11.4 G/DL (14.2-18.0) L Hematocrit 33.6 % (42.0-52.0) L Mean Corpuscular Volume 88 FL (80-99) Mean Corpuscular Hemoglobin 29.8 PG (27.0-31.0) Mean Corpuscular Hemoglobin Concent 33.8 G/DL (32.0-36.0) Red Cell Distribution Width 11.4 % (11.6-14.8) L Platelet Count 258 K/UL (150-450) Mean Platelet Volume 5.6 FL (6.5-10.1) L Neutrophils (%) (Auto) 80.2 % (45.0-75.0) H Lymphocytes (%) (Auto) 11.0 % (20.0-45.0) L Monocytes (%) (Auto) 8.0 % (1.0-10.0) Eosinophils (%) (Auto) 0.4 % (0.0-3.0) Basophils (%) (Auto) 0.3 % (0.0-2.0) Sodium Level 139 MMOL/L (136-145) Potassium Level 3.3 MMOL/L (3.5-5.1) L Chloride Level 99 MMOL/L (98-107) Carbon Dioxide Level 32 MMOL/L (21-32) Anion Gap 9 mmol/L (5-15) Blood Urea Nitrogen 10 mg/dL (7-18) Creatinine 0.8 MG/DL (0.55-1.30) Estimat Glomerular Filtration Rate > 60 mL/min (>60) Glucose Level 108 MG/DL (74-106) H Calcium Level 9.7 MG/DL (8.5-10.1) Total Bilirubin 0.7 MG/DL (0.2-1.0) Aspartate Amino Transf (AST/SGOT) 44 U/L (15-37) H Alanine Aminotransferase (ALT/SGPT) 56 U/L (12-78) Alkaline Phosphatase 70 U/L (46-116) Total Protein 7.5 G/DL (6.4-8.2) Albumin 2.5 G/DL (3.4-5.0) L Globulin 5.0 g/dL Albumin/Globulin Ratio 0.5 (1.0-2.7) L Triglycerides Level 127 MG/DL (30-150) Objective HEENT: Intubated, on mechanical ventilator. NECK: JVP cannot be assessed, No carotid bruit. Carotid upstrokes 2+ bilaterally. CARDIOVASCULAR SYSTEM: Normal S1, S2. Regular rate and rhythm. Tachycardic. No murmurs, gallops, or rubs. PMI is at fourth intercostal space in the midclavicular line. LUNGS: Clear to auscultation bilaterally. ABDOMEN: Soft, nontender, nondistended. No hepatosplenomegaly. Positive bowel sounds. EXTREMITIES: No evidence of edema, clubbing, or cyanosis. CRISTA MURPHY Jun 13, 2017 23:50
[2017-06-14] VITALS (24 sets, daily range): BP systolic 102–153; BP diastolic 46–91
[2017-06-14] MEDS: Morphine Sulfate 4mg/ml Inj IVP SCH ×6 (00:27→05:44)
[2017-06-14] MEDS ORDERED: Morphine Sulfate 2mg/ml Inj ONE ×2 (04:25→06:29)
[2017-06-14] MEDS: PCA Morphine 1mg/ml 30 ML IV PRN ×4 (04:32→23:33)
[2017-06-14] MEDS ORDERED: Morphine Sulfate 10mg/ml Inj ONE (05:40)
[2017-06-14] MEDS: Morphine Sulfate 10mg/ml Inj IVP SCH ×18 (06:48→23:30)
[2017-06-14] MEDS: PCA shift volume MISC SCH ×2 (07:00→19:00)
--- NOTE | 2017-06-14 08:19 | Critical Care Progress Note ---
Assessment/Plan Assessment/Plan IMPRESSION ARF - improved rhabdo- resolved CK elevated Liver enzyme- improving elevated troponin Pneumonia with abnormal CT reduced EF migraines s/p CPA acute encephalopathy with possible encephalitis tachycardia leukocytosis abnormal urine tox screen fevers PLAN per family morphine drip terminal care expected Critical Care - Subjective Interval Events: doing poorly agonal and unresponsive I&O: Intake and Output 06/13/17 06/14/17 19:00 07:00 Intake Total 1282.334 ml 50 ml Output Total 1090 ml 1050 ml Balance 192.334 ml -1000 ml IV Total 994.334 ml 50 ml Tube Feeding 288 ml Output Urine Total 1090 ml 1050 ml Critical Care - Objective ET-Tube: 7.5 ET Position: 27 Last 24 Hour Vital Signs Date Time Temp Pulse Resp B/P (MAP) Pulse Ox O2 Delivery O2 Flow Rate FiO2 06/14/17 07:18 98.6 06/14/17 07:00 120 17 115/60 99 Non-Rebreather 100 06/14/17 06:27 98.6 06/14/17 06:00 124 15 111/61 14 Non-Rebreather 100 06/14/17 05:43 98.6 06/14/17 05:00 124 15 111/61 100 Non-Rebreather 100 06/14/17 04:00 126 06/14/17 04:00 99.0 124 16 119/91 96 Non-Rebreather 100 06/14/17 04:00 13 06/14/17 03:00 131 14 102/53 95 Non-Rebreather 100 06/14/17 02:00 132 14 115/70 94 Non-Rebreather 100 06/14/17 01:00 133 12 115/46 95 Non-Rebreather 100 06/14/17 00:00 132 06/14/17 00:00 98.9 133 12 115/46 95 Non-Rebreather 100 06/14/17 00:00 12 06/13/17 23:00 133 12 110/60 95 Non-Rebreather 100 06/13/17 22:00 134 11 87/50 95 Non-Rebreather 100 06/13/17 21:00 133 12 98/60 95 Non-Rebreather 100 06/13/17 20:00 132 06/13/17 20:00 99.0 132 12 100/60 95 Non-Rebreather 100 06/13/17 19:00 12 06/13/17 19:00 131 06/13/17 18:00 130 06/13/17 17:00 133 06/13/17 16:51 Non-Rebreather 15.0 100 06/13/17 16:00 130 06/13/17 16:00 130 06/13/17 15:00 100.2 120 06/13/17 14:34 99.9 06/13/17 14:34 99.9 06/13/17 14:00 125 06/13/17 13:00 110 28 161/138 97 Mechanical Ventilator 40 06/13/17 13:00 109 165/115 06/13/17 12:00 109 26 165/115 97 Mechanical Ventilator 40 06/13/17 12:00 40 06/13/17 12:00 108 06/13/17 11:00 99.9 108 26 160/120 97 Mechanical Ventilator 40 06/13/17 10:48 106 25 40 06/13/17 10:00 110 30 168/104 96 Mechanical Ventilator 40 06/13/17 09:24 107 24 40 06/13/17 09:00 131 165/115 06/13/17 09:00 105 28 160/122 98 Mechanical Ventilator 30 06/13/17 08:20 24 06/13/17 08:20 104 156/125 Objective: poorly responsive to deep stimuli on face mask vital signs noted MEGAN العلي Jun 14, 2017 08:19
--- NOTE | 2017-06-14 09:12 | General Progress Note ---
Assessment/Plan Problem List: (1) Anoxia ICD Codes: R09.02 - Hypoxemia SNOMED: 25686688 (2) Encephalopathy acute ICD Codes: G93.40 - Encephalopathy, unspecified SNOMED: 7838492 (3) Respiratory distress ICD Codes: R06.03 - Acute respiratory distress SNOMED: 009402052 (4) Renal insufficiency ICD Codes: N28.9 - Disorder of kidney and ureter, unspecified SNOMED: 453817724, 641504860 (5) Rhabdomyolysis ICD Codes: M62.82 - Rhabdomyolysis SNOMED: 403502185, 440990532 Qualifiers: Qualified Codes: M62.82 - Rhabdomyolysis (6) Sepsis ICD Codes: A41.9 - Sepsis, unspecified organism SNOMED: 26620976, 406653659 Qualifiers: Qualified Codes: A41.9 - Sepsis, unspecified organism (7) Pneumonia ICD Codes: J18.9 - Pneumonia, unspecified organism SNOMED: 549105637, 913535469 Qualifiers: Qualified Codes: J18.1 - Lobar pneumonia, unspecified organism (8) Elevated troponin ICD Codes: R74.8 - Abnormal levels of other serum enzymes SNOMED: 462655945, 614606502 Assessment/Plan o2 morphine comfort measures Subjective ROS Limited/Unobtainable: Yes Constitutional: Reports: malaise, weakness HEENT: Reports: no symptoms Cardiovascular: Reports: no symptoms Respiratory: Reports: shortness of breath Gastrointestinal/Abdominal: Reports: difficulty swallowing Genitourinary: Reports: no symptoms Neurologic/Psychiatric: Reports: pre-existing deficit Endocrine: Reports: no symptoms Hematologic/Lymphatic: Reports: no symptoms Allergies: Coded Allergies: No Known Allergies (Unverified , 05/26/17) All Systems: reviewed and negative except above Subjective no change. unresponsive. all noted. terminally extubated. Objective Last 24 Hour Vital Signs Date Time Temp Pulse Resp B/P (MAP) Pulse Ox O2 Delivery O2 Flow Rate FiO2 06/14/17 08:00 99.3 119 14 119/69 96 Non-Rebreather 100 06/14/17 07:18 98.6 06/14/17 07:00 120 17 115/60 99 Non-Rebreather 100 06/14/17 06:27 98.6 06/14/17 06:00 124 15 111/61 14 Non-Rebreather 100 06/14/17 05:43 98.6 06/14/17 05:00 124 15 111/61 100 Non-Rebreather 100 06/14/17 04:00 126 06/14/17 04:00 99.0 124 16 119/91 96 Non-Rebreather 100 06/14/17 04:00 13 06/14/17 03:00 131 14 102/53 95 Non-Rebreather 100 06/14/17 02:00 132 14 115/70 94 Non-Rebreather 100 06/14/17 01:00 133 12 115/46 95 Non-Rebreather 100 06/14/17 00:00 132 06/14/17 00:00 98.9 133 12 115/46 95 Non-Rebreather 100 06/14/17 00:00 12 06/13/17 23:00 133 12 110/60 95 Non-Rebreather 100 06/13/17 22:00 134 11 87/50 95 Non-Rebreather 100 06/13/17 21:00 133 12 98/60 95 Non-Rebreather 100 06/13/17 20:00 132 06/13/17 20:00 99.0 132 12 100/60 95 Non-Rebreather 100 06/13/17 19:00 12 06/13/17 19:00 131 06/13/17 18:00 130 06/13/17 17:00 133 06/13/17 16:51 Non-Rebreather 15.0 100 06/13/17 16:00 130 06/13/17 16:00 130 06/13/17 15:00 100.2 120 06/13/17 14:34 99.9 06/13/17 14:34 99.9 06/13/17 14:00 125 06/13/17 13:00 110 28 161/138 97 Mechanical Ventilator 40 06/13/17 13:00 109 165/115 06/13/17 12:00 109 26 165/115 97 Mechanical Ventilator 40 06/13/17 12:00 40 06/13/17 12:00 108 06/13/17 11:00 99.9 108 26 160/120 97 Mechanical Ventilator 40 06/13/17 10:48 106 25 40 06/13/17 10:00 110 30 168/104 96 Mechanical Ventilator 40 06/13/17 09:24 107 24 40 Intake and Output 06/13/17 06/14/17 19:00 07:00 Intake Total 1282.334 ml 50 ml Output Total 1090 ml 1050 ml Balance 192.334 ml -1000 ml IV Total 994.334 ml 50 ml Tube Feeding 288 ml Output Urine Total 1090 ml 1050 ml Height (Feet): 6 Height (Inches): 1.00 Weight (Pounds): 261 Objective General Appearance: WD/WN, lethargic. ngt Neck: supple Cardiovascular: regular rhythm Respiratory/Chest: chest wall non-tender, lungs clear, normal breath sounds Abdomen: normal bowel sounds, non tender, soft, no organomegaly Neurologic: unresponsive Skin: normal pigmentation. no rash JIMBO GLEASON Jun 14, 2017 09:12
--- NOTE | 2017-06-14 23:33 | Cardiology Progress Note ---
Assessment/Plan Assessment/Plan 1. Asystole cardiac arrest due to respiratory failure, regained pulse after 8 minutes, severe anoxic encephalopathy confirmed by EEG. 2. Mild cardiomyopathy with LVEF at 45%, + anteroseptal wall hypokinesia, ? ischemic cardiomyopathy vs drug-induced CM. 3. Elevated troponin level likely due to sepsis/tachycardia/pneumonia, not a pattern for ACS, CP free on admission to ED. 4. Accelerated HTN, keep BP ~150-170 mmHg. 5. Acute respiratory failure, terminally extubated on NRB mask. 6. Substance abuse 7. Obesity 8. Sinus tachycardia, persistent. Subjective Subjective Sinus tachycardia at 133. Comatose. Terminally extubated. Objective Last 24 Hour Vital Signs Date Time Temp Pulse Resp B/P (MAP) Pulse Ox O2 Delivery O2 Flow Rate FiO2 06/14/17 23:30 99.0 06/14/17 20:45 13 06/14/17 20:43 Non-Rebreather 15.0 100 06/14/17 20:43 95 Non-Rebreather 15.0 100 06/14/17 19:00 128 19 142/72 98 Non-Rebreather 95 06/14/17 18:00 126 21 142/68 96 Non-Rebreather 100 06/14/17 18:00 99.8 06/14/17 17:00 129 22 142/68 98 Non-Rebreather 100 06/14/17 16:45 13 06/14/17 16:00 132 23 143/63 96 Non-Rebreather 100 06/14/17 16:00 130 06/14/17 15:00 99.9 128 16 139/58 98 Non-Rebreather 100 06/14/17 14:00 127 18 139/61 99 Non-Rebreather 100 06/14/17 13:00 125 17 138/59 99 Non-Rebreather 100 06/14/17 12:45 13 06/14/17 12:00 123 06/14/17 12:00 99.8 124 18 124/55 100 Non-Rebreather 100 06/14/17 11:00 123 17 123/85 100 Non-Rebreather 100 06/14/17 10:00 119 16 125/62 100 Non-Rebreather 100 06/14/17 09:00 120 14 124/58 100 Non-Rebreather 100 06/14/17 08:45 13 06/14/17 08:00 99.3 119 14 119/69 96 Non-Rebreather 100 06/14/17 08:00 119 06/14/17 07:00 120 17 115/60 99 Non-Rebreather 100 06/14/17 06:27 98.6 06/14/17 06:00 124 15 111/61 14 Non-Rebreather 100 06/14/17 05:00 124 15 111/61 100 Non-Rebreather 100 06/14/17 04:00 126 06/14/17 04:00 99.0 124 16 119/91 96 Non-Rebreather 100 06/14/17 04:00 13 06/14/17 03:00 131 14 102/53 95 Non-Rebreather 100 06/14/17 02:00 132 14 115/70 94 Non-Rebreather 100 06/14/17 01:00 133 12 115/46 95 Non-Rebreather 100 06/14/17 00:00 132 06/14/17 00:00 98.9 133 12 115/46 95 Non-Rebreather 100 06/14/17 00:00 12 Intake and Output 06/13/17 06/14/17 19:00 07:00 Intake Total 1282.334 ml 55 ml Output Total 1090 ml 1050 ml Balance 192.334 ml -995 ml IV Total 994.334 ml 55 ml Tube Feeding 288 ml Output Urine Total 1090 ml 1050 ml 2D Echo: EF 45%, Anteroseptal HK, RVSP 33 mmHg Objective HEENT: Intubated, on mechanical ventilator. NECK: JVP cannot be assessed, No carotid bruit. Carotid upstrokes 2+ bilaterally. CARDIOVASCULAR SYSTEM: Normal S1, S2. Regular rate and rhythm. Tachycardic. No murmurs, gallops, or rubs. PMI is at fourth intercostal space in the midclavicular line. LUNGS: Clear to auscultation bilaterally. ABDOMEN: Soft, nontender, nondistended. No hepatosplenomegaly. Positive bowel sounds. EXTREMITIES: No evidence of edema, clubbing, or cyanosis. CRISTA MURPHY Jun 14, 2017 23:33
[2017-06-15] VITALS (15 sets, daily range): BP systolic 126–167; BP diastolic 64–105
[2017-06-15] MEDS: Morphine Sulfate 10mg/ml Inj IVP SCH ×12 (00:52→12:02)
[2017-06-15] MEDS: PCA Morphine 1mg/ml 30 ML IV PRN ×4 (05:43→21:55)
[2017-06-15] MEDS ORDERED: Morphine Sulfate 2mg/ml Inj ONE (06:49)
[2017-06-15] MEDS: PCA shift volume MISC SCH ×2 (07:11→19:00)
--- NOTE | 2017-06-15 08:37 | Critical Care Progress Note ---
Assessment/Plan Assessment/Plan IMPRESSION ARF - improved rhabdo- resolved CK elevated Liver enzyme- improving elevated troponin Pneumonia with abnormal CT reduced EF migraines s/p CPA acute encephalopathy with possible encephalitis tachycardia leukocytosis abnormal urine tox screen fevers PLAN per family morphine drip terminal care expected Critical Care - Subjective Interval Events: care noted obtunded I&O: Intake and Output 06/14/17 06/15/17 19:00 07:00 Intake Total 60 ml 60 ml Output Total 1545 ml 645 ml Balance -1485 ml -585 ml IV Total 60 ml 60 ml Output Urine Total 1545 ml 645 ml Critical Care - Objective ET-Tube: 7.5 ET Position: 27 Last 24 Hour Vital Signs Date Time Temp Pulse Resp B/P (MAP) Pulse Ox O2 Delivery O2 Flow Rate FiO2 06/15/17 08:28 100.0 06/15/17 08:00 100.0 128 21 165/75 96 Non-Rebreather 100 06/15/17 07:00 126 23 157/86 94 Non-Rebreather 100 06/15/17 06:19 99.0 06/15/17 06:00 127 23 155/77 93 Non-Rebreather 100 06/15/17 05:00 126 22 155/73 92 Non-Rebreather 100 06/15/17 04:45 12 06/15/17 04:00 99.0 123 21 155/73 93 Non-Rebreather 100 06/15/17 04:00 120 06/15/17 03:00 122 19 148/105 94 Non-Rebreather 100 06/15/17 02:00 125 17 146/64 95 Non-Rebreather 100 06/15/17 01:00 124 15 126/86 96 Non-Rebreather 100 06/15/17 00:45 12 06/15/17 00:00 124 06/15/17 00:00 99.2 124 17 144/73 96 Non-Rebreather 100 06/14/17 23:00 124 17 144/68 96 Non-Rebreather 100 06/14/17 22:00 125 18 144/68 96 Non-Rebreather 100 06/14/17 21:00 126 17 134/71 96 Non-Rebreather 100 06/14/17 20:45 13 06/14/17 20:43 Non-Rebreather 15.0 100 06/14/17 20:43 95 Non-Rebreather 15.0 100 06/14/17 20:00 99.0 126 17 153/64 96 Non-Rebreather 95 06/14/17 20:00 127 06/14/17 19:00 128 19 142/72 98 Non-Rebreather 95 06/14/17 18:00 126 21 142/68 96 Non-Rebreather 100 06/14/17 17:00 129 22 142/68 98 Non-Rebreather 100 06/14/17 16:45 13 06/14/17 16:00 132 23 143/63 96 Non-Rebreather 100 06/14/17 16:00 130 06/14/17 15:00 99.9 128 16 139/58 98 Non-Rebreather 100 06/14/17 14:00 127 18 139/61 99 Non-Rebreather 100 06/14/17 13:00 125 17 138/59 99 Non-Rebreather 100 06/14/17 12:45 13 06/14/17 12:00 123 06/14/17 12:00 99.8 124 18 124/55 100 Non-Rebreather 100 06/14/17 11:00 123 17 123/85 100 Non-Rebreather 100 06/14/17 10:00 119 16 125/62 100 Non-Rebreather 100 06/14/17 09:00 120 14 124/58 100 Non-Rebreather 100 06/14/17 08:45 13 Objective: poorly responsive to deep stimuli on face mask vital signs noted MEGAN العلي Jun 15, 2017 08:37
--- NOTE | 2017-06-15 09:06 | General Progress Note ---
Assessment/Plan Problem List: (1) Anoxia ICD Codes: R09.02 - Hypoxemia SNOMED: 60485283 (2) Encephalopathy acute ICD Codes: G93.40 - Encephalopathy, unspecified SNOMED: 2718497 (3) Respiratory distress ICD Codes: R06.03 - Acute respiratory distress SNOMED: 388560271 (4) Renal insufficiency ICD Codes: N28.9 - Disorder of kidney and ureter, unspecified SNOMED: 589402158, 902481987 (5) Rhabdomyolysis ICD Codes: M62.82 - Rhabdomyolysis SNOMED: 096437516, 395828719 Qualifiers: Qualified Codes: M62.82 - Rhabdomyolysis (6) Sepsis ICD Codes: A41.9 - Sepsis, unspecified organism SNOMED: 77081928, 574071185 Qualifiers: Qualified Codes: A41.9 - Sepsis, unspecified organism (7) Pneumonia ICD Codes: J18.9 - Pneumonia, unspecified organism SNOMED: 961520613, 526192742 Qualifiers: Qualified Codes: J18.1 - Lobar pneumonia, unspecified organism (8) Elevated troponin ICD Codes: R74.8 - Abnormal levels of other serum enzymes SNOMED: 149817313, 191109757 Status: deteriorating Assessment/Plan o2 morphine comfort measures Subjective ROS Limited/Unobtainable: Yes Constitutional: Reports: malaise, weakness HEENT: Reports: no symptoms Cardiovascular: Reports: no symptoms Respiratory: Reports: shortness of breath Gastrointestinal/Abdominal: Reports: no symptoms Genitourinary: Reports: no symptoms Neurologic/Psychiatric: Reports: pre-existing deficit Endocrine: Reports: no symptoms Hematologic/Lymphatic: Reports: no symptoms Allergies: Coded Allergies: No Known Allergies (Unverified , 05/26/17) All Systems: reviewed and negative except above Subjective on comfort measures. no events Objective Last 24 Hour Vital Signs Date Time Temp Pulse Resp B/P (MAP) Pulse Ox O2 Delivery O2 Flow Rate FiO2 06/15/17 08:45 12 06/15/17 08:28 100.0 06/15/17 08:00 130 06/15/17 08:00 100.0 128 21 165/75 96 Non-Rebreather 100 06/15/17 07:00 126 23 157/86 94 Non-Rebreather 100 06/15/17 06:19 99.0 06/15/17 06:00 127 23 155/77 93 Non-Rebreather 100 06/15/17 05:00 126 22 155/73 92 Non-Rebreather 100 06/15/17 04:45 12 06/15/17 04:00 99.0 123 21 155/73 93 Non-Rebreather 100 06/15/17 04:00 120 06/15/17 03:00 122 19 148/105 94 Non-Rebreather 100 06/15/17 02:00 125 17 146/64 95 Non-Rebreather 100 06/15/17 01:00 124 15 126/86 96 Non-Rebreather 100 06/15/17 00:45 12 06/15/17 00:00 124 06/15/17 00:00 99.2 124 17 144/73 96 Non-Rebreather 100 06/14/17 23:00 124 17 144/68 96 Non-Rebreather 100 06/14/17 22:00 125 18 144/68 96 Non-Rebreather 100 06/14/17 21:00 126 17 134/71 96 Non-Rebreather 100 06/14/17 20:45 13 06/14/17 20:43 Non-Rebreather 15.0 100 06/14/17 20:43 95 Non-Rebreather 15.0 100 06/14/17 20:00 99.0 126 17 153/64 96 Non-Rebreather 95 06/14/17 20:00 127 06/14/17 19:00 128 19 142/72 98 Non-Rebreather 95 06/14/17 18:00 126 21 142/68 96 Non-Rebreather 100 06/14/17 17:00 129 22 142/68 98 Non-Rebreather 100 06/14/17 16:45 13 06/14/17 16:00 132 23 143/63 96 Non-Rebreather 100 06/14/17 16:00 130 06/14/17 15:00 99.9 128 16 139/58 98 Non-Rebreather 100 06/14/17 14:00 127 18 139/61 99 Non-Rebreather 100 06/14/17 13:00 125 17 138/59 99 Non-Rebreather 100 06/14/17 12:45 13 06/14/17 12:00 123 06/14/17 12:00 99.8 124 18 124/55 100 Non-Rebreather 100 06/14/17 11:00 123 17 123/85 100 Non-Rebreather 100 06/14/17 10:00 119 16 125/62 100 Non-Rebreather 100 Intake and Output 06/14/17 06/15/17 19:00 07:00 Intake Total 60 ml 60 ml Output Total 1545 ml 645 ml Balance -1485 ml -585 ml IV Total 60 ml 60 ml Output Urine Total 1545 ml 645 ml Height (Feet): 6 Height (Inches): 1.00 Weight (Pounds): 260 Objective General Appearance: WD/WN, lethargic. ngt. on NRB Neck: supple Cardiovascular: regular rhythm Respiratory/Chest: chest wall non-tender, lungs clear, normal breath sounds Abdomen: normal bowel sounds, non tender, soft, no organomegaly Neurologic: unresponsive Skin: normal pigmentation. no rash JIMBO GLEASON Jun 15, 2017 09:06
--- NOTE | 2017-06-15 12:22 | Infectious Diseases Prog Note ---
Assessment/Plan Assessment/Plan antibiotics : none patient on comfort measures will sign off thank you Subjective Allergies: Coded Allergies: No Known Allergies (Unverified , 05/26/17) Objective Vital Signs Last 24 Hour Vital Signs Date Time Temp Pulse Resp B/P (MAP) Pulse Ox O2 Delivery O2 Flow Rate FiO2 06/15/17 12:00 99.7 125 13 135/75 97 Non-Rebreather 100 06/15/17 11:21 99.8 06/15/17 11:00 127 15 153/82 96 Non-Rebreather 100 06/15/17 10:00 128 15 167/75 95 Non-Rebreather 93 06/15/17 09:00 128 21 167/75 94 Non-Rebreather 93 06/15/17 08:45 12 06/15/17 08:00 130 06/15/17 08:00 100.0 128 21 165/75 96 Non-Rebreather 100 06/15/17 07:00 126 23 157/86 94 Non-Rebreather 100 06/15/17 06:19 99.0 06/15/17 06:00 127 23 155/77 93 Non-Rebreather 100 06/15/17 05:00 126 22 155/73 92 Non-Rebreather 100 06/15/17 04:45 12 06/15/17 04:00 99.0 123 21 155/73 93 Non-Rebreather 100 06/15/17 04:00 120 06/15/17 03:00 122 19 148/105 94 Non-Rebreather 100 06/15/17 02:00 125 17 146/64 95 Non-Rebreather 100 06/15/17 01:00 124 15 126/86 96 Non-Rebreather 100 06/15/17 00:45 12 06/15/17 00:00 124 06/15/17 00:00 99.2 124 17 144/73 96 Non-Rebreather 100 06/14/17 23:00 124 17 144/68 96 Non-Rebreather 100 06/14/17 22:00 125 18 144/68 96 Non-Rebreather 100 06/14/17 21:00 126 17 134/71 96 Non-Rebreather 100 06/14/17 20:45 13 06/14/17 20:43 Non-Rebreather 15.0 100 06/14/17 20:43 95 Non-Rebreather 15.0 100 06/14/17 20:00 99.0 126 17 153/64 96 Non-Rebreather 95 06/14/17 20:00 127 06/14/17 19:00 128 19 142/72 98 Non-Rebreather 95 06/14/17 18:00 126 21 142/68 96 Non-Rebreather 100 06/14/17 17:00 129 22 142/68 98 Non-Rebreather 100 06/14/17 16:45 13 06/14/17 16:00 132 23 143/63 96 Non-Rebreather 100 06/14/17 16:00 130 06/14/17 15:00 99.9 128 16 139/58 98 Non-Rebreather 100 06/14/17 14:00 127 18 139/61 99 Non-Rebreather 100 06/14/17 13:00 125 17 138/59 99 Non-Rebreather 100 06/14/17 12:45 13 Height (Feet): 6 Height (Inches): 1.00 Weight (Pounds): 260 Current Medications Medications (Trade) Dose Ordered Sig/Brittny Route PRN Reason Start Time Stop Time Status Last Admin Dose Admin Lorazepam (Ativan 2mg/ml 1ml) 2 mg EVERY HOUR PRN IV RESTLESSNESS 06/13/17 14:00 06/20/17 13:59 06/13/17 15:05 Miscellaneous Medication (CLINICAL QUALITY ASSURANCE ASSOCIATE Rate Change) 1 ea DAILY PRN MISC rate change 06/13/17 16:00 07/13/17 15:59 Miscellaneous Medication (CLINICAL QUALITY ASSURANCE ASSOCIATE shift volume) 1 ea Q12HR@0700,1900 MISC 06/13/17 19:00 07/13/17 18:59 06/15/17 07:11 Morphine Sulfate 30 ml @ 5 mls/hr Q24H PRN IV Comfort Measures 06/13/17 17:00 07/13/17 16:59 06/15/17 12:02 Morphine Sulfate (Morphine Sulfate) 2 mg Q1H PRN IVP Resp.Distress/Agonal breathing 06/13/17 18:30 06/20/17 18:29 06/13/17 18:48 Morphine Sulfate (Morphine Sulfate) 6 mg Q1H IVP 06/14/17 06:45 06/20/17 18:29 06/15/17 12:02 CHET DURAN Jun 15, 2017 12:22
[2017-06-15] MEDS ORDERED: PCA Morphine 1mg/ml 30 ML IV PRN (12:30)
[2017-06-15] MEDS ORDERED: Morphine Sulfate 10mg/ml Inj IVP SCH (13:45)
[2017-06-15] MEDS ORDERED: LORazepam Inj 2mg/ml 1ml IV PRN (14:00)
[2017-06-15] MEDS ORDERED: Morphine Sulfate 2mg/ml Inj IVP PRN (14:30)
[2017-06-15] MEDS: Morphine Sulfate 4mg/ml Inj IVP SCH ×4 (14:45→20:00)
[2017-06-15] MEDS ORDERED: Sterile Water Irrig 1000ml IRRIG ONE (19:26)
[2017-06-15] MEDS ORDERED: NS 500ML ONE (19:26)
[2017-06-15] MEDS ORDERED: 1/2 NS 1000ml IV ONE (19:26)
[2017-06-15] MEDS ORDERED: D5W 275ml ONE (20:10)
[2017-06-15] MEDS ORDERED: Tubing IV Secondary IV ONE ×2 (20:10)
--- NOTE | 2017-06-15 23:57 | Cardiology Progress Note ---
Assessment/Plan Assessment/Plan 1. Asystole cardiac arrest due to respiratory failure, regained pulse after 8 minutes, severe anoxic encephalopathy confirmed by EEG. Now comfort care, on morphine gtt. 2. Mild cardiomyopathy with LVEF at 45%, + anteroseptal wall hypokinesia, ? ischemic cardiomyopathy vs drug-induced CM. 3. Elevated troponin level likely due to sepsis/tachycardia/pneumonia, not a pattern for ACS, CP free on admission to ED. 4. Accelerated HTN, resolved. 5. Acute respiratory failure, terminally extubated on NRB mask. 6. Substance abuse 7. Obesity 8. Sinus tachycardia, persistent. Subjective Subjective Sinus tachycardia at 148, although not on the telemetry unit. Transferred out of the ICU after terminally extubated. On morphine gtt, palliative care only. Comatose. Objective Last 24 Hour Vital Signs Date Time Temp Pulse Resp B/P (MAP) Pulse Ox O2 Delivery O2 Flow Rate FiO2 06/15/17 21:57 20 06/15/17 20:45 20 06/15/17 20:37 102.6 148 20 138/84 18 148 148 06/15/17 19:39 102.6 06/15/17 19:39 102.6 06/15/17 17:00 20 06/15/17 16:00 Non-Rebreather 100 06/15/17 16:00 100.9 77 20 133/67 92 134 06/15/17 13:00 20 06/15/17 12:32 99.8 06/15/17 12:32 99.8 06/15/17 12:00 99.7 125 13 135/75 97 Non-Rebreather 100 06/15/17 11:00 127 15 153/82 96 Non-Rebreather 100 06/15/17 10:00 128 15 167/75 95 Non-Rebreather 93 06/15/17 09:00 128 21 167/75 94 Non-Rebreather 93 06/15/17 08:45 12 06/15/17 08:00 130 06/15/17 08:00 100.0 128 21 165/75 96 Non-Rebreather 100 06/15/17 07:00 126 23 157/86 94 Non-Rebreather 100 06/15/17 06:00 127 23 155/77 93 Non-Rebreather 100 06/15/17 05:00 126 22 155/73 92 Non-Rebreather 100 06/15/17 04:45 12 06/15/17 04:00 99.0 123 21 155/73 93 Non-Rebreather 100 06/15/17 04:00 120 06/15/17 03:00 122 19 148/105 94 Non-Rebreather 100 06/15/17 02:00 125 17 146/64 95 Non-Rebreather 100 06/15/17 01:00 124 15 126/86 96 Non-Rebreather 100 06/15/17 00:45 12 06/15/17 00:00 124 06/15/17 00:00 99.2 124 17 144/73 96 Non-Rebreather 100 Intake and Output 06/14/17 06/15/17 19:00 07:00 Intake Total 60 ml 60 ml Output Total 1545 ml 645 ml Balance -1485 ml -585 ml IV Total 60 ml 60 ml Output Urine Total 1545 ml 645 ml 2D Echo: EF 45%, Anteroseptal HK, RVSP 33 mmHg Objective HEENT: On non-rebreather mask. NECK: JVP cannot be assessed, No carotid bruit. Carotid upstrokes 2+ bilaterally. CARDIOVASCULAR SYSTEM: Normal S1, S2. Regular rate and rhythm. Tachycardic. No murmurs, gallops, or rubs. PMI is at fourth intercostal space in the midclavicular line. LUNGS: Clear to auscultation bilaterally. ABDOMEN: Soft, nontender, nondistended. No hepatosplenomegaly. Positive bowel sounds. EXTREMITIES: No evidence of edema, clubbing, or cyanosis. CRISTA MURPHY Jun 15, 2017 23:57
[2017-06-16] MEDS: Morphine Sulfate 4mg/ml Inj IVP SCH ×12 (00:40→21:25)
[2017-06-16] MEDS: PCA Morphine 1mg/ml 30 ML IV PRN ×5 (01:49→21:38)
[2017-06-16 02:41] VITALS: BP 166/82
[2017-06-16 03:42] VITALS: BP 143/59
[2017-06-16 04:32] VITALS: BP 159/80
[2017-06-16] MEDS: PCA shift volume MISC SCH ×2 (06:52→19:00)
[2017-06-16] MEDS ORDERED: Rate Change PCA 1 Each MISC PRN (09:00)
[2017-06-16 12:00] VITALS: BP 148/75
--- NOTE | 2017-06-16 12:08 | Critical Care Progress Note ---
Assessment/Plan Assessment/Plan IMPRESSION ARF - improved rhabdo- resolved CK elevated Liver enzyme- improving elevated troponin Pneumonia with abnormal CT reduced EF migraines s/p CPA acute encephalopathy with possible encephalitis tachycardia leukocytosis abnormal urine tox screen fevers PLAN per family morphine drip terminal care expected Critical Care - Subjective Interval Events: d/w nursing and mother doing poorly I&O: Intake and Output 06/15/17 06/16/17 18:59 06:59 Intake Total 30 ml Output Total 960 ml 900 ml Balance -930 ml -900 ml IV Total 30 ml Output Urine Total 960 ml 900 ml Critical Care - Objective ET-Tube: 7.5 ET Position: 27 Last 24 Hour Vital Signs Date Time Temp Pulse Resp B/P (MAP) Pulse Ox O2 Delivery O2 Flow Rate FiO2 06/16/17 09:26 102.2 06/16/17 07:00 22 06/16/17 06:11 102.4 06/16/17 04:45 22 06/16/17 04:32 102.4 156 20 159/80 76 Bi-pap 155 155 06/16/17 03:42 Room Air 06/16/17 02:41 102.4 154 16 166/82 68 Room Air 157 154 06/16/17 00:45 18 06/15/17 21:57 20 06/15/17 21:29 Non-Rebreather 15.0 100 06/15/17 21:29 96 Non-Rebreather 15.0 100 06/15/17 20:45 20 06/15/17 20:37 102.6 148 20 138/84 18 148 148 06/15/17 17:00 20 06/15/17 16:00 Non-Rebreather 100 06/15/17 16:00 100.9 77 20 133/67 92 134 06/15/17 13:00 20 06/15/17 12:32 99.8 06/15/17 12:32 99.8 Objective: poorly responsive to deep stimuli on face mask vital signs noted MEGAN العلي Jun 16, 2017 12:08
[2017-06-16 16:00] VITALS: BP 144/95
[2017-06-16 20:00] VITALS: BP 115/62
[2017-06-17] MEDS ORDERED: NS 275ml ONE (01:59)
--- NOTE | 2017-06-18 11:17 | Discharge Summary ---
Discharge Summary Hospital Course Date of Admission May 26, 2017 at 19:22 Date of Discharge Jun 17, 2017 at 02:00 Admitting Diagnosis pneumonia/sob HPI Jay James is a 27 year old male who was admitted on May 26, 2017 at 19:22 for Pneumonia/Shortness Of Breath Hospital Course summary #[id number] Discharge Discharge Disposition Patient Discharge Diagnoses: Discharge Instructions Discharge Instructions Special Instructions I have been assigned to complete a D/C Summary on this account. I was not involved in the patient management Malinda Odonnell NP ([place]) Jun 18, 2017 11:17
--- NOTE | 2017-06-18 21:00 | Discharge Summary 2 SIG ---
SUMMARY DATE OF ADMISSION: 05/26/2017 DATE OF EXPIRATION: 06/17/2017 REASON FOR ADMISSION: 27-year-old male initially presented to emergency department for evaluation of shortness of breath. He was found to be hypoxic and tachycardic. Laboratory workup revealed leukocytosis, lactic acid -6.8, BUN -31, and creatinine- 2.7. CK -12,066. Troponin- 0.326. Chest x-ray revealed left upper lobe infiltrate. EKG revealed sinus tachycardia. No acute ischemic changes. The patient was started on septic protocol. The patient was admitted initially to telemetry with diagnoses of sepsis, pneumonia, rhabdomyolysis, elevated troponin, respiratory distress, and acute renal failure. HOSPITAL COURSE: The patient was admitted. The patient was followed up by talent acquisition director, ID, GI, and patch worker. CT of the abdomen and pelvis revealed no acute abdominal or pelvic abnormalities, showed bilateral pulmonary parenchymal nodular and ground-glass infiltrates, reflecting pneumonia versus congestive heart failure, borderline cardiomegaly, fatty liver, and diverticulosis without diverticulitis. Renal ultrasound revealed no evidence of hydronephrosis. Echocardiogram revealed mild cardiomyopathy with ejection fraction of 40% to 45%, global left ventricular hypokinesis, mild anterior septal akinesis, and right ventricular systolic pressure of 33. The patient was on supplemental oxygen. Pulmonary toilet was provided as needed. The patient was on antibiotic. Initial blood cultures were negative. Influenza screen test was negative. The patient was followed up with chest x-ray. Serial troponin were followed. Per patch worker, troponin elevation was likely secondary to sepsis, tachycardia, pneumonia; not a pattern typical for acute coronary syndrome, besides chest pain was not present on admission. Troponin initially from 0.326 up to 0.972 and then started to trend down. Last one - 0.230. The patient was on IV fluids. Renal parameters and electrolytes were closely monitored. Electrolytes were corrected as needed. CK was trending down along with LFT. Hepatitis panel was negative. Urine screen done on 05/30/2017 was positive for opiates, barbiturates, and marijuana. On 06/01/2017, the patient suffered from cardiac arrest, Code Blue initiated. The patient was subsequently intubated and transferred to ICU for further management. During transferring, white powder substance was found in the patient's belonging. Repeated urine toxicology screen was still positive for opiates, barbiturates, and marijuana. ABG after intubation showed severe acidosis with pH - 7.191 and pCO2 - 65. Ventilator support and pulmonary toilet were provided. Settings were titrated as needed. ICU care was provided. The patient was continued on antibiotics. Sputum culture showed Maria C. Urine culture was negative. Repeated blood culture on 06/02/2017, due to severe leukocytosis on 06/01/2017, revealed Staph epidermidis. Repeated blood culture on 06/07/2017, showed Staph coagulase-negative. Repeated urine culture was still negative and repeated sputum culture again revealed Maria C. The patient with persistent leukocytosis, the highest on 06/01/2017 (day of intubation)- 24.3. However leukocytosis was continued along with fever. Neurology consult was requested for persistent altered mental status after intubation. Neurologist wanted to rule out viral syndrome, meningitis, and encephalitis. The patient started on anticonvulsant treatment prophylactically. Ammonia level stable. CT of the head, which was done on day of intubation showed no evidence of acute intracranial pathology. Followup CT of head on 06/06/2017 revealed diffuse extensive cerebral edema, suggesting abnormal hypoxic ischemic injury/anoxic brain injury. EEG was done on 06/04/2017, and revealed low-voltage poorly reactive background activity with poor prognostic value indicating severe global cerebral dysfunction. Due to the findings of extensive cerebral edema, neurologist recommended supportive care, hyperventilation, recommended to keep systolic blood pressure above 160 and below 200, and concluded that the patient prognosis was guarded. Echocardiogram revealed ejection fraction of 40- 45% with anteroseptal wall hypokinesia. Per patch worker, cardiomyopathy could be either ischemic or likely drug- induced. Acute kidney injury resolved with IV fluids. CK down to 143. LFT were trending down. The patient was started on PPI. Bowel regimen was instituted. Nutritional support was provided via NG tube. All consultants were closely followed. Unfortunately, the patient's condition continued to deteriorate without improvement. Repeated CT of the head still showed cerebral edema, although less diffuse. The patient continued to have persistent leukocytosis and was comatose. Second neurology opinion was obtained, who concurred with prior neurologist statements. and concluded that the patient's history, neurological examination, laboratory data, CT scan findings, and EEG were most compatible with severe anoxic ischemic cerebral injury following a relatively prolonged cardiopulmonary arrest. The prognosis for recovery of full neurological function was not favorable. The patient's grave prognosis was discussed with the family. Family decided on terminal care. The patient was subsequently terminally extubated, placed on 100% nonrebreathing mask, and was started on comfort care with morphine drip. The patient was pronounced on 06/16/2017 at 2300 hours. Cause of : cardiopulmonary arrest. FINAL DIAGNOSES: 1. Status post cardiac arrest. 2. Sepsis with bacteremia, Staphylococcus epidermidis, Staphylococcus coagulase-negative. 3. Acute respiratory failure, requiring intubation. 4. Status post terminal extubation. 5. Leukocytosis, persistent. 6. Acute renal failure, resolved. 7. Rhabdomyolysis, resolved. 8. Anoxic encephalopathy syndrome with severe anoxic encephalopathy 9. Mild cardiomyopathy with ejection fraction of 40% to 45%. 10. Possible ischemic cardiomyopathy. 11. Possible drug-induced cardiomyopathy. 12. Elevated troponin (secondary to sepsis, tachycardia, pneumonia). 13. Elevated liver enzymes. 14. Substance abuse. Stu Tang M.D. I have been assigned to dictate discharge summary on this account and I was not involved in the patient's management. Malinda Loeralaureano N.P. DR: MARKUS JOB#: [id number] CC: SARAH
== END 2017-06-17 02:00 | disposition expired | DRG 870 ==
LOC: EDBD 17:37 → EMR 17:55 → 2E 19:22 → EDBEDREQ 21:25 → ICU 06-01 04:26 → 4W 06-15 14:00
DX: A41.1 Sepsis due to other specified staphylococcus (principal); J96.01 Acute respiratory failure with hypoxia; K72.01 Acute and subacute hepatic failure with coma; J18.9 Pneumonia, unspecified organism; G93.41 Metabolic encephalopathy; G93.1 Anoxic brain damage, not elsewhere classified; I11.0 Hypertensive heart disease with heart failure; N17.9 Acute kidney failure, unspecified; I50.22 Chronic systolic (congestive) heart failure; E87.2 Acidosis; M62.82 Rhabdomyolysis; R04.2 Hemoptysis; F11.20 Opioid dependence, uncomplicated; I42.7 Cardiomyopathy due to drug and external agent; Z66 Do not resuscitate; Z51.5 Encounter for palliative care; I25.5 Ischemic cardiomyopathy; R74.0 Nonspecific elevation of levels of transaminase and lactic acid dehydrogenase [LDH]; K76.0 Fatty (change of) liver, not elsewhere classified; G43.909 Migraine, unspecified, not intractable, without status migrainosus; E66.9 Obesity, unspecified; K57.90 Diverticulosis of intestine, part unspecified, without perforation or abscess without bleeding; I46.9 Cardiac arrest, cause unspecified; K59.00 Constipation, unspecified; F17.210 Nicotine dependence, cigarettes, uncomplicated; Z68.35 Body mass index [BMI] 35.0-35.9, adult
CPT/HCPCS: 36415; 36600; 70450; 71010; 71045; 71250; 74018; 74176; 76775; 80048; 80053; 80061; 80202; 80301; 80307; 81001; 81003; 82140; 82248; 82550; 82553; 82570; 82803; 83605; 83690; 83735; 83880; 84300; 84478; 84484; 85007; 85025; 85610; 85651; 85730; 86039; 86140; 86703; 86705; 86709; 86710; 86803; 87040; 87070; 87081; 87086; 87181; 87205; 87340; 89050; 92950; 93005; 93306; 93970; 94002; 94003; 94640; 94664; 94760; 95819; 99285; J7620; J8499